=== PATIENT | female | born 1945 ===

== ENCOUNTER 2017-03-16 01:25 | Inpatient (IN) | payer MEDICARE, MEDICAID ==
[~2017-03-16] VITALS: Ht 161.3 cm; Wt 79.5 kg
[2017-03-16] MEDS ORDERED: BUDE10.2 IH (02:26)
[2017-03-16] MEDS ORDERED: ERGO500027 PO (02:26)
[2017-03-16] MEDS ORDERED: BUSP10TA PO (02:26)
[2017-03-16] MEDS ORDERED: TRAZ50TA15 PO (02:26)
[2017-03-16] MEDS ORDERED: MULT1TAB57 PO (02:26)
[2017-03-16] MEDS ORDERED: DULO30CA2 PO (02:26)
[2017-03-16] MEDS ORDERED: TIOT4MIS2 IH (02:26)
[2017-03-16] MEDS ORDERED: ACET500T68 PO ×2 (02:26)
[2017-03-16] MEDS ORDERED: LORA0.5T PO (02:26)
[2017-03-16] MEDS ORDERED: HYDR25TA9 PO (02:26)
[2017-03-16] MEDS ORDERED: MAGN400O7 PO (02:26)
[2017-03-16] MEDS ORDERED: FOLI1TAB16 PO (02:26)
[2017-03-16] MEDS ORDERED: BENZ0.5T PO (02:26)
[2017-03-16] MEDS ORDERED: ONDA4TAB7 PO (02:26)
[2017-03-16] MEDS ORDERED: CYAN10002 IM (02:26)
[2017-03-16] MEDS ORDERED: METHYL SALICYLATE/MENTHOL TOPICAL OINTMENT 29GM TUBE. TP PRN (04:00)
[2017-03-16] MEDS ORDERED: MAG HYDROX/AL HYDROX/SIMETH 30 ML ORAL.SUSP PO PRN (04:00)
[2017-03-16] MEDS ORDERED: MAGNESIUM HYDROXIDE 2,400 MG/30 ML ORAL.SUSP. PO PRN (04:00)
[2017-03-16] MEDS ORDERED: LORazepam 0.5 MG TABLET PO PRN (04:00)
[2017-03-16] MEDS ORDERED: ONDANSETRON ODT 4 MG TAB.RAPDIS PO PRN (04:30)
--- NOTE | 2017-03-16 06:14 | EKG ---
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
[2017-03-16 06:32] VITALS: BP 122/64
[2017-03-16] MEDS: BUDESONIDE 0.5 MG/2 ML NEBU NEB SCH ×2 (08:00→20:05)
[2017-03-16] MEDS: IPRATRPIUM/ALBUTEROL 0.5/2.5MG 3 ML NEBU. NEB SCH ×4 (08:00→20:05)
[2017-03-16 08:02] LABS: BASO % 1 % (0-3); EOS # 0.1 x10^3/uL (0.0-0.7); EOS % 1 % (0-3); HEMATOCRIT 41.6 % (36.0-47.0); HEMOGLOBIN 14.5 g/dL (12.0-15.5); LYMPH # 2.1 x10^3/uL (1.0-4.8); LYMPH % 35 % (24-48); MEAN CORPUSCULAR HEMOGLOBIN 31 pg (25-35); MEAN CORPUSCULAR HGB CONC 35 g/dL (31-37); MEAN CORPUSCULAR VOLUME 88 fL (79-100); MONO # 0.5 x10^3/uL (0.0-1.1); MONO % 8 % (0-9); NEUT # 3.3 x10^3uL (1.8-7.7); NEUT % 55 % (31-73); PLATELET COUNT 155 x10^3/uL (140-400); RED BLOOD COUNT 4.71 x10^6/uL (3.50-5.40); RED CELL DISTRIBUTION WIDTH 14.1 % (11.5-14.5)
[2017-03-16 08:14] LABS: ALBUMIN 3.4 g/dL (3.4-5.0); ALBUMIN/GLOBULIN RATIO 1.1 (1.0-1.7); CREATININE 0.7 mg/dL (0.6-1.0); MAGNESIUM 1.9 mg/dL (1.8-2.4); POTASSIUM 4.1 mmol/L (3.5-5.1); TOTAL BILIRUBIN 0.4 mg/dL (0.2-1.0); TOTAL PROTEIN 6.6 g/dL (6.4-8.2)
[2017-03-16] MEDS ORDERED: DULoxetine HCL 30 MG CAPSULE.DR PO SCH (09:00)
[2017-03-16] MEDS ORDERED: NON FORMULARY ITEM (Budesonide/Formoterol Fumarate (Symbicort 160-4.5 Mcg Inhaler) 2 PUFF) IH SCH (09:00)
[2017-03-16] MEDS ORDERED: NON FORMULARY ITEM (Tiotropium Bromide (Spiriva Respimat) 2.5 MCG) IH SCH (09:00)
[2017-03-16] MEDS: MULTIVITAMIN with MINERAL TABLET. PO SCH (10:16)
[2017-03-16] MEDS: BENZTROPINE MESYLATE 0.5 MG TABLET PO SCH ×2 (10:16→19:58)
[2017-03-16] MEDS: hydroCHLOROthiazide 25 MG TABLET PO SCH (10:16)
[2017-03-16] MEDS: NICOTINE 21MG PATCH. TD SCH (10:16)
[2017-03-16] MEDS: FOLIC ACID 1 MG TABLET PO SCH (10:16)
[2017-03-16] MEDS: busPIRone 10 MG TABLET. PO SCH ×3 (10:16→19:58)
[2017-03-16] MEDS: ACETAMINOPHEN 325 MG TABLET PO PRN (13:12)
[2017-03-16 14:14] LABS: BACTERIA,URINE 0 /HPF (0-FEW); BILIRUBIN,URINE NEG (NEG); CLARITY,URINE CLEAR; COLOR,URINE YELLOW; GLUCOSE,URINE NEG (NEG); NITRITE,URINE NEG (NEG); RBC,URINE 0 /HPF (0-2); UROBILINOGEN,URINE 0.2 mg/dL (0.2 mg/dL); WBC,URINE 0 /HPF (0-4)
[2017-03-16 14:15] LABS: SQUAMOUS EPITHELIAL CELL,UR OCC /LPF
[2017-03-16 14:26] LABS: THYROID STIM HORMONE (TSH) 2.207 uIU/mL (0.358-3.740)
[2017-03-16 16:12] VITALS: BP 167/82
[2017-03-16 16:41] VITALS: BP 154/80
[2017-03-16] MEDS: traZODone 50 MG TABLET. PO SCH (19:58)
[2017-03-16] MEDS: ACETAMINOPHEN 500 MG TABLET PO SCH (19:58)
[2017-03-16] MEDS: QUEtiapine 50 MG TABLET. PO SCH (19:58)
[2017-03-16 20:08] LABS: T3 TOTAL 105 ng/dL (71-180); THYROXINE 5.3 ug/dL (4.5-12.0)
--- NOTE | 2017-03-16 22:07 | PDOC ---
Exam Doug Demential Exam: Doug Note: Please also refer to the separate dictated note~for this date of service dictated separately.~Patient seen individually. Discussed the patient with Nursing staff reviewed the chart.~Reviewed interim history and current functioning. Reviewed vital signs,~Labs/ Radiology~and current medications noted below. Continue current treatment with the changes noted in the dictated addendum note Assessment: Vital Signs: Vital Signs Date Time Temp Pulse Resp B/P (MAP) Pulse Ox O2 Delivery O2 Flow Rate FiO2 03/16/17 20:08 Room Air 03/16/17 20:05 97 03/16/17 16:41 97.9 111 16 154/80 (104) 03/16/17 06:32 96.0 I&O Intake and Output 03/17/17 07:00 Intake Total 1080 ml Balance 1080 ml Intake Oral 1080 ml Labs: Laboratory Tests Test 03/16/17 07:05 03/16/17 13:34 White Blood Count 6.0 x10^3/uL (4.0-11.0) Red Blood Count 4.71 x10^6/uL (3.50-5.40) Hemoglobin 14.5 g/dL (12.0-15.5) Hematocrit 41.6 % (36.0-47.0) Mean Corpuscular Volume 88 fL (79-100) Mean Corpuscular Hemoglobin 31 pg (25-35) Mean Corpuscular Hemoglobin Concent 35 g/dL (31-37) Red Cell Distribution Width 14.1 % (11.5-14.5) Platelet Count 155 x10^3/uL (140-400) Neutrophils (%) (Auto) 55 % (31-73) Lymphocytes (%) (Auto) 35 % (24-48) Monocytes (%) (Auto) 8 % (0-9) Eosinophils (%) (Auto) 1 % (0-3) Basophils (%) (Auto) 1 % (0-3) Neutrophils # (Auto) 3.3 x10^3uL (1.8-7.7) Lymphocytes # (Auto) 2.1 x10^3/uL (1.0-4.8) Monocytes # (Auto) 0.5 x10^3/uL (0.0-1.1) Eosinophils # (Auto) 0.1 x10^3/uL (0.0-0.7) Basophils # (Auto) 0.0 x10^3/uL (0.0-0.2) Sodium Level 133 mmol/L (136-145) L Potassium Level 4.1 mmol/L (3.5-5.1) Chloride Level 98 mmol/L (98-107) Carbon Dioxide Level 30 mmol/L (21-32) Anion Gap 5 (6-14) L Blood Urea Nitrogen 16 mg/dL (7-20) Creatinine 0.7 mg/dL (0.6-1.0) Estimated GFR (Cockcroft-Gault) 83.0 BUN/Creatinine Ratio 23 (6-20) H Glucose Level 101 mg/dL (70-99) H Hemoglobin A1c 5.0 % (4.8-5.6) Calcium Level 9.0 mg/dL (8.5-10.1) Magnesium Level 1.9 mg/dL (1.8-2.4) Iron Level 63 ug/dL (50-170) Total Iron Binding Capacity 356 ug/dL (250-450) Iron Saturation 18 % (15-34) Total Bilirubin 0.4 mg/dL (0.2-1.0) Aspartate Amino Transferase (AST) 16 U/L (15-37) Alanine Aminotransferase (ALT) 23 U/L (14-59) Alkaline Phosphatase 56 U/L (46-116) Total Protein 6.6 g/dL (6.4-8.2) Albumin 3.4 g/dL (3.4-5.0) Albumin/Globulin Ratio 1.1 (1.0-1.7) Triglycerides Level 278 mg/dL (0-150) H Cholesterol Level 206 mg/dL (0-200) H LDL Cholesterol, Calculated 113 mg/dL (0-100) H VLDL Cholesterol, Calculated 55 mg/dL (0-40) H Non-HDL Cholesterol Calculated 168 mg/dL (0-129) H HDL Cholesterol 38 mg/dL (40-60) L Cholesterol/HDL Ratio 5.0 Vitamin B12 Level 657 pg/mL (247-911) 25-Hydroxy Vitamin D Total Pending Thyroid Stimulating Hormone (TSH) 2.207 uIU/mL (0.358-3.740) Thyroxine (T4) 5.3 ug/dL (4.5-12.0) Total Triiodothyronine (TT3) 105 ng/dL (71-180) RPR Titer Additional Testing Pending Urine Collection Type Void Urine Color Yellow Urine Clarity Clear Urine pH 6.0 Urine Specific [place] 1.015 Urine Protein Neg (NEG-TRACE) Urine Glucose (UA) Neg mg/dL (NEG) Urine Ketones (Stick) Neg mg/dL (NEG) Urine Blood Neg (NEG) Urine Nitrite Neg (NEG) Urine Bilirubin Neg (NEG) Urine Urobilinogen Dipstick 0.2 mg/dL (0.2 mg/dL) Urine Leukocyte Esterase Neg (NEG) Urine RBC 0 /HPF (0-2) Urine WBC 0 /HPF (0-4) Urine Squamous Epithelial Cells Occ /LPF Urine Bacteria 0 /HPF (0-FEW) Current Medications: Meds: Current Medications Acetaminophen (Tylenol) 650 mg PRN Q6HRS PRN PO MILD PAIN / TEMP Last administered on 03/16/17 13:12; Start 03/16/17 at 04:00 Multi-Ingredient Ointment (Analgesic [place]) 1 markus PRN QID PRN TP MUSCLE PAIN; Start 03/16/17 at 04:00 Al Hydroxide/Mg Hydroxide (Mylanta Plus Xs) 15 ml PRN AFTMEALHC PRN PO DYSPEPSIA; Start 03/16/17 at 04:00 Magnesium Hydroxide (Milk Of Magnesia) 2,400 mg PRN QHS PRN PO CONSTIPATION; Start 03/16/17 at 04:00 Nicotine (Nicoderm Cq 21mg) 1 patch DAILY TD Last administered on 03/16/17 10: 16; Start 03/16/17 at 09:00 Benztropine Mesylate (Cogentin) 0.5 mg BID PO Last administered on 03/16/17 19 :58; Start 03/16/17 at 09:00 Buspirone HCl (Buspar) 10 mg TID PO Last administered on 03/16/17 19:58; Start 03/16/17 at 09:00 Duloxetine HCl (Cymbalta) 30 mg BID PO Last administered on 03/16/17 10:16; Start 03/16/17 at 09:00; Stop 03/16/17 at 18:42; Status DC Lorazepam (Ativan) 0.5 mg PRN Q6HRS PRN PO ANXIETY / AGITATION; Start 03/16/17 at 04:00 Trazodone HCl (Desyrel) 50 mg QHS PO Last administered on 03/16/17 19:58; Start 03/16/17 at 21:00 Acetaminophen (Tylenol) 1,000 mg QHS PO Last administered on 03/16/17 19:58; Start 03/16/17 at 21:00 Cyanocobalamin (Vitamin B-12) 1,000 mcg QMONTH IM ; Start 04/07/17 at 09:00 Folic Acid (Folic Acid) 1 mg DAILY PO Last administered on 03/16/17 10:16; Start 03/16/17 at 09:00 Hydrochlorothiazide (Hydrodiuril) 25 mg DAILY PO Last administered on 10:16; Start 03/16/17 at 09:00 Non-Formulary Medication 2 puff BID IH ; Start 03/16/17 at 09:00; Status UNV Vitamin D (Vitamin D3) 50,000 unit WEEKLY PO ; Start 03/21/17 at 09:00 Multivitamins/ Calcium (Thera-M Plus) 1 tab DAILY PO Last administered on 10:16; Start 03/16/17 at 09:00 Ondansetron HCl (Zofran Odt) 4 mg PRN Q8HRS PRN PO NAUSEA/VOMITING; Start 03/16 at 04:30 Non-Formulary Medication 2.5 mcg DAILY IH ; Start 03/16/17 at 09:00; Status UNV Albuterol/ Ipratropium (Duoneb) 3 ml RTQID NEB Last administered on 03/16/17 20:05; Start 03/16/17 at 08:00 Budesonide (Pulmicort) 0.5 mg RTBID NEB Last administered on 03/16/17 20:05; Start 03/16/17 at 08:00 Duloxetine HCl (Cymbalta) 60 mg DAILY PO ; Start 03/17/17 at 09:00 Quetiapine Fumarate (SEROquel) 50 mg QHS PO Last administered on 03/16/17 19: 58; Start 03/16/17 at 21:00 Active Scripts Active Reported Cyanocobalamin Injection (Cyanocobalamin (Vitamin B-12)) 1,000 Mcg/1 Ml Vial 1, 000 Mcg IM QMONTH Trazodone Hcl 50 Mg Tablet 50 Mg PO QHS Buspirone Hcl 10 Mg Tablet 10 Mg PO TID Acetaminophen 500 Mg Tablet 1,000 Mg PO QHS Therems-M (Multivits, W-Fe,Other Min) 1 Each Tablet 1 Tab PO BID Symbicort 160-4.5 Mcg Inhaler (Budesonide/Formoterol Fumarate) 10.2 Gm Hfa.aer.ad 2 Puff IH BID Cymbalta (Duloxetine Hcl) 30 Mg Capsule.dr 30 Mg PO BID Benztropine Mesylate 0.5 Mg Tablet 0.5 Mg PO BID Zofran (Ondansetron Hcl) 4 Mg Tablet 4 Mg PO PRN Q8HRS PRN Milk Of Magnesia (Magnesium Hydroxide) 400 Mg/5 Ml Oral.susp 2,400 Mg PO PRN DAILY PRN Lorazepam 0.5 Mg Tablet 0.5 Mg PO PRN Q6HRS PRN Acetaminophen 500 Mg Tablet 1,000 Mg PO PRN Q6HRS PRN Vitamin D2 (Ergocalciferol (Vitamin D2)) 50,000 Unit Capsule 50,000 Unit PO QWE Hydrochlorothiazide Tablet (Hydrochlorothiazide) 25 Mg Tablet 25 Mg PO DAILY Folic Acid 1 Mg Tablet 1 Mg PO DAILY Spiriva Respimat (Tiotropium [place]) 4 Gm Mist.inhal 2.5 Mcg IH DAILY BERNABE DAVID MD Mar 16, 2017 22:07
[2017-03-17] MEDS: IPRATRPIUM/ALBUTEROL 0.5/2.5MG 3 ML NEBU. NEB SCH ×4 (05:13→20:03)
[2017-03-17 06:00] VITALS: BP 136/69
--- NOTE | 2017-03-17 07:31 | CONS ---
DATE OF CONSULTATION: 03/16/2017 REASON FOR CONSULTATION: Medical management. HISTORY OF PRESENT ILLNESS: The patient is a 71-year-old female patient, a resident at Assisted Living facility in [place], [place], who apparently has become increasingly agitated. The half-way records suggest it might have been associated with some nicotine withdrawal. She had confrontation with it senior analyst of the facility that she resides at and reportedly stated that if she had a gun she would use it. She also said that is life is not worth living and that she wishes she would . She does not voice the plan for suicide. She does not have a gun. She denies having access to one. She apparently hates the it senior analyst where she lives. She feels like she gets along well with others that have lived there. She was sent to the [facility] for evaluation at her primary care physician's request and from there, she apparently was found wandering, has been depressed and angry, but not eating or sleeping and from there, she was [facility] psychiatric stabilization. PAST MEDICAL HISTORY: Significant for chronic obstructive pulmonary disease as well as hypertension. PAST PSYCHIATRIC HISTORY: Significant for depression, bipolar disorder, generalized anxiety; however, no history of self injury or suicidal attempt before. PAST SURGICAL HISTORY: Significant for appendectomy, cholecystectomy and hysterectomy. ALLERGIES: She is allergic to CODEINE AND LISINOPRIL. MEDICATIONS: She is currently on acetaminophen 1000 mg every 6 hours, benztropine 0.5 mg twice a day, Symbicort 160/4.5 mcg inhaler 2 puffs twice a day, buspirone 10 mg 3 times a day, cyanocobalamin 1000 mcg/mL intramuscular every month, fluoxetine 30 mg twice a day, vitamin D2 50,000 international units once a week, folic acid 1 mg once a day, hydrochlorothiazide 25 mg once a day, lorazepam 0.5 mg every 6 hours, magnesium hydroxide for milk of magnesia 30 mL p.o. daily p.r.n. for constipation, multivitamin 1 tablet twice a day, ondansetron 4 mg every 8 hours, Spiriva HandiHaler one inhalation once a day and trazodone 50 mg at bedtime. FAMILY HISTORY: Unremarkable. SOCIAL HISTORY: She is a resident at an assisted living facility in [place], [place]. She continues to be a heavy smoker, smokes about a pack a day, history of drug abuse in the past, mostly marijuana. 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 REVIEW OF SYSTEMS: As per history of present illness. PHYSICAL EXAMINATION GENERAL: When I examined her, she was sitting on the edge of the bed comfortably in no apparent respiratory distress, pale, but no jaundice, cyanosis or thyromegaly. No jugular venous distension. No limb edema. VITAL SIGNS: Her heart rate was 71, blood pressure 122/64, temperature was 98.3, respiratory rate 20 and oxygen saturation was 96%. HEAD, EYES, EARS, NOSE AND THROAT: Showed normocephalic, atraumatic. NECK: Supple. HEART: Showed normal first and second heart sounds with no gallop, rub or murmur. CHEST: Clear to auscultation. No wheezes or rhonchi. ABDOMEN: Distended, soft, nontender. NEUROLOGIC: She was awake, alert, responding appropriately. Cranial nerves intact. EXTREMITIES: She moves extremities without difficulty. She ambulates without assistance or assistive devices. LABORATORY DATA: Showed a white cell count of 6000, hemoglobin 14, hematocrit 42, MCV 88 and platelet count of 155,000. Her chemistry showed a serum sodium of 133, potassium 4.1, chloride 98, bicarbonate 30, anion gap of 5, BUN 16, creatinine 0.7, estimated GFR was 83 mL per minute. Her glucose was 101. Calcium was 9. Magnesium 1.9. Total bilirubin, AST, ALT, alkaline phosphatase were normal. Total protein 6.6. Albumin 3.4. IMPRESSION: In summary, this is a 71-year-old female patient, who basically became extremely angry trocars across the dining room, became homicidal and suicidal, stating that she had a gun, I would shoot you then myself to the it senior analyst of the assisted living. She is here for inpatient psychiatric stabilization. Her vital signs are stable. Her lab works are all within acceptable range and her medications are appropriate. So all in all, the patient seems to be medically stable. Some labs are still pending at the time of this dictation including her vitamin D and thyroid function, vitamin B12. I will obviously review all of these pending labs and make any necessary recommendation. Thank you, Dr. Marie for allowing me to participate in the care of this patient. JULIETA HENSLEY MD DR: Nico JOB#: [id number] / [id number]
[2017-03-17] MEDS: DULoxetine HCL 60 MG CAPSULE.DR PO SCH (09:00)
[2017-03-17] MEDS: NICOTINE 21MG PATCH. TD SCH (09:52)
[2017-03-17] MEDS: BENZTROPINE MESYLATE 0.5 MG TABLET PO SCH ×2 (09:53→19:29)
[2017-03-17] MEDS: FOLIC ACID 1 MG TABLET PO SCH (09:53)
[2017-03-17] MEDS: busPIRone 10 MG TABLET. PO SCH ×3 (09:53→19:30)
[2017-03-17] MEDS: MULTIVITAMIN with MINERAL TABLET. PO SCH (09:53)
[2017-03-17] MEDS: hydroCHLOROthiazide 25 MG TABLET PO SCH (09:53)
--- NOTE | 2017-03-17 11:03 | HP ---
ADMIT DATE: 03/16/2017 PSYCHIATRIC ADMISSION HISTORY/EVALUATION This is a late entry date of service 03/16/2017 covers elements not covered in my initial note of 03/16/2017. I had previously discussed the patient with nursing staff on 2 or 3 occasions, reviewed her admission information from [facility] where she presented from the assisted living on account of worsening anger, psychosis, suicidal and homicidal ideation "if I had a gun, I would shoot you then myself." She made the statement to the tractor trailer mechanic of the assisted living. She had been angry during bingo, threw her cards across the dining room and then made the above threats, known redirectable. This is within the context of her bipolar disorder and failure for outpatient psychiatric interventions. CHIEF COMPLAINT: "Yes, I said that." HISTORY OF PRESENT ILLNESS: The patient has a history of worsening symptoms of depression, feeling hopeless, helpless, worthless, angry, irritable. She has had sleep and appetite changes, significant mood swings and a prior diagnosis of possible bipolar disorder though she denies this. She has been sad about the loss of her 1 biological child. Cognitively, she has been reasonably intact other than some short term memory deficits. PAST PSYCHIATRIC HISTORY: Positive for depression, bipolar disorder. MEDICAL HISTORY: COPD, hypertension. The patient referred initially by her primary care physician, Dr. May Lopez. CURRENT PSYCHOTROPICS: Cogentin 0.5 mg b.i.d., Cymbalta 30 mg a day, BuSpar 10 mg 3 times a day, trazodone 50 mg at bedtime, Ativan 0.5 mg q. 6 hours p.r.n. anxiety. DRUG ALLERGIES: LISINOPRIL, CODEINE. CODE STATUS: DNR. DIET: Regular. Takes medications , ambulates independently, UA 03/16/2017 was negative. FAMILY HISTORY: Noncontributory. SOCIAL HISTORY: No alcohol or drug abuse history. No physical, sexual, or elder abuse history. She is not known to be a perpetrator. The patient's only living child is her daughter and the patient had great difficulty in her relationship with the daughter. MENTAL STATUS EXAM: The patient was seen individually evening of 03/16/2017. She is reasonably oriented, became extremely tearful, emotional, labile talking about the loss of her biological child. Speech is coherent. Mood is depressed. She is still angry at the tractor trailer mechanic of the assisted living, but no active suicidal or homicidal ideation. Abstraction fair. Computation impaired. Memory is impaired. Intellect average. Insight somewhat limited, judgment marginal. REVIEW OF SYSTEMS: No CV, , eye, ENT or pulmonary system symptoms on review. IMPRESSION: Major depressive disorder, recurrent with psychotic features; probable bipolar 1 disorder, mixed versus depressed with psychotic features; anxiety disorder, unspecified; impulse control disorder, unspecified, cognitive disorder, unspecified. Rest as above. PLAN: Admit to the geropsychiatry unit at [facility]. I will see the patient daily individually from a psychiatric standpoint. Medical followup with Dr. Guzman/Dr. Reyes. Continue the patient on her current psychotropics, change the Cymbalta 30 mg twice a day to 60 mg a day. Start Seroquel 50 mg at bedtime to help with the mood lability, especially given her history of bipolar disorder and Cymbalta. Continue BuSpar 10 mg 3 times a day, Cogentin 0.5 mg b.i.d. and we will have to discern why she is on the Cogentin. Continue trazodone 50 mg at bedtime, Ativan 0.5 mg q. 6 hours p.r.n. anxiety. The patient will probably need a new placement per social service assessment. BERNABE DAVID MD DR: SHAQUILLE/ros JOB#: [id number] / [id number]
[2017-03-17] MEDS: BUDESONIDE 0.5 MG/2 ML NEBU NEB SCH ×2 (11:18→20:03)
[2017-03-17] MEDS: ACETAMINOPHEN 325 MG TABLET PO PRN (12:51)
[2017-03-17 16:38] VITALS: BP 145/83
[2017-03-17] MEDS: ACETAMINOPHEN 500 MG TABLET PO SCH (19:30)
[2017-03-17] MEDS: QUEtiapine 50 MG TABLET. PO SCH (19:30)
[2017-03-17] MEDS: traZODone 50 MG TABLET. PO SCH (19:30)
--- NOTE | 2017-03-17 22:57 | PDOC ---
Exam Doug Demential Exam: Doug Note: Please also refer to the separate dictated note~for this date of service dictated separately.~Patient seen individually. Discussed the patient with Nursing staff reviewed the chart.~Reviewed interim history and current functioning. Reviewed vital signs,~Labs/ Radiology~and current medications noted below. Continue current treatment with the changes noted in the dictated addendum note Assessment: Vital Signs: Vital Signs Date Time Temp Pulse Resp B/P (MAP) Pulse Ox O2 Delivery O2 Flow Rate FiO2 03/17/17 20:08 Room Air 03/17/17 20:05 94 03/17/17 16:38 98.5 78 19 145/83 (103) 03/16/17 06:32 96.0 I&O Intake and Output 03/18/17 07:00 Intake Total 1200 ml Balance 1200 ml Intake Oral 1200 ml Current Medications: Meds: Current Medications Acetaminophen (Tylenol) 650 mg PRN Q6HRS PRN PO MILD PAIN / TEMP Last administered on 03/17/17 12:51; Start 03/16/17 at 04:00 Multi-Ingredient Ointment (Analgesic [place]) 1 markus PRN QID PRN TP MUSCLE PAIN; Start 03/16/17 at 04:00 Al Hydroxide/Mg Hydroxide (Mylanta Plus Xs) 15 ml PRN AFTMEALHC PRN PO DYSPEPSIA; Start 03/16/17 at 04:00 Magnesium Hydroxide (Milk Of Magnesia) 2,400 mg PRN QHS PRN PO CONSTIPATION; Start 03/16/17 at 04:00 Nicotine (Nicoderm Cq 21mg) 1 patch DAILY TD Last administered on 03/17/17 09: 52; Start 03/16/17 at 09:00 Benztropine Mesylate (Cogentin) 0.5 mg BID PO Last administered on 03/17/17 19 :29; Start 03/16/17 at 09:00 Buspirone HCl (Buspar) 10 mg TID PO Last administered on 03/17/17 19:30; Start 03/16/17 at 09:00 Duloxetine HCl (Cymbalta) 30 mg BID PO Last administered on 03/16/17 10:16; Start 03/16/17 at 09:00; Stop 03/16/17 at 18:42; Status DC Lorazepam (Ativan) 0.5 mg PRN Q6HRS PRN PO ANXIETY / AGITATION; Start 03/16/17 at 04:00 Trazodone HCl (Desyrel) 50 mg QHS PO Last administered on 03/17/17 19:30; Start 03/16/17 at 21:00 Acetaminophen (Tylenol) 1,000 mg QHS PO Last administered on 03/17/17 19:30; Start 03/16/17 at 21:00 Cyanocobalamin (Vitamin B-12) 1,000 mcg QMONTH IM ; Start 04/07/17 at 09:00 Folic Acid (Folic Acid) 1 mg DAILY PO Last administered on 03/17/17 09:53; Start 03/16/17 at 09:00 Hydrochlorothiazide (Hydrodiuril) 25 mg DAILY PO Last administered on 09:53; Start 03/16/17 at 09:00 Non-Formulary Medication 2 puff BID IH ; Start 03/16/17 at 09:00; Status UNV Vitamin D (Vitamin D3) 50,000 unit WEEKLY PO ; Start 03/21/17 at 09:00 Multivitamins/ Calcium (Thera-M Plus) 1 tab DAILY PO Last administered on 09:53; Start 03/16/17 at 09:00 Ondansetron HCl (Zofran Odt) 4 mg PRN Q8HRS PRN PO NAUSEA/VOMITING; Start 03/16 at 04:30 Non-Formulary Medication 2.5 mcg DAILY IH ; Start 03/16/17 at 09:00; Status UNV Albuterol/ Ipratropium (Duoneb) 3 ml RTQID NEB Last administered on 03/17/17 20:03; Start 03/16/17 at 08:00 Budesonide (Pulmicort) 0.5 mg RTBID NEB Last administered on 03/17/17 20:03; Start 03/16/17 at 08:00 Duloxetine HCl (Cymbalta) 60 mg DAILY PO Last administered on 03/17/17 09:00; Start 03/17/17 at 09:00 Quetiapine Fumarate (SEROquel) 50 mg QHS PO Last administered on 03/17/17 19: 30; Start 9/29/17 at 21:00 Active Scripts Active Reported Cyanocobalamin Injection (Cyanocobalamin (Vitamin B-12)) 1,000 Mcg/1 Ml Vial 1, 000 Mcg IM QMONTH Trazodone Hcl 50 Mg Tablet 50 Mg PO QHS Buspirone Hcl 10 Mg Tablet 10 Mg PO TID Acetaminophen 500 Mg Tablet 1,000 Mg PO QHS Therems-M (Multivits,Th W-Fe,Other Min) 1 Each Tablet 1 Tab PO BID Symbicort 160-4.5 Mcg Inhaler (Budesonide/Formoterol Fumarate) 10.2 Gm Hfa.aer.ad 2 Puff IH BID Cymbalta (Duloxetine Hcl) 30 Mg Capsule.dr 30 Mg PO BID Benztropine Mesylate 0.5 Mg Tablet 0.5 Mg PO BID Zofran (Ondansetron Hcl) 4 Mg Tablet 4 Mg PO PRN Q8HRS PRN Milk Of Magnesia (Magnesium Hydroxide) 400 Mg/5 Ml Oral.susp 2,400 Mg PO PRN DAILY PRN Lorazepam 0.5 Mg Tablet 0.5 Mg PO PRN Q6HRS PRN Acetaminophen 500 Mg Tablet 1,000 Mg PO PRN Q6HRS PRN Vitamin D2 (Ergocalciferol (Vitamin D2)) 50,000 Unit Capsule 50,000 Unit PO QWE Hydrochlorothiazide Tablet (Hydrochlorothiazide) 25 Mg Tablet 25 Mg PO DAILY Folic Acid 1 Mg Tablet 1 Mg PO DAILY Spiriva Respimat (Tiotropium [place]) 4 Gm Mist.inhal 2.5 Mcg IH DAILY BERNABE DAVID MD Mar 17, 2017 22:57
[2017-03-18] MEDS: IPRATRPIUM/ALBUTEROL 0.5/2.5MG 3 ML NEBU. NEB SCH ×4 (05:10→20:07)
[2017-03-18 05:56] VITALS: BP 136/96
[2017-03-18] MEDS: FOLIC ACID 1 MG TABLET PO SCH (07:53)
[2017-03-18] MEDS: BENZTROPINE MESYLATE 0.5 MG TABLET PO SCH (07:53)
[2017-03-18] MEDS: busPIRone 10 MG TABLET. PO SCH ×3 (07:53→19:31)
[2017-03-18] MEDS: NICOTINE 21MG PATCH. TD SCH (07:59)
[2017-03-18] MEDS: hydroCHLOROthiazide 25 MG TABLET PO SCH (07:59)
[2017-03-18] MEDS: MULTIVITAMIN with MINERAL TABLET. PO SCH (07:59)
[2017-03-18] MEDS: DULoxetine HCL 60 MG CAPSULE.DR PO SCH (07:59)
[2017-03-18] MEDS: BUDESONIDE 0.5 MG/2 ML NEBU NEB SCH ×2 (11:24→20:07)
[2017-03-18] MEDS: ACETAMINOPHEN 325 MG TABLET PO PRN ×2 (13:41→16:06)
[2017-03-18 16:32] VITALS: BP 181/79
[2017-03-18] MEDS: QUEtiapine 50 MG TABLET. PO SCH (19:31)
[2017-03-18] MEDS: ACETAMINOPHEN 500 MG TABLET PO SCH (19:31)
[2017-03-18] MEDS: traZODone 50 MG TABLET. PO SCH (19:31)
[2017-03-18] MEDS: DIVALPROEX ER 500 MG TAB.ER.24H PO SCH (19:32)
--- NOTE | 2017-03-18 21:05 | PDOC ---
Exam Doug Demential Exam: Doug Note: Please also refer to the separate dictated note~for this date of service dictated separately.~Patient seen individually. Discussed the patient with Nursing staff reviewed the chart.~Reviewed interim history and current functioning. Reviewed vital signs,~Labs/ Radiology~and current medications noted below. Continue current treatment with the changes noted in the dictated addendum note Assessment: Vital Signs: Vital Signs Date Time Temp Pulse Resp B/P (MAP) Pulse Ox O2 Delivery O2 Flow Rate FiO2 03/18/17 20:13 Room Air 03/18/17 20:10 96 03/18/17 16:32 97.6 76 18 181/79 (113) 03/16/17 06:32 96.0 I&O Intake and Output 03/19/17 07:00 Intake Total 1200 ml Balance 1200 ml Intake Oral 1200 ml Current Medications: Meds: Current Medications Acetaminophen (Tylenol) 650 mg PRN Q6HRS PRN PO MILD PAIN / TEMP Last administered on 03/18/17 16:06; Start 03/16/17 at 04:00 Multi-Ingredient Ointment (Analgesic [place]) 1 markus PRN QID PRN TP MUSCLE PAIN; Start 03/16/17 at 04:00 Al Hydroxide/Mg Hydroxide (Mylanta Plus Xs) 15 ml PRN AFTMEALHC PRN PO DYSPEPSIA; Start 03/16/17 at 04:00 Magnesium Hydroxide (Milk Of Magnesia) 2,400 mg PRN QHS PRN PO CONSTIPATION; Start 03/16/17 at 04:00 Nicotine (Nicoderm Cq 21mg) 1 patch DAILY TD Last administered on 03/18/17 07: 59; Start 03/16/17 at 09:00 Benztropine Mesylate (Cogentin) 0.5 mg BID PO Last administered on 03/18/17 07 :53; Start 03/16/17 at 09:00; Stop 03/18/17 at 16:56; Status DC Buspirone HCl (Buspar) 10 mg TID PO Last administered on 03/18/17 19:31; Start 03/16/17 at 09:00 Duloxetine HCl (Cymbalta) 30 mg BID PO Last administered on 03/16/17 10:16; Start 03/16/17 at 09:00; Stop 03/16/17 at 18:42; Status DC Lorazepam (Ativan) 0.5 mg PRN Q6HRS PRN PO ANXIETY / AGITATION; Start 03/16/17 at 04:00 Trazodone HCl (Desyrel) 50 mg QHS PO Last administered on 03/18/17 19:31; Start 03/16/17 at 21:00 Acetaminophen (Tylenol) 1,000 mg QHS PO Last administered on 03/18/17 19:31; Start 03/16/17 at 21:00 Cyanocobalamin (Vitamin B-12) 1,000 mcg QMONTH IM ; Start 04/07/17 at 09:00 Folic Acid (Folic Acid) 1 mg DAILY PO Last administered on 03/18/17 07:53; Start 03/16/17 at 09:00 Hydrochlorothiazide (Hydrodiuril) 25 mg DAILY PO Last administered on 07:59; Start 03/16/17 at 09:00 Non-Formulary Medication 2 puff BID IH ; Start 03/16/17 at 09:00; Status UNV Vitamin D (Vitamin D3) 50,000 unit WEEKLY PO ; Start 03/21/17 at 09:00 Multivitamins/ Calcium (Thera-M Plus) 1 tab DAILY PO Last administered on 07:59; Start 03/16/17 at 09:00 Ondansetron HCl (Zofran Odt) 4 mg PRN Q8HRS PRN PO NAUSEA/VOMITING; Start 03/16 at 04:30 Non-Formulary Medication 2.5 mcg DAILY IH ; Start 03/16/17 at 09:00; Status UNV Albuterol/ Ipratropium (Duoneb) 3 ml RTQID NEB Last administered on 03/18/17 20:07; Start 03/16/17 at 08:00 Budesonide (Pulmicort) 0.5 mg RTBID NEB Last administered on 03/18/17 20:07; Start 03/16/17 at 08:00 Duloxetine HCl (Cymbalta) 60 mg DAILY PO Last administered on 03/18/17 07:59; Start 03/17/17 at 09:00 Quetiapine Fumarate (SEROquel) 50 mg QHS PO Last administered on 03/18/17 19: 31; Start 03/16/17 at 21:00 Benztropine Mesylate (Cogentin) 0.5 mg DAILY PO ; Start 03/19/17 at 09:00; Stop 03/21/17 at 15:00 Divalproex Sodium (Depakote Er) 500 mg QHS PO Last administered on 03/18/17 19 :32; Start 03/18/17 at 21:00 Active Scripts Active Reported Cyanocobalamin Injection (Cyanocobalamin (Vitamin B-12)) 1,000 Mcg/1 Ml Vial 1, 000 Mcg IM QMONTH Trazodone Hcl 50 Mg Tablet 50 Mg PO QHS Buspirone Hcl 10 Mg Tablet 10 Mg PO TID Acetaminophen 500 Mg Tablet 1,000 Mg PO QHS Therems-M (Multivits, W-Fe,Other Min) 1 Each Tablet 1 Tab PO BID Symbicort 160-4.5 Mcg Inhaler (Budesonide/Formoterol Fumarate) 10.2 Gm Hfa.aer.ad 2 Puff IH BID Cymbalta (Duloxetine Hcl) 30 Mg Capsule.dr 30 Mg PO BID Benztropine Mesylate 0.5 Mg Tablet 0.5 Mg PO BID Zofran (Ondansetron Hcl) 4 Mg Tablet 4 Mg PO PRN Q8HRS PRN Milk Of Magnesia (Magnesium Hydroxide) 400 Mg/5 Ml Oral.susp 2,400 Mg PO PRN DAILY PRN Lorazepam 0.5 Mg Tablet 0.5 Mg PO PRN Q6HRS PRN Acetaminophen 500 Mg Tablet 1,000 Mg PO PRN Q6HRS PRN Vitamin D2 (Ergocalciferol (Vitamin D2)) 50,000 Unit Capsule 50,000 Unit PO QWE Hydrochlorothiazide Tablet (Hydrochlorothiazide) 25 Mg Tablet 25 Mg PO DAILY Folic Acid 1 Mg Tablet 1 Mg PO DAILY Spiriva Respimat (Tiotropium [place]) 4 Gm Mist.inhal 2.5 Mcg IH DAILY Diagnosis: Problems: (1) Anxiety disorder (2) Bipolar 1 disorder, manic, moderate (3) Bipolar 1 disorder, mixed, moderate (4) Dementia associated with alcoholism with behavioral disturbance (5) Impulse control disorder (6) Mild cognitive disorder BERNABE DAVID MD Mar 18, 2017 21:05
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
[2017-03-19] MEDS: IPRATRPIUM/ALBUTEROL 0.5/2.5MG 3 ML NEBU. NEB SCH ×4 (05:37→19:41)
[2017-03-19 05:42] VITALS: BP 97/58
[2017-03-19] MEDS: NICOTINE 21MG PATCH. TD SCH (09:21)
[2017-03-19] MEDS: DULoxetine HCL 60 MG CAPSULE.DR PO SCH (09:21)
[2017-03-19] MEDS: FOLIC ACID 1 MG TABLET PO SCH (09:21)
[2017-03-19] MEDS: busPIRone 10 MG TABLET. PO SCH ×3 (09:21→19:55)
[2017-03-19] MEDS: hydroCHLOROthiazide 25 MG TABLET PO SCH (09:21)
[2017-03-19] MEDS: MULTIVITAMIN with MINERAL TABLET. PO SCH (09:21)
[2017-03-19] MEDS: BENZTROPINE MESYLATE 0.5 MG TABLET PO SCH (09:22)
[2017-03-19] MEDS: BUDESONIDE 0.5 MG/2 ML NEBU NEB SCH ×2 (10:23→19:41)
[2017-03-19] MEDS: ACETAMINOPHEN 325 MG TABLET PO PRN ×2 (11:41→18:14)
[2017-03-19 16:45] VITALS: BP 143/77
[2017-03-19] MEDS: ATORVASTATIN CALCIUM 20 MG TABLET PO SCH (19:55)
[2017-03-19] MEDS: ACETAMINOPHEN 500 MG TABLET PO SCH (19:55)
[2017-03-19] MEDS: DIVALPROEX ER 500 MG TAB.ER.24H PO SCH (19:56)
[2017-03-19] MEDS: traZODone 50 MG TABLET. PO SCH (19:56)
[2017-03-19] MEDS: QUEtiapine 50 MG TABLET. PO SCH (19:56)
--- NOTE | 2017-03-19 20:57 | PDOC ---
Exam Doug Demential Exam: Doug Note: Please also refer to the separate dictated note~for this date of service dictated separately.~Patient seen individually. Discussed the patient with Nursing staff reviewed the chart.~Reviewed interim history and current functioning. Reviewed vital signs,~Labs/ Radiology~and current medications noted below. Continue current treatment with the changes noted in the dictated addendum note Assessment: Vital Signs: Vital Signs Date Time Temp Pulse Resp B/P (MAP) Pulse Ox O2 Delivery O2 Flow Rate FiO2 03/19/17 19:41 95 Room Air 03/19/17 16:45 98.2 77 18 143/77 (99) 03/16/17 06:32 96.0 I&O Intake and Output 03/20/17 07:00 Intake Total 1080 ml Balance 1080 ml Intake Oral 1080 ml Current Medications: Meds: Current Medications Acetaminophen (Tylenol) 650 mg PRN Q6HRS PRN PO MILD PAIN / TEMP Last administered on 03/19/17 18:14; Start 03/16/17 at 04:00 Multi-Ingredient Ointment (Analgesic [place]) 1 markus PRN QID PRN TP MUSCLE PAIN; Start 03/16/17 at 04:00 Al Hydroxide/Mg Hydroxide (Mylanta Plus Xs) 15 ml PRN AFTMEALHC PRN PO DYSPEPSIA; Start 03/16/17 at 04:00 Magnesium Hydroxide (Milk Of Magnesia) 2,400 mg PRN QHS PRN PO CONSTIPATION; Start 03/16/17 at 04:00 Nicotine (Nicoderm Cq 21mg) 1 patch DAILY TD Last administered on 03/19/17 09: 21; Start 03/16/17 at 09:00 Benztropine Mesylate (Cogentin) 0.5 mg BID PO Last administered on 03/18/17 07 :53; Start 03/16/17 at 09:00; Stop 03/18/17 at 16:56; Status DC Buspirone HCl (Buspar) 10 mg TID PO Last administered on 03/19/17 19:55; Start 03/16/17 at 09:00 Duloxetine HCl (Cymbalta) 30 mg BID PO Last administered on 03/16/17 10:16; Start 03/16/17 at 09:00; Stop 03/16/17 at 18:42; Status DC Lorazepam (Ativan) 0.5 mg PRN Q6HRS PRN PO ANXIETY / AGITATION; Start 03/16/17 at 04:00 Trazodone HCl (Desyrel) 50 mg QHS PO Last administered on 03/19/17 19:56; Start 03/16/17 at 21:00 Acetaminophen (Tylenol) 1,000 mg QHS PO Last administered on 03/19/17 19:55; Start 03/16/17 at 21:00 Cyanocobalamin (Vitamin B-12) 1,000 mcg QMONTH IM ; Start 04/07/17 at 09:00 Folic Acid (Folic Acid) 1 mg DAILY PO Last administered on 03/19/17 09:21; Start 03/16/17 at 09:00 Hydrochlorothiazide (Hydrodiuril) 25 mg DAILY PO Last administered on 09:21; Start 03/16/17 at 09:00 Non-Formulary Medication 2 puff BID IH ; Start 03/16/17 at 09:00; Status UNV Vitamin D (Vitamin D3) 50,000 unit WEEKLY PO ; Start 03/21/17 at 09:00 Multivitamins/ Calcium (Thera-M Plus) 1 tab DAILY PO Last administered on 09:21; Start 03/16/17 at 09:00 Ondansetron HCl (Zofran Odt) 4 mg PRN Q8HRS PRN PO NAUSEA/VOMITING; Start 03/16 at 04:30 Non-Formulary Medication 2.5 mcg DAILY IH ; Start 03/16/17 at 09:00; Status UNV Albuterol/ Ipratropium (Duoneb) 3 ml RTQID NEB Last administered on 03/19/17 19:41; Start 03/16/17 at 08:00 Budesonide (Pulmicort) 0.5 mg RTBID NEB Last administered on 03/19/17 19:41; Start 03/16/17 at 08:00 Duloxetine HCl (Cymbalta) 60 mg DAILY PO Last administered on 03/19/17 09:21; Start 03/17/17 at 09:00 Quetiapine Fumarate (SEROquel) 50 mg QHS PO Last administered on 03/19/17 19: 56; Start 03/16/17 at 21:00 Benztropine Mesylate (Cogentin) 0.5 mg DAILY PO Last administered on 03/19/17 09:22; Start 03/19/17 at 09:00; Stop 03/21/17 at 15:00 Divalproex Sodium (Depakote Er) 500 mg QHS PO Last administered on 03/19/17 19 :56; Start 03/18/17 at 21:00 Atorvastatin Calcium (Lipitor) 20 mg QHS PO Last administered on 03/19/17 19: 55; Start 03/19/17 at 21:00 Active Scripts Active Reported Cyanocobalamin Injection (Cyanocobalamin (Vitamin B-12)) 1,000 Mcg/1 Ml Vial 1, 000 Mcg IM QMONTH Trazodone Hcl 50 Mg Tablet 50 Mg PO QHS Buspirone Hcl 10 Mg Tablet 10 Mg PO TID Acetaminophen 500 Mg Tablet 1,000 Mg PO QHS Therems-M (Multivits, W-Fe,Other Min) 1 Each Tablet 1 Tab PO BID Symbicort 160-4.5 Mcg Inhaler (Budesonide/Formoterol Fumarate) 10.2 Gm Hfa.aer.ad 2 Puff IH BID Cymbalta (Duloxetine Hcl) 30 Mg Capsule.dr 30 Mg PO BID Benztropine Mesylate 0.5 Mg Tablet 0.5 Mg PO BID Zofran (Ondansetron Hcl) 4 Mg Tablet 4 Mg PO PRN Q8HRS PRN Milk Of Magnesia (Magnesium Hydroxide) 400 Mg/5 Ml Oral.susp 2,400 Mg PO PRN DAILY PRN Lorazepam 0.5 Mg Tablet 0.5 Mg PO PRN Q6HRS PRN Acetaminophen 500 Mg Tablet 1,000 Mg PO PRN Q6HRS PRN Vitamin D2 (Ergocalciferol (Vitamin D2)) 50,000 Unit Capsule 50,000 Unit PO QWE Hydrochlorothiazide Tablet (Hydrochlorothiazide) 25 Mg Tablet 25 Mg PO DAILY Folic Acid 1 Mg Tablet 1 Mg PO DAILY Spiriva Respimat (Tiotropium [place]) 4 Gm Mist.inhal 2.5 Mcg IH DAILY Diagnosis: Problems: (1) Anxiety disorder (2) Impulse control disorder (3) Mild cognitive disorder (4) Bipolar 1 disorder, mixed, moderate (5) Bipolar 1 disorder, manic, moderate (6) Dementia associated with alcoholism with behavioral disturbance BERNABE DAVID MD Mar 19, 2017 20:57
--- NOTE | 2017-03-20 00:47 | PN ---
DATE: 03/18/2017 This late entry 03/18/2017 covers elements not covered in my initial note 03/18/2017, met with the patient in the evening of 03/18/2017. Per nursing report, the patient has been calm, compliant, not aggressive, appears depressed. Once again during the individual visit, I reviewed history at great length, which is quite significant for bipolar disorder. More recently, she has been depressed. She talked about her daughter being murdered in 1992, gets very emotional discussing it. REVIEW OF SYSTEMS: No CV, , pulmonary, eye, ENT system symptoms on review. Reliability fair. MENTAL STATUS EXAM: Oriented to herself and situation. Speech is coherent, abstraction fair, computation impaired, language function intact, attention span short. Mood and affect is depressed. LABORATORY DATA: Reviewed. IMPRESSION: Unchanged from initial note. PLAN: Taper and stop the Cogentin since there is no clear reason for using this at this stage. She has been started on Depakote. Follow labs level. Continue Cymbalta, BuSpar, trazodone, Seroquel, Ativan as p.r.n. Check CBC, CMP, valproic acid level on 03/20/2017. Reviewed drug interactions, risk/benefit ratio favors no further change. BERNABE DAVID MD DR: SHAQUILLE/ros JOB#: [id number] / [id number]
[2017-03-20 05:46] VITALS: BP 113/54
[2017-03-20] MEDS: IPRATRPIUM/ALBUTEROL 0.5/2.5MG 3 ML NEBU. NEB SCH ×4 (05:52→20:46)
[2017-03-20] MEDS: NICOTINE 21MG PATCH. TD SCH (08:40)
[2017-03-20] MEDS: DULoxetine HCL 60 MG CAPSULE.DR PO SCH (08:41)
[2017-03-20] MEDS: BENZTROPINE MESYLATE 0.5 MG TABLET PO SCH (08:41)
[2017-03-20] MEDS: FOLIC ACID 1 MG TABLET PO SCH (08:41)
[2017-03-20] MEDS: hydroCHLOROthiazide 25 MG TABLET PO SCH (08:41)
[2017-03-20] MEDS: MULTIVITAMIN with MINERAL TABLET. PO SCH (08:41)
[2017-03-20] MEDS: busPIRone 10 MG TABLET. PO SCH ×3 (08:41→19:13)
[2017-03-20] MEDS: BUDESONIDE 0.5 MG/2 ML NEBU NEB SCH ×2 (11:15→20:46)
[2017-03-20 15:52] VITALS: BP 136/66
[2017-03-20] MEDS: QUEtiapine 50 MG TABLET. PO SCH (19:13)
[2017-03-20] MEDS: ATORVASTATIN CALCIUM 20 MG TABLET PO SCH (19:13)
[2017-03-20] MEDS: ACETAMINOPHEN 500 MG TABLET PO SCH (19:13)
[2017-03-20] MEDS: traZODone 50 MG TABLET. PO SCH (19:13)
[2017-03-20] MEDS: DIVALPROEX ER 500 MG TAB.ER.24H PO SCH (19:13)
--- NOTE | 2017-03-20 20:43 | PDOC ---
Exam Doug Demential Exam: Doug Note: Please also refer to the separate dictated note~for this date of service dictated separately.~Patient seen individually. Discussed the patient with Nursing staff reviewed the chart.~Reviewed interim history and current functioning. Reviewed vital signs,~Labs/ Radiology~and current medications noted below. Continue current treatment with the changes noted in the dictated addendum note Assessment: Vital Signs: Vital Signs Date Time Temp Pulse Resp B/P (MAP) Pulse Ox O2 Delivery O2 Flow Rate FiO2 03/20/17 15:52 98.9 89 18 136/66 (89) 98 03/20/17 15:50 Room Air 03/16/17 06:32 96.0 I&O Intake and Output 03/21/17 07:00 Intake Total 1280 ml Balance 1280 ml Intake Oral 1280 ml Current Medications: Meds: Current Medications Acetaminophen (Tylenol) 650 mg PRN Q6HRS PRN PO MILD PAIN / TEMP Last administered on 03/19/17 18:14; Start 03/16/17 at 04:00 Multi-Ingredient Ointment (Analgesic [place]) 1 markus PRN QID PRN TP MUSCLE PAIN; Start 03/16/17 at 04:00 Al Hydroxide/Mg Hydroxide (Mylanta Plus Xs) 15 ml PRN AFTMEALHC PRN PO DYSPEPSIA; Start 03/16/17 at 04:00 Magnesium Hydroxide (Milk Of Magnesia) 2,400 mg PRN QHS PRN PO CONSTIPATION; Start 03/16/17 at 04:00 Nicotine (Nicoderm Cq 21mg) 1 patch DAILY TD Last administered on 03/20/17 08: 40; Start 03/16/17 at 09:00 Benztropine Mesylate (Cogentin) 0.5 mg BID PO Last administered on 03/18/17 07 :53; Start 03/16/17 at 09:00; Stop 03/18/17 at 16:56; Status DC Buspirone HCl (Buspar) 10 mg TID PO Last administered on 03/20/17 19:13; Start 03/16/17 at 09:00 Duloxetine HCl (Cymbalta) 30 mg BID PO Last administered on 03/16/17 10:16; Start 03/16/17 at 09:00; Stop 03/16/17 at 18:42; Status DC Lorazepam (Ativan) 0.5 mg PRN Q6HRS PRN PO ANXIETY / AGITATION; Start 03/16/17 at 04:00 Trazodone HCl (Desyrel) 50 mg QHS PO Last administered on 03/20/17 19:13; Start 03/16/17 at 21:00 Acetaminophen (Tylenol) 1,000 mg QHS PO Last administered on 03/20/17 19:13; Start 03/16/17 at 21:00 Cyanocobalamin (Vitamin B-12) 1,000 mcg QMONTH IM ; Start 04/07/17 at 09:00 Folic Acid (Folic Acid) 1 mg DAILY PO Last administered on 03/20/17 08:41; Start 03/16/17 at 09:00 Hydrochlorothiazide (Hydrodiuril) 25 mg DAILY PO Last administered on 08:41; Start 03/16/17 at 09:00 Non-Formulary Medication 2 puff BID IH ; Start 03/16/17 at 09:00; Status UNV Vitamin D (Vitamin D3) 50,000 unit WEEKLY PO ; Start 03/21/17 at 09:00 Multivitamins/ Calcium (Thera-M Plus) 1 tab DAILY PO Last administered on 08:41; Start 03/16/17 at 09:00 Ondansetron HCl (Zofran Odt) 4 mg PRN Q8HRS PRN PO NAUSEA/VOMITING; Start 03/16 at 04:30 Non-Formulary Medication 2.5 mcg DAILY IH ; Start 03/16/17 at 09:00; Status UNV Albuterol/ Ipratropium (Duoneb) 3 ml RTQID NEB Last administered on 03/20/17 15:49; Start 03/16/17 at 08:00 Budesonide (Pulmicort) 0.5 mg RTBID NEB Last administered on 03/20/17 11:15; Start 03/16/17 at 08:00 Duloxetine HCl (Cymbalta) 60 mg DAILY PO Last administered on 03/20/17 08:41; Start 03/17/17 at 09:00 Quetiapine Fumarate (SEROquel) 50 mg QHS PO Last administered on 03/20/17 19: 13; Start 03/16/17 at 21:00 Benztropine Mesylate (Cogentin) 0.5 mg DAILY PO Last administered on 03/20/17 08:41; Start 03/19/17 at 09:00; Stop 03/21/17 at 15:00 Divalproex Sodium (Depakote Er) 500 mg QHS PO Last administered on 03/20/17 19 :13; Start 03/18/17 at 21:00 Atorvastatin Calcium (Lipitor) 20 mg QHS PO Last administered on 03/20/17 19: 13; Start 03/19/17 at 21:00 Active Scripts Active Reported Cyanocobalamin Injection (Cyanocobalamin (Vitamin B-12)) 1,000 Mcg/1 Ml Vial 1, 000 Mcg IM QMONTH Trazodone Hcl 50 Mg Tablet 50 Mg PO QHS Buspirone Hcl 10 Mg Tablet 10 Mg PO TID Acetaminophen 500 Mg Tablet 1,000 Mg PO QHS Therems-M (Multivits, W-Fe,Other Min) 1 Each Tablet 1 Tab PO BID Symbicort 160-4.5 Mcg Inhaler (Budesonide/Formoterol Fumarate) 10.2 Gm Hfa.aer.ad 2 Puff IH BID Cymbalta (Duloxetine Hcl) 30 Mg Capsule.dr 30 Mg PO BID Benztropine Mesylate 0.5 Mg Tablet 0.5 Mg PO BID Zofran (Ondansetron Hcl) 4 Mg Tablet 4 Mg PO PRN Q8HRS PRN Milk Of Magnesia (Magnesium Hydroxide) 400 Mg/5 Ml Oral.susp 2,400 Mg PO PRN DAILY PRN Lorazepam 0.5 Mg Tablet 0.5 Mg PO PRN Q6HRS PRN Acetaminophen 500 Mg Tablet 1,000 Mg PO PRN Q6HRS PRN Vitamin D2 (Ergocalciferol (Vitamin D2)) 50,000 Unit Capsule 50,000 Unit PO QWE Hydrochlorothiazide Tablet (Hydrochlorothiazide) 25 Mg Tablet 25 Mg PO DAILY Folic Acid 1 Mg Tablet 1 Mg PO DAILY Spiriva Respimat (Tiotropium [place]) 4 Gm Mist.inhal 2.5 Mcg IH DAILY Diagnosis: Problems: (1) Anxiety disorder (2) Impulse control disorder (3) Mild cognitive disorder (4) Bipolar 1 disorder, mixed, moderate (5) Bipolar 1 disorder, manic, moderate (6) Dementia associated with alcoholism with behavioral disturbance BERNABE DAVID MD Mar 20, 2017 20:43
[2017-03-20] MEDS: ACETAMINOPHEN 325 MG TABLET PO PRN (21:17)
[2017-03-21] MEDS: IPRATRPIUM/ALBUTEROL 0.5/2.5MG 3 ML NEBU. NEB SCH ×4 (05:29→21:46)
[2017-03-21 06:20] VITALS: BP 125/61
[2017-03-21 08:10] LABS: BASO % 1 % (0-3); EOS # 0.1 x10^3/uL (0.0-0.7); EOS % 2 % (0-3); HEMATOCRIT 40.6 % (36.0-47.0); LYMPH # 1.9 x10^3/uL (1.0-4.8); LYMPH % 46 % (24-48); MEAN CORPUSCULAR HEMOGLOBIN 31 pg (25-35); MEAN CORPUSCULAR HGB CONC 34 g/dL (31-37); MEAN CORPUSCULAR VOLUME 90 fL (79-100); MONO # 0.4 x10^3/uL (0.0-1.1); MONO % 10 % (0-9); NEUT # 1.7 x10^3uL (1.8-7.7); NEUT % 41 % (31-73); PLATELET COUNT 138 x10^3/uL (140-400); RED BLOOD COUNT 4.52 x10^6/uL (3.50-5.40); RED CELL DISTRIBUTION WIDTH 14.2 % (11.5-14.5); WHITE BLOOD COUNT 4.2 x10^3/uL (4.0-11.0)
[2017-03-21] MEDS: DULoxetine HCL 60 MG CAPSULE.DR PO SCH (08:15)
[2017-03-21] MEDS: NICOTINE 21MG PATCH. TD SCH (08:15)
[2017-03-21] MEDS: busPIRone 10 MG TABLET. PO SCH ×3 (08:15→20:31)
[2017-03-21] MEDS: hydroCHLOROthiazide 25 MG TABLET PO SCH (08:16)
[2017-03-21] MEDS: BENZTROPINE MESYLATE 0.5 MG TABLET PO SCH (08:16)
[2017-03-21] MEDS: MULTIVITAMIN with MINERAL TABLET. PO SCH (08:16)
[2017-03-21] MEDS: FOLIC ACID 1 MG TABLET PO SCH (08:16)
[2017-03-21] MEDS: CHOLECALCIFEROL (VITAMIN D3) 50,000 UNIT CAPSULE PO SCH (08:17)
[2017-03-21] MEDS: ACETAMINOPHEN 325 MG TABLET PO PRN (08:42)
[2017-03-21 08:46] LABS: ALBUMIN 3.3 g/dL (3.4-5.0); ALBUMIN/GLOBULIN RATIO 1.1 (1.0-1.7); ALK PHOS 48 U/L (46-116); ALT (SGPT) 19 U/L (14-59); ANION GAP 3 (6-14); AST (SGOT) 13 U/L (15-37); BLOOD UREA NITROGEN 16 mg/dL (7-20); BUN/CREATININE RATIO 20 (6-20); CALCIUM 9.2 mg/dL (8.5-10.1); CARBON DIOXIDE 34 mmol/L (21-32); CHLORIDE 97 mmol/L (98-107); CREATININE 0.8 mg/dL (0.6-1.0); GFR 71.1; GLUCOSE 95 mg/dL (70-99); POTASSIUM 4.1 mmol/L (3.5-5.1); SODIUM 134 mmol/L (136-145); TOTAL BILIRUBIN 0.4 mg/dL (0.2-1.0); TOTAL PROTEIN 6.4 g/dL (6.4-8.2)
[2017-03-21 08:47] LABS: VAL ACID 24 mcg/mL (50-100)
--- NOTE | 2017-03-21 09:27 | PN ---
DATE: 03/19/2017 This late entry 03/19/2017 covers elements not covered in my initial note of 03/19/2017. I met with the patient in the evening of 03/19/2017. Overall, per nursing report, the patient is compliant with her medications. Complains of headaches. Well oriented x 4, otherwise calmer. REVIEW OF SYSTEMS: Complains of headache, which she attributes to her neck and we will have physical therapy staff recommend some exercises to her. No CV, , pulmonary, eye system symptoms on review. MENTAL STATUS EXAM: Reasonably oriented. Speech is coherent, abstraction fair, computation impaired, language function intact, attention span short. Mood and affect still depressed, somewhat anxious, at times labile. Reviewed her past history at length of bipolar disorder. LABORATORY DATA: Reviewed. IMPRESSION: Bipolar 1 disorder mixed with psychotic features versus bipolar 1 disorder, mixed versus depressed. Anxiety disorder, unspecified; impulse control disorder, unspecified. PLAN: Continue current psychotropics mentioned in my initial note. Cogentin is being tapered and stopped. Maintain Cymbalta, BuSpar, trazodone, Ativan, Seroquel, Depakote was initiated as a mood stabilizer. Follow labs level on 03/19/2017 and adjust to reach a therapeutic level. MAN Britni DAVID MD DR: SHAQUILLE/ros JOB#: [id number] / [id number]
[2017-03-21] MEDS: BUDESONIDE 0.5 MG/2 ML NEBU NEB SCH ×2 (09:44→21:46)
[2017-03-21 16:25] VITALS: BP 172/83
[2017-03-21] MEDS: traZODone 50 MG TABLET. PO SCH (20:30)
[2017-03-21] MEDS: QUEtiapine 50 MG TABLET. PO SCH (20:31)
[2017-03-21] MEDS: ATORVASTATIN CALCIUM 20 MG TABLET PO SCH (20:31)
[2017-03-21] MEDS: ACETAMINOPHEN 500 MG TABLET PO SCH (20:31)
[2017-03-21] MEDS: DIVALPROEX ER 250 MG TAB.ER.24H. PO SCH (20:32)
--- NOTE | 2017-03-21 20:53 | PDOC ---
Exam Doug Demential Exam: Doug Note: Please also refer to the separate dictated note~for this date of service dictated separately.~Patient seen individually. Discussed the patient with Nursing staff reviewed the chart.~Reviewed interim history and current functioning. Reviewed vital signs,~Labs/ Radiology~and current medications noted below. Continue current treatment with the changes noted in the dictated addendum note Assessment: Vital Signs: Vital Signs Date Time Temp Pulse Resp B/P (MAP) Pulse Ox O2 Delivery O2 Flow Rate FiO2 03/21/17 16:25 97.3 87 18 172/83 (112) 93 Room Air 03/16/17 06:32 96.0 I&O Intake and Output 03/22/17 07:00 Intake Total 1260 ml Balance 1260 ml Intake Oral 1260 ml Labs: Laboratory Tests Test 03/21/17 07:12 White Blood Count 4.2 x10^3/uL (4.0-11.0) Red Blood Count 4.52 x10^6/uL (3.50-5.40) Hemoglobin 14.0 g/dL (12.0-15.5) Hematocrit 40.6 % (36.0-47.0) Mean Corpuscular Volume 90 fL (79-100) Mean Corpuscular Hemoglobin 31 pg (25-35) Mean Corpuscular Hemoglobin Concent 34 g/dL (31-37) Red Cell Distribution Width 14.2 % (11.5-14.5) Platelet Count 138 x10^3/uL (140-400) L Neutrophils (%) (Auto) 41 % (31-73) Lymphocytes (%) (Auto) 46 % (24-48) Monocytes (%) (Auto) 10 % (0-9) H Eosinophils (%) (Auto) 2 % (0-3) Basophils (%) (Auto) 1 % (0-3) Neutrophils # (Auto) 1.7 x10^3uL (1.8-7.7) L Lymphocytes # (Auto) 1.9 x10^3/uL (1.0-4.8) Monocytes # (Auto) 0.4 x10^3/uL (0.0-1.1) Eosinophils # (Auto) 0.1 x10^3/uL (0.0-0.7) Basophils # (Auto) 0.0 x10^3/uL (0.0-0.2) Sodium Level 134 mmol/L (136-145) L Potassium Level 4.1 mmol/L (3.5-5.1) Chloride Level 97 mmol/L (98-107) L Carbon Dioxide Level 34 mmol/L (21-32) H Anion Gap 3 (6-14) L Blood Urea Nitrogen 16 mg/dL (7-20) Creatinine 0.8 mg/dL (0.6-1.0) Estimated GFR (Cockcroft-Gault) 71.1 BUN/Creatinine Ratio 20 (6-20) Glucose Level 95 mg/dL (70-99) Calcium Level 9.2 mg/dL (8.5-10.1) Total Bilirubin 0.4 mg/dL (0.2-1.0) Aspartate Amino Transferase (AST) 13 U/L (15-37) L Alanine Aminotransferase (ALT) 19 U/L (14-59) Alkaline Phosphatase 48 U/L (46-116) Total Protein 6.4 g/dL (6.4-8.2) Albumin 3.3 g/dL (3.4-5.0) L Albumin/Globulin Ratio 1.1 (1.0-1.7) Valproic Acid Level 24 mcg/mL (50-100) L Valproic Acid Last Dose Date 03/20/2017 Valproic Acid Last Dose Time 2100 Current Medications: Meds: Current Medications Acetaminophen (Tylenol) 650 mg PRN Q6HRS PRN PO MILD PAIN / TEMP Last administered on 03/21/17 08:42; Start 03/16/17 at 04:00 Multi-Ingredient Ointment (Analgesic [place]) 1 markus PRN QID PRN TP MUSCLE PAIN; Start 03/16/17 at 04:00 Al Hydroxide/Mg Hydroxide (Mylanta Plus Xs) 15 ml PRN AFTMEALHC PRN PO DYSPEPSIA; Start 03/16/17 at 04:00 Magnesium Hydroxide (Milk Of Magnesia) 2,400 mg PRN QHS PRN PO CONSTIPATION; Start 03/16/17 at 04:00 Nicotine (Nicoderm Cq 21mg) 1 patch DAILY TD Last administered on 03/21/17 08: 15; Start 03/16/17 at 09:00 Benztropine Mesylate (Cogentin) 0.5 mg BID PO Last administered on 03/18/17 07 :53; Start 03/16/17 at 09:00; Stop 03/18/17 at 16:56; Status DC Buspirone HCl (Buspar) 10 mg TID PO Last administered on 03/21/17 20:31; Start 03/16/17 at 09:00 Duloxetine HCl (Cymbalta) 30 mg BID PO Last administered on 03/16/17 10:16; Start 03/16/17 at 09:00; Stop 03/16/17 at 18:42; Status DC Lorazepam (Ativan) 0.5 mg PRN Q6HRS PRN PO ANXIETY / AGITATION; Start 03/16/17 at 04:00 Trazodone HCl (Desyrel) 50 mg QHS PO Last administered on 03/21/17 20:30; Start 03/16/17 at 21:00 Acetaminophen (Tylenol) 1,000 mg QHS PO Last administered on 03/21/17 20:31; Start 03/16/17 at 21:00 Cyanocobalamin (Vitamin B-12) 1,000 mcg QMONTH IM ; Start 04/07/17 at 09:00 Folic Acid (Folic Acid) 1 mg DAILY PO Last administered on 03/21/17 08:16; Start 03/16/17 at 09:00 Hydrochlorothiazide (Hydrodiuril) 25 mg DAILY PO Last administered on 08:16; Start 03/16/17 at 09:00 Non-Formulary Medication 2 puff BID IH ; Start 03/16/17 at 09:00; Status UNV Vitamin D (Vitamin D3) 50,000 unit WEEKLY PO Last administered on 03/21/17 08: 17; Start 03/21/17 at 09:00 Multivitamins/ Calcium (Thera-M Plus) 1 tab DAILY PO Last administered on 08:16; Start 03/16/17 at 09:00 Ondansetron HCl (Zofran Odt) 4 mg PRN Q8HRS PRN PO NAUSEA/VOMITING; Start 03/16 at 04:30 Non-Formulary Medication 2.5 mcg DAILY IH ; Start 03/16/17 at 09:00; Status UNV Albuterol/ Ipratropium (Duoneb) 3 ml RTQID NEB Last administered on 03/21/17 15:45; Start 03/16/17 at 08:00 Budesonide (Pulmicort) 0.5 mg RTBID NEB Last administered on 03/21/17 09:44; Start 03/16/17 at 08:00 Duloxetine HCl (Cymbalta) 60 mg DAILY PO Last administered on 03/21/17 08:15; Start 03/17/17 at 09:00 Quetiapine Fumarate (SEROquel) 50 mg QHS PO Last administered on 03/21/17 20: 31; Start 03/16/17 at 21:00 Benztropine Mesylate (Cogentin) 0.5 mg DAILY PO Last administered on 03/21/17 08:16; Start 03/19/17 at 09:00; Stop 03/21/17 at 15:00; Status DC Divalproex Sodium (Depakote Er) 500 mg QHS PO Last administered on 03/20/17 19 :13; Start 03/18/17 at 21:00; Stop 03/21/17 at 19:29; Status DC Atorvastatin Calcium (Lipitor) 20 mg QHS PO Last administered on 03/21/17 20: 31; Start 03/19/17 at 21:00 Divalproex Sodium (Depakote Er) 750 mg QHS PO Last administered on 03/21/17 20 :32; Start 03/21/17 at 21:00 Active Scripts Active Reported Cyanocobalamin Injection (Cyanocobalamin (Vitamin B-12)) 1,000 Mcg/1 Ml Vial 1, 000 Mcg IM QMONTH Trazodone Hcl 50 Mg Tablet 50 Mg PO QHS Buspirone Hcl 10 Mg Tablet 10 Mg PO TID Acetaminophen 500 Mg Tablet 1,000 Mg PO QHS Therems-M (Multivits, W-Fe,Other Min) 1 Each Tablet 1 Tab PO BID Symbicort 160-4.5 Mcg Inhaler (Budesonide/Formoterol Fumarate) 10.2 Gm Hfa.aer.ad 2 Puff IH BID Cymbalta (Duloxetine Hcl) 30 Mg Capsule.dr 30 Mg PO BID Benztropine Mesylate 0.5 Mg Tablet 0.5 Mg PO BID Zofran (Ondansetron Hcl) 4 Mg Tablet 4 Mg PO PRN Q8HRS PRN Milk Of Magnesia (Magnesium Hydroxide) 400 Mg/5 Ml Oral.susp 2,400 Mg PO PRN DAILY PRN Lorazepam 0.5 Mg Tablet 0.5 Mg PO PRN Q6HRS PRN Acetaminophen 500 Mg Tablet 1,000 Mg PO PRN Q6HRS PRN Vitamin D2 (Ergocalciferol (Vitamin D2)) 50,000 Unit Capsule 50,000 Unit PO QWE Hydrochlorothiazide Tablet (Hydrochlorothiazide) 25 Mg Tablet 25 Mg PO DAILY Folic Acid 1 Mg Tablet 1 Mg PO DAILY Spiriva Respimat (Tiotropium [place]) 4 Gm Mist.inhal 2.5 Mcg IH DAILY Diagnosis: Problems: (1) Anxiety disorder (2) Impulse control disorder (3) Mild cognitive disorder (4) Bipolar 1 disorder, mixed, moderate (5) Bipolar 1 disorder, manic, moderate (6) Dementia associated with alcoholism with behavioral disturbance BERNABE DAVID MD Mar 21, 2017 20:53
--- NOTE | 2017-03-21 22:30 | PN ---
DATE: 03/20/2017 PSYCHIATRIC PROGRESS NOTE This late entry 03/20/2017 covers elements not covered in my initial note of 03/20/2017. SUBJECTIVE: I met with the patient in the evening of 03/20/2017. The patient has been calm, still depressed, anxious, labile at times, wants to smoke a cigarette, able to be redirected. I met with her individually evening of 03/20/2017. REVIEW OF SYSTEMS: No CV, , pulmonary, eye, ENT system symptoms on review. MENTAL STATUS EXAM: Oriented to herself and situation. Speech is coherent, abstraction fair, computation impaired, language function intact, attention span short. Mood and affect still somewhat depressed, paranoid. LABORATORIES: Reviewed. IMPRESSION: Unchanged from initial note. PLAN: Continue psychotropics mentioned in my initial note. Check CBC, CMP, valproic acid level 03/21/2017, adjust Depakote to reach a therapeutic level. Review drug interactions, risk/benefit ratio favors no further change. MAN Britni DAVID MD DR: SHAQUILLE/ros JOB#: [id number] / [id number]
[2017-03-22] MEDS: IPRATRPIUM/ALBUTEROL 0.5/2.5MG 3 ML NEBU. NEB SCH ×4 (05:31→21:51)
[2017-03-22 06:18] VITALS: BP 136/69
[2017-03-22] MEDS: DULoxetine HCL 60 MG CAPSULE.DR PO SCH (08:22)
[2017-03-22] MEDS: busPIRone 10 MG TABLET. PO SCH ×3 (08:22→20:36)
[2017-03-22] MEDS: hydroCHLOROthiazide 25 MG TABLET PO SCH (08:22)
[2017-03-22] MEDS: MULTIVITAMIN with MINERAL TABLET. PO SCH (08:22)
[2017-03-22] MEDS: FOLIC ACID 1 MG TABLET PO SCH (08:22)
[2017-03-22] MEDS: NICOTINE 21MG PATCH. TD SCH (08:24)
[2017-03-22] MEDS: BUDESONIDE 0.5 MG/2 ML NEBU NEB SCH ×2 (09:19→21:51)
[2017-03-22 16:15] VITALS: BP 174/64
--- NOTE | 2017-03-22 20:33 | PN ---
DATE: 03/22/2017 PSYCHIATRIC PROGRESS NOTE This late entry 03/21/2017, covers elements not covered in my initial note of 03/21/2017. SUBJECTIVE: I met with the patient evening of 03/21/2017. Overall, the patient has done a little bit better, still somewhat anxious, labile at times. 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 REVIEW OF SYSTEMS: Positive for headaches consequent to neck pain and we have asked Physical Therapy staff to give her some exercises to help with this. No CV, , pulmonary, eye system symptoms. MENTAL STATUS EXAM: Oriented, reasonably well. Speech is coherent, abstraction fair, computation impaired, language function intact. Mood and affect still somewhat labile at times. LABORATORY DATA: Reviewed. IMPRESSION: Unchanged from initial note. PLAN: Continue current psychotropics. Valproic acid level is subtherapeutic at 24, increase Depakote ER to 750 mg at bedtime. Check CBC, CMP, valproic acid level in 3 days. Reviewed drug interactions, risk/benefit ratio favors no further change. MAN Britni DAVID MD DR: SHAQUILLE/ros JOB#: [id number] / [id number]
[2017-03-22] MEDS: QUEtiapine 50 MG TABLET. PO SCH (20:36)
[2017-03-22] MEDS: ATORVASTATIN CALCIUM 20 MG TABLET PO SCH (20:36)
[2017-03-22] MEDS: DIVALPROEX ER 250 MG TAB.ER.24H. PO SCH (20:36)
[2017-03-22] MEDS: ACETAMINOPHEN 500 MG TABLET PO SCH (20:36)
[2017-03-22] MEDS: traZODone 50 MG TABLET. PO SCH (20:36)
--- NOTE | 2017-03-22 20:56 | PDOC ---
Exam Doug Demential Exam: Doug Note: Please also refer to the separate dictated note~for this date of service dictated separately.~Patient seen individually. Discussed the patient with Nursing staff reviewed the chart.~Reviewed interim history and current functioning. Reviewed vital signs,~Labs/ Radiology~and current medications noted below. Continue current treatment with the changes noted in the dictated addendum note Assessment: Vital Signs: Vital Signs Date Time Temp Pulse Resp B/P (MAP) Pulse Ox O2 Delivery O2 Flow Rate FiO2 03/22/17 16:15 99.0 88 21 174/64 (100) 90 03/22/17 15:12 Room Air I&O Intake and Output 03/23/17 07:00 Intake Total 1200 ml Balance 1200 ml Intake Oral 1200 ml Current Medications: Meds: Current Medications Acetaminophen (Tylenol) 650 mg PRN Q6HRS PRN PO MILD PAIN / TEMP Last administered on 03/21/17 08:42; Start 03/16/17 at 04:00 Multi-Ingredient Ointment (Analgesic [place]) 1 markus PRN QID PRN TP MUSCLE PAIN; Start 03/16/17 at 04:00 Al Hydroxide/Mg Hydroxide (Mylanta Plus Xs) 15 ml PRN AFTMEALHC PRN PO DYSPEPSIA; Start 03/16/17 at 04:00 Magnesium Hydroxide (Milk Of Magnesia) 2,400 mg PRN QHS PRN PO CONSTIPATION; Start 03/16/17 at 04:00 Nicotine (Nicoderm Cq 21mg) 1 patch DAILY TD Last administered on 03/22/17 08: 24; Start 03/16/17 at 09:00 Benztropine Mesylate (Cogentin) 0.5 mg BID PO Last administered on 03/18/17 07 :53; Start 03/16/17 at 09:00; Stop 03/18/17 at 16:56; Status DC Buspirone HCl (Buspar) 10 mg TID PO Last administered on 03/22/17 20:36; Start 03/16/17 at 09:00 Duloxetine HCl (Cymbalta) 30 mg BID PO Last administered on 03/16/17 10:16; Start 03/16/17 at 09:00; Stop 03/16/17 at 18:42; Status DC Lorazepam (Ativan) 0.5 mg PRN Q6HRS PRN PO ANXIETY / AGITATION Last administered on 03/21/17 23:13; Start 03/16/17 at 04:00 Trazodone HCl (Desyrel) 50 mg QHS PO Last administered on 03/22/17 20:36; Start 03/16/17 at 21:00 Acetaminophen (Tylenol) 1,000 mg QHS PO Last administered on 03/22/17 20:36; Start 03/16/17 at 21:00 Cyanocobalamin (Vitamin B-12) 1,000 mcg QMONTH IM ; Start 04/07/17 at 09:00 Folic Acid (Folic Acid) 1 mg DAILY PO Last administered on 03/22/17 08:22; Start 03/16/17 at 09:00 Hydrochlorothiazide (Hydrodiuril) 25 mg DAILY PO Last administered on 08:22; Start 03/16/17 at 09:00 Non-Formulary Medication 2 puff BID IH ; Start 03/16/17 at 09:00; Status UNV Vitamin D (Vitamin D3) 50,000 unit WEEKLY PO Last administered on 03/21/17 08: 17; Start 03/21/17 at 09:00 Multivitamins/ Calcium (Thera-M Plus) 1 tab DAILY PO Last administered on 08:22; Start 03/16/17 at 09:00 Ondansetron HCl (Zofran Odt) 4 mg PRN Q8HRS PRN PO NAUSEA/VOMITING; Start 03/16 at 04:30 Non-Formulary Medication 2.5 mcg DAILY IH ; Start 03/16/17 at 09:00; Status UNV Albuterol/ Ipratropium (Duoneb) 3 ml RTQID NEB Last administered on 03/22/17 15:12; Start 03/16/17 at 08:00 Budesonide (Pulmicort) 0.5 mg RTBID NEB Last administered on 03/22/17 09:19; Start 03/16/17 at 08:00 Duloxetine HCl (Cymbalta) 60 mg DAILY PO Last administered on 03/22/17 08:22; Start 03/17/17 at 09:00 Quetiapine Fumarate (SEROquel) 50 mg QHS PO Last administered on 03/21/17 20: 31; Start 03/16/17 at 21:00; Stop 03/22/17 at 10:18; Status DC Benztropine Mesylate (Cogentin) 0.5 mg DAILY PO Last administered on 03/21/17 08:16; Start 03/19/17 at 09:00; Stop 03/21/17 at 15:00; Status DC Divalproex Sodium (Depakote Er) 500 mg QHS PO Last administered on 03/20/17 19 :13; Start 03/18/17 at 21:00; Stop 03/21/17 at 19:29; Status DC Atorvastatin Calcium (Lipitor) 20 mg QHS PO Last administered on 03/22/17 20: 36; Start 03/19/17 at 21:00 Divalproex Sodium (Depakote Er) 750 mg QHS PO Last administered on 03/22/17 20 :36; Start 03/21/17 at 21:00 Quetiapine Fumarate (SEROquel) 75 mg QHS PO Last administered on 03/22/17 20: 36; Start 03/22/17 at 21:00 Active Scripts Active Reported Cyanocobalamin Injection (Cyanocobalamin (Vitamin B-12)) 1,000 Mcg/1 Ml Vial 1, 000 Mcg IM QMONTH Trazodone Hcl 50 Mg Tablet 50 Mg PO QHS Buspirone Hcl 10 Mg Tablet 10 Mg PO TID Acetaminophen 500 Mg Tablet 1,000 Mg PO QHS Therems-M (Multivits,Th W-Fe,Other Min) 1 Each Tablet 1 Tab PO BID Symbicort 160-4.5 Mcg Inhaler (Budesonide/Formoterol Fumarate) 10.2 Gm Hfa.aer.ad 2 Puff IH BID Cymbalta (Duloxetine Hcl) 30 Mg Capsule.dr 30 Mg PO BID Benztropine Mesylate 0.5 Mg Tablet 0.5 Mg PO BID Zofran (Ondansetron Hcl) 4 Mg Tablet 4 Mg PO PRN Q8HRS PRN Milk Of Magnesia (Magnesium Hydroxide) 400 Mg/5 Ml Oral.susp 2,400 Mg PO PRN DAILY PRN Lorazepam 0.5 Mg Tablet 0.5 Mg PO PRN Q6HRS PRN Acetaminophen 500 Mg Tablet 1,000 Mg PO PRN Q6HRS PRN Vitamin D2 (Ergocalciferol (Vitamin D2)) 50,000 Unit Capsule 50,000 Unit PO QWE Hydrochlorothiazide Tablet (Hydrochlorothiazide) 25 Mg Tablet 25 Mg PO DAILY Folic Acid 1 Mg Tablet 1 Mg PO DAILY Spiriva Respimat (Tiotropium [place]) 4 Gm Mist.inhal 2.5 Mcg IH DAILY Diagnosis: Problems: (1) Anxiety disorder (2) Impulse control disorder (3) Mild cognitive disorder (4) Bipolar 1 disorder, mixed, moderate (5) Bipolar 1 disorder, manic, moderate (6) Dementia associated with alcoholism with behavioral disturbance BERNABE DAVID MD Mar 22, 2017 20:56
[2017-03-23] MEDS: IPRATRPIUM/ALBUTEROL 0.5/2.5MG 3 ML NEBU. NEB SCH ×4 (05:37→19:45)
[2017-03-23 05:58] VITALS: BP_SYST 117; BP_SYST 127; BP_DIAS 63; BP_DIAS 73
[2017-03-23] MEDS: hydroCHLOROthiazide 25 MG TABLET PO SCH (07:58)
[2017-03-23] MEDS: DULoxetine HCL 60 MG CAPSULE.DR PO SCH (07:58)
[2017-03-23] MEDS: FOLIC ACID 1 MG TABLET PO SCH (07:58)
[2017-03-23] MEDS: MULTIVITAMIN with MINERAL TABLET. PO SCH (07:58)
[2017-03-23] MEDS: NICOTINE 21MG PATCH. TD SCH (07:58)
[2017-03-23] MEDS: busPIRone 10 MG TABLET. PO SCH ×3 (07:58→20:38)
[2017-03-23] MEDS: BUDESONIDE 0.5 MG/2 ML NEBU NEB SCH ×2 (11:41→19:45)
[2017-03-23 15:37] VITALS: BP 137/85
[2017-03-23] MEDS: QUEtiapine 50 MG TABLET. PO SCH (20:37)
[2017-03-23] MEDS: ATORVASTATIN CALCIUM 20 MG TABLET PO SCH (20:38)
[2017-03-23] MEDS: traZODone 50 MG TABLET. PO SCH (20:38)
[2017-03-23] MEDS: DIVALPROEX ER 250 MG TAB.ER.24H. PO SCH (20:38)
[2017-03-23] MEDS: ACETAMINOPHEN 500 MG TABLET PO SCH (20:38)
--- NOTE | 2017-03-23 21:06 | PDOC ---
Exam Doug Demential Exam: Doug Note: Please also refer to the separate dictated note~for this date of service dictated separately.~Patient seen individually. Discussed the patient with Nursing staff reviewed the chart.~Reviewed interim history and current functioning. Reviewed vital signs,~Labs/ Radiology~and current medications noted below. Continue current treatment with the changes noted in the dictated addendum note Assessment: Vital Signs: Vital Signs Date Time Temp Pulse Resp B/P (MAP) Pulse Ox O2 Delivery O2 Flow Rate FiO2 03/23/17 19:48 Room Air 03/23/17 19:45 93 03/23/17 15:37 98.5 79 16 137/85 (102) I&O Intake and Output 03/24/17 07:00 Intake Total 1080 ml Balance 1080 ml Intake Oral 1080 ml # Bowel Movements 1 Current Medications: Meds: Current Medications Acetaminophen (Tylenol) 650 mg PRN Q6HRS PRN PO MILD PAIN / TEMP Last administered on 03/21/17 08:42; Start 03/16/17 at 04:00 Multi-Ingredient Ointment (Analgesic [place]) 1 markus PRN QID PRN TP MUSCLE PAIN; Start 03/16/17 at 04:00 Al Hydroxide/Mg Hydroxide (Mylanta Plus Xs) 15 ml PRN AFTMEALHC PRN PO DYSPEPSIA; Start 03/16/17 at 04:00 Magnesium Hydroxide (Milk Of Magnesia) 2,400 mg PRN QHS PRN PO CONSTIPATION; Start 03/16/17 at 04:00 Nicotine (Nicoderm Cq 21mg) 1 patch DAILY TD Last administered on 03/23/17 07: 58; Start 03/16/17 at 09:00 Benztropine Mesylate (Cogentin) 0.5 mg BID PO Last administered on 03/18/17 07 :53; Start 03/16/17 at 09:00; Stop 03/18/17 at 16:56; Status DC Buspirone HCl (Buspar) 10 mg TID PO Last administered on 03/23/17 20:38; Start 03/16/17 at 09:00 Duloxetine HCl (Cymbalta) 30 mg BID PO Last administered on 03/16/17 10:16; Start 03/16/17 at 09:00; Stop 03/16/17 at 18:42; Status DC Lorazepam (Ativan) 0.5 mg PRN Q6HRS PRN PO ANXIETY / AGITATION Last administered on 03/21/17 23:13; Start 03/16/17 at 04:00 Trazodone HCl (Desyrel) 50 mg QHS PO Last administered on 03/23/17 20:38; Start 03/16/17 at 21:00 Acetaminophen (Tylenol) 1,000 mg QHS PO Last administered on 03/23/17 20:38; Start 03/16/17 at 21:00 Cyanocobalamin (Vitamin B-12) 1,000 mcg QMONTH IM ; Start 04/07/17 at 09:00 Folic Acid (Folic Acid) 1 mg DAILY PO Last administered on 03/23/17 07:58; Start 03/16/17 at 09:00 Hydrochlorothiazide (Hydrodiuril) 25 mg DAILY PO Last administered on 07:58; Start 03/16/17 at 09:00 Non-Formulary Medication 2 puff BID IH ; Start 03/16/17 at 09:00; Status UNV Vitamin D (Vitamin D3) 50,000 unit WEEKLY PO Last administered on 03/21/17 08: 17; Start 03/21/17 at 09:00 Multivitamins/ Calcium (Thera-M Plus) 1 tab DAILY PO Last administered on 07:58; Start 03/16/17 at 09:00 Ondansetron HCl (Zofran Odt) 4 mg PRN Q8HRS PRN PO NAUSEA/VOMITING; Start 03/16 at 04:30 Non-Formulary Medication 2.5 mcg DAILY IH ; Start 03/16/17 at 09:00; Status UNV Albuterol/ Ipratropium (Duoneb) 3 ml RTQID NEB Last administered on 03/23/17 19:45; Start 03/16/17 at 08:00 Budesonide (Pulmicort) 0.5 mg RTBID NEB Last administered on 03/23/17 19:45; Start 03/16/17 at 08:00 Duloxetine HCl (Cymbalta) 60 mg DAILY PO Last administered on 03/23/17 07:58; Start 03/17/17 at 09:00 Quetiapine Fumarate (SEROquel) 50 mg QHS PO Last administered on 03/21/17 20: 31; Start 03/16/17 at 21:00; Stop 03/22/17 at 10:18; Status DC Benztropine Mesylate (Cogentin) 0.5 mg DAILY PO Last administered on 03/21/17 08:16; Start 03/19/17 at 09:00; Stop 03/21/17 at 15:00; Status DC Divalproex Sodium (Depakote Er) 500 mg QHS PO Last administered on 03/20/17 19 :13; Start 03/18/17 at 21:00; Stop 03/21/17 at 19:29; Status DC Atorvastatin Calcium (Lipitor) 20 mg QHS PO Last administered on 03/23/17 20: 38; Start 03/19/17 at 21:00 Divalproex Sodium (Depakote Er) 750 mg QHS PO Last administered on 03/23/17 20 :38; Start 03/21/17 at 21:00 Quetiapine Fumarate (SEROquel) 75 mg QHS PO Last administered on 03/23/17 20: 37; Start 03/22/17 at 21:00 Active Scripts Active Reported Cyanocobalamin Injection (Cyanocobalamin (Vitamin B-12)) 1,000 Mcg/1 Ml Vial 1, 000 Mcg IM QMONTH Trazodone Hcl 50 Mg Tablet 50 Mg PO QHS Buspirone Hcl 10 Mg Tablet 10 Mg PO TID Acetaminophen 500 Mg Tablet 1,000 Mg PO QHS Therems-M (Multivits, W-Fe,Other Min) 1 Each Tablet 1 Tab PO BID Symbicort 160-4.5 Mcg Inhaler (Budesonide/Formoterol Fumarate) 10.2 Gm Hfa.aer.ad 2 Puff IH BID Cymbalta (Duloxetine Hcl) 30 Mg Capsule.dr 30 Mg PO BID Benztropine Mesylate 0.5 Mg Tablet 0.5 Mg PO BID Zofran (Ondansetron Hcl) 4 Mg Tablet 4 Mg PO PRN Q8HRS PRN Milk Of Magnesia (Magnesium Hydroxide) 400 Mg/5 Ml Oral.susp 2,400 Mg PO PRN DAILY PRN Lorazepam 0.5 Mg Tablet 0.5 Mg PO PRN Q6HRS PRN Acetaminophen 500 Mg Tablet 1,000 Mg PO PRN Q6HRS PRN Vitamin D2 (Ergocalciferol (Vitamin D2)) 50,000 Unit Capsule 50,000 Unit PO QWE Hydrochlorothiazide Tablet (Hydrochlorothiazide) 25 Mg Tablet 25 Mg PO DAILY Folic Acid 1 Mg Tablet 1 Mg PO DAILY Spiriva Respimat (Tiotropium [place]) 4 Gm Mist.inhal 2.5 Mcg IH DAILY Diagnosis: Problems: (1) Anxiety disorder (2) Impulse control disorder (3) Mild cognitive disorder (4) Bipolar 1 disorder, mixed, moderate (5) Bipolar 1 disorder, manic, moderate (6) Dementia associated with alcoholism with behavioral disturbance BERNABE DAVID MD Mar 23, 2017 21:06
--- NOTE | 2017-03-23 21:37 | PN ---
DATE: 03/22/2017 This late entry for 03/22/2017 covers elements not covered in my initial note of 03/22/2017. SUBJECTIVE: I met with the patient the evening of 03/22/2017. At treatment team meeting the morning of 03/22/2017, reviewed the patient's history at length and about her threats to Christina, the dentist/owner of the assisted living. The patient still gets agitated at Christina, but denies any intent to hurt her, but she certainly does not want to return back to the assisted living. REVIEW OF SYSTEMS: Positive for some abnormal mouth movements. No CV, , pulmonary, eye, ENT system symptoms on review. MENTAL STATUS EXAM: The patient is reasonably oriented. Speech is coherent, abstraction fair, computation impaired, language function intact, attention span short. Mood and affect appears more stable. LABORATORY DATA: Reviewed. IMPRESSION: Unchanged from initial note. PLAN: Increase Seroquel to 75 mg p.o. at bedtime from current dosage 50 mg at bedtime. Cogentin is being tapered to be discontinued. Maintain Cymbalta, BuSpar, trazodone, Ativan p.r.n., Depakote 750 mg at bedtime with repeat labs level on 03/25/2017. Make further adjustments as clinically indicated. Reviewed drug interactions. Risk/benefit ratio favors no further change at this time. MAN Britni DAVID MD DR: SHAQUILLE/ros JOB#: [id number] / [id number]
[2017-03-24] MEDS: IPRATRPIUM/ALBUTEROL 0.5/2.5MG 3 ML NEBU. NEB SCH ×4 (05:50→20:18)
[2017-03-24 06:02] VITALS: BP 154/80
[2017-03-24] MEDS: NICOTINE 21MG PATCH. TD SCH (07:51)
[2017-03-24] MEDS: busPIRone 10 MG TABLET. PO SCH ×3 (07:51→20:00)
[2017-03-24] MEDS: hydroCHLOROthiazide 25 MG TABLET PO SCH (07:52)
[2017-03-24] MEDS: FOLIC ACID 1 MG TABLET PO SCH (07:52)
[2017-03-24] MEDS: DULoxetine HCL 60 MG CAPSULE.DR PO SCH (07:52)
[2017-03-24] MEDS: MULTIVITAMIN with MINERAL TABLET. PO SCH (07:52)
[2017-03-24] MEDS: BUDESONIDE 0.5 MG/2 ML NEBU NEB SCH ×2 (08:00→20:18)
--- NOTE | 2017-03-24 12:17 | PN ---
DATE: 03/23/2017 This late entry 03/23/2017 covers elements not covered in my initial note of 03/23/2017. I met with the patient evening of 03/23/2017. Overall, the patient has been doing reasonably well. The patient is somewhat withdrawn, but interactive, has a dry sense of humor as I met with her. Valproic acid level is to be checked on the with CBC and CMP. REVIEW OF SYSTEMS: Has some abnormal mouth movements, possibly due to dentures, questionably due to early tardive dyskinesia. No CV, , pulmonary, eye, ENT system symptoms on review. MENTAL STATUS EXAM: She is reasonably oriented. Speech is coherent, abstraction fair, computation impaired, language function intact, attention span short. Mood and affect intermittently withdrawn. LABORATORY DATA: Reviewed. IMPRESSION: Unchanged from initial note. PLAN: Continue current psychotropics, reviewed drug contraction, check labs level on the Depakote 03/25, adjust further as clinically indicated. BERNABE DAVID MD DR: SHAQUILLE/ros JOB#: [id number] / [id number]
[2017-03-24 16:08] VITALS: BP 141/81
[2017-03-24] MEDS: DIVALPROEX ER 250 MG TAB.ER.24H. PO SCH (19:59)
[2017-03-24] MEDS: QUEtiapine 50 MG TABLET. PO SCH (19:59)
[2017-03-24] MEDS: ATORVASTATIN CALCIUM 20 MG TABLET PO SCH (20:00)
[2017-03-24] MEDS: ACETAMINOPHEN 500 MG TABLET PO SCH (20:00)
[2017-03-24] MEDS: traZODone 50 MG TABLET. PO SCH (20:00)
--- NOTE | 2017-03-24 22:52 | PDOC ---
Exam Doug Demential Exam: Doug Note: Please also refer to the separate dictated note~for this date of service dictated separately.~Patient seen individually. Discussed the patient with Nursing staff reviewed the chart.~Reviewed interim history and current functioning. Reviewed vital signs,~Labs/ Radiology~and current medications noted below. Continue current treatment with the changes noted in the dictated addendum note Assessment: Vital Signs: Vital Signs Date Time Temp Pulse Resp B/P (MAP) Pulse Ox O2 Delivery O2 Flow Rate FiO2 03/24/17 20:25 Room Air 03/24/17 20:20 95 03/24/17 16:08 97.8 80 16 141/81 (101) I&O Intake and Output 03/25/17 07:00 Intake Total 1560 ml Balance 1560 ml Intake Oral 1560 ml Current Medications: Meds: Current Medications Acetaminophen (Tylenol) 650 mg PRN Q6HRS PRN PO MILD PAIN / TEMP Last administered on 03/21/17 08:42; Start 03/16/17 at 04:00 Multi-Ingredient Ointment (Analgesic [place]) 1 markus PRN QID PRN TP MUSCLE PAIN; Start 03/16/17 at 04:00 Al Hydroxide/Mg Hydroxide (Mylanta Plus Xs) 15 ml PRN AFTMEALHC PRN PO DYSPEPSIA; Start 03/16/17 at 04:00 Magnesium Hydroxide (Milk Of Magnesia) 2,400 mg PRN QHS PRN PO CONSTIPATION; Start 03/16/17 at 04:00 Nicotine (Nicoderm Cq 21mg) 1 patch DAILY TD Last administered on 03/24/17 07: 51; Start 03/16/17 at 09:00 Benztropine Mesylate (Cogentin) 0.5 mg BID PO Last administered on 03/18/17 07 :53; Start 03/16/17 at 09:00; Stop 03/18/17 at 16:56; Status DC Buspirone HCl (Buspar) 10 mg TID PO Last administered on 03/24/17 20:00; Start 03/16/17 at 09:00 Duloxetine HCl (Cymbalta) 30 mg BID PO Last administered on 03/16/17 10:16; Start 03/16/17 at 09:00; Stop 03/16/17 at 18:42; Status DC Lorazepam (Ativan) 0.5 mg PRN Q6HRS PRN PO ANXIETY / AGITATION Last administered on 03/21/17 23:13; Start 03/16/17 at 04:00 Trazodone HCl (Desyrel) 50 mg QHS PO Last administered on 03/24/17 20:00; Start 03/16/17 at 21:00 Acetaminophen (Tylenol) 1,000 mg QHS PO Last administered on 03/24/17 20:00; Start 03/16/17 at 21:00 Cyanocobalamin (Vitamin B-12) 1,000 mcg QMONTH IM ; Start 04/07/17 at 09:00 Folic Acid (Folic Acid) 1 mg DAILY PO Last administered on 03/24/17 07:52; Start 03/16/17 at 09:00 Hydrochlorothiazide (Hydrodiuril) 25 mg DAILY PO Last administered on 07:52; Start 03/16/17 at 09:00 Non-Formulary Medication 2 puff BID IH ; Start 03/16/17 at 09:00; Status UNV Vitamin D (Vitamin D3) 50,000 unit WEEKLY PO Last administered on 03/21/17 08: 17; Start 03/21/17 at 09:00 Multivitamins/ Calcium (Thera-M Plus) 1 tab DAILY PO Last administered on 07:52; Start 03/16/17 at 09:00 Ondansetron HCl (Zofran Odt) 4 mg PRN Q8HRS PRN PO NAUSEA/VOMITING; Start 03/16 at 04:30 Non-Formulary Medication 2.5 mcg DAILY IH ; Start 03/16/17 at 09:00; Status UNV Albuterol/ Ipratropium (Duoneb) 3 ml RTQID NEB Last administered on 03/24/17 20:18; Start 03/16/17 at 08:00 Budesonide (Pulmicort) 0.5 mg RTBID NEB Last administered on 03/24/17 20:18; Start 03/16/17 at 08:00 Duloxetine HCl (Cymbalta) 60 mg DAILY PO Last administered on 03/24/17 07:52; Start 03/17/17 at 09:00 Quetiapine Fumarate (SEROquel) 50 mg QHS PO Last administered on 03/21/17 20: 31; Start 03/16/17 at 21:00; Stop 03/22/17 at 10:18; Status DC Benztropine Mesylate (Cogentin) 0.5 mg DAILY PO Last administered on 03/21/17 08:16; Start 03/19/17 at 09:00; Stop 03/21/17 at 15:00; Status DC Divalproex Sodium (Depakote Er) 500 mg QHS PO Last administered on 03/20/17 19 :13; Start 03/18/17 at 21:00; Stop 03/21/17 at 19:29; Status DC Atorvastatin Calcium (Lipitor) 20 mg QHS PO Last administered on 03/24/17 20: 00; Start 03/19/17 at 21:00 Divalproex Sodium (Depakote Er) 750 mg QHS PO Last administered on 03/24/17 19 :59; Start 03/21/17 at 21:00 Quetiapine Fumarate (SEROquel) 75 mg QHS PO Last administered on 03/24/17 19: 59; Start 03/22/17 at 21:00 Active Scripts Active Reported Cyanocobalamin Injection (Cyanocobalamin (Vitamin B-12)) 1,000 Mcg/1 Ml Vial 1, 000 Mcg IM QMONTH Trazodone Hcl 50 Mg Tablet 50 Mg PO QHS Buspirone Hcl 10 Mg Tablet 10 Mg PO TID Acetaminophen 500 Mg Tablet 1,000 Mg PO QHS Therems-M (, W-Fe,Other Min) 1 Each Tablet 1 Tab PO BID Symbicort 160-4.5 Mcg Inhaler (Budesonide/Formoterol Fumarate) 10.2 Gm Hfa.aer.ad 2 Puff IH BID Cymbalta (Duloxetine Hcl) 30 Mg Capsule.dr 30 Mg PO BID Benztropine Mesylate 0.5 Mg Tablet 0.5 Mg PO BID Zofran (Ondansetron Hcl) 4 Mg Tablet 4 Mg PO PRN Q8HRS PRN Milk Of Magnesia (Magnesium Hydroxide) 400 Mg/5 Ml Oral.susp 2,400 Mg PO PRN DAILY PRN Lorazepam 0.5 Mg Tablet 0.5 Mg PO PRN Q6HRS PRN Acetaminophen 500 Mg Tablet 1,000 Mg PO PRN Q6HRS PRN Vitamin D2 (Ergocalciferol (Vitamin D2)) 50,000 Unit Capsule 50,000 Unit PO QWE Hydrochlorothiazide Tablet (Hydrochlorothiazide) 25 Mg Tablet 25 Mg PO DAILY Folic Acid 1 Mg Tablet 1 Mg PO DAILY Spiriva Respimat (Tiotropium [place]) 4 Gm Mist.inhal 2.5 Mcg IH DAILY Diagnosis: Problems: (1) Anxiety disorder (2) Impulse control disorder (3) Mild cognitive disorder (4) Bipolar 1 disorder, mixed, moderate (5) Bipolar 1 disorder, manic, moderate (6) Dementia associated with alcoholism with behavioral disturbance BERNABE DAVID MD Mar 24, 2017 22:52
[2017-03-25 05:47] VITALS: BP 108/65
[2017-03-25] MEDS: IPRATRPIUM/ALBUTEROL 0.5/2.5MG 3 ML NEBU. NEB SCH ×4 (05:50→20:27)
[2017-03-25] MEDS: FOLIC ACID 1 MG TABLET PO SCH (07:32)
[2017-03-25] MEDS: MULTIVITAMIN with MINERAL TABLET. PO SCH (07:32)
[2017-03-25] MEDS: busPIRone 10 MG TABLET. PO SCH ×3 (07:32→19:45)
[2017-03-25] MEDS: hydroCHLOROthiazide 25 MG TABLET PO SCH (07:32)
[2017-03-25] MEDS: DULoxetine HCL 60 MG CAPSULE.DR PO SCH (07:32)
[2017-03-25] MEDS: NICOTINE 21MG PATCH. TD SCH (07:32)
[2017-03-25] MEDS: BUDESONIDE 0.5 MG/2 ML NEBU NEB SCH ×2 (08:00→20:27)
[2017-03-25 08:17] LABS: BASO % 1 % (0-3); EOS # 0.1 x10^3/uL (0.0-0.7); EOS % 2 % (0-3); HEMATOCRIT 41.1 % (36.0-47.0); LYMPH # 1.7 x10^3/uL (1.0-4.8); LYMPH % 43 % (24-48); MEAN CORPUSCULAR HEMOGLOBIN 31 pg (25-35); MEAN CORPUSCULAR HGB CONC 34 g/dL (31-37); MEAN CORPUSCULAR VOLUME 90 fL (79-100); MONO # 0.3 x10^3/uL (0.0-1.1); MONO % 8 % (0-9); NEUT # 1.9 x10^3uL (1.8-7.7); NEUT % 46 % (31-73); PLATELET COUNT 127 x10^3/uL (140-400); RED BLOOD COUNT 4.58 x10^6/uL (3.50-5.40); RED CELL DISTRIBUTION WIDTH 14.2 % (11.5-14.5)
[2017-03-25 08:27] LABS: ALBUMIN 3.1 g/dL (3.4-5.0); ALBUMIN/GLOBULIN RATIO 0.9 (1.0-1.7); ALK PHOS 51 U/L (46-116); ALT (SGPT) 19 U/L (14-59); ANION GAP 7 (6-14); AST (SGOT) 13 U/L (15-37); BLOOD UREA NITROGEN 16 mg/dL (7-20); BUN/CREATININE RATIO 20 (6-20); CALCIUM 8.7 mg/dL (8.5-10.1); CARBON DIOXIDE 31 mmol/L (21-32); CHLORIDE 95 mmol/L (98-107); CREATININE 0.8 mg/dL (0.6-1.0); GFR 71.1; GLUCOSE 94 mg/dL (70-99); SODIUM 133 mmol/L (136-145); TOTAL BILIRUBIN 0.4 mg/dL (0.2-1.0); TOTAL PROTEIN 6.4 g/dL (6.4-8.2)
[2017-03-25 08:31] LABS: VAL ACID 69 mcg/mL (50-100)
--- NOTE | 2017-03-25 09:57 | PN ---
DATE: 03/24/2017 This late entry 03/24/2017 covers the elements not covered in my initial note of 03/24/2017. I met with the patient in the evening of 03/24/2017. Overall per nursing report, the patient has been calm, compliant, still very angry with Christina, script coordinator of the assisted living. The patient believes she is the cause of all her problems and she is the reason her cat has gone. Process this with her. No active suicidal or homicidal ideation. REVIEW OF SYSTEMS: No CV, , pulmonary, eye, ENT system symptoms on review. MENTAL STATUS EXAM: Reasonably oriented. Speech is coherent, abstraction fair, computation impaired, language function intact. Mood and affect still somewhat withdrawn and depressed. LABORATORY DATA: Reviewed. IMPRESSION: Unchanged from initial note. PLAN: Continue current psychotropics. Reviewed drug contractions. Risk/benefit ratio favors no further change. Check labs level on the Depakote morning of 03/25/2017, adjust to reach a therapeutic level. BERNABE DAVID MD DR: SHAQUILLE/ros JOB#: [id number] / [id number]
[2017-03-25 15:45] VITALS: BP 123/81
[2017-03-25] MEDS: traZODone 50 MG TABLET. PO SCH (19:45)
[2017-03-25] MEDS: ATORVASTATIN CALCIUM 20 MG TABLET PO SCH (19:45)
[2017-03-25] MEDS: QUEtiapine 50 MG TABLET. PO SCH (19:45)
[2017-03-25] MEDS: DIVALPROEX ER 250 MG TAB.ER.24H. PO SCH (19:45)
[2017-03-25] MEDS: ACETAMINOPHEN 500 MG TABLET PO SCH (19:45)
--- NOTE | 2017-03-25 20:31 | PDOC ---
Exam Doug Demential Exam: Doug Note: Please also refer to the separate dictated note~for this date of service dictated separately.~Patient seen individually. Discussed the patient with Nursing staff reviewed the chart.~Reviewed interim history and current functioning. Reviewed vital signs,~Labs/ Radiology~and current medications noted below. Continue current treatment with the changes noted in the dictated addendum note Assessment: Vital Signs: Vital Signs Date Time Temp Pulse Resp B/P (MAP) Pulse Ox O2 Delivery O2 Flow Rate FiO2 03/25/17 16:02 97 Room Air 03/25/17 15:45 98.7 76 18 123/81 (95) I&O Intake and Output 03/26/17 07:00 Intake Total 1080 ml Balance 1080 ml Intake Oral 1080 ml # Bowel Movements 1 Labs: Laboratory Tests Test 03/25/17 07:55 White Blood Count 4.0 x10^3/uL (4.0-11.0) Red Blood Count 4.58 x10^6/uL (3.50-5.40) Hemoglobin 14.0 g/dL (12.0-15.5) Hematocrit 41.1 % (36.0-47.0) Mean Corpuscular Volume 90 fL (79-100) Mean Corpuscular Hemoglobin 31 pg (25-35) Mean Corpuscular Hemoglobin Concent 34 g/dL (31-37) Red Cell Distribution Width 14.2 % (11.5-14.5) Platelet Count 127 x10^3/uL (140-400) L Neutrophils (%) (Auto) 46 % (31-73) Lymphocytes (%) (Auto) 43 % (24-48) Monocytes (%) (Auto) 8 % (0-9) Eosinophils (%) (Auto) 2 % (0-3) Basophils (%) (Auto) 1 % (0-3) Neutrophils # (Auto) 1.9 x10^3uL (1.8-7.7) Lymphocytes # (Auto) 1.7 x10^3/uL (1.0-4.8) Monocytes # (Auto) 0.3 x10^3/uL (0.0-1.1) Eosinophils # (Auto) 0.1 x10^3/uL (0.0-0.7) Basophils # (Auto) 0.0 x10^3/uL (0.0-0.2) Sodium Level 133 mmol/L (136-145) L Potassium Level 4.0 mmol/L (3.5-5.1) Chloride Level 95 mmol/L (98-107) L Carbon Dioxide Level 31 mmol/L (21-32) Anion Gap 7 (6-14) Blood Urea Nitrogen 16 mg/dL (7-20) Creatinine 0.8 mg/dL (0.6-1.0) Estimated GFR (Cockcroft-Gault) 71.1 BUN/Creatinine Ratio 20 (6-20) Glucose Level 94 mg/dL (70-99) Calcium Level 8.7 mg/dL (8.5-10.1) Total Bilirubin 0.4 mg/dL (0.2-1.0) Aspartate Amino Transferase (AST) 13 U/L (15-37) L Alanine Aminotransferase (ALT) 19 U/L (14-59) Alkaline Phosphatase 51 U/L (46-116) Total Protein 6.4 g/dL (6.4-8.2) Albumin 3.1 g/dL (3.4-5.0) L Albumin/Globulin Ratio 0.9 (1.0-1.7) L Valproic Acid Level 69 mcg/mL (50-100) Valproic Acid Last Dose Date 03/24/2017 Valproic Acid Last Dose Time 2100 Current Medications: Meds: Current Medications Acetaminophen (Tylenol) 650 mg PRN Q6HRS PRN PO MILD PAIN / TEMP Last administered on 03/21/17 08:42; Start 03/16/17 at 04:00 Multi-Ingredient Ointment (Analgesic [place]) 1 markus PRN QID PRN TP MUSCLE PAIN; Start 03/16/17 at 04:00 Al Hydroxide/Mg Hydroxide (Mylanta Plus Xs) 15 ml PRN AFTMEALHC PRN PO DYSPEPSIA; Start 03/16/17 at 04:00 Magnesium Hydroxide (Milk Of Magnesia) 2,400 mg PRN QHS PRN PO CONSTIPATION; Start 03/16/17 at 04:00 Nicotine (Nicoderm Cq 21mg) 1 patch DAILY TD Last administered on 03/25/17 07: 32; Start 03/16/17 at 09:00 Benztropine Mesylate (Cogentin) 0.5 mg BID PO Last administered on 03/18/17 07 :53; Start 03/16/17 at 09:00; Stop 03/18/17 at 16:56; Status DC Buspirone HCl (Buspar) 10 mg TID PO Last administered on 03/25/17 19:45; Start 03/16/17 at 09:00 Duloxetine HCl (Cymbalta) 30 mg BID PO Last administered on 03/16/17 10:16; Start 03/16/17 at 09:00; Stop 03/16/17 at 18:42; Status DC Lorazepam (Ativan) 0.5 mg PRN Q6HRS PRN PO ANXIETY / AGITATION Last administered on 03/21/17 23:13; Start 03/16/17 at 04:00 Trazodone HCl (Desyrel) 50 mg QHS PO Last administered on 03/25/17 19:45; Start 03/16/17 at 21:00 Acetaminophen (Tylenol) 1,000 mg QHS PO Last administered on 03/25/17 19:45; Start 03/16/17 at 21:00 Cyanocobalamin (Vitamin B-12) 1,000 mcg QMONTH IM ; Start 04/07/17 at 09:00 Folic Acid (Folic Acid) 1 mg DAILY PO Last administered on 03/25/17 07:32; Start 03/16/17 at 09:00 Hydrochlorothiazide (Hydrodiuril) 25 mg DAILY PO Last administered on 07:32; Start 03/16/17 at 09:00 Non-Formulary Medication 2 puff BID IH ; Start 03/16/17 at 09:00; Status UNV Vitamin D (Vitamin D3) 50,000 unit WEEKLY PO Last administered on 03/21/17 08: 17; Start 03/21/17 at 09:00 Multivitamins/ Calcium (Thera-M Plus) 1 tab DAILY PO Last administered on 07:32; Start 03/16/17 at 09:00 Ondansetron HCl (Zofran Odt) 4 mg PRN Q8HRS PRN PO NAUSEA/VOMITING; Start 03/16 at 04:30 Non-Formulary Medication 2.5 mcg DAILY IH ; Start 03/16/17 at 09:00; Status UNV Albuterol/ Ipratropium (Duoneb) 3 ml RTQID NEB Last administered on 03/25/17 20:27; Start 03/16/17 at 08:00 Budesonide (Pulmicort) 0.5 mg RTBID NEB Last administered on 03/25/17 20:27; Start 03/16/17 at 08:00 Duloxetine HCl (Cymbalta) 60 mg DAILY PO Last administered on 03/25/17 07:32; Start 03/17/17 at 09:00 Quetiapine Fumarate (SEROquel) 50 mg QHS PO Last administered on 03/21/17 20: 31; Start 03/16/17 at 21:00; Stop 03/22/17 at 10:18; Status DC Benztropine Mesylate (Cogentin) 0.5 mg DAILY PO Last administered on 03/21/17 08:16; Start 03/19/17 at 09:00; Stop 03/21/17 at 15:00; Status DC Divalproex Sodium (Depakote Er) 500 mg QHS PO Last administered on 03/20/17 19 :13; Start 03/18/17 at 21:00; Stop 03/21/17 at 19:29; Status DC Atorvastatin Calcium (Lipitor) 20 mg QHS PO Last administered on 03/25/17 19: 45; Start 03/19/17 at 21:00 Divalproex Sodium (Depakote Er) 750 mg QHS PO Last administered on 03/25/17 19 :45; Start 03/21/17 at 21:00 Quetiapine Fumarate (SEROquel) 75 mg QHS PO Last administered on 03/25/17 19: 45; Start 03/22/17 at 21:00 Active Scripts Active Reported Cyanocobalamin Injection (Cyanocobalamin (Vitamin B-12)) 1,000 Mcg/1 Ml Vial 1, 000 Mcg IM QMONTH Trazodone Hcl 50 Mg Tablet 50 Mg PO QHS Buspirone Hcl 10 Mg Tablet 10 Mg PO TID Acetaminophen 500 Mg Tablet 1,000 Mg PO QHS Therems-M (Multivits,Th W-Fe,Other Min) 1 Each Tablet 1 Tab PO BID Symbicort 160-4.5 Mcg Inhaler (Budesonide/Formoterol Fumarate) 10.2 Gm Hfa.aer.ad 2 Puff IH BID Cymbalta (Duloxetine Hcl) 30 Mg Capsule.dr 30 Mg PO BID Benztropine Mesylate 0.5 Mg Tablet 0.5 Mg PO BID Zofran (Ondansetron Hcl) 4 Mg Tablet 4 Mg PO PRN Q8HRS PRN Milk Of Magnesia (Magnesium Hydroxide) 400 Mg/5 Ml Oral.susp 2,400 Mg PO PRN DAILY PRN Lorazepam 0.5 Mg Tablet 0.5 Mg PO PRN Q6HRS PRN Acetaminophen 500 Mg Tablet 1,000 Mg PO PRN Q6HRS PRN Vitamin D2 (Ergocalciferol (Vitamin D2)) 50,000 Unit Capsule 50,000 Unit PO QWE Hydrochlorothiazide Tablet (Hydrochlorothiazide) 25 Mg Tablet 25 Mg PO DAILY Folic Acid 1 Mg Tablet 1 Mg PO DAILY Spiriva Respimat (Tiotropium [place]) 4 Gm Mist.inhal 2.5 Mcg IH DAILY Diagnosis: Problems: (1) Anxiety disorder (2) Impulse control disorder (3) Mild cognitive disorder (4) Bipolar 1 disorder, mixed, moderate (5) Bipolar 1 disorder, manic, moderate (6) Dementia associated with alcoholism with behavioral disturbance BERNABE DAVID MD Mar 25, 2017 20:31
[2017-03-26] MEDS: IPRATRPIUM/ALBUTEROL 0.5/2.5MG 3 ML NEBU. NEB SCH ×4 (05:32→19:46)
[2017-03-26 06:18] VITALS: BP 120/69
[2017-03-26] MEDS: hydroCHLOROthiazide 25 MG TABLET PO SCH (09:17)
[2017-03-26] MEDS: MULTIVITAMIN with MINERAL TABLET. PO SCH (09:17)
[2017-03-26] MEDS: busPIRone 10 MG TABLET. PO SCH ×3 (09:17→19:46)
[2017-03-26] MEDS: FOLIC ACID 1 MG TABLET PO SCH (09:17)
[2017-03-26] MEDS: NICOTINE 21MG PATCH. TD SCH (09:17)
[2017-03-26] MEDS: DULoxetine HCL 60 MG CAPSULE.DR PO SCH (09:17)
[2017-03-26] MEDS: BUDESONIDE 0.5 MG/2 ML NEBU NEB SCH ×2 (10:59→19:46)
--- NOTE | 2017-03-26 11:43 | PN ---
DATE: 03/25/2017 PSYCHIATRIC PROGRESS NOTE This late entry 03/25/2017 covers elements, not covered in my initial note of 03/25/2017. SUBJECTIVE: I met with the patient evening of 03/25/2017. Overall, the patient has been more cooperative on the unit, calmer. She is not voiced any homicidal ideation. REVIEW OF SYSTEMS: No CV, , pulmonary, eye system symptoms on review. MENTAL STATUS EXAM: Reasonably oriented. Speech is coherent, abstraction fair, computation impaired, language function intact. Mood and affect is improved. LABORATORY DATA: Reviewed. IMPRESSION: Unchanged from initial note. Valproic acid level is 69, therapeutic. Continue current psychotropics. Reviewed drug contractions. Risk/benefit ratio favors no further change. MAN Britni DAVID MD DR: SHAQUILLE/ros JOB#: [id number] / [id number]
[2017-03-26 16:03] VITALS: BP 129/80
[2017-03-26] MEDS: DIVALPROEX ER 250 MG TAB.ER.24H. PO SCH (19:45)
[2017-03-26] MEDS: QUEtiapine 50 MG TABLET. PO SCH (19:45)
[2017-03-26] MEDS: ACETAMINOPHEN 500 MG TABLET PO SCH (19:45)
[2017-03-26] MEDS: traZODone 50 MG TABLET. PO SCH (19:45)
[2017-03-26] MEDS: ATORVASTATIN CALCIUM 20 MG TABLET PO SCH (19:46)
--- NOTE | 2017-03-26 20:21 | PDOC ---
Exam Doug Demential Exam: Doug Note: Please also refer to the separate dictated note~for this date of service dictated separately.~Patient seen individually. Discussed the patient with Nursing staff reviewed the chart.~Reviewed interim history and current functioning. Reviewed vital signs,~Labs/ Radiology~and current medications noted below. Continue current treatment with the changes noted in the dictated addendum note Assessment: Vital Signs: Vital Signs Date Time Temp Pulse Resp B/P (MAP) Pulse Ox O2 Delivery O2 Flow Rate FiO2 03/26/17 19:47 94 Room Air 03/26/17 16:03 97.8 86 18 129/80 (96) I&O Intake and Output 03/27/17 07:00 Intake Total 1220 ml Balance 1220 ml Intake Oral 1220 ml Current Medications: Meds: Current Medications Acetaminophen (Tylenol) 650 mg PRN Q6HRS PRN PO MILD PAIN / TEMP Last administered on 03/21/17 08:42; Start 03/16/17 at 04:00 Multi-Ingredient Ointment (Analgesic [place]) 1 markus PRN QID PRN TP MUSCLE PAIN; Start 03/16/17 at 04:00 Al Hydroxide/Mg Hydroxide (Mylanta Plus Xs) 15 ml PRN AFTMEALHC PRN PO DYSPEPSIA; Start 03/16/17 at 04:00 Magnesium Hydroxide (Milk Of Magnesia) 2,400 mg PRN QHS PRN PO CONSTIPATION; Start 03/16/17 at 04:00 Nicotine (Nicoderm Cq 21mg) 1 patch DAILY TD Last administered on 03/26/17 09: 17; Start 03/16/17 at 09:00 Benztropine Mesylate (Cogentin) 0.5 mg BID PO Last administered on 03/18/17 07 :53; Start 03/16/17 at 09:00; Stop 03/18/17 at 16:56; Status DC Buspirone HCl (Buspar) 10 mg TID PO Last administered on 03/26/17 19:46; Start 03/16/17 at 09:00 Duloxetine HCl (Cymbalta) 30 mg BID PO Last administered on 03/16/17 10:16; Start 03/16/17 at 09:00; Stop 03/16/17 at 18:42; Status DC Lorazepam (Ativan) 0.5 mg PRN Q6HRS PRN PO ANXIETY / AGITATION Last administered on 03/21/17 23:13; Start 03/16/17 at 04:00 Trazodone HCl (Desyrel) 50 mg QHS PO Last administered on 03/26/17 19:45; Start 03/16/17 at 21:00 Acetaminophen (Tylenol) 1,000 mg QHS PO Last administered on 03/26/17 19:45; Start 03/16/17 at 21:00 Cyanocobalamin (Vitamin B-12) 1,000 mcg QMONTH IM ; Start 04/07/17 at 09:00 Folic Acid (Folic Acid) 1 mg DAILY PO Last administered on 03/26/17 09:17; Start 03/16/17 at 09:00 Hydrochlorothiazide (Hydrodiuril) 25 mg DAILY PO Last administered on 09:17; Start 03/16/17 at 09:00 Non-Formulary Medication 2 puff BID IH ; Start 03/16/17 at 09:00; Status UNV Vitamin D (Vitamin D3) 50,000 unit WEEKLY PO Last administered on 03/21/17 08: 17; Start 03/21/17 at 09:00 Multivitamins/ Calcium (Thera-M Plus) 1 tab DAILY PO Last administered on 09:17; Start 03/16/17 at 09:00 Ondansetron HCl (Zofran Odt) 4 mg PRN Q8HRS PRN PO NAUSEA/VOMITING; Start 03/16 at 04:30 Non-Formulary Medication 2.5 mcg DAILY IH ; Start 03/16/17 at 09:00; Status UNV Albuterol/ Ipratropium (Duoneb) 3 ml RTQID NEB Last administered on 03/26/17 19:46; Start 03/16/17 at 08:00 Budesonide (Pulmicort) 0.5 mg RTBID NEB Last administered on 03/26/17 19:46; Start 03/16/17 at 08:00 Duloxetine HCl (Cymbalta) 60 mg DAILY PO Last administered on 03/26/17 09:17; Start 03/17/17 at 09:00 Quetiapine Fumarate (SEROquel) 50 mg QHS PO Last administered on 03/21/17 20: 31; Start 03/16/17 at 21:00; Stop 03/22/17 at 10:18; Status DC Benztropine Mesylate (Cogentin) 0.5 mg DAILY PO Last administered on 03/21/17 08:16; Start 03/19/17 at 09:00; Stop 03/21/17 at 15:00; Status DC Divalproex Sodium (Depakote Er) 500 mg QHS PO Last administered on 03/20/17 19 :13; Start 03/18/17 at 21:00; Stop 03/21/17 at 19:29; Status DC Atorvastatin Calcium (Lipitor) 20 mg QHS PO Last administered on 03/26/17 19: 46; Start 03/19/17 at 21:00 Divalproex Sodium (Depakote Er) 750 mg QHS PO Last administered on 03/26/17 19 :45; Start 03/21/17 at 21:00 Quetiapine Fumarate (SEROquel) 75 mg QHS PO Last administered on 03/26/17 19: 45; Start 03/22/17 at 21:00 Active Scripts Active Reported Cyanocobalamin Injection (Cyanocobalamin (Vitamin B-12)) 1,000 Mcg/1 Ml Vial 1, 000 Mcg IM QMONTH Trazodone Hcl 50 Mg Tablet 50 Mg PO QHS Buspirone Hcl 10 Mg Tablet 10 Mg PO TID Acetaminophen 500 Mg Tablet 1,000 Mg PO QHS Therems-M (Multivits, W-Fe,Other Min) 1 Each Tablet 1 Tab PO BID Symbicort 160-4.5 Mcg Inhaler (Budesonide/Formoterol Fumarate) 10.2 Gm Hfa.aer.ad 2 Puff IH BID Cymbalta (Duloxetine Hcl) 30 Mg Capsule.dr 30 Mg PO BID Benztropine Mesylate 0.5 Mg Tablet 0.5 Mg PO BID Zofran (Ondansetron Hcl) 4 Mg Tablet 4 Mg PO PRN Q8HRS PRN Milk Of Magnesia (Magnesium Hydroxide) 400 Mg/5 Ml Oral.susp 2,400 Mg PO PRN DAILY PRN Lorazepam 0.5 Mg Tablet 0.5 Mg PO PRN Q6HRS PRN Acetaminophen 500 Mg Tablet 1,000 Mg PO PRN Q6HRS PRN Vitamin D2 (Ergocalciferol (Vitamin D2)) 50,000 Unit Capsule 50,000 Unit PO QWE Hydrochlorothiazide Tablet (Hydrochlorothiazide) 25 Mg Tablet 25 Mg PO DAILY Folic Acid 1 Mg Tablet 1 Mg PO DAILY Spiriva Respimat (Tiotropium [place]) 4 Gm Mist.inhal 2.5 Mcg IH DAILY Diagnosis: Problems: (1) Anxiety disorder (2) Impulse control disorder (3) Mild cognitive disorder (4) Bipolar 1 disorder, mixed, moderate (5) Bipolar 1 disorder, manic, moderate (6) Dementia associated with alcoholism with behavioral disturbance BERNABE DAVID MD Mar 26, 2017 20:21
[2017-03-27] MEDS: IPRATRPIUM/ALBUTEROL 0.5/2.5MG 3 ML NEBU. NEB SCH ×4 (06:21→21:13)
[2017-03-27 07:08] VITALS: BP 107/56
[2017-03-27] MEDS: FOLIC ACID 1 MG TABLET PO SCH (08:44)
[2017-03-27] MEDS: hydroCHLOROthiazide 25 MG TABLET PO SCH (08:44)
[2017-03-27] MEDS: busPIRone 10 MG TABLET. PO SCH ×3 (08:44→19:57)
[2017-03-27] MEDS: MULTIVITAMIN with MINERAL TABLET. PO SCH (08:44)
[2017-03-27] MEDS: NICOTINE 21MG PATCH. TD SCH (08:44)
[2017-03-27] MEDS: DULoxetine HCL 60 MG CAPSULE.DR PO SCH (08:44)
[2017-03-27] MEDS: BUDESONIDE 0.5 MG/2 ML NEBU NEB SCH ×2 (08:54→21:13)
[2017-03-27 15:52] VITALS: BP 142/84
[2017-03-27] MEDS: ATORVASTATIN CALCIUM 20 MG TABLET PO SCH (19:57)
[2017-03-27] MEDS: QUEtiapine 50 MG TABLET. PO SCH (19:58)
[2017-03-27] MEDS: traZODone 50 MG TABLET. PO SCH (19:59)
[2017-03-27] MEDS: ACETAMINOPHEN 500 MG TABLET PO SCH (19:59)
[2017-03-27] MEDS: DIVALPROEX ER 250 MG TAB.ER.24H. PO SCH (19:59)
--- NOTE | 2017-03-27 20:40 | PDOC ---
Exam Doug Demential Exam: Doug Note: Please also refer to the separate dictated note~for this date of service dictated separately.~Patient seen individually. Discussed the patient with Nursing staff reviewed the chart.~Reviewed interim history and current functioning. Reviewed vital signs,~Labs/ Radiology~and current medications noted below. Continue current treatment with the changes noted in the dictated addendum note Assessment: Vital Signs: Vital Signs Date Time Temp Pulse Resp B/P (MAP) Pulse Ox O2 Delivery O2 Flow Rate FiO2 03/27/17 15:52 97.8 82 18 142/84 (103) 94 03/27/17 13:20 Room Air I&O Intake and Output 03/28/17 07:00 Intake Total 1400 ml Balance 1400 ml Intake Oral 1400 ml # Bowel Movements 1 Current Medications: Meds: Current Medications Acetaminophen (Tylenol) 650 mg PRN Q6HRS PRN PO MILD PAIN / TEMP Last administered on 03/21/17 08:42; Start 03/16/17 at 04:00 Multi-Ingredient Ointment (Analgesic [place]) 1 markus PRN QID PRN TP MUSCLE PAIN; Start 03/16/17 at 04:00 Al Hydroxide/Mg Hydroxide (Mylanta Plus Xs) 15 ml PRN AFTMEALHC PRN PO DYSPEPSIA; Start 03/16/17 at 04:00 Magnesium Hydroxide (Milk Of Magnesia) 2,400 mg PRN QHS PRN PO CONSTIPATION; Start 03/16/17 at 04:00 Nicotine (Nicoderm Cq 21mg) 1 patch DAILY TD Last administered on 03/27/17 08 :44; Start 03/16/17 at 09:00 Benztropine Mesylate (Cogentin) 0.5 mg BID PO Last administered on 03/18/17 07 :53; Start 03/16/17 at 09:00; Stop 03/18/17 at 16:56; Status DC Buspirone HCl (Buspar) 10 mg TID PO Last administered on 03/27/17 19:57; Start 03/16/17 at 09:00 Duloxetine HCl (Cymbalta) 30 mg BID PO Last administered on 03/16/17 10:16; Start 03/16/17 at 09:00; Stop 03/16/17 at 18:42; Status DC Lorazepam (Ativan) 0.5 mg PRN Q6HRS PRN PO ANXIETY / AGITATION Last administered on 03/21/17 23:13; Start 03/16/17 at 04:00 Trazodone HCl (Desyrel) 50 mg QHS PO Last administered on 03/27/17 19:59; Start 03/16/17 at 21:00 Acetaminophen (Tylenol) 1,000 mg QHS PO Last administered on 03/27/17 19:59; Start 03/16/17 at 21:00 Cyanocobalamin (Vitamin B-12) 1,000 mcg QMONTH IM ; Start 04/07/17 at 09:00 Folic Acid (Folic Acid) 1 mg DAILY PO Last administered on 03/27/17 08:44; Start 03/16/17 at 09:00 Hydrochlorothiazide (Hydrodiuril) 25 mg DAILY PO Last administered on 08:44; Start 03/16/17 at 09:00 Non-Formulary Medication 2 puff BID IH ; Start 03/16/17 at 09:00; Status UNV Vitamin D (Vitamin D3) 50,000 unit WEEKLY PO Last administered on 03/21/17 08: 17; Start 03/21/17 at 09:00 Multivitamins/ Calcium (Thera-M Plus) 1 tab DAILY PO Last administered on 03/27 08:44; Start 03/16/17 at 09:00 Ondansetron HCl (Zofran Odt) 4 mg PRN Q8HRS PRN PO NAUSEA/VOMITING; Start 03/16 at 04:30 Non-Formulary Medication 2.5 mcg DAILY IH ; Start 03/16/17 at 09:00; Status UNV Albuterol/ Ipratropium (Duoneb) 3 ml RTQID NEB Last administered on 03/27/17 13:16; Start 03/16/17 at 08:00 Budesonide (Pulmicort) 0.5 mg RTBID NEB Last administered on 03/27/17 08:54; Start 03/16/17 at 08:00 Duloxetine HCl (Cymbalta) 60 mg DAILY PO Last administered on 03/27/17 08:44 ; Start 03/17/17 at 09:00 Quetiapine Fumarate (SEROquel) 50 mg QHS PO Last administered on 03/21/17 20: 31; Start 03/16/17 at 21:00; Stop 03/22/17 at 10:18; Status DC Benztropine Mesylate (Cogentin) 0.5 mg DAILY PO Last administered on 03/21/17 08:16; Start 03/19/17 at 09:00; Stop 03/21/17 at 15:00; Status DC Divalproex Sodium (Depakote Er) 500 mg QHS PO Last administered on 03/20/17 19 :13; Start 03/18/17 at 21:00; Stop 03/21/17 at 19:29; Status DC Atorvastatin Calcium (Lipitor) 20 mg QHS PO Last administered on 03/27/17 19: 57; Start 03/19/17 at 21:00 Divalproex Sodium (Depakote Er) 750 mg QHS PO Last administered on 03/27/17 19:59; Start 03/21/17 at 21:00 Quetiapine Fumarate (SEROquel) 75 mg QHS PO Last administered on 03/27/17 19: 58; Start 03/22/17 at 21:00 Active Scripts Active Reported Cyanocobalamin Injection (Cyanocobalamin (Vitamin B-12)) 1,000 Mcg/1 Ml Vial 1, 000 Mcg IM QMONTH Trazodone Hcl 50 Mg Tablet 50 Mg PO QHS Buspirone Hcl 10 Mg Tablet 10 Mg PO TID Acetaminophen 500 Mg Tablet 1,000 Mg PO QHS Therems-M (Multivits, W-Fe,Other Min) 1 Each Tablet 1 Tab PO BID Symbicort 160-4.5 Mcg Inhaler (Budesonide/Formoterol Fumarate) 10.2 Gm Hfa.aer.ad 2 Puff IH BID Cymbalta (Duloxetine Hcl) 30 Mg Capsule.dr 30 Mg PO BID Benztropine Mesylate 0.5 Mg Tablet 0.5 Mg PO BID Zofran (Ondansetron Hcl) 4 Mg Tablet 4 Mg PO PRN Q8HRS PRN Milk Of Magnesia (Magnesium Hydroxide) 400 Mg/5 Ml Oral.susp 2,400 Mg PO PRN DAILY PRN Lorazepam 0.5 Mg Tablet 0.5 Mg PO PRN Q6HRS PRN Acetaminophen 500 Mg Tablet 1,000 Mg PO PRN Q6HRS PRN Vitamin D2 (Ergocalciferol (Vitamin D2)) 50,000 Unit Capsule 50,000 Unit PO QWE Hydrochlorothiazide Tablet (Hydrochlorothiazide) 25 Mg Tablet 25 Mg PO DAILY Folic Acid 1 Mg Tablet 1 Mg PO DAILY Spiriva Respimat (Tiotropium [place]) 4 Gm Mist.inhal 2.5 Mcg IH DAILY Diagnosis: Problems: (1) Anxiety disorder (2) Impulse control disorder (3) Mild cognitive disorder (4) Bipolar 1 disorder, mixed, moderate (5) Bipolar 1 disorder, manic, moderate (6) Dementia associated with alcoholism with behavioral disturbance BERNABE DAVID MD Mar 27, 2017 20:40
--- NOTE | 2017-03-28 01:04 | PN ---
DATE: 03/26/2017 This late entry for 03/26/2017 covers elements not covered in my initial note of 03/26/2017. SUBJECTIVE: I met with the patient afternoon of 03/26/2017. Overall, per nursing report, she has been calm, compliant. She denies active suicidal or homicidal ideation. Still angry at the previous panel coverer of the assisted living where she was residing, but no specific homicidal threats as I questioned her. REVIEW OF SYSTEMS: Mouth movements are evident. No CV, , Pulmonary, eye, ENT system symptoms on review. MENTAL STATUS EXAMINATION: Reasonably oriented. Speech coherent, abstraction fair, computation impaired, language function intact, attention span short, mood and affect withdrawn. LABORATORY DATA: Reviewed. IMPRESSION: Unchanged from initial note. PLAN: Continue current psychotropics. Reviewed drug interactions, risk/benefit ratio favors no further change for now. Valproic acid level is 69. Cogentin has been stopped, Cymbalta 60 mg a day, Depakote 750 at bedtime, Trazodone 50 at bedtime, Seroquel 75 mg at bedtime, may need to increase the latter depending on her progress. MAN Britni DAVID MD DR: SHAQUILLE/ros JOB#: [id number] / [id number]
[2017-03-28] MEDS: IPRATRPIUM/ALBUTEROL 0.5/2.5MG 3 ML NEBU. NEB SCH ×5 (04:59→20:46)
[2017-03-28 05:54] VITALS: BP 117/71
[2017-03-28] MEDS: hydroCHLOROthiazide 25 MG TABLET PO SCH (08:25)
[2017-03-28] MEDS: busPIRone 10 MG TABLET. PO SCH ×3 (08:25→20:13)
[2017-03-28] MEDS: DULoxetine HCL 60 MG CAPSULE.DR PO SCH (08:25)
[2017-03-28] MEDS: MULTIVITAMIN with MINERAL TABLET. PO SCH (08:25)
[2017-03-28] MEDS: FOLIC ACID 1 MG TABLET PO SCH (08:25)
[2017-03-28] MEDS: NICOTINE 21MG PATCH. TD SCH (08:26)
[2017-03-28] MEDS: CHOLECALCIFEROL (VITAMIN D3) 50,000 UNIT CAPSULE PO SCH (08:28)
[2017-03-28] MEDS: BUDESONIDE 0.5 MG/2 ML NEBU NEB SCH ×3 (10:18→20:46)
[2017-03-28 16:29] VITALS: BP 146/75
[2017-03-28] MEDS: ATORVASTATIN CALCIUM 20 MG TABLET PO SCH (20:12)
[2017-03-28] MEDS: ACETAMINOPHEN 500 MG TABLET PO SCH (20:12)
[2017-03-28] MEDS: DIVALPROEX ER 250 MG TAB.ER.24H. PO SCH (20:13)
[2017-03-28] MEDS: QUEtiapine 50 MG TABLET. PO SCH (20:13)
[2017-03-28] MEDS: traZODone 50 MG TABLET. PO SCH (20:13)
--- NOTE | 2017-03-28 20:22 | PDOC ---
Exam Doug Demential Exam: Dogu Note: Please also refer to the separate dictated note~for this date of service dictated separately.~Patient seen individually. Discussed the patient with Nursing staff reviewed the chart.~Reviewed interim history and current functioning. Reviewed vital signs,~Labs/ Radiology~and current medications noted below. Continue current treatment with the changes noted in the dictated addendum note Assessment: Vital Signs: Vital Signs Date Time Temp Pulse Resp B/P (MAP) Pulse Ox O2 Delivery O2 Flow Rate FiO2 03/28/17 16:29 99.0 81 18 146/75 (98) 95 03/28/17 15:18 Room Air I&O Intake and Output 03/29/17 07:00 Intake Total 1200 ml Balance 1200 ml Intake Oral 1200 ml Current Medications: Meds: Current Medications Acetaminophen (Tylenol) 650 mg PRN Q6HRS PRN PO MILD PAIN / TEMP Last administered on 03/21/17 08:42; Start 03/16/17 at 04:00 Multi-Ingredient Ointment (Analgesic [place]) 1 markus PRN QID PRN TP MUSCLE PAIN; Start 03/16/17 at 04:00 Al Hydroxide/Mg Hydroxide (Mylanta Plus Xs) 15 ml PRN AFTMEALHC PRN PO DYSPEPSIA; Start 03/16/17 at 04:00 Magnesium Hydroxide (Milk Of Magnesia) 2,400 mg PRN QHS PRN PO CONSTIPATION; Start 03/16/17 at 04:00 Nicotine (Nicoderm Cq 21mg) 1 patch DAILY TD Last administered on 03/28/17 08 :26; Start 03/16/17 at 09:00 Benztropine Mesylate (Cogentin) 0.5 mg BID PO Last administered on 03/18/17 07 :53; Start 03/16/17 at 09:00; Stop 03/18/17 at 16:56; Status DC Buspirone HCl (Buspar) 10 mg TID PO Last administered on 03/28/17 20:13; Start 03/16/17 at 09:00 Duloxetine HCl (Cymbalta) 30 mg BID PO Last administered on 03/16/17 10:16; Start 03/16/17 at 09:00; Stop 03/16/17 at 18:42; Status DC Lorazepam (Ativan) 0.5 mg PRN Q6HRS PRN PO ANXIETY / AGITATION Last administered on 03/21/17 23:13; Start 03/16/17 at 04:00 Trazodone HCl (Desyrel) 50 mg QHS PO Last administered on 03/28/17 20:13; Start 03/16/17 at 21:00 Acetaminophen (Tylenol) 1,000 mg QHS PO Last administered on 03/28/17 20:12; Start 03/16/17 at 21:00 Cyanocobalamin (Vitamin B-12) 1,000 mcg QMONTH IM ; Start 04/07/17 at 09:00 Folic Acid (Folic Acid) 1 mg DAILY PO Last administered on 03/28/17 08:25; Start 03/16/17 at 09:00 Hydrochlorothiazide (Hydrodiuril) 25 mg DAILY PO Last administered on 08:25; Start 03/16/17 at 09:00 Non-Formulary Medication 2 puff BID IH ; Start 03/16/17 at 09:00; Status UNV Vitamin D (Vitamin D3) 50,000 unit WEEKLY PO Last administered on 03/28/17 08 :28; Start 03/21/17 at 09:00 Multivitamins/ Calcium (Thera-M Plus) 1 tab DAILY PO Last administered on 03/28 08:25; Start 03/16/17 at 09:00 Ondansetron HCl (Zofran Odt) 4 mg PRN Q8HRS PRN PO NAUSEA/VOMITING; Start 03/16 at 04:30 Non-Formulary Medication 2.5 mcg DAILY IH ; Start 03/16/17 at 09:00; Status UNV Albuterol/ Ipratropium (Duoneb) 3 ml RTQID NEB Last administered on 03/28/17 10:18; Start 03/16/17 at 08:00 Budesonide (Pulmicort) 0.5 mg RTBID NEB Last administered on 03/28/17 10:18; Start 03/16/17 at 08:00 Duloxetine HCl (Cymbalta) 60 mg DAILY PO Last administered on 03/28/17 08:25 ; Start 03/17/17 at 09:00 Quetiapine Fumarate (SEROquel) 50 mg QHS PO Last administered on 03/21/17 20: 31; Start 03/16/17 at 21:00; Stop 03/22/17 at 10:18; Status DC Benztropine Mesylate (Cogentin) 0.5 mg DAILY PO Last administered on 03/21/17 08:16; Start 03/19/17 at 09:00; Stop 03/21/17 at 15:00; Status DC Divalproex Sodium (Depakote Er) 500 mg QHS PO Last administered on 03/20/17 19 :13; Start 03/18/17 at 21:00; Stop 03/21/17 at 19:29; Status DC Atorvastatin Calcium (Lipitor) 20 mg QHS PO Last administered on 03/28/17 20: 12; Start 03/19/17 at 21:00 Divalproex Sodium (Depakote Er) 750 mg QHS PO Last administered on 03/28/17 20:13; Start 03/21/17 at 21:00 Quetiapine Fumarate (SEROquel) 75 mg QHS PO Last administered on 03/28/17 20: 13; Start 03/22/17 at 21:00 Active Scripts Active Reported Cyanocobalamin Injection (Cyanocobalamin (Vitamin B-12)) 1,000 Mcg/1 Ml Vial 1, 000 Mcg IM QMONTH Trazodone Hcl 50 Mg Tablet 50 Mg PO QHS Buspirone Hcl 10 Mg Tablet 10 Mg PO TID Acetaminophen 500 Mg Tablet 1,000 Mg PO QHS Therems-M (Multivits,Th W-Fe,Other Min) 1 Each Tablet 1 Tab PO BID Symbicort 160-4.5 Mcg Inhaler (Budesonide/Formoterol Fumarate) 10.2 Gm Hfa.aer.ad 2 Puff IH BID Cymbalta (Duloxetine Hcl) 30 Mg Capsule.dr 30 Mg PO BID Benztropine Mesylate 0.5 Mg Tablet 0.5 Mg PO BID Zofran (Ondansetron Hcl) 4 Mg Tablet 4 Mg PO PRN Q8HRS PRN Milk Of Magnesia (Magnesium Hydroxide) 400 Mg/5 Ml Oral.susp 2,400 Mg PO PRN DAILY PRN Lorazepam 0.5 Mg Tablet 0.5 Mg PO PRN Q6HRS PRN Acetaminophen 500 Mg Tablet 1,000 Mg PO PRN Q6HRS PRN Vitamin D2 (Ergocalciferol (Vitamin D2)) 50,000 Unit Capsule 50,000 Unit PO QWE Hydrochlorothiazide Tablet (Hydrochlorothiazide) 25 Mg Tablet 25 Mg PO DAILY Folic Acid 1 Mg Tablet 1 Mg PO DAILY Spiriva Respimat (Tiotropium [place]) 4 Gm Mist.inhal 2.5 Mcg IH DAILY Diagnosis: Problems: (1) Anxiety disorder (2) Impulse control disorder (3) Mild cognitive disorder (4) Bipolar 1 disorder, mixed, moderate (5) Bipolar 1 disorder, manic, moderate (6) Dementia associated with alcoholism with behavioral disturbance BERNABE DAVID MD Mar 28, 2017 20:22
--- NOTE | 2017-03-29 02:02 | PN ---
DATE: 03/27/2017 PSYCHIATRIC PROGRESS NOTE This is a late entry for 03/27/2017, covers the elements not covered in my initial note of 03/27/2017. I met with the patient in the evening of 03/27/2017. Overall, the patient is doing better per nursing report, less anxious, less paranoid, mouth movements are better as well with improved anxiety. REVIEW OF SYSTEMS: No CV, , pulmonary, eye, ENT system symptoms on review. MENTAL STATUS EXAM: Oriented reasonably. Speech is coherent. She is pleasant, smiling. Abstraction fair, computation impaired, language function intact, attention span short. Mood and affect appears more stable. LABORATORY DATA: Reviewed. IMPRESSION: Unchanged from initial note. PLAN: Continue psychotropics mentioned in my initial note. Valproic acid level therapeutic at 69. Cogentin has been stopped. Continue Cymbalta 60 mg a day, BuSpar 10 t.i.d., trazodone 50 mg at bedtime, Seroquel 75 mg at bedtime, Depakote 750 mg at bedtime, Ativan p.r.n. Review drug contractions, risk/benefit ratio favors no further change. MAN Britni DAVID MD DR: SHAQUILLE/ros JOB#: [id number] / [id number]
[2017-03-29 06:00] VITALS: BP 118/67
[2017-03-29] MEDS: hydroCHLOROthiazide 25 MG TABLET PO SCH (08:41)
[2017-03-29] MEDS: busPIRone 10 MG TABLET. PO SCH ×3 (08:41→20:27)
[2017-03-29] MEDS: MULTIVITAMIN with MINERAL TABLET. PO SCH (08:41)
[2017-03-29] MEDS: NICOTINE 21MG PATCH. TD SCH (08:41)
[2017-03-29] MEDS: DULoxetine HCL 60 MG CAPSULE.DR PO SCH (08:41)
[2017-03-29] MEDS: FOLIC ACID 1 MG TABLET PO SCH (08:41)
[2017-03-29] MEDS: IPRATRPIUM/ALBUTEROL 0.5/2.5MG 3 ML NEBU. NEB SCH (12:06)
[2017-03-29] MEDS: BUDESONIDE 0.5 MG/2 ML NEBU NEB SCH ×2 (12:08→21:32)
[2017-03-29 16:24] VITALS: BP 141/83
[2017-03-29] MEDS: ATORVASTATIN CALCIUM 20 MG TABLET PO SCH (20:25)
[2017-03-29] MEDS: ACETAMINOPHEN 500 MG TABLET PO SCH (20:25)
[2017-03-29] MEDS: DIVALPROEX ER 250 MG TAB.ER.24H. PO SCH (20:26)
[2017-03-29] MEDS: QUEtiapine 50 MG TABLET. PO SCH (20:26)
[2017-03-29] MEDS: traZODone 50 MG TABLET. PO SCH (20:27)
--- NOTE | 2017-03-29 20:29 | PDOC ---
Exam Doug Demential Exam: Doug Note: Please also refer to the separate dictated note~for this date of service dictated separately.~Patient seen individually. Discussed the patient with Nursing staff reviewed the chart.~Reviewed interim history and current functioning. Reviewed vital signs,~Labs/ Radiology~and current medications noted below. Continue current treatment with the changes noted in the dictated addendum note Assessment: Vital Signs: Vital Signs Date Time Temp Pulse Resp B/P (MAP) Pulse Ox O2 Delivery O2 Flow Rate FiO2 03/29/17 16:24 98.0 75 20 141/83 (102) 97 03/28/17 20:51 Room Air I&O Intake and Output 03/30/17 07:00 Intake Total 1080 ml Balance 1080 ml Intake Oral 1080 ml Current Medications: Meds: Current Medications Acetaminophen (Tylenol) 650 mg PRN Q6HRS PRN PO MILD PAIN / TEMP Last administered on 03/21/17 08:42; Start 03/16/17 at 04:00 Multi-Ingredient Ointment (Analgesic [place]) 1 markus PRN QID PRN TP MUSCLE PAIN; Start 03/16/17 at 04:00 Al Hydroxide/Mg Hydroxide (Mylanta Plus Xs) 15 ml PRN AFTMEALHC PRN PO DYSPEPSIA; Start 03/16/17 at 04:00 Magnesium Hydroxide (Milk Of Magnesia) 2,400 mg PRN QHS PRN PO CONSTIPATION; Start 03/16/17 at 04:00 Nicotine (Nicoderm Cq 21mg) 1 patch DAILY TD Last administered on 03/29/17 08 :41; Start 03/16/17 at 09:00 Benztropine Mesylate (Cogentin) 0.5 mg BID PO Last administered on 03/18/17 07 :53; Start 03/16/17 at 09:00; Stop 03/18/17 at 16:56; Status DC Buspirone HCl (Buspar) 10 mg TID PO Last administered on 03/29/17 20:27; Start 03/16/17 at 09:00 Duloxetine HCl (Cymbalta) 30 mg BID PO Last administered on 03/16/17 10:16; Start 03/16/17 at 09:00; Stop 03/16/17 at 18:42; Status DC Lorazepam (Ativan) 0.5 mg PRN Q6HRS PRN PO ANXIETY / AGITATION Last administered on 03/21/17 23:13; Start 03/16/17 at 04:00 Trazodone HCl (Desyrel) 50 mg QHS PO Last administered on 03/29/17 20:27; Start 03/16/17 at 21:00 Acetaminophen (Tylenol) 1,000 mg QHS PO Last administered on 03/29/17 20:25; Start 03/16/17 at 21:00 Cyanocobalamin (Vitamin B-12) 1,000 mcg QMONTH IM ; Start 04/07/17 at 09:00 Folic Acid (Folic Acid) 1 mg DAILY PO Last administered on 03/29/17 08:41; Start 03/16/17 at 09:00 Hydrochlorothiazide (Hydrodiuril) 25 mg DAILY PO Last administered on 08:41; Start 03/16/17 at 09:00 Non-Formulary Medication 2 puff BID IH ; Start 03/16/17 at 09:00; Status UNV Vitamin D (Vitamin D3) 50,000 unit WEEKLY PO Last administered on 03/28/17 08 :28; Start 03/21/17 at 09:00 Multivitamins/ Calcium (Thera-M Plus) 1 tab DAILY PO Last administered on 03/29 08:41; Start 03/16/17 at 09:00 Ondansetron HCl (Zofran Odt) 4 mg PRN Q8HRS PRN PO NAUSEA/VOMITING; Start 03/16 at 04:30 Non-Formulary Medication 2.5 mcg DAILY IH ; Start 03/16/17 at 09:00; Status UNV Albuterol/ Ipratropium (Duoneb) 3 ml RTQID NEB Last administered on 03/28/17 20:46; Start 03/16/17 at 08:00 Budesonide (Pulmicort) 0.5 mg RTBID NEB Last administered on 03/28/17 20:46; Start 03/16/17 at 08:00 Duloxetine HCl (Cymbalta) 60 mg DAILY PO Last administered on 03/29/17 08:41 ; Start 03/17/17 at 09:00 Quetiapine Fumarate (SEROquel) 50 mg QHS PO Last administered on 03/21/17 20: 31; Start 03/16/17 at 21:00; Stop 03/22/17 at 10:18; Status DC Benztropine Mesylate (Cogentin) 0.5 mg DAILY PO Last administered on 03/21/17 08:16; Start 03/19/17 at 09:00; Stop 03/21/17 at 15:00; Status DC Divalproex Sodium (Depakote Er) 500 mg QHS PO Last administered on 03/20/17 19 :13; Start 03/18/17 at 21:00; Stop 03/21/17 at 19:29; Status DC Atorvastatin Calcium (Lipitor) 20 mg QHS PO Last administered on 03/29/17 20: 25; Start 03/19/17 at 21:00 Divalproex Sodium (Depakote Er) 750 mg QHS PO Last administered on 03/29/17 20:26; Start 03/21/17 at 21:00 Quetiapine Fumarate (SEROquel) 75 mg QHS PO Last administered on 03/29/17 20: 26; Start 03/22/17 at 21:00 Active Scripts Active Reported Cyanocobalamin Injection (Cyanocobalamin (Vitamin B-12)) 1,000 Mcg/1 Ml Vial 1, 000 Mcg IM QMONTH Trazodone Hcl 50 Mg Tablet 50 Mg PO QHS Buspirone Hcl 10 Mg Tablet 10 Mg PO TID Acetaminophen 500 Mg Tablet 1,000 Mg PO QHS Therems-M (Multivits,Th W-Fe,Other Min) 1 Each Tablet 1 Tab PO BID Symbicort 160-4.5 Mcg Inhaler (Budesonide/Formoterol Fumarate) 10.2 Gm Hfa.aer.ad 2 Puff IH BID Cymbalta (Duloxetine Hcl) 30 Mg Capsule.dr 30 Mg PO BID Benztropine Mesylate 0.5 Mg Tablet 0.5 Mg PO BID Zofran (Ondansetron Hcl) 4 Mg Tablet 4 Mg PO PRN Q8HRS PRN Milk Of Magnesia (Magnesium Hydroxide) 400 Mg/5 Ml Oral.susp 2,400 Mg PO PRN DAILY PRN Lorazepam 0.5 Mg Tablet 0.5 Mg PO PRN Q6HRS PRN Acetaminophen 500 Mg Tablet 1,000 Mg PO PRN Q6HRS PRN Vitamin D2 (Ergocalciferol (Vitamin D2)) 50,000 Unit Capsule 50,000 Unit PO QWE Hydrochlorothiazide Tablet (Hydrochlorothiazide) 25 Mg Tablet 25 Mg PO DAILY Folic Acid 1 Mg Tablet 1 Mg PO DAILY Spiriva Respimat (Tiotropium [place]) 4 Gm Mist.inhal 2.5 Mcg IH DAILY Diagnosis: Problems: (1) Anxiety disorder (2) Impulse control disorder (3) Mild cognitive disorder (4) Bipolar 1 disorder, mixed, moderate (5) Bipolar 1 disorder, manic, moderate (6) Dementia associated with alcoholism with behavioral disturbance BERNABE DAVID MD Mar 29, 2017 20:29
--- NOTE | 2017-03-30 03:31 | PN ---
DATE: 03/28/2017 This late entry of 03/28 covers elements not covered in my initial note of 03/28. SUBJECTIVE: I met with the patient on the evening of 03/28. Overall, the patient is reasonably oriented, calm and compliant. No suicidal or homicidal ideation and little more interactive. No CV, , pulmonary, eye and ENT system symptoms on review. She talked at length individually about $2500 worth of brand new furniture she had in her rental apartment prior to her recent placement. I am not sure about the veracity of this claim. MENTAL STATUS EXAM: Oriented reasonably. Speech coherent, less mouth movements and less tremulousness of her lips. Abstraction fair, computation impaired, language function intact, attention span short, mood and affect is improved. LABORATORY DATA: Reviewed. IMPRESSION: Unchanged from initial note. PLAN: Continue current psychotropics, reviewed drug interactions, risk/benefit ratio favors no further change. BERNABE DAVID MD DR: SHAQUILLE/ros JOB#: [id number] / [id number]
[2017-03-30] MEDS: IPRATRPIUM/ALBUTEROL 0.5/2.5MG 3 ML NEBU. NEB SCH ×3 (05:24→16:36)
[2017-03-30 06:13] VITALS: BP 118/69
[2017-03-30] MEDS: busPIRone 10 MG TABLET. PO SCH ×3 (07:55→19:38)
[2017-03-30] MEDS: hydroCHLOROthiazide 25 MG TABLET PO SCH (07:55)
[2017-03-30] MEDS: MULTIVITAMIN with MINERAL TABLET. PO SCH (07:55)
[2017-03-30] MEDS: DULoxetine HCL 60 MG CAPSULE.DR PO SCH (07:55)
[2017-03-30] MEDS: FOLIC ACID 1 MG TABLET PO SCH (07:55)
[2017-03-30] MEDS: NICOTINE 21MG PATCH. TD SCH (07:56)
[2017-03-30 16:30] VITALS: BP 162/84
[2017-03-30] MEDS ORDERED: IPRATRPIUM/ALBUTEROL 0.5/2.5MG 3 ML NEBU. NEB PRN (16:45)
[2017-03-30] MEDS ORDERED: BUDESONIDE 0.5 MG/2 ML NEBU NEB PRN (16:45)
[2017-03-30] MEDS: DIVALPROEX ER 250 MG TAB.ER.24H. PO SCH (19:34)
[2017-03-30] MEDS: traZODone 50 MG TABLET. PO SCH (19:37)
[2017-03-30] MEDS: QUEtiapine 50 MG TABLET. PO SCH (19:37)
[2017-03-30] MEDS: ATORVASTATIN CALCIUM 20 MG TABLET PO SCH (19:38)
[2017-03-30] MEDS: ACETAMINOPHEN 500 MG TABLET PO SCH (19:38)
--- NOTE | 2017-03-30 20:37 | PDOC ---
Exam Doug Demential Exam: Doug Note: Please also refer to the separate dictated note~for this date of service dictated separately.~Patient seen individually. Discussed the patient with Nursing staff reviewed the chart.~Reviewed interim history and current functioning. Reviewed vital signs,~Labs/ Radiology~and current medications noted below. Continue current treatment with the changes noted in the dictated addendum note Assessment: Vital Signs: Vital Signs Date Time Temp Pulse Resp B/P (MAP) Pulse Ox O2 Delivery O2 Flow Rate FiO2 03/30/17 16:30 98.9 82 16 162/84 (110) 94 03/30/17 11:40 Room Air I&O Intake and Output 03/31/17 07:00 Intake Total 960 ml Balance 960 ml Intake Oral 960 ml Current Medications: Meds: Current Medications Acetaminophen (Tylenol) 650 mg PRN Q6HRS PRN PO MILD PAIN / TEMP Last administered on 03/21/17 08:42; Start 03/16/17 at 04:00 Multi-Ingredient Ointment (Analgesic [place]) 1 markus PRN QID PRN TP MUSCLE PAIN; Start 03/16/17 at 04:00 Al Hydroxide/Mg Hydroxide (Mylanta Plus Xs) 15 ml PRN AFTMEALHC PRN PO DYSPEPSIA; Start 03/16/17 at 04:00 Magnesium Hydroxide (Milk Of Magnesia) 2,400 mg PRN QHS PRN PO CONSTIPATION; Start 03/16/17 at 04:00 Nicotine (Nicoderm Cq 21mg) 1 patch DAILY TD Last administered on 03/30/17 07 :56; Start 03/16/17 at 09:00 Benztropine Mesylate (Cogentin) 0.5 mg BID PO Last administered on 03/18/17 07 :53; Start 03/16/17 at 09:00; Stop 03/18/17 at 16:56; Status DC Buspirone HCl (Buspar) 10 mg TID PO Last administered on 03/30/17 19:38; Start 03/16/17 at 09:00 Duloxetine HCl (Cymbalta) 30 mg BID PO Last administered on 03/16/17 10:16; Start 03/16/17 at 09:00; Stop 03/16/17 at 18:42; Status DC Lorazepam (Ativan) 0.5 mg PRN Q6HRS PRN PO ANXIETY / AGITATION Last administered on 03/21/17 23:13; Start 03/16/17 at 04:00 Trazodone HCl (Desyrel) 50 mg QHS PO Last administered on 03/30/17 19:37; Start 03/16/17 at 21:00 Acetaminophen (Tylenol) 1,000 mg QHS PO Last administered on 03/30/17 19:38; Start 03/16/17 at 21:00 Cyanocobalamin (Vitamin B-12) 1,000 mcg QMONTH IM ; Start 04/07/17 at 09:00 Folic Acid (Folic Acid) 1 mg DAILY PO Last administered on 03/30/17 07:55; Start 03/16/17 at 09:00 Hydrochlorothiazide (Hydrodiuril) 25 mg DAILY PO Last administered on 07:55; Start 03/16/17 at 09:00 Non-Formulary Medication 2 puff BID IH ; Start 03/16/17 at 09:00; Status UNV Vitamin D (Vitamin D3) 50,000 unit WEEKLY PO Last administered on 03/28/17 08 :28; Start 03/21/17 at 09:00 Multivitamins/ Calcium (Thera-M Plus) 1 tab DAILY PO Last administered on 03/30 07:55; Start 03/16/17 at 09:00 Ondansetron HCl (Zofran Odt) 4 mg PRN Q8HRS PRN PO NAUSEA/VOMITING; Start 03/16 at 04:30 Non-Formulary Medication 2.5 mcg DAILY IH ; Start 03/16/17 at 09:00; Status UNV Albuterol/ Ipratropium (Duoneb) 3 ml RTQID NEB Last administered on 03/30/17 11:39; Start 03/16/17 at 08:00; Stop 03/30/17 at 16:38; Status DC Budesonide (Pulmicort) 0.5 mg RTBID NEB Last administered on 03/29/17 21:32; Start 03/16/17 at 08:00; Stop 03/30/17 at 16:38; Status DC Duloxetine HCl (Cymbalta) 60 mg DAILY PO Last administered on 03/30/17 07:55 ; Start 03/17/17 at 09:00 Quetiapine Fumarate (SEROquel) 50 mg QHS PO Last administered on 03/21/17 20: 31; Start 03/16/17 at 21:00; Stop 03/22/17 at 10:18; Status DC Benztropine Mesylate (Cogentin) 0.5 mg DAILY PO Last administered on 03/21/17 08:16; Start 03/19/17 at 09:00; Stop 03/21/17 at 15:00; Status DC Divalproex Sodium (Depakote Er) 500 mg QHS PO Last administered on 03/20/17 19 :13; Start 03/18/17 at 21:00; Stop 03/21/17 at 19:29; Status DC Atorvastatin Calcium (Lipitor) 20 mg QHS PO Last administered on 03/30/17 19: 38; Start 03/19/17 at 21:00 Divalproex Sodium (Depakote Er) 750 mg QHS PO Last administered on 03/30/17 19:34; Start 03/21/17 at 21:00 Quetiapine Fumarate (SEROquel) 75 mg QHS PO Last administered on 03/30/17 19: 37; Start 03/22/17 at 21:00 Budesonide (Pulmicort) 0.5 mg PRN BID PRN NEB sob; Start 03/30/17 at 16:45 Albuterol/ Ipratropium (Duoneb) 3 ml PRN QID PRN NEB sob; Start 03/30/17 at 16 :45 Active Scripts Active Reported Cyanocobalamin Injection (Cyanocobalamin (Vitamin B-12)) 1,000 Mcg/1 Ml Vial 1, 000 Mcg IM QMONTH Trazodone Hcl 50 Mg Tablet 50 Mg PO QHS Buspirone Hcl 10 Mg Tablet 10 Mg PO TID Acetaminophen 500 Mg Tablet 1,000 Mg PO QHS Therems-M (Multivits, W-Fe,Other Min) 1 Each Tablet 1 Tab PO BID Symbicort 160-4.5 Mcg Inhaler (Budesonide/Formoterol Fumarate) 10.2 Gm Hfa.aer.ad 2 Puff IH BID Cymbalta (Duloxetine Hcl) 30 Mg Capsule.dr 30 Mg PO BID Benztropine Mesylate 0.5 Mg Tablet 0.5 Mg PO BID Zofran (Ondansetron Hcl) 4 Mg Tablet 4 Mg PO PRN Q8HRS PRN Milk Of Magnesia (Magnesium Hydroxide) 400 Mg/5 Ml Oral.susp 2,400 Mg PO PRN DAILY PRN Lorazepam 0.5 Mg Tablet 0.5 Mg PO PRN Q6HRS PRN Acetaminophen 500 Mg Tablet 1,000 Mg PO PRN Q6HRS PRN Vitamin D2 (Ergocalciferol (Vitamin D2)) 50,000 Unit Capsule 50,000 Unit PO QWE Hydrochlorothiazide Tablet (Hydrochlorothiazide) 25 Mg Tablet 25 Mg PO DAILY Folic Acid 1 Mg Tablet 1 Mg PO DAILY Spiriva Respimat (Tiotropium [place]) 4 Gm Mist.inhal 2.5 Mcg IH DAILY Diagnosis: Problems: (1) Anxiety disorder (2) Impulse control disorder (3) Mild cognitive disorder (4) Bipolar 1 disorder, mixed, moderate (5) Bipolar 1 disorder, manic, moderate (

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
[2017-03-31 06:18] VITALS: BP 111/60
[2017-03-31 08:17] LABS: BASO % 0 % (0-3); EOS # 0.1 x10^3/uL (0.0-0.7); EOS % 2 % (0-3); HEMATOCRIT 41.3 % (36.0-47.0); HEMOGLOBIN 14.1 g/dL (12.0-15.5); LYMPH # 1.5 x10^3/uL (1.0-4.8); LYMPH % 40 % (24-48); MEAN CORPUSCULAR HEMOGLOBIN 31 pg (25-35); MEAN CORPUSCULAR HGB CONC 34 g/dL (31-37); MEAN CORPUSCULAR VOLUME 91 fL (79-100); MONO # 0.3 x10^3/uL (0.0-1.1); MONO % 9 % (0-9); NEUT # 1.8 x10^3uL (1.8-7.7); NEUT % 48 % (31-73); PLATELET COUNT 118 x10^3/uL (140-400); RED BLOOD COUNT 4.56 x10^6/uL (3.50-5.40); RED CELL DISTRIBUTION WIDTH 14.4 % (11.5-14.5); WHITE BLOOD COUNT 3.7 x10^3/uL (4.0-11.0)
[2017-03-31 08:35] LABS: ALBUMIN 3.1 g/dL (3.4-5.0); CALCIUM 8.6 mg/dL (8.5-10.1); CREATININE 0.8 mg/dL (0.6-1.0); GFR 71.1; POTASSIUM 3.9 mmol/L (3.5-5.1); TOTAL BILIRUBIN 0.3 mg/dL (0.2-1.0); TOTAL PROTEIN 6.3 g/dL (6.4-8.2)
[2017-03-31] MEDS: busPIRone 10 MG TABLET. PO SCH ×3 (08:48→20:38)
[2017-03-31] MEDS: hydroCHLOROthiazide 25 MG TABLET PO SCH (08:49)
[2017-03-31] MEDS: MULTIVITAMIN with MINERAL TABLET. PO SCH (08:49)
[2017-03-31] MEDS: FOLIC ACID 1 MG TABLET PO SCH (08:49)
[2017-03-31] MEDS: DULoxetine HCL 60 MG CAPSULE.DR PO SCH (08:49)
[2017-03-31] MEDS: NICOTINE 21MG PATCH. TD SCH (08:49)
[2017-03-31 16:06] VITALS: BP 170/83
[2017-03-31] MEDS: ACETAMINOPHEN 500 MG TABLET PO SCH (20:38)
[2017-03-31] MEDS: ATORVASTATIN CALCIUM 20 MG TABLET PO SCH (20:38)
[2017-03-31] MEDS: traZODone 50 MG TABLET. PO SCH (20:38)
[2017-03-31] MEDS: DIVALPROEX ER 250 MG TAB.ER.24H. PO SCH (20:38)
[2017-03-31] MEDS: QUEtiapine 50 MG TABLET. PO SCH (20:40)
--- NOTE | 2017-03-31 21:37 | PDOC ---
Exam Doug Demential Exam: Doug Note: Please also refer to the separate dictated note~for this date of service dictated separately.~Patient seen individually. Discussed the patient with Nursing staff reviewed the chart.~Reviewed interim history and current functioning. Reviewed vital signs,~Labs/ Radiology~and current medications noted below. Continue current treatment with the changes noted in the dictated addendum note Assessment: Vital Signs: Vital Signs Date Time Temp Pulse Resp B/P (MAP) Pulse Ox O2 Delivery O2 Flow Rate FiO2 03/31/17 16:06 98.6 84 20 170/83 (112) 93 Room Air I&O Intake and Output 04/01/17 07:00 Intake Total 1680 ml Balance 1680 ml Intake Oral 1680 ml Labs: Laboratory Tests Test 03/31/17 08:04 White Blood Count 3.7 x10^3/uL (4.0-11.0) L Red Blood Count 4.56 x10^6/uL (3.50-5.40) Hemoglobin 14.1 g/dL (12.0-15.5) Hematocrit 41.3 % (36.0-47.0) Mean Corpuscular Volume 91 fL (79-100) Mean Corpuscular Hemoglobin 31 pg (25-35) Mean Corpuscular Hemoglobin Concent 34 g/dL (31-37) Red Cell Distribution Width 14.4 % (11.5-14.5) Platelet Count 118 x10^3/uL (140-400) L Neutrophils (%) (Auto) 48 % (31-73) Lymphocytes (%) (Auto) 40 % (24-48) Monocytes (%) (Auto) 9 % (0-9) Eosinophils (%) (Auto) 2 % (0-3) Basophils (%) (Auto) 0 % (0-3) Neutrophils # (Auto) 1.8 x10^3uL (1.8-7.7) Lymphocytes # (Auto) 1.5 x10^3/uL (1.0-4.8) Monocytes # (Auto) 0.3 x10^3/uL (0.0-1.1) Eosinophils # (Auto) 0.1 x10^3/uL (0.0-0.7) Basophils # (Auto) 0.0 x10^3/uL (0.0-0.2) Sodium Level 131 mmol/L (136-145) L Potassium Level 3.9 mmol/L (3.5-5.1) Chloride Level 94 mmol/L (98-107) L Carbon Dioxide Level 32 mmol/L (21-32) Anion Gap 5 (6-14) L Blood Urea Nitrogen 15 mg/dL (7-20) Creatinine 0.8 mg/dL (0.6-1.0) Estimated GFR (Cockcroft-Gault) 71.1 BUN/Creatinine Ratio 19 (6-20) Glucose Level 96 mg/dL (70-99) Calcium Level 8.6 mg/dL (8.5-10.1) Total Bilirubin 0.3 mg/dL (0.2-1.0) Aspartate Amino Transferase (AST) 19 U/L (15-37) Alanine Aminotransferase (ALT) 20 U/L (14-59) Alkaline Phosphatase 49 U/L (46-116) Total Protein 6.3 g/dL (6.4-8.2) L Albumin 3.1 g/dL (3.4-5.0) L Albumin/Globulin Ratio 1.0 (1.0-1.7) Current Medications: Meds: Current Medications Acetaminophen (Tylenol) 650 mg PRN Q6HRS PRN PO MILD PAIN / TEMP Last administered on 03/21/17 08:42; Start 03/16/17 at 04:00 Multi-Ingredient Ointment (Analgesic [place]) 1 markus PRN QID PRN TP MUSCLE PAIN; Start 03/16/17 at 04:00 Al Hydroxide/Mg Hydroxide (Mylanta Plus Xs) 15 ml PRN AFTMEALHC PRN PO DYSPEPSIA; Start 03/16/17 at 04:00 Magnesium Hydroxide (Milk Of Magnesia) 2,400 mg PRN QHS PRN PO CONSTIPATION Last administered on 03/31/17 20:50; Start 03/16/17 at 04:00 Nicotine (Nicoderm Cq 21mg) 1 patch DAILY TD Last administered on 03/31/17 08 :49; Start 03/16/17 at 09:00 Benztropine Mesylate (Cogentin) 0.5 mg BID PO Last administered on 03/18/17 07 :53; Start 03/16/17 at 09:00; Stop 03/18/17 at 16:56; Status DC Buspirone HCl (Buspar) 10 mg TID PO Last administered on 03/31/17 20:38; Start 03/16/17 at 09:00 Duloxetine HCl (Cymbalta) 30 mg BID PO Last administered on 03/16/17 10:16; Start 03/16/17 at 09:00; Stop 03/16/17 at 18:42; Status DC Lorazepam (Ativan) 0.5 mg PRN Q6HRS PRN PO ANXIETY / AGITATION Last administered on 03/21/17 23:13; Start 03/16/17 at 04:00 Trazodone HCl (Desyrel) 50 mg QHS PO Last administered on 03/31/17 20:38; Start 03/16/17 at 21:00 Acetaminophen (Tylenol) 1,000 mg QHS PO Last administered on 03/31/17 20:38; Start 03/16/17 at 21:00 Cyanocobalamin (Vitamin B-12) 1,000 mcg QMONTH IM ; Start 04/07/17 at 09:00 Folic Acid (Folic Acid) 1 mg DAILY PO Last administered on 03/31/17 08:49; Start 03/16/17 at 09:00 Hydrochlorothiazide (Hydrodiuril) 25 mg DAILY PO Last administered on 08:49; Start 03/16/17 at 09:00; Stop 03/31/17 at 13:26; Status DC Non-Formulary Medication 2 puff BID IH ; Start 03/16/17 at 09:00; Status UNV Vitamin D (Vitamin D3) 50,000 unit WEEKLY PO Last administered on 03/28/17 08 :28; Start 03/21/17 at 09:00 Multivitamins/ Calcium (Thera-M Plus) 1 tab DAILY PO Last administered on 03/31 08:49; Start 03/16/17 at 09:00 Ondansetron HCl (Zofran Odt) 4 mg PRN Q8HRS PRN PO NAUSEA/VOMITING; Start 03/16 at 04:30 Non-Formulary Medication 2.5 mcg DAILY IH ; Start 03/16/17 at 09:00; Status UNV Albuterol/ Ipratropium (Duoneb) 3 ml RTQID NEB Last administered on 03/30/17 11:39; Start 03/16/17 at 08:00; Stop 03/30/17 at 16:38; Status DC Budesonide (Pulmicort) 0.5 mg RTBID NEB Last administered on 03/29/17 21:32; Start 03/16/17 at 08:00; Stop 03/30/17 at 16:38; Status DC Duloxetine HCl (Cymbalta) 60 mg DAILY PO Last administered on 03/31/17 08:49 ; Start 03/17/17 at 09:00 Quetiapine Fumarate (SEROquel) 50 mg QHS PO Last administered on 03/21/17 20: 31; Start 03/16/17 at 21:00; Stop 03/22/17 at 10:18; Status DC Benztropine Mesylate (Cogentin) 0.5 mg DAILY PO Last administered on 03/21/17 08:16; Start 03/19/17 at 09:00; Stop 03/21/17 at 15:00; Status DC Divalproex Sodium (Depakote Er) 500 mg QHS PO Last administered on 03/20/17 19 :13; Start 03/18/17 at 21:00; Stop 03/21/17 at 19:29; Status DC Atorvastatin Calcium (Lipitor) 20 mg QHS PO Last administered on 03/31/17 20: 38; Start 03/19/17 at 21:00 Divalproex Sodium (Depakote Er) 750 mg QHS PO Last administered on 03/31/17 20:38; Start 03/21/17 at 21:00 Quetiapine Fumarate (SEROquel) 75 mg QHS PO Last administered on 03/31/17 20: 40; Start 03/22/17 at 21:00 Budesonide (Pulmicort) 0.5 mg PRN BID PRN NEB sob; Start 03/30/17 at 16:45 Albuterol/ Ipratropium (Duoneb) 3 ml PRN QID PRN NEB sob; Start 03/30/17 at 16 :45 Active Scripts Active Reported Cyanocobalamin Injection (Cyanocobalamin (Vitamin B-12)) 1,000 Mcg/1 Ml Vial 1, 000 Mcg IM QMONTH Trazodone Hcl 50 Mg Tablet 50 Mg PO QHS Buspirone Hcl 10 Mg Tablet 10 Mg PO TID Acetaminophen 500 Mg Tablet 1,000 Mg PO QHS Therems-M (Multivits,Th W-Fe,Other Min) 1 Each Tablet 1 Tab PO BID Symbicort 160-4.5 Mcg Inhaler (Budesonide/Formoterol Fumarate) 10.2 Gm Hfa.aer.ad 2 Puff IH BID Cymbalta (Duloxetine Hcl) 30 Mg Capsule.dr 30 Mg PO BID Benztropine Mesylate 0.5 Mg Tablet 0.5 Mg PO BID Zofran (Ondansetron Hcl) 4 Mg Tablet 4 Mg PO PRN Q8HRS PRN Milk Of Magnesia (Magnesium Hydroxide) 400 Mg/5 Ml Oral.susp 2,400 Mg PO PRN DAILY PRN Lorazepam 0.5 Mg Tablet 0.5 Mg PO PRN Q6HRS PRN Acetaminophen 500 Mg Tablet 1,000 Mg PO PRN Q6HRS PRN Vitamin D2 (Ergocalciferol (Vitamin D2)) 50,000 Unit Capsule 50,000 Unit PO QWE Hydrochlorothiazide Tablet (Hydrochlorothiazide) 25 Mg Tablet 25 Mg PO DAILY Folic Acid 1 Mg Tablet 1 Mg PO DAILY Spiriva Respimat (Tiotropium [place]) 4 Gm Mist.inhal 2.5 Mcg IH DAILY Diagnosis: Problems: (1) Anxiety disorder (2) Impulse control disorder (3) Mild cognitive disorder (4) Bipolar 1 disorder, mixed, moderate (5) Bipolar 1 disorder, manic, moderate (6) Dementia associated with alcoholism with behavioral disturbance BERNABE DAVID MD Mar 31, 2017 21:37
--- NOTE | 2017-03-31 23:25 | PN ---
DATE: 03/30/2017 PSYCHIATRIC PROGRESS NOTE This late entry for 03/30/2017 covers elements not covered in my initial note of 03/30/2017. SUBJECTIVE: I met with the patient evening of 03/30/2017. The patient has been fairly cooperative on the unit, refused breathing treatment, but not inappropriate. She is still somewhat anxious, labile at times, but much improved. REVIEW OF SYSTEMS: She does complain of some shortness of breath. No CV, , GI, eye, ENT system symptoms on review. MENTAL STATUS EXAM: Reasonably oriented. Speech is coherent, abstraction fair, computation impaired, language function intact. Mood and affect showing improvement, less delusional. LABORATORY DATA: Valproic acid level is 69, therapeutic. IMPRESSION: Unchanged from initial note. PLAN: Continue current psychotropics. Reviewed drug interactions. Risk/benefit ratio favors no further change. MAN Britni DAVID MD DR: SHAQUILLE/ros JOB#: [id number] / [id number]
--- NOTE | 2017-04-01 01:48 | PN ---
DATE: 03/31/2017 PSYCHIATRIC PROGRESS NOTE This late entry of 03/31/2017 covers elements not covered in my initial of 03/31/2017. I met with the patient evening of 03/31/2017. Overall, the patient is doing much better, still depressed, withdrawn, but more animated, less anxious, wanting a new roommate because her roommate is quite disruptive, nursing staff assessing this. REVIEW OF SYSTEMS: No CV, , pulmonary, eye, ENT system symptoms on review. MENTAL STATUS EXAM: Reasonably oriented. Speech is coherent, abstraction fair, computation impaired, language function intact. Mood and affect showing improvement. We discussed discharge plans, transition plans at some length. LABORATORY DATA: Reviewed. IMPRESSION: Unchanged from initial note. PLAN: Continue current psychotropics. Reviewed drug interactions. Risk/benefit ratio favors no further change. MAN Britni DAVID MD DR: SHAQUILLE/ros JOB#: [id number] / [id number]
[2017-04-01 06:15] VITALS: BP 128/76
[2017-04-01] MEDS: busPIRone 10 MG TABLET. PO SCH ×3 (08:43→19:20)
[2017-04-01] MEDS: DULoxetine HCL 60 MG CAPSULE.DR PO SCH (08:43)
[2017-04-01] MEDS: NICOTINE 21MG PATCH. TD SCH (08:44)
[2017-04-01] MEDS: FOLIC ACID 1 MG TABLET PO SCH (08:44)
[2017-04-01] MEDS: MULTIVITAMIN with MINERAL TABLET. PO SCH (08:44)
[2017-04-01 16:08] VITALS: BP 132/78
[2017-04-01] MEDS: ATORVASTATIN CALCIUM 20 MG TABLET PO SCH (19:20)
[2017-04-01] MEDS: traZODone 50 MG TABLET. PO SCH (19:20)
[2017-04-01] MEDS: DIVALPROEX ER 250 MG TAB.ER.24H. PO SCH (19:20)
[2017-04-01] MEDS: QUEtiapine 50 MG TABLET. PO SCH (19:20)
[2017-04-01] MEDS: ACETAMINOPHEN 500 MG TABLET PO SCH (19:21)
--- NOTE | 2017-04-01 20:44 | PDOC ---
Exam Doug Demential Exam: Doug Note: Please also refer to the separate dictated note~for this date of service dictated separately.~Patient seen individually. Discussed the patient with Nursing staff reviewed the chart.~Reviewed interim history and current functioning. Reviewed vital signs,~Labs/ Radiology~and current medications noted below. Continue current treatment with the changes noted in the dictated addendum note Assessment: Vital Signs: Vital Signs Date Time Temp Pulse Resp B/P (MAP) Pulse Ox O2 Delivery O2 Flow Rate FiO2 04/01/17 16:08 98.7 81 16 132/78 (96) 94 Room Air I&O Intake and Output 04/02/17 07:00 Intake Total 720 ml Balance 720 ml Intake Oral 720 ml Current Medications: Meds: Current Medications Acetaminophen (Tylenol) 650 mg PRN Q6HRS PRN PO MILD PAIN / TEMP Last administered on 03/21/17 08:42; Start 03/16/17 at 04:00 Multi-Ingredient Ointment (Analgesic [place]) 1 markus PRN QID PRN TP MUSCLE PAIN; Start 03/16/17 at 04:00 Al Hydroxide/Mg Hydroxide (Mylanta Plus Xs) 15 ml PRN AFTMEALHC PRN PO DYSPEPSIA; Start 03/16/17 at 04:00 Magnesium Hydroxide (Milk Of Magnesia) 2,400 mg PRN QHS PRN PO CONSTIPATION Last administered on 03/31/17 20:50; Start 03/16/17 at 04:00 Nicotine (Nicoderm Cq 21mg) 1 patch DAILY TD Last administered on 04/01/17 08 :44; Start 03/16/17 at 09:00 Benztropine Mesylate (Cogentin) 0.5 mg BID PO Last administered on 03/18/17 07 :53; Start 03/16/17 at 09:00; Stop 03/18/17 at 16:56; Status DC Buspirone HCl (Buspar) 10 mg TID PO Last administered on 04/01/17 19:20; Start 03/16/17 at 09:00 Duloxetine HCl (Cymbalta) 30 mg BID PO Last administered on 03/16/17 10:16; Start 03/16/17 at 09:00; Stop 03/16/17 at 18:42; Status DC Lorazepam (Ativan) 0.5 mg PRN Q6HRS PRN PO ANXIETY / AGITATION Last administered on 03/21/17 23:13; Start 03/16/17 at 04:00 Trazodone HCl (Desyrel) 50 mg QHS PO Last administered on 04/01/17 19:20; Start 03/16/17 at 21:00 Acetaminophen (Tylenol) 1,000 mg QHS PO Last administered on 04/01/17 19:21; Start 03/16/17 at 21:00 Cyanocobalamin (Vitamin B-12) 1,000 mcg QMONTH IM ; Start 04/07/17 at 09:00 Folic Acid (Folic Acid) 1 mg DAILY PO Last administered on 04/01/17 08:44; Start 03/16/17 at 09:00 Hydrochlorothiazide (Hydrodiuril) 25 mg DAILY PO Last administered on 08:49; Start 03/16/17 at 09:00; Stop 03/31/17 at 13:26; Status DC Non-Formulary Medication 2 puff BID IH ; Start 03/16/17 at 09:00; Status UNV Vitamin D (Vitamin D3) 50,000 unit WEEKLY PO Last administered on 03/28/17 08 :28; Start 03/21/17 at 09:00 Multivitamins/ Calcium (Thera-M Plus) 1 tab DAILY PO Last administered on 04/01 08:44; Start 03/16/17 at 09:00 Ondansetron HCl (Zofran Odt) 4 mg PRN Q8HRS PRN PO NAUSEA/VOMITING; Start 03/16 at 04:30 Non-Formulary Medication 2.5 mcg DAILY IH ; Start 03/16/17 at 09:00; Status UNV Albuterol/ Ipratropium (Duoneb) 3 ml RTQID NEB Last administered on 03/30/17 11:39; Start 03/16/17 at 08:00; Stop 03/30/17 at 16:38; Status DC Budesonide (Pulmicort) 0.5 mg RTBID NEB Last administered on 03/29/17 21:32; Start 03/16/17 at 08:00; Stop 03/30/17 at 16:38; Status DC Duloxetine HCl (Cymbalta) 60 mg DAILY PO Last administered on 04/01/17 08:43 ; Start 03/17/17 at 09:00 Quetiapine Fumarate (SEROquel) 50 mg QHS PO Last administered on 03/21/17 20: 31; Start 03/16/17 at 21:00; Stop 03/22/17 at 10:18; Status DC Benztropine Mesylate (Cogentin) 0.5 mg DAILY PO Last administered on 03/21/17 08:16; Start 03/19/17 at 09:00; Stop 03/21/17 at 15:00; Status DC Divalproex Sodium (Depakote Er) 500 mg QHS PO Last administered on 03/20/17 19 :13; Start 03/18/17 at 21:00; Stop 03/21/17 at 19:29; Status DC Atorvastatin Calcium (Lipitor) 20 mg QHS PO Last administered on 04/01/17 19: 20; Start 03/19/17 at 21:00 Divalproex Sodium (Depakote Er) 750 mg QHS PO Last administered on 04/01/17 19:20; Start 03/21/17 at 21:00 Quetiapine Fumarate (SEROquel) 75 mg QHS PO Last administered on 04/01/17 19: 20; Start 03/22/17 at 21:00 Budesonide (Pulmicort) 0.5 mg PRN BID PRN NEB sob; Start 03/30/17 at 16:45 Albuterol/ Ipratropium (Duoneb) 3 ml PRN QID PRN NEB sob; Start 03/30/17 at 16 :45 Active Scripts Active Reported Cyanocobalamin Injection (Cyanocobalamin (Vitamin B-12)) 1,000 Mcg/1 Ml Vial 1, 000 Mcg IM QMONTH Trazodone Hcl 50 Mg Tablet 50 Mg PO QHS Buspirone Hcl 10 Mg Tablet 10 Mg PO TID Acetaminophen 500 Mg Tablet 1,000 Mg PO QHS There-M (Multivits, W-Fe,Other Min) 1 Each Tablet 1 Tab PO BID Symbicort 160-4.5 Mcg Inhaler (Budesonide/Formoterol Fumarate) 10.2 Gm Hfa.aer.ad 2 Puff IH BID Cymbalta (Duloxetine Hcl) 30 Mg Capsule.dr 30 Mg PO BID Benztropine Mesylate 0.5 Mg Tablet 0.5 Mg PO BID Zofran (Ondansetron Hcl) 4 Mg Tablet 4 Mg PO PRN Q8HRS PRN Milk Of Magnesia (Magnesium Hydroxide) 400 Mg/5 Ml Oral.susp 2,400 Mg PO PRN DAILY PRN Lorazepam 0.5 Mg Tablet 0.5 Mg PO PRN Q6HRS PRN Acetaminophen 500 Mg Tablet 1,000 Mg PO PRN Q6HRS PRN Vitamin D2 (Ergocalciferol (Vitamin D2)) 50,000 Unit Capsule 50,000 Unit PO QWE Hydrochlorothiazide Tablet (Hydrochlorothiazide) 25 Mg Tablet 25 Mg PO DAILY Folic Acid 1 Mg Tablet 1 Mg PO DAILY Spiriva Respimat (Tiotropium [place]) 4 Gm Mist.inhal 2.5 Mcg IH DAILY Diagnosis: Problems: (1) Anxiety disorder (2) Impulse control disorder (3) Mild cognitive disorder (4) Bipolar 1 disorder, mixed, moderate (5) Bipolar 1 disorder, manic, moderate (6) Dementia associated with alcoholism with behavioral disturbance BERNABE DAVID MD Apr 01, 2017 20:43
[2017-04-02 07:16] VITALS: BP 93/61
[2017-04-02] MEDS: MULTIVITAMIN with MINERAL TABLET. PO SCH (09:02)
[2017-04-02] MEDS: FOLIC ACID 1 MG TABLET PO SCH (09:02)
[2017-04-02] MEDS: NICOTINE 21MG PATCH. TD SCH (09:02)
[2017-04-02] MEDS: busPIRone 10 MG TABLET. PO SCH ×3 (09:02→19:21)
[2017-04-02] MEDS: DULoxetine HCL 60 MG CAPSULE.DR PO SCH (09:02)
[2017-04-02 16:06] VITALS: BP 141/88
[2017-04-02] MEDS: ATORVASTATIN CALCIUM 20 MG TABLET PO SCH (19:21)
[2017-04-02] MEDS: QUEtiapine 50 MG TABLET. PO SCH (19:21)
[2017-04-02] MEDS: traZODone 50 MG TABLET. PO SCH (19:21)
[2017-04-02] MEDS: DIVALPROEX ER 250 MG TAB.ER.24H. PO SCH (19:21)
[2017-04-02] MEDS: ACETAMINOPHEN 500 MG TABLET PO SCH (19:21)
--- NOTE | 2017-04-02 21:21 | PDOC ---
Exam Doug Demential Exam: Doug Note: Please also refer to the separate dictated note~for this date of service dictated separately.~Patient seen individually. Discussed the patient with Nursing staff reviewed the chart.~Reviewed interim history and current functioning. Reviewed vital signs,~Labs/ Radiology~and current medications noted below. Continue current treatment with the changes noted in the dictated addendum note Assessment: Vital Signs: Vital Signs Date Time Temp Pulse Resp B/P (MAP) Pulse Ox O2 Delivery O2 Flow Rate FiO2 04/02/17 16:06 98.5 77 20 141/88 (105) 96 Room Air I&O Intake and Output 04/03/17 07:00 Intake Total 1320 ml Balance 1320 ml Intake Oral 1320 ml Current Medications: Meds: Current Medications Acetaminophen (Tylenol) 650 mg PRN Q6HRS PRN PO MILD PAIN / TEMP Last administered on 03/21/17 08:42; Start 03/16/17 at 04:00 Multi-Ingredient Ointment (Analgesic [place]) 1 markus PRN QID PRN TP MUSCLE PAIN; Start 03/16/17 at 04:00 Al Hydroxide/Mg Hydroxide (Mylanta Plus Xs) 15 ml PRN AFTMEALHC PRN PO DYSPEPSIA; Start 03/16/17 at 04:00 Magnesium Hydroxide (Milk Of Magnesia) 2,400 mg PRN QHS PRN PO CONSTIPATION Last administered on 03/31/17 20:50; Start 03/16/17 at 04:00 Nicotine (Nicoderm Cq 21mg) 1 patch DAILY TD Last administered on 04/02/17 09 :02; Start 03/16/17 at 09:00 Benztropine Mesylate (Cogentin) 0.5 mg BID PO Last administered on 03/18/17 07 :53; Start 03/16/17 at 09:00; Stop 03/18/17 at 16:56; Status DC Buspirone HCl (Buspar) 10 mg TID PO Last administered on 04/02/17 19:21; Start 03/16/17 at 09:00 Duloxetine HCl (Cymbalta) 30 mg BID PO Last administered on 03/16/17 10:16; Start 03/16/17 at 09:00; Stop 03/16/17 at 18:42; Status DC Lorazepam (Ativan) 0.5 mg PRN Q6HRS PRN PO ANXIETY / AGITATION Last administered on 03/21/17 23:13; Start 03/16/17 at 04:00 Trazodone HCl (Desyrel) 50 mg QHS PO Last administered on 04/02/17 19:21; Start 03/16/17 at 21:00 Acetaminophen (Tylenol) 1,000 mg QHS PO Last administered on 04/02/17 19:21; Start 03/16/17 at 21:00 Cyanocobalamin (Vitamin B-12) 1,000 mcg QMONTH IM ; Start 04/07/17 at 09:00 Folic Acid (Folic Acid) 1 mg DAILY PO Last administered on 04/02/17 09:02; Start 03/16/17 at 09:00 Hydrochlorothiazide (Hydrodiuril) 25 mg DAILY PO Last administered on 08:49; Start 03/16/17 at 09:00; Stop 03/31/17 at 13:26; Status DC Non-Formulary Medication 2 puff BID IH ; Start 03/16/17 at 09:00; Status UNV Vitamin D (Vitamin D3) 50,000 unit WEEKLY PO Last administered on 03/28/17 08 :28; Start 03/21/17 at 09:00 Multivitamins/ Calcium (Thera-M Plus) 1 tab DAILY PO Last administered on 04/02 09:02; Start 03/16/17 at 09:00 Ondansetron HCl (Zofran Odt) 4 mg PRN Q8HRS PRN PO NAUSEA/VOMITING; Start 03/16 at 04:30 Non-Formulary Medication 2.5 mcg DAILY IH ; Start 03/16/17 at 09:00; Status UNV Albuterol/ Ipratropium (Duoneb) 3 ml RTQID NEB Last administered on 03/30/17 11:39; Start 03/16/17 at 08:00; Stop 03/30/17 at 16:38; Status DC Budesonide (Pulmicort) 0.5 mg RTBID NEB Last administered on 03/29/17 21:32; Start 03/16/17 at 08:00; Stop 03/30/17 at 16:38; Status DC Duloxetine HCl (Cymbalta) 60 mg DAILY PO Last administered on 04/02/17 09:02 ; Start 03/17/17 at 09:00 Quetiapine Fumarate (SEROquel) 50 mg QHS PO Last administered on 03/21/17 20: 31; Start 03/16/17 at 21:00; Stop 03/22/17 at 10:18; Status DC Benztropine Mesylate (Cogentin) 0.5 mg DAILY PO Last administered on 03/21/17 08:16; Start 03/19/17 at 09:00; Stop 03/21/17 at 15:00; Status DC Divalproex Sodium (Depakote Er) 500 mg QHS PO Last administered on 03/20/17 19 :13; Start 03/18/17 at 21:00; Stop 03/21/17 at 19:29; Status DC Atorvastatin Calcium (Lipitor) 20 mg QHS PO Last administered on 04/02/17 19: 21; Start 03/19/17 at 21:00 Divalproex Sodium (Depakote Er) 750 mg QHS PO Last administered on 04/02/17 19:21; Start 03/21/17 at 21:00 Quetiapine Fumarate (SEROquel) 75 mg QHS PO Last administered on 04/02/17 19: 21; Start 03/22/17 at 21:00 Budesonide (Pulmicort) 0.5 mg PRN BID PRN NEB sob; Start 03/30/17 at 16:45 Albuterol/ Ipratropium (Duoneb) 3 ml PRN QID PRN NEB sob; Start 03/30/17 at 16 :45 Active Scripts Active Reported Cyanocobalamin Injection (Cyanocobalamin (Vitamin B-12)) 1,000 Mcg/1 Ml Vial 1, 000 Mcg IM QMONTH Trazodone Hcl 50 Mg Tablet 50 Mg PO QHS Buspirone Hcl 10 Mg Tablet 10 Mg PO TID Acetaminophen 500 Mg Tablet 1,000 Mg PO QHS Therems-M (Multivits, W-Fe,Other Min) 1 Each Tablet 1 Tab PO BID Symbicort 160-4.5 Mcg Inhaler (Budesonide/Formoterol Fumarate) 10.2 Gm Hfa.aer.ad 2 Puff IH BID Cymbalta (Duloxetine Hcl) 30 Mg Capsule.dr 30 Mg PO BID Benztropine Mesylate 0.5 Mg Tablet 0.5 Mg PO BID Zofran (Ondansetron Hcl) 4 Mg Tablet 4 Mg PO PRN Q8HRS PRN Milk Of Magnesia (Magnesium Hydroxide) 400 Mg/5 Ml Oral.susp 2,400 Mg PO PRN DAILY PRN Lorazepam 0.5 Mg Tablet 0.5 Mg PO PRN Q6HRS PRN Acetaminophen 500 Mg Tablet 1,000 Mg PO PRN Q6HRS PRN Vitamin D2 (Ergocalciferol (Vitamin D2)) 50,000 Unit Capsule 50,000 Unit PO QWE Hydrochlorothiazide Tablet (Hydrochlorothiazide) 25 Mg Tablet 25 Mg PO DAILY Folic Acid 1 Mg Tablet 1 Mg PO DAILY Spiriva Respimat (Tiotropium [place]) 4 Gm Mist.inhal 2.5 Mcg IH DAILY Diagnosis: Problems: (1) Anxiety disorder (2) Impulse control disorder (3) Mild cognitive disorder (4) Bipolar 1 disorder, mixed, moderate (5) Bipolar 1 disorder, manic, moderate (6) Dementia associated with alcoholism with behavioral disturbance BERNABE DAVID MD Apr 02, 2017 21:21
--- NOTE | 2017-04-02 22:23 | PN ---
DATE: 04/01/2017 PSYCHIATRIC PROGRESS NOTE This late entry 04/01/2017 covers elements, not covered in my initial note of 04/01/2017. SUBJECTIVE: I met with the patient evening of 04/01/2017. Overall, the patient has been fairly uncooperative, still gets anxious, upset at the noise on the unit with a lot of demented patients yelling, disruptive. Some of this is understandable. REVIEW OF SYSTEMS: No CV, , pulmonary, eye, ENT system symptoms on review. Reliability fair. MENTAL STATUS EXAM: Reasonably oriented. Speech is coherent, abstraction fair, computation impaired, language function intact. Mood and affect is improved. We discussed discharge plans, aftercare plans at some length. IMPRESSION: Unchanged from initial note. PLAN: Continue current psychotropics mentioned in my initial note. Valproic acid level is 69, therapeutic. Reviewed drug interactions. Risk/benefit ratio favors no further change. BERNABE DAVID MD DR: SHAQUILLE/ros JOB#: [id number] / [id number]
[2017-04-03 06:11] VITALS: BP 117/71
[2017-04-03] MEDS: DULoxetine HCL 60 MG CAPSULE.DR PO SCH (08:39)
[2017-04-03] MEDS: FOLIC ACID 1 MG TABLET PO SCH (08:39)
[2017-04-03] MEDS: MULTIVITAMIN with MINERAL TABLET. PO SCH (08:39)
[2017-04-03] MEDS: NICOTINE 21MG PATCH. TD SCH (08:39)
[2017-04-03] MEDS: busPIRone 10 MG TABLET. PO SCH ×3 (08:39→20:33)
[2017-04-03 15:57] VITALS: BP 153/80
--- NOTE | 2017-04-03 20:16 | PDOC ---
Exam Doug Demential Exam: Doug Note: Please also refer to the separate dictated note~for this date of service dictated separately.~Patient seen individually. Discussed the patient with Nursing staff reviewed the chart.~Reviewed interim history and current functioning. Reviewed vital signs,~Labs/ Radiology~and current medications noted below. Continue current treatment with the changes noted in the dictated addendum note Assessment: Vital Signs: Vital Signs Date Time Temp Pulse Resp B/P (MAP) Pulse Ox O2 Delivery O2 Flow Rate FiO2 04/03/17 15:57 98.5 78 16 153/80 (104) 96 04/02/17 16:06 Room Air I&O Intake and Output 04/04/17 07:00 Intake Total 1560 ml Balance 1560 ml Intake Oral 1560 ml Current Medications: Meds: Current Medications Acetaminophen (Tylenol) 650 mg PRN Q6HRS PRN PO MILD PAIN / TEMP Last administered on 03/21/17 08:42; Start 03/16/17 at 04:00 Multi-Ingredient Ointment (Analgesic [place]) 1 markus PRN QID PRN TP MUSCLE PAIN; Start 03/16/17 at 04:00 Al Hydroxide/Mg Hydroxide (Mylanta Plus Xs) 15 ml PRN AFTMEALHC PRN PO DYSPEPSIA; Start 03/16/17 at 04:00 Magnesium Hydroxide (Milk Of Magnesia) 2,400 mg PRN QHS PRN PO CONSTIPATION Last administered on 03/31/17 20:50; Start 03/16/17 at 04:00 Nicotine (Nicoderm Cq 21mg) 1 patch DAILY TD Last administered on 04/03/17 08 :39; Start 03/16/17 at 09:00 Benztropine Mesylate (Cogentin) 0.5 mg BID PO Last administered on 03/18/17 07 :53; Start 03/16/17 at 09:00; Stop 03/18/17 at 16:56; Status DC Buspirone HCl (Buspar) 10 mg TID PO Last administered on 04/03/17 13:50; Start 03/16/17 at 09:00 Duloxetine HCl (Cymbalta) 30 mg BID PO Last administered on 03/16/17 10:16; Start 03/16/17 at 09:00; Stop 03/16/17 at 18:42; Status DC Lorazepam (Ativan) 0.5 mg PRN Q6HRS PRN PO ANXIETY / AGITATION Last administered on 03/21/17 23:13; Start 03/16/17 at 04:00 Trazodone HCl (Desyrel) 50 mg QHS PO Last administered on 04/02/17 19:21; Start 03/16/17 at 21:00 Acetaminophen (Tylenol) 1,000 mg QHS PO Last administered on 04/02/17 19:21; Start 03/16/17 at 21:00 Cyanocobalamin (Vitamin B-12) 1,000 mcg QMONTH IM ; Start 04/07/17 at 09:00 Folic Acid (Folic Acid) 1 mg DAILY PO Last administered on 04/03/17 08:39; Start 03/16/17 at 09:00 Hydrochlorothiazide (Hydrodiuril) 25 mg DAILY PO Last administered on 08:49; Start 03/16/17 at 09:00; Stop 03/31/17 at 13:26; Status DC Non-Formulary Medication 2 puff BID IH ; Start 03/16/17 at 09:00; Status UNV Vitamin D (Vitamin D3) 50,000 unit WEEKLY PO Last administered on 03/28/17 08 :28; Start 03/21/17 at 09:00 Multivitamins/ Calcium (Thera-M Plus) 1 tab DAILY PO Last administered on 04/03 08:39; Start 03/16/17 at 09:00 Ondansetron HCl (Zofran Odt) 4 mg PRN Q8HRS PRN PO NAUSEA/VOMITING; Start 03/16 at 04:30 Non-Formulary Medication 2.5 mcg DAILY IH ; Start 03/16/17 at 09:00; Status UNV Albuterol/ Ipratropium (Duoneb) 3 ml RTQID NEB Last administered on 03/30/17 11:39; Start 03/16/17 at 08:00; Stop 03/30/17 at 16:38; Status DC Budesonide (Pulmicort) 0.5 mg RTBID NEB Last administered on 03/29/17 21:32; Start 03/16/17 at 08:00; Stop 03/30/17 at 16:38; Status DC Duloxetine HCl (Cymbalta) 60 mg DAILY PO Last administered on 04/03/17 08:39 ; Start 03/17/17 at 09:00 Quetiapine Fumarate (SEROquel) 50 mg QHS PO Last administered on 03/21/17 20: 31; Start 03/16/17 at 21:00; Stop 03/22/17 at 10:18; Status DC Benztropine Mesylate (Cogentin) 0.5 mg DAILY PO Last administered on 03/21/17 08:16; Start 03/19/17 at 09:00; Stop 03/21/17 at 15:00; Status DC Divalproex Sodium (Depakote Er) 500 mg QHS PO Last administered on 03/20/17 19 :13; Start 03/18/17 at 21:00; Stop 03/21/17 at 19:29; Status DC Atorvastatin Calcium (Lipitor) 20 mg QHS PO Last administered on 04/02/17 19: 21; Start 03/19/17 at 21:00 Divalproex Sodium (Depakote Er) 750 mg QHS PO Last administered on 04/02/17 19:21; Start 03/21/17 at 21:00 Quetiapine Fumarate (SEROquel) 75 mg QHS PO Last administered on 04/02/17 19: 21; Start 03/22/17 at 21:00 Budesonide (Pulmicort) 0.5 mg PRN BID PRN NEB sob; Start 03/30/17 at 16:45 Albuterol/ Ipratropium (Duoneb) 3 ml PRN QID PRN NEB sob; Start 03/30/17 at 16 :45 Active Scripts Active Reported Cyanocobalamin Injection (Cyanocobalamin (Vitamin B-12)) 1,000 Mcg/1 Ml Vial 1, 000 Mcg IM QMONTH Trazodone Hcl 50 Mg Tablet 50 Mg PO QHS Buspirone Hcl 10 Mg Tablet 10 Mg PO TID Acetaminophen 500 Mg Tablet 1,000 Mg PO QHS Therems-M (Multivits,Th W-Fe,Other Min) 1 Each Tablet 1 Tab PO BID Symbicort 160-4.5 Mcg Inhaler (Budesonide/Formoterol Fumarate) 10.2 Gm Hfa.aer.ad 2 Puff IH BID Cymbalta (Duloxetine Hcl) 30 Mg Capsule.dr 30 Mg PO BID Benztropine Mesylate 0.5 Mg Tablet 0.5 Mg PO BID Zofran (Ondansetron Hcl) 4 Mg Tablet 4 Mg PO PRN Q8HRS PRN Milk Of Magnesia (Magnesium Hydroxide) 400 Mg/5 Ml Oral.susp 2,400 Mg PO PRN DAILY PRN Lorazepam 0.5 Mg Tablet 0.5 Mg PO PRN Q6HRS PRN Acetaminophen 500 Mg Tablet 1,000 Mg PO PRN Q6HRS PRN Vitamin D2 (Ergocalciferol (Vitamin D2)) 50,000 Unit Capsule 50,000 Unit PO QWE Hydrochlorothiazide Tablet (Hydrochlorothiazide) 25 Mg Tablet 25 Mg PO DAILY Folic Acid 1 Mg Tablet 1 Mg PO DAILY Spiriva Respimat (Tiotropium [place]) 4 Gm Mist.inhal 2.5 Mcg IH DAILY Diagnosis: Problems: (1) Anxiety disorder (2) Impulse control disorder (3) Mild cognitive disorder (4) Bipolar 1 disorder, mixed, moderate (5) Bipolar 1 disorder, manic, moderate (6) Dementia associated with alcoholism with behavioral disturbance BERNABE DAVID MD Apr 03, 2017 20:16
[2017-04-03] MEDS: DIVALPROEX ER 250 MG TAB.ER.24H. PO SCH (20:32)
[2017-04-03] MEDS: ATORVASTATIN CALCIUM 20 MG TABLET PO SCH (20:32)
[2017-04-03] MEDS: traZODone 50 MG TABLET. PO SCH (20:32)
[2017-04-03] MEDS: QUEtiapine 50 MG TABLET. PO SCH (20:32)
[2017-04-03] MEDS: ACETAMINOPHEN 500 MG TABLET PO SCH (20:33)
--- NOTE | 2017-04-04 03:35 | PN ---
DATE: 04/02/2017 This late entry for 04/02/2017 covers elements not covered in my initial note of 04/02/2017. SUBJECTIVE: I met with the patient the evening of 04/02/2017. The patient slept 6-1/2 hours previous night, slept through breakfast. She denies suicidal ideation or homicidal ideation. She remains a little anxious, but gets along better with her roommate, which is supportive for her. REVIEW OF SYSTEMS: No CV, , pulmonary, eye, ENT system symptoms on review. MENTAL STATUS EXAMINATION: Oriented, reasonably well. Speech is coherent. Mouth movements better. Abstraction fair, computation somewhat impaired, language function intact, attention span short. Mood and affect appears improved. No suicidal or homicidal ideation. LABORATORY DATA: Reviewed. IMPRESSION: Unchanged from initial note. PLAN: Continue current psychotropics mentioned in my initial note. Valproic acid level therapeutic at 69. Reviewed drug interactions and risk/benefit ratio, favors no further change. BERNABE DAVID MD DR: SHAQUILLE/ros JOB#: [id number] / [id number]
[2017-04-04 05:54] VITALS: BP 123/83
[2017-04-04] MEDS: MULTIVITAMIN with MINERAL TABLET. PO SCH (08:15)
[2017-04-04] MEDS: busPIRone 10 MG TABLET. PO SCH ×3 (08:16→19:51)
[2017-04-04] MEDS: NICOTINE 21MG PATCH. TD SCH (08:16)
[2017-04-04] MEDS: FOLIC ACID 1 MG TABLET PO SCH (08:16)
[2017-04-04] MEDS: DULoxetine HCL 60 MG CAPSULE.DR PO SCH (08:16)
[2017-04-04] MEDS: CHOLECALCIFEROL (VITAMIN D3) 50,000 UNIT CAPSULE PO SCH (08:17)
[2017-04-04 16:14] VITALS: BP 169/82
[2017-04-04] MEDS: traZODone 50 MG TABLET. PO SCH (19:50)
[2017-04-04] MEDS: QUEtiapine 50 MG TABLET. PO SCH (19:50)
[2017-04-04] MEDS: ATORVASTATIN CALCIUM 20 MG TABLET PO SCH (19:51)
[2017-04-04] MEDS: DIVALPROEX ER 250 MG TAB.ER.24H. PO SCH (19:51)
[2017-04-04] MEDS: ACETAMINOPHEN 500 MG TABLET PO SCH (19:51)
--- NOTE | 2017-04-04 20:44 | PDOC ---
Exam Doug Demential Exam: Doug Note: Please also refer to the separate dictated note~for this date of service dictated separately.~Patient seen individually. Discussed the patient with Nursing staff reviewed the chart.~Reviewed interim history and current functioning. Reviewed vital signs,~Labs/ Radiology~and current medications noted below. Continue current treatment with the changes noted in the dictated addendum note Assessment: Vital Signs: Vital Signs Date Time Temp Pulse Resp B/P (MAP) Pulse Ox O2 Delivery O2 Flow Rate FiO2 04/04/17 16:14 98.5 86 18 169/82 (111) 93 04/02/17 16:06 Room Air I&O Intake and Output 04/05/17 06:59 Intake Total 1080 ml Balance 1080 ml Intake Oral 1080 ml Current Medications: Meds: Current Medications Acetaminophen (Tylenol) 650 mg PRN Q6HRS PRN PO MILD PAIN / TEMP Last administered on 03/21/17 08:42; Start 03/16/17 at 04:00 Multi-Ingredient Ointment (Analgesic [place]) 1 markus PRN QID PRN TP MUSCLE PAIN; Start 03/16/17 at 04:00 Al Hydroxide/Mg Hydroxide (Mylanta Plus Xs) 15 ml PRN AFTMEALHC PRN PO DYSPEPSIA; Start 03/16/17 at 04:00 Magnesium Hydroxide (Milk Of Magnesia) 2,400 mg PRN QHS PRN PO CONSTIPATION Last administered on 03/31/17 20:50; Start 03/16/17 at 04:00 Nicotine (Nicoderm Cq 21mg) 1 patch DAILY TD Last administered on 04/04/17 08 :16; Start 03/16/17 at 09:00 Benztropine Mesylate (Cogentin) 0.5 mg BID PO Last administered on 03/18/17 07 :53; Start 03/16/17 at 09:00; Stop 03/18/17 at 16:56; Status DC Buspirone HCl (Buspar) 10 mg TID PO Last administered on 04/04/17 19:51; Start 03/16/17 at 09:00 Duloxetine HCl (Cymbalta) 30 mg BID PO Last administered on 03/16/17 10:16; Start 03/16/17 at 09:00; Stop 03/16/17 at 18:42; Status DC Lorazepam (Ativan) 0.5 mg PRN Q6HRS PRN PO ANXIETY / AGITATION Last administered on 03/21/17 23:13; Start 03/16/17 at 04:00 Trazodone HCl (Desyrel) 50 mg QHS PO Last administered on 04/04/17 19:50; Start 03/16/17 at 21:00 Acetaminophen (Tylenol) 1,000 mg QHS PO Last administered on 04/04/17 19:51; Start 03/16/17 at 21:00 Cyanocobalamin (Vitamin B-12) 1,000 mcg QMONTH IM ; Start 04/07/17 at 09:00 Folic Acid (Folic Acid) 1 mg DAILY PO Last administered on 04/04/17 08:16; Start 03/16/17 at 09:00 Hydrochlorothiazide (Hydrodiuril) 25 mg DAILY PO Last administered on 08:49; Start 03/16/17 at 09:00; Stop 03/31/17 at 13:26; Status DC Non-Formulary Medication 2 puff BID IH ; Start 03/16/17 at 09:00; Status UNV Vitamin D (Vitamin D3) 50,000 unit WEEKLY PO Last administered on 04/04/17 08 :17; Start 03/21/17 at 09:00 Multivitamins/ Calcium (Thera-M Plus) 1 tab DAILY PO Last administered on 04/04 08:15; Start 03/16/17 at 09:00 Ondansetron HCl (Zofran Odt) 4 mg PRN Q8HRS PRN PO NAUSEA/VOMITING; Start 03/16 at 04:30 Non-Formulary Medication 2.5 mcg DAILY IH ; Start 03/16/17 at 09:00; Status UNV Albuterol/ Ipratropium (Duoneb) 3 ml RTQID NEB Last administered on 03/30/17 11:39; Start 03/16/17 at 08:00; Stop 03/30/17 at 16:38; Status DC Budesonide (Pulmicort) 0.5 mg RTBID NEB Last administered on 03/29/17 21:32; Start 03/16/17 at 08:00; Stop 03/30/17 at 16:38; Status DC Duloxetine HCl (Cymbalta) 60 mg DAILY PO Last administered on 04/04/17 08:16 ; Start 03/17/17 at 09:00 Quetiapine Fumarate (SEROquel) 50 mg QHS PO Last administered on 03/21/17 20: 31; Start 03/16/17 at 21:00; Stop 03/22/17 at 10:18; Status DC Benztropine Mesylate (Cogentin) 0.5 mg DAILY PO Last administered on 03/21/17 08:16; Start 03/19/17 at 09:00; Stop 03/21/17 at 15:00; Status DC Divalproex Sodium (Depakote Er) 500 mg QHS PO Last administered on 03/20/17 19 :13; Start 03/18/17 at 21:00; Stop 03/21/17 at 19:29; Status DC Atorvastatin Calcium (Lipitor) 20 mg QHS PO Last administered on 04/04/17 19: 51; Start 03/19/17 at 21:00 Divalproex Sodium (Depakote Er) 750 mg QHS PO Last administered on 04/04/17 19:51; Start 03/21/17 at 21:00 Quetiapine Fumarate (SEROquel) 75 mg QHS PO Last administered on 04/04/17 19: 50; Start 03/22/17 at 21:00 Budesonide (Pulmicort) 0.5 mg PRN BID PRN NEB sob; Start 03/30/17 at 16:45 Albuterol/ Ipratropium (Duoneb) 3 ml PRN QID PRN NEB sob; Start 03/30/17 at 16 :45 Active Scripts Active Reported Cyanocobalamin Injection (Cyanocobalamin (Vitamin B-12)) 1,000 Mcg/1 Ml Vial 1, 000 Mcg IM QMONTH Trazodone Hcl 50 Mg Tablet 50 Mg PO QHS Buspirone Hcl 10 Mg Tablet 10 Mg PO TID Acetaminophen 500 Mg Tablet 1,000 Mg PO QHS Therems-M (Multivits,Th W-Fe,Other Min) 1 Each Tablet 1 Tab PO BID Symbicort 160-4.5 Mcg Inhaler (Budesonide/Formoterol Fumarate) 10.2 Gm Hfa.aer.ad 2 Puff IH BID Cymbalta (Duloxetine Hcl) 30 Mg Capsule.dr 30 Mg PO BID Benztropine Mesylate 0.5 Mg Tablet 0.5 Mg PO BID Zofran (Ondansetron Hcl) 4 Mg Tablet 4 Mg PO PRN Q8HRS PRN Milk Of Magnesia (Magnesium Hydroxide) 400 Mg/5 Ml Oral.susp 2,400 Mg PO PRN DAILY PRN Lorazepam 0.5 Mg Tablet 0.5 Mg PO PRN Q6HRS PRN Acetaminophen 500 Mg Tablet 1,000 Mg PO PRN Q6HRS PRN Vitamin D2 (Ergocalciferol (Vitamin D2)) 50,000 Unit Capsule 50,000 Unit PO QWE Hydrochlorothiazide Tablet (Hydrochlorothiazide) 25 Mg Tablet 25 Mg PO DAILY Folic Acid 1 Mg Tablet 1 Mg PO DAILY Spiriva Respimat (Tiotropium [place]) 4 Gm Mist.inhal 2.5 Mcg IH DAILY Diagnosis: Problems: (1) Anxiety disorder (2) Impulse control disorder (3) Mild cognitive disorder (4) Bipolar 1 disorder, mixed, moderate (5) Bipolar 1 disorder, manic, moderate (6) Dementia associated with alcoholism with behavioral disturbance BERNABE DAVID MD Apr 04, 2017 20:44
--- NOTE | 2017-04-04 23:52 | PN ---
DATE: 04/03/2017 PSYCHIATRIC PROGRESS NOTE This is a late entry for 04/03/2017, covers elements not covered in my initial note of 04/03/2017. SUBJECTIVE: I met with the patient the evening of 04/03/2017. The patient is compliant with her medications, still withdrawn, somewhat depressed, but better than before. No suicidal or homicidal ideation. REVIEW OF SYSTEMS: No CV, , pulmonary, eye, ENT system symptoms on review. She has some mouth movements, but even these are better. MENTAL STATUS EXAM: Reasonably oriented. Speech is coherent, abstraction fair, computation impaired, language function intact, attention span short. Mood and affect still somewhat dysphoric, but showing improvement. No suicidal or homicidal ideation. LABORATORY DATA: Reviewed. IMPRESSION: Unchanged from initial note. PLAN: Continue current psychotropics. Reviewed drug interactions. Risk/benefit ratio favors no further change. MAN Britni DAVID MD DR: SHAQUILLE/ros JOB#: [id number] / [id number]
[2017-04-05 06:20] VITALS: BP 108/57
[2017-04-05] MEDS: MULTIVITAMIN with MINERAL TABLET. PO SCH (08:25)
[2017-04-05] MEDS: busPIRone 10 MG TABLET. PO SCH ×3 (08:25→19:27)
[2017-04-05] MEDS: NICOTINE 21MG PATCH. TD SCH (08:26)
[2017-04-05] MEDS: DULoxetine HCL 60 MG CAPSULE.DR PO SCH (08:26)
[2017-04-05] MEDS: FOLIC ACID 1 MG TABLET PO SCH (08:26)
[2017-04-05 16:16] VITALS: BP 164/81
[2017-04-05] MEDS: QUEtiapine 50 MG TABLET. PO SCH (19:26)
[2017-04-05] MEDS: DIVALPROEX ER 250 MG TAB.ER.24H. PO SCH (19:27)
[2017-04-05] MEDS: ACETAMINOPHEN 500 MG TABLET PO SCH (19:27)
[2017-04-05] MEDS: ATORVASTATIN CALCIUM 20 MG TABLET PO SCH (19:27)
[2017-04-05] MEDS: traZODone 50 MG TABLET. PO SCH (19:28)
--- NOTE | 2017-04-05 20:48 | PDOC ---
Exam Doug Demential Exam: Doug Note: Please also refer to the separate dictated note~for this date of service dictated separately.~Patient seen individually. Discussed the patient with Nursing staff reviewed the chart.~Reviewed interim history and current functioning. Reviewed vital signs,~Labs/ Radiology~and current medications noted below. Continue current treatment with the changes noted in the dictated addendum note Assessment: Vital Signs: Vital Signs Date Time Temp Pulse Resp B/P (MAP) Pulse Ox O2 Delivery O2 Flow Rate FiO2 04/05/17 16:16 99.3 83 20 164/81 (108) 94 04/02/17 16:06 Room Air I&O Intake and Output 04/06/17 07:00 Intake Total 1400 ml Balance 1400 ml Intake Oral 1400 ml Current Medications: Meds: Current Medications Acetaminophen (Tylenol) 650 mg PRN Q6HRS PRN PO MILD PAIN / TEMP Last administered on 03/21/17 08:42; Start 03/16/17 at 04:00 Multi-Ingredient Ointment (Analgesic [place]) 1 markus PRN QID PRN TP MUSCLE PAIN; Start 03/16/17 at 04:00 Al Hydroxide/Mg Hydroxide (Mylanta Plus Xs) 15 ml PRN AFTMEALHC PRN PO DYSPEPSIA; Start 03/16/17 at 04:00 Magnesium Hydroxide (Milk Of Magnesia) 2,400 mg PRN QHS PRN PO CONSTIPATION Last administered on 03/31/17 20:50; Start 03/16/17 at 04:00 Nicotine (Nicoderm Cq 21mg) 1 patch DAILY TD Last administered on 04/05/17 08 :26; Start 03/16/17 at 09:00 Benztropine Mesylate (Cogentin) 0.5 mg BID PO Last administered on 03/18/17 07 :53; Start 03/16/17 at 09:00; Stop 03/18/17 at 16:56; Status DC Buspirone HCl (Buspar) 10 mg TID PO Last administered on 04/05/17 19:27; Start 03/16/17 at 09:00 Duloxetine HCl (Cymbalta) 30 mg BID PO Last administered on 03/16/17 10:16; Start 03/16/17 at 09:00; Stop 03/16/17 at 18:42; Status DC Lorazepam (Ativan) 0.5 mg PRN Q6HRS PRN PO ANXIETY / AGITATION Last administered on 03/21/17 23:13; Start 03/16/17 at 04:00 Trazodone HCl (Desyrel) 50 mg QHS PO Last administered on 04/05/17 19:28; Start 03/16/17 at 21:00 Acetaminophen (Tylenol) 1,000 mg QHS PO Last administered on 04/05/17 19:27; Start 03/16/17 at 21:00 Cyanocobalamin (Vitamin B-12) 1,000 mcg QMONTH IM ; Start 04/07/17 at 09:00 Folic Acid (Folic Acid) 1 mg DAILY PO Last administered on 04/05/17 08:26; Start 03/16/17 at 09:00 Hydrochlorothiazide (Hydrodiuril) 25 mg DAILY PO Last administered on 08:49; Start 03/16/17 at 09:00; Stop 03/31/17 at 13:26; Status DC Non-Formulary Medication 2 puff BID IH ; Start 03/16/17 at 09:00; Status UNV Vitamin D (Vitamin D3) 50,000 unit WEEKLY PO Last administered on 04/04/17 08 :17; Start 03/21/17 at 09:00 Multivitamins/ Calcium (Thera-M Plus) 1 tab DAILY PO Last administered on 04/05 08:25; Start 03/16/17 at 09:00 Ondansetron HCl (Zofran Odt) 4 mg PRN Q8HRS PRN PO NAUSEA/VOMITING; Start 03/16 at 04:30 Non-Formulary Medication 2.5 mcg DAILY IH ; Start 03/16/17 at 09:00; Status UNV Albuterol/ Ipratropium (Duoneb) 3 ml RTQID NEB Last administered on 03/30/17 11:39; Start 03/16/17 at 08:00; Stop 03/30/17 at 16:38; Status DC Budesonide (Pulmicort) 0.5 mg RTBID NEB Last administered on 03/29/17 21:32; Start 03/16/17 at 08:00; Stop 03/30/17 at 16:38; Status DC Duloxetine HCl (Cymbalta) 60 mg DAILY PO Last administered on 04/05/17 08:26 ; Start 03/17/17 at 09:00 Quetiapine Fumarate (SEROquel) 50 mg QHS PO Last administered on 03/21/17 20: 31; Start 03/16/17 at 21:00; Stop 03/22/17 at 10:18; Status DC Benztropine Mesylate (Cogentin) 0.5 mg DAILY PO Last administered on 03/21/17 08:16; Start 03/19/17 at 09:00; Stop 03/21/17 at 15:00; Status DC Divalproex Sodium (Depakote Er) 500 mg QHS PO Last administered on 03/20/17 19 :13; Start 03/18/17 at 21:00; Stop 03/21/17 at 19:29; Status DC Atorvastatin Calcium (Lipitor) 20 mg QHS PO Last administered on 04/05/17 19: 27; Start 03/19/17 at 21:00 Divalproex Sodium (Depakote Er) 750 mg QHS PO Last administered on 04/05/17 19:27; Start 03/21/17 at 21:00 Quetiapine Fumarate (SEROquel) 75 mg QHS PO Last administered on 04/05/17 19: 26; Start 03/22/17 at 21:00 Budesonide (Pulmicort) 0.5 mg PRN BID PRN NEB sob; Start 03/30/17 at 16:45 Albuterol/ Ipratropium (Duoneb) 3 ml PRN QID PRN NEB sob; Start 03/30/17 at 16 :45 Active Scripts Active Reported Cyanocobalamin Injection (Cyanocobalamin (Vitamin B-12)) 1,000 Mcg/1 Ml Vial 1, 000 Mcg IM QMONTH Trazodone Hcl 50 Mg Tablet 50 Mg PO QHS Buspirone Hcl 10 Mg Tablet 10 Mg PO TID Acetaminophen 500 Mg Tablet 1,000 Mg PO QHS Therems-M (Multivits,Th W-Fe,Other Min) 1 Each Tablet 1 Tab PO BID Symbicort 160-4.5 Mcg Inhaler (Budesonide/Formoterol Fumarate) 10.2 Gm Hfa.aer.ad 2 Puff IH BID Cymbalta (Duloxetine Hcl) 30 Mg Capsule.dr 30 Mg PO BID Benztropine Mesylate 0.5 Mg Tablet 0.5 Mg PO BID Zofran (Ondansetron Hcl) 4 Mg Tablet 4 Mg PO PRN Q8HRS PRN Milk Of Magnesia (Magnesium Hydroxide) 400 Mg/5 Ml Oral.susp 2,400 Mg PO PRN DAILY PRN Lorazepam 0.5 Mg Tablet 0.5 Mg PO PRN Q6HRS PRN Acetaminophen 500 Mg Tablet 1,000 Mg PO PRN Q6HRS PRN Vitamin D2 (Ergocalciferol (Vitamin D2)) 50,000 Unit Capsule 50,000 Unit PO QWE Hydrochlorothiazide Tablet (Hydrochlorothiazide) 25 Mg Tablet 25 Mg PO DAILY Folic Acid 1 Mg Tablet 1 Mg PO DAILY Spiriva Respimat (Tiotropium [place]) 4 Gm Mist.inhal 2.5 Mcg IH DAILY Diagnosis: Problems: (1) Anxiety disorder (2) Impulse control disorder (3) Mild cognitive disorder (4) Bipolar 1 disorder, mixed, moderate (5) Bipolar 1 disorder, manic, moderate (6) Dementia associated with alcoholism with behavioral disturbance BRENABE DAVID MD Apr 05, 2017 20:48
--- NOTE | 2017-04-06 03:43 | PN ---
DATE: 04/04/2017 PSYCHIATRIC PROGRESS NOTE This is a late entry for 04/04/2017, covers the elements not covered in my initial note of 04/04/2017. SUBJECTIVE: I met with the patient the evening of 04/04/2017. The patient has been fairly oriented, somewhat more interactive, spends much time with her roommate. No CV, , pulmonary, eye, ENT system symptoms on review. Mouth movements are better. MENTAL STATUS EXAM: Reasonably oriented. Speech is coherent, abstraction fair, computation impaired, language function intact. Mood and affect is improved. IMPRESSION: Unchanged from initial note. PLAN: Continue current psychotropics mentioned in my initial. Reviewed drug interactions, risk/benefit ratio favors no further change. MAN Britni DAVID MD DR: SHAQUILLE/ros JOB#: [id number] / [id number]
[2017-04-06 05:43] VITALS: BP 130/76
[2017-04-06 07:38] LABS: BASO % 1 % (0-3); EOS # 0.1 x10^3/uL (0.0-0.7); EOS % 2 % (0-3); HEMATOCRIT 41.6 % (36.0-47.0); LYMPH # 1.8 x10^3/uL (1.0-4.8); LYMPH % 49 % (24-48); MEAN CORPUSCULAR HEMOGLOBIN 31 pg (25-35); MEAN CORPUSCULAR HGB CONC 34 g/dL (31-37); MEAN CORPUSCULAR VOLUME 91 fL (79-100); MONO # 0.5 x10^3/uL (0.0-1.1); MONO % 12 % (0-9); NEUT # 1.3 x10^3uL (1.8-7.7); NEUT % 36 % (31-73); PLATELET COUNT 118 x10^3/uL (140-400); RED BLOOD COUNT 4.56 x10^6/uL (3.50-5.40); RED CELL DISTRIBUTION WIDTH 14.3 % (11.5-14.5); WHITE BLOOD COUNT 3.7 x10^3/uL (4.0-11.0)
[2017-04-06 07:54] LABS: ALBUMIN/GLOBULIN RATIO 0.9 (1.0-1.7); CALCIUM 8.8 mg/dL (8.5-10.1); CREATININE 0.8 mg/dL (0.6-1.0); GFR 71.1; POTASSIUM 4.5 mmol/L (3.5-5.1); TOTAL BILIRUBIN 0.4 mg/dL (0.2-1.0); TOTAL PROTEIN 6.2 g/dL (6.4-8.2)
[2017-04-06] MEDS: MULTIVITAMIN with MINERAL TABLET. PO SCH (08:05)
[2017-04-06] MEDS: DULoxetine HCL 60 MG CAPSULE.DR PO SCH (08:05)
[2017-04-06] MEDS: FOLIC ACID 1 MG TABLET PO SCH (08:05)
[2017-04-06] MEDS: NICOTINE 21MG PATCH. TD SCH (08:05)
[2017-04-06] MEDS: busPIRone 10 MG TABLET. PO SCH ×3 (08:05→19:28)
[2017-04-06] MEDS: FUROSEMIDE 20 MG TABLET PO SCH (13:40)
[2017-04-06 16:27] VITALS: BP 166/89
[2017-04-06] MEDS: traZODone 50 MG TABLET. PO SCH (19:28)
[2017-04-06] MEDS: ATORVASTATIN CALCIUM 20 MG TABLET PO SCH (19:28)
[2017-04-06] MEDS: QUEtiapine 50 MG TABLET. PO SCH (19:28)
[2017-04-06] MEDS: ACETAMINOPHEN 500 MG TABLET PO SCH (19:28)
[2017-04-06] MEDS: DIVALPROEX ER 250 MG TAB.ER.24H. PO SCH (19:28)
--- NOTE | 2017-04-06 20:48 | PDOC ---
Exam Doug Demential Exam: Doug Note: Please also refer to the separate dictated note~for this date of service dictated separately.~Patient seen individually. Discussed the patient with Nursing staff reviewed the chart.~Reviewed interim history and current functioning. Reviewed vital signs,~Labs/ Radiology~and current medications noted below. Continue current treatment with the changes noted in the dictated addendum note Assessment: Vital Signs: Vital Signs Date Time Temp Pulse Resp B/P (MAP) Pulse Ox O2 Delivery O2 Flow Rate FiO2 04/06/17 16:27 98.5 75 16 166/89 (114) 94 04/02/17 16:06 Room Air I&O Intake and Output 04/07/17 07:00 Intake Total 1080 ml Balance 1080 ml Intake Oral 1080 ml Labs: Laboratory Tests Test 04/06/17 07:21 White Blood Count 3.7 x10^3/uL (4.0-11.0) L Red Blood Count 4.56 x10^6/uL (3.50-5.40) Hemoglobin 14.0 g/dL (12.0-15.5) Hematocrit 41.6 % (36.0-47.0) Mean Corpuscular Volume 91 fL (79-100) Mean Corpuscular Hemoglobin 31 pg (25-35) Mean Corpuscular Hemoglobin Concent 34 g/dL (31-37) Red Cell Distribution Width 14.3 % (11.5-14.5) Platelet Count 118 x10^3/uL (140-400) L Neutrophils (%) (Auto) 36 % (31-73) Lymphocytes (%) (Auto) 49 % (24-48) H Monocytes (%) (Auto) 12 % (0-9) H Eosinophils (%) (Auto) 2 % (0-3) Basophils (%) (Auto) 1 % (0-3) Neutrophils # (Auto) 1.3 x10^3uL (1.8-7.7) L Lymphocytes # (Auto) 1.8 x10^3/uL (1.0-4.8) Monocytes # (Auto) 0.5 x10^3/uL (0.0-1.1) Eosinophils # (Auto) 0.1 x10^3/uL (0.0-0.7) Basophils # (Auto) 0.0 x10^3/uL (0.0-0.2) Sodium Level 138 mmol/L (136-145) Potassium Level 4.5 mmol/L (3.5-5.1) Chloride Level 101 mmol/L (98-107) Carbon Dioxide Level 32 mmol/L (21-32) Anion Gap 5 (6-14) L Blood Urea Nitrogen 18 mg/dL (7-20) Creatinine 0.8 mg/dL (0.6-1.0) Estimated GFR (Cockcroft-Gault) 71.1 BUN/Creatinine Ratio 23 (6-20) H Glucose Level 92 mg/dL (70-99) Calcium Level 8.8 mg/dL (8.5-10.1) Total Bilirubin 0.4 mg/dL (0.2-1.0) Aspartate Amino Transferase (AST) 13 U/L (15-37) L Alanine Aminotransferase (ALT) 17 U/L (14-59) Alkaline Phosphatase 43 U/L (46-116) L Total Protein 6.2 g/dL (6.4-8.2) L Albumin 3.0 g/dL (3.4-5.0) L Albumin/Globulin Ratio 0.9 (1.0-1.7) L Current Medications: Meds: Current Medications Acetaminophen (Tylenol) 650 mg PRN Q6HRS PRN PO MILD PAIN / TEMP Last administered on 03/21/17 08:42; Start 03/16/17 at 04:00 Multi-Ingredient Ointment (Analgesic [place]) 1 markus PRN QID PRN TP MUSCLE PAIN; Start 03/16/17 at 04:00 Al Hydroxide/Mg Hydroxide (Mylanta Plus Xs) 15 ml PRN AFTMEALHC PRN PO DYSPEPSIA; Start 03/16/17 at 04:00 Magnesium Hydroxide (Milk Of Magnesia) 2,400 mg PRN QHS PRN PO CONSTIPATION Last administered on 03/31/17 20:50; Start 03/16/17 at 04:00 Nicotine (Nicoderm Cq 21mg) 1 patch DAILY TD Last administered on 04/06/17 08 :05; Start 03/16/17 at 09:00 Benztropine Mesylate (Cogentin) 0.5 mg BID PO Last administered on 03/18/17 07 :53; Start 03/16/17 at 09:00; Stop 03/18/17 at 16:56; Status DC Buspirone HCl (Buspar) 10 mg TID PO Last administered on 04/06/17 19:28; Start 03/16/17 at 09:00 Duloxetine HCl (Cymbalta) 30 mg BID PO Last administered on 03/16/17 10:16; Start 03/16/17 at 09:00; Stop 03/16/17 at 18:42; Status DC Lorazepam (Ativan) 0.5 mg PRN Q6HRS PRN PO ANXIETY / AGITATION Last administered on 03/21/17 23:13; Start 03/16/17 at 04:00 Trazodone HCl (Desyrel) 50 mg QHS PO Last administered on 04/06/17 19:28; Start 03/16/17 at 21:00 Acetaminophen (Tylenol) 1,000 mg QHS PO Last administered on 04/06/17 19:28; Start 03/16/17 at 21:00 Cyanocobalamin (Vitamin B-12) 1,000 mcg QMONTH IM ; Start 04/07/17 at 09:00 Folic Acid (Folic Acid) 1 mg DAILY PO Last administered on 04/06/17 08:05; Start 03/16/17 at 09:00 Hydrochlorothiazide (Hydrodiuril) 25 mg DAILY PO Last administered on 08:49; Start 03/16/17 at 09:00; Stop 03/31/17 at 13:26; Status DC Non-Formulary Medication 2 puff BID IH ; Start 03/16/17 at 09:00; Status UNV Vitamin D (Vitamin D3) 50,000 unit WEEKLY PO Last administered on 04/04/17 08 :17; Start 03/21/17 at 09:00 Multivitamins/ Calcium (Thera-M Plus) 1 tab DAILY PO Last administered on 04/06 08:05; Start 03/16/17 at 09:00 Ondansetron HCl (Zofran Odt) 4 mg PRN Q8HRS PRN PO NAUSEA/VOMITING; Start 03/16 at 04:30 Non-Formulary Medication 2.5 mcg DAILY IH ; Start 03/16/17 at 09:00; Status UNV Albuterol/ Ipratropium (Duoneb) 3 ml RTQID NEB Last administered on 03/30/17 11:39; Start 03/16/17 at 08:00; Stop 03/30/17 at 16:38; Status DC Budesonide (Pulmicort) 0.5 mg RTBID NEB Last administered on 03/29/17 21:32; Start 03/16/17 at 08:00; Stop 03/30/17 at 16:38; Status DC Duloxetine HCl (Cymbalta) 60 mg DAILY PO Last administered on 04/06/17 08:05 ; Start 03/17/17 at 09:00 Quetiapine Fumarate (SEROquel) 50 mg QHS PO Last administered on 03/21/17 20: 31; Start 03/16/17 at 21:00; Stop 03/22/17 at 10:18; Status DC Benztropine Mesylate (Cogentin) 0.5 mg DAILY PO Last administered on 03/21/17 08:16; Start 03/19/17 at 09:00; Stop 03/21/17 at 15:00; Status DC Divalproex Sodium (Depakote Er) 500 mg QHS PO Last administered on 03/20/17 19 :13; Start 03/18/17 at 21:00; Stop 03/21/17 at 19:29; Status DC Atorvastatin Calcium (Lipitor) 20 mg QHS PO Last administered on 04/06/17 19: 28; Start 03/19/17 at 21:00 Divalproex Sodium (Depakote Er) 750 mg QHS PO Last administered on 04/06/17 19:28; Start 03/21/17 at 21:00 Quetiapine Fumarate (SEROquel) 75 mg QHS PO Last administered on 04/06/17 19: 28; Start 03/22/17 at 21:00 Budesonide (Pulmicort) 0.5 mg PRN BID PRN NEB sob; Start 03/30/17 at 16:45 Albuterol/ Ipratropium (Duoneb) 3 ml PRN QID PRN NEB sob; Start 03/30/17 at 16 :45 Furosemide (Lasix) 20 mg NOON PO ; Start 04/07/17 at 12:00; Stop 10/21/17 at 12:00; Status DC Furosemide (Lasix) 20 mg NOON PO Last administered on 04/06/17t 13:40; Start 04/06/17 at 13:45 Active Scripts Active Reported Cyanocobalamin Injection (Cyanocobalamin (Vitamin B-12)) 1,000 Mcg/1 Ml Vial 1, 000 Mcg IM QMONTH Trazodone Hcl 50 Mg Tablet 50 Mg PO QHS Buspirone Hcl 10 Mg Tablet 10 Mg PO TID Acetaminophen 500 Mg Tablet 1,000 Mg PO QHS Therems-M (Multivits,Th W-Fe,Other Min) 1 Each Tablet 1 Tab PO BID Symbicort 160-4.5 Mcg Inhaler (Budesonide/Formoterol Fumarate) 10.2 Gm Hfa.aer.ad 2 Puff IH BID Cymbalta (Duloxetine Hcl) 30 Mg Capsule.dr 30 Mg PO BID Benztropine Mesylate 0.5 Mg Tablet 0.5 Mg PO BID Zofran (Ondansetron Hcl) 4 Mg Tablet 4 Mg PO PRN Q8HRS PRN Milk Of Magnesia (Magnesium Hydroxide) 400 Mg/5 Ml Oral.susp 2,400 Mg PO PRN DAILY PRN Lorazepam 0.5 Mg Tablet 0.5 Mg PO PRN Q6HRS PRN Acetaminophen 500 Mg Tablet 1,000 Mg PO PRN Q6HRS PRN Vitamin D2 (Ergocalciferol (Vitamin D2)) 50,000 Unit Capsule 50,000 Unit PO QWE Hydrochlorothiazide Tablet (Hydrochlorothiazide) 25 Mg Tablet 25 Mg PO DAILY Folic Acid 1 Mg Tablet 1 Mg PO DAILY Spiriva Respimat (Tiotropium [place]) 4 Gm Mist.inhal 2.5 Mcg IH DAILY Diagnosis: Problems: (1) Anxiety disorder (2) Impulse control disorder (3) Mild cognitive disorder (4) Bipolar 1 disorder, mixed, moderate (5) Bipolar 1 disorder, manic, moderate (6) Dementia associated with alcoholism with behavioral disturbance BERNABE DAVID MD Apr 06, 2017 20:48
--- NOTE | 2017-04-07 01:54 | PN ---
DATE: 04/05/2017 This late entry 04/05/2017 covers elements not covered in my initial note of 04/05/2017. SUBJECTIVE: I met with the patient in the evening of 04/05/2017. The patient was staffed at treatment team meeting morning of 04/05/2017. Overall, the patient's mood appears better, still gets a little anxious at times. No CV, , pulmonary, eye, ENT system symptoms on review. MENTAL STATUS EXAM: Reasonably oriented. Speech coherent, pleasant, verbal, a little anxious at times. No active suicidal ideation, intellect average. Insight good. Judgment intact to standard questioning. LABORATORY DATA: Reviewed. IMPRESSION: Unchanged from initial note. PLAN: Continue psychotropics mentioned in my initial note, social service staff discussed placement options. They are attempting to secure for the patient and we addressed this at the treatment team meeting. Continue current psychotropics. Adjust further as clinically indicated. BERNABE DAVID MD DR: SHAQUILLE/ros JOB#: [id number] / [id number]
[2017-04-07 05:52] VITALS: BP 123/71
[2017-04-07] MEDS: NICOTINE 21MG PATCH. TD SCH (07:49)
[2017-04-07] MEDS: busPIRone 10 MG TABLET. PO SCH ×3 (07:50→19:19)
[2017-04-07] MEDS: DULoxetine HCL 60 MG CAPSULE.DR PO SCH (07:50)
[2017-04-07] MEDS: FOLIC ACID 1 MG TABLET PO SCH (07:50)
[2017-04-07] MEDS: MULTIVITAMIN with MINERAL TABLET. PO SCH (07:50)
[2017-04-07] MEDS ORDERED: CYANOCOBALAMIN (VITAMIN B-12) 1,000 MCG/ML VIAL IM SCH (09:00)
[2017-04-07] MEDS: FUROSEMIDE 20 MG TABLET PO SCH (11:32)
[2017-04-07] MEDS ORDERED: FUROSEMIDE 20 MG TABLET PO SCH (12:00)
--- NOTE | 2017-04-07 14:19 | PN ---
DATE: 04/06/2017 PSYCHIATRIC PROGRESS NOTE This note covers elements not covered in my initial note of 04/06/2017. SUBJECTIVE: Per nursing report, the patient has been somewhat withdrawn at times. She does have pedal edema, received Lasix. Sodium, chloride are improved. Albumin and protein are low. We will defer to Dr. Guzman. REVIEW OF SYSTEMS: No CV, , pulmonary, eye, ENT system symptoms on review. MENTAL STATUS EXAM: Reasonably oriented. Speech is coherent, has some latency. Abstraction fair, computation impaired, language function intact, attention span fair. Mood and affect shows improvement. LABORATORY DATA: Reviewed. IMPRESSION: Unchanged from initial note. PLAN: Continue current psychotropics. Review drug interactions. Risk/benefit ratio favors no further change. MAN Britni DAVID MD DR: SHAQUILLE/ros JOB#: [id number] / [id number]
[2017-04-07 16:09] VITALS: BP 144/70
[2017-04-07] MEDS: ACETAMINOPHEN 500 MG TABLET PO SCH (19:19)
[2017-04-07] MEDS: ATORVASTATIN CALCIUM 20 MG TABLET PO SCH (19:19)
[2017-04-07] MEDS: DIVALPROEX ER 250 MG TAB.ER.24H. PO SCH (19:19)
[2017-04-07] MEDS: QUEtiapine 50 MG TABLET. PO SCH (19:19)
[2017-04-07] MEDS: traZODone 50 MG TABLET. PO SCH (19:19)
--- NOTE | 2017-04-07 21:50 | PDOC ---
Exam Doug Demential Exam: Doug Note: Please also refer to the separate dictated note~for this date of service dictated separately.~Patient seen individually. Discussed the patient with Nursing staff reviewed the chart.~Reviewed interim history and current functioning. Reviewed vital signs,~Labs/ Radiology~and current medications noted below. Continue current treatment with the changes noted in the dictated addendum note Assessment: Vital Signs: Vital Signs Date Time Temp Pulse Resp B/P (MAP) Pulse Ox O2 Delivery O2 Flow Rate FiO2 04/07/17 16:09 97.2 74 16 144/70 (94) 94 04/07/17 05:52 Room Air I&O Intake and Output 04/08/17 07:00 Intake Total 600 ml Balance 600 ml Intake Oral 600 ml Current Medications: Meds: Current Medications Acetaminophen (Tylenol) 650 mg PRN Q6HRS PRN PO MILD PAIN / TEMP Last administered on 03/21/17 08:42; Start 03/16/17 at 04:00 Multi-Ingredient Ointment (Analgesic [place]) 1 markus PRN QID PRN TP MUSCLE PAIN; Start 03/16/17 at 04:00 Al Hydroxide/Mg Hydroxide (Mylanta Plus Xs) 15 ml PRN AFTMEALHC PRN PO DYSPEPSIA; Start 03/16/17 at 04:00 Magnesium Hydroxide (Milk Of Magnesia) 2,400 mg PRN QHS PRN PO CONSTIPATION Last administered on 03/31/17 20:50; Start 03/16/17 at 04:00 Nicotine (Nicoderm Cq 21mg) 1 patch DAILY TD Last administered on 04/07/17 07 :49; Start 03/16/17 at 09:00 Benztropine Mesylate (Cogentin) 0.5 mg BID PO Last administered on 03/18/17 07 :53; Start 03/16/17 at 09:00; Stop 03/18/17 at 16:56; Status DC Buspirone HCl (Buspar) 10 mg TID PO Last administered on 04/07/17 19:19; Start 03/16/17 at 09:00 Duloxetine HCl (Cymbalta) 30 mg BID PO Last administered on 03/16/17 10:16; Start 03/16/17 at 09:00; Stop 03/16/17 at 18:42; Status DC Lorazepam (Ativan) 0.5 mg PRN Q6HRS PRN PO ANXIETY / AGITATION Last administered on 03/21/17 23:13; Start 03/16/17 at 04:00 Trazodone HCl (Desyrel) 50 mg QHS PO Last administered on 04/07/17 19:19; Start 03/16/17 at 21:00 Acetaminophen (Tylenol) 1,000 mg QHS PO Last administered on 04/07/17 19:19; Start 03/16/17 at 21:00 Cyanocobalamin (Vitamin B-12) 1,000 mcg QMONTH IM Last administered on 11:33; Start 04/07/17 at 09:00 Folic Acid (Folic Acid) 1 mg DAILY PO Last administered on 04/07/17 07:50; Start 03/16/17 at 09:00 Hydrochlorothiazide (Hydrodiuril) 25 mg DAILY PO Last administered on 08:49; Start 03/16/17 at 09:00; Stop 03/31/17 at 13:26; Status DC Non-Formulary Medication 2 puff BID IH ; Start 03/16/17 at 09:00; Status UNV Vitamin D (Vitamin D3) 50,000 unit WEEKLY PO Last administered on 04/04/17 08 :17; Start 03/21/17 at 09:00 Multivitamins/ Calcium (Thera-M Plus) 1 tab DAILY PO Last administered on 04/07 07:50; Start 03/16/17 at 09:00 Ondansetron HCl (Zofran Odt) 4 mg PRN Q8HRS PRN PO NAUSEA/VOMITING; Start 03/16 at 04:30 Non-Formulary Medication 2.5 mcg DAILY IH ; Start 03/16/17 at 09:00; Status UNV Albuterol/ Ipratropium (Duoneb) 3 ml RTQID NEB Last administered on 03/30/17 11:39; Start 03/16/17 at 08:00; Stop 03/30/17 at 16:38; Status DC Budesonide (Pulmicort) 0.5 mg RTBID NEB Last administered on 03/29/17 21:32; Start 03/16/17 at 08:00; Stop 03/30/17 at 16:38; Status DC Duloxetine HCl (Cymbalta) 60 mg DAILY PO Last administered on 04/07/17 07:50 ; Start 03/17/17 at 09:00 Quetiapine Fumarate (SEROquel) 50 mg QHS PO Last administered on 03/21/17 20: 31; Start 03/16/17 at 21:00; Stop 03/22/17 at 10:18; Status DC Benztropine Mesylate (Cogentin) 0.5 mg DAILY PO Last administered on 03/21/17 08:16; Start 03/19/17 at 09:00; Stop 03/21/17 at 15:00; Status DC Divalproex Sodium (Depakote Er) 500 mg QHS PO Last administered on 03/20/17 19 :13; Start 03/18/17 at 21:00; Stop 03/21/17 at 19:29; Status DC Atorvastatin Calcium (Lipitor) 20 mg QHS PO Last administered on 04/07/17 19: 19; Start 03/19/17 at 21:00 Divalproex Sodium (Depakote Er) 750 mg QHS PO Last administered on 04/07/17 19:19; Start 03/21/17 at 21:00 Quetiapine Fumarate (SEROquel) 75 mg QHS PO Last administered on 04/07/17 19: 19; Start 03/22/17 at 21:00 Budesonide (Pulmicort) 0.5 mg PRN BID PRN NEB sob; Start 03/30/17 at 16:45 Albuterol/ Ipratropium (Duoneb) 3 ml PRN QID PRN NEB sob; Start 03/30/17 at 16 :45 Furosemide (Lasix) 20 mg NOON PO ; Start 04/07/17 at 12:00; Stop 04/07/17 at 12:00; Status DC Furosemide (Lasix) 20 mg NOON PO Last administered on 04/07/17 11:32; Start 04/06/17 at 13:45 Active Scripts Active Reported Cyanocobalamin Injection (Cyanocobalamin (Vitamin B-12)) 1,000 Mcg/1 Ml Vial 1, 000 Mcg IM QMONTH Trazodone Hcl 50 Mg Tablet 50 Mg PO QHS Buspirone Hcl 10 Mg Tablet 10 Mg PO TID Acetaminophen 500 Mg Tablet 1,000 Mg PO QHS Therems-M (Multivits,Th W-Fe,Other Min) 1 Each Tablet 1 Tab PO BID Symbicort 160-4.5 Mcg Inhaler (Budesonide/Formoterol Fumarate) 10.2 Gm Hfa.aer.ad 2 Puff IH BID Cymbalta (Duloxetine Hcl) 30 Mg Capsule.dr 30 Mg PO BID Benztropine Mesylate 0.5 Mg Tablet 0.5 Mg PO BID Zofran (Ondansetron Hcl) 4 Mg Tablet 4 Mg PO PRN Q8HRS PRN Milk Of Magnesia (Magnesium Hydroxide) 400 Mg/5 Ml Oral.susp 2,400 Mg PO PRN DAILY PRN Lorazepam 0.5 Mg Tablet 0.5 Mg PO PRN Q6HRS PRN Acetaminophen 500 Mg Tablet 1,000 Mg PO PRN Q6HRS PRN Vitamin D2 (Ergocalciferol (Vitamin D2)) 50,000 Unit Capsule 50,000 Unit PO QWE Hydrochlorothiazide Tablet (Hydrochlorothiazide) 25 Mg Tablet 25 Mg PO DAILY Folic Acid 1 Mg Tablet 1 Mg PO DAILY Spiriva Respimat (Tiotropium [place]) 4 Gm Mist.inhal 2.5 Mcg IH DAILY Diagnosis: Problems: (1) Anxiety disorder (2) Impulse control disorder (3) Mild cognitive disorder (4) Bipolar 1 disorder, mixed, moderate (5) Bipolar 1 disorder, manic, moderate (6) Dementia associated with alcoholism with behavioral disturbance BERNABE DAVID MD Apr 07, 2017 21:50
--- NOTE | 2017-04-08 01:10 | PN ---
DATE: 04/07/2017 PSYCHIATRIC PROGRESS NOTE This note covers elements not covered in my initial note of 04/07/2017. I met with the patient on the morning of 04/07/2017. SUBJECTIVE: Per nursing report, the patient has been fairly appropriate in the unit. At times, she is somewhat isolated. No CV, , pulmonary, eye, ENT system symptoms on review. I met with her in her room. MENTAL STATUS EXAM: Reasonably oriented. Speech is coherent, abstraction fair, computation reasonable, language function intact. Mood and affect are improved. No suicidal or homicidal ideation. LABORATORY DATA: Reviewed. IMPRESSION: Unchanged from initial note. PLAN: Continue current psychotropics mentioned in my initial note. Reviewed drug interactions. Risks/benefit ratio favors no further change. MAN Britni DAVID MD DR: SHAQUILLE/ros JOB#: [id number] / [id number]
[2017-04-08 05:58] VITALS: BP 126/85
[2017-04-08] MEDS: MULTIVITAMIN with MINERAL TABLET. PO SCH (07:51)
[2017-04-08] MEDS: NICOTINE 21MG PATCH. TD SCH (07:51)
[2017-04-08] MEDS: busPIRone 10 MG TABLET. PO SCH ×3 (07:51→19:26)
[2017-04-08] MEDS: FOLIC ACID 1 MG TABLET PO SCH (07:51)
[2017-04-08] MEDS: DULoxetine HCL 60 MG CAPSULE.DR PO SCH (07:51)
[2017-04-08] MEDS: FUROSEMIDE 20 MG TABLET PO SCH (12:03)
[2017-04-08 16:05] VITALS: BP 160/80
[2017-04-08] MEDS: traZODone 50 MG TABLET. PO SCH (19:26)
[2017-04-08] MEDS: ATORVASTATIN CALCIUM 20 MG TABLET PO SCH (19:26)
[2017-04-08] MEDS: DIVALPROEX ER 250 MG TAB.ER.24H. PO SCH (19:26)
[2017-04-08] MEDS: QUEtiapine 50 MG TABLET. PO SCH (19:27)
[2017-04-08] MEDS: ACETAMINOPHEN 500 MG TABLET PO SCH (19:27)
[2017-04-09 06:04] VITALS: BP 126/75
[2017-04-09] MEDS: DULoxetine HCL 60 MG CAPSULE.DR PO SCH (09:50)
[2017-04-09] MEDS: busPIRone 10 MG TABLET. PO SCH ×3 (09:50→19:28)
[2017-04-09] MEDS: NICOTINE 21MG PATCH. TD SCH (09:50)
[2017-04-09] MEDS: MULTIVITAMIN with MINERAL TABLET. PO SCH (09:50)
[2017-04-09] MEDS: FOLIC ACID 1 MG TABLET PO SCH (09:50)
--- NOTE | 2017-04-09 11:45 | PN ---
DATE: 04/08/2017 REFERRING PHYSICIAN: Dr. Marie SUBJECTIVE: The patient denies any new medical or neurological complaints. She is cooperative and appropriate. She eats and drinks well. She interacts with other people appropriately. OBJECTIVE: GENERAL: Well-developed, well-nourished white female, not in acute distress. VITAL SIGNS: Blood pressure 126/58, respiratory rate 20, pulse is 71 regular, temperature is 97, and oxygen saturation 91% on room air. HEENT: Normocephalic, atraumatic, otherwise unremarkable. NECK: Supple. Negative for carotid bruit, lymphadenopathy or thyromegaly. LUNGS: Clear to A and P. CARDIOVASCULAR: Regular rate and rhythm, normal S1, S2. ABDOMEN: Soft. Bowel sounds positive. EXTREMITIES: Negative for cyanosis, clubbing, or pitting edema. NEUROLOGICAL EXAM: Mental Status: The patient is alert and oriented x 3. Speech is fluent. There is no language dysfunction. Judgment and abstraction thinkings are normal. The patient denies hallucination or delusion. Memory: The patient recalls 2/3 immediately and 1/3 after 1 and 3 minutes. . Cranial nerves are intact. Motor Examination: No focal muscle bulk was seen. The strength was 4/5 throughout. Sensory examination revealed normal pinprick, light touch, vibratory, and position senses. Deep tendon reflexes are symmetric and hypoactive without pathologic responses. Gait and coordination were normal. IMPRESSION: 1. Major depressions-improved. 2. Anxiety. 3. Bipolar disorder. 4. Multiple medical problems include hypertension and chronic obstructive pulmonary disease. RECOMMENDATIONS: Would continue with current medical and psychiatric care. M Funmilayo RECINOS MD DR: NELLY/ros JOB#: [id number] / [id number]
[2017-04-09] MEDS: FUROSEMIDE 20 MG TABLET PO SCH (11:51)
[2017-04-09 16:09] VITALS: BP 152/88
[2017-04-09] MEDS: DIVALPROEX ER 250 MG TAB.ER.24H. PO SCH (19:26)
[2017-04-09] MEDS: ACETAMINOPHEN 500 MG TABLET PO SCH (19:27)
[2017-04-09] MEDS: ATORVASTATIN CALCIUM 20 MG TABLET PO SCH (19:27)
[2017-04-09] MEDS: traZODone 50 MG TABLET. PO SCH (19:27)
[2017-04-09] MEDS: QUEtiapine 100 MG TABLET. PO SCH (19:30)
--- NOTE | 2017-04-10 01:39 | PN ---
DATE: 04/09/2017 SUBJECTIVE: The patient was seen today, met with the staff, chart reviewed, and covering for Dr. Marie. The patient continues to have angry outbursts, being loud, at times demanding. The patient currently denies of any suicidal thoughts or plans. The patient has threatened suicide in the past including using a gun if she had one. The patient is exhibiting poor impulse control and low frustration tolerance. OBSERVATION: VITAL SIGNS: Temperature 97.8, blood pressure 126/75, pulse 67, respirations 14, O2 sat 92 and slept about 7 hours last night. Appetite fair. The patient apparently had problems getting along with roommate where she was staying. The patient also is somewhat argumentative, demanding, gets angry easily. MEDICATIONS: The patient's current medications currently on Seroquel 75 mg at night, Depakote 750 mg at night, Cymbalta 60 mg daily, trazodone 50 mg at night, BuSpar 10 mg t.i.d., lorazepam 0.5 mg p.r.n. The patient's lab reviewed. No significant change from the time of admission. ASSESSMENT: 1. Bipolar disorder, mixed, moderate to severe. 2. Impulse control disorder, unspecified. PLAN: To continue with the treatment and adjust the medications accordingly. The patient's last Depakote level was 69. Continue with the treatment. COURTNEY STEINBERG MD DR: STEPHANIE/ros JOB#: [id number] / [id number]
[2017-04-10 06:31] VITALS: BP 117/66
[2017-04-10] MEDS: FOLIC ACID 1 MG TABLET PO SCH (08:13)
[2017-04-10] MEDS: busPIRone 10 MG TABLET. PO SCH ×3 (08:13→19:53)
[2017-04-10] MEDS: DULoxetine HCL 60 MG CAPSULE.DR PO SCH (08:13)
[2017-04-10] MEDS: NICOTINE 21MG PATCH. TD SCH (08:14)
[2017-04-10] MEDS: MULTIVITAMIN with MINERAL TABLET. PO SCH (08:14)
[2017-04-10] MEDS: FUROSEMIDE 20 MG TABLET PO SCH (11:53)
[2017-04-10 15:27] VITALS: BP 153/77
[2017-04-10] MEDS: DIVALPROEX ER 250 MG TAB.ER.24H. PO SCH (19:53)
[2017-04-10] MEDS: QUEtiapine 100 MG TABLET. PO SCH (19:53)
[2017-04-10] MEDS: traZODone 50 MG TABLET. PO SCH (19:54)
[2017-04-10] MEDS: ACETAMINOPHEN 500 MG TABLET PO SCH (19:54)
[2017-04-10] MEDS: ATORVASTATIN CALCIUM 20 MG TABLET PO SCH (19:54)
[2017-04-11 05:55] VITALS: BP 157/74
[2017-04-11] MEDS: MULTIVITAMIN with MINERAL TABLET. PO SCH (09:14)
[2017-04-11] MEDS: FOLIC ACID 1 MG TABLET PO SCH (09:15)
[2017-04-11] MEDS: NICOTINE 21MG PATCH. TD SCH (09:15)
[2017-04-11] MEDS: busPIRone 10 MG TABLET. PO SCH ×3 (09:15→20:05)
[2017-04-11] MEDS: DULoxetine HCL 60 MG CAPSULE.DR PO SCH (09:15)
[2017-04-11] MEDS: CHOLECALCIFEROL (VITAMIN D3) 50,000 UNIT CAPSULE PO SCH (09:16)
--- NOTE | 2017-04-11 10:02 | PN ---
DATE: 04/10/2017 SUBJECTIVE: The patient was seen today, met with the staff, chart reviewed. The patient's behavior has improved. The patient has had episodes of angry outbursts, sometimes tends to be loud. The patient denied of any suicidal thoughts or plans at this time. OBSERVATION: VITAL SIGNS: Temperature 97.5, blood pressure 117/66, pulse 71, respirations 16, and O2 sat 93%. Slept about 8 hours last night. MEDICATIONS: The patient's current medications include Seroquel 75 mg at night, but was increased to 100 mg at night, Depakote 750 mg at night, Cymbalta 60 mg daily, Trazodone 50 mg at night, BuSpar 10 mg t.i.d. p.o. PLAN: continue with the treatment. The patient is awaiting for placement. COURTNEY STEINBERG MD DR: STEPHANIE/ros JOB#: [id number] / [id number]
[2017-04-11] MEDS: FUROSEMIDE 20 MG TABLET PO SCH (11:26)
[2017-04-11 16:08] VITALS: BP 156/91
[2017-04-11] MEDS: ATORVASTATIN CALCIUM 20 MG TABLET PO SCH (20:04)
[2017-04-11] MEDS: DIVALPROEX ER 250 MG TAB.ER.24H. PO SCH (20:04)
[2017-04-11] MEDS: QUEtiapine 100 MG TABLET. PO SCH (20:05)
[2017-04-11] MEDS: ACETAMINOPHEN 500 MG TABLET PO SCH (20:05)
[2017-04-11] MEDS: traZODone 50 MG TABLET. PO SCH (20:05)
--- NOTE | 2017-04-12 02:32 | PN ---
DATE: 04/11/2017 SUBJECTIVE: The patient was seen today, met with the staff, chart reviewed. The patient continues to show improvement. Occasional outbursts of anger. The patient denied of any negative thoughts. OBSERVATION: VITAL SIGNS: Temperature 97.5. Blood pressure 157/74, pulse 63, respirations 16, O2 sat 94%. Slept about 5 hours last night. The patient's appetite is fair. MEDICATIONS: The patient's current medications include Seroquel 100 mg at night, Depakote 750 mg at night and Cymbalta 60 mg daily, trazodone 50 mg at night, BuSpar 10 mg t.i.d. The patient is not having any physical complaints. No falls. ASSESSMENT: 1. Bipolar disorder, mixed, [id number]. 2. Impulse control disorder. PLAN: To continue with the treatment. COURTNEY STEINBERG MD DR: STEPHANIE/ros JOB#: [id number] / [id number]
[2017-04-12 05:51] VITALS: BP 129/87
[2017-04-12 10:03] LABS: VAL ACID 77 mcg/mL (50-100)
[2017-04-12] MEDS: NICOTINE 21MG PATCH. TD SCH (11:19)
[2017-04-12] MEDS: FUROSEMIDE 20 MG TABLET PO SCH (11:20)
[2017-04-12] MEDS: DULoxetine HCL 60 MG CAPSULE.DR PO SCH (11:20)
[2017-04-12] MEDS: busPIRone 10 MG TABLET. PO SCH ×3 (11:20→19:55)
[2017-04-12] MEDS: MULTIVITAMIN with MINERAL TABLET. PO SCH (11:20)
[2017-04-12] MEDS: FOLIC ACID 1 MG TABLET PO SCH (11:20)
[2017-04-12 15:27] VITALS: BP 163/81
[2017-04-12] MEDS: QUEtiapine 100 MG TABLET. PO SCH (19:55)
[2017-04-12] MEDS: ACETAMINOPHEN 500 MG TABLET PO SCH (19:55)
[2017-04-12] MEDS: traZODone 50 MG TABLET. PO SCH (19:55)
[2017-04-12] MEDS: ATORVASTATIN CALCIUM 20 MG TABLET PO SCH (19:55)
[2017-04-12] MEDS: DIVALPROEX ER 250 MG TAB.ER.24H. PO SCH (19:55)
[2017-04-13 05:34] VITALS: BP 136/66
--- NOTE | 2017-04-13 06:58 | PN ---
DATE: 04/12/2017 SUBJECTIVE: Discussed the treatment review today with regard to the patient's progress. Apparently, no change in her behavior. The patient continues to be demanding at times and also manipulating the staff. The patient also showing increased psychomotor activity at times and occasional angry outbursts. OBSERVATION: VITAL SIGNS: Temperature 97.4, blood pressure 129/87, pulse 69, respirations 18, O2 sat 90%. Slept about 7 hours last night. The patient's appetite improved. MEDICATIONS: The patient's current medications include Seroquel 100 mg at night, Depakote 750 mg at night, Cymbalta 60 mg daily and trazodone 50 mg at night. The patient is also on BuSpar 10 mg t.i.d. The patient denies of any falls, no other physical complaints. ASSESSMENT: 1. Bipolar disorder, mixed, [id number]. 2. Impulse control disorder, unspecified. PLAN: To continue with the treatment. COURTNEY STEINBERG MD DR: STEPHANIE/ros JOB#: [id number] / [id number]
[2017-04-13 08:01] LABS: ALBUMIN 3.4 g/dL (3.4-5.0); CALCIUM 8.9 mg/dL (8.5-10.1); POTASSIUM 3.9 mmol/L (3.5-5.1); TOTAL BILIRUBIN 0.4 mg/dL (0.2-1.0); TOTAL PROTEIN 6.7 g/dL (6.4-8.2)
[2017-04-13] MEDS: busPIRone 10 MG TABLET. PO SCH ×3 (08:04→19:30)
[2017-04-13] MEDS: MULTIVITAMIN with MINERAL TABLET. PO SCH (08:04)
[2017-04-13] MEDS: DULoxetine HCL 60 MG CAPSULE.DR PO SCH (08:04)
[2017-04-13] MEDS: FOLIC ACID 1 MG TABLET PO SCH (08:04)
[2017-04-13] MEDS: NICOTINE 21MG PATCH. TD SCH (08:04)
[2017-04-13 08:15] LABS: BASO % 1 % (0-3); EOS # 0.1 x10^3/uL (0.0-0.7); EOS % 2 % (0-3); HEMATOCRIT 44.6 % (36.0-47.0); HEMOGLOBIN 15.1 g/dL (12.0-15.5); LYMPH % 46 % (24-48); MEAN CORPUSCULAR HEMOGLOBIN 31 pg (25-35); MEAN CORPUSCULAR HGB CONC 34 g/dL (31-37); MEAN CORPUSCULAR VOLUME 91 fL (79-100); MONO # 0.5 x10^3/uL (0.0-1.1); MONO % 12 % (0-9); NEUT # 1.7 x10^3uL (1.8-7.7); NEUT % 39 % (31-73); PLATELET COUNT 118 x10^3/uL (140-400); RED BLOOD COUNT 4.89 x10^6/uL (3.50-5.40); WHITE BLOOD COUNT 4.3 x10^3/uL (4.0-11.0)
[2017-04-13] MEDS: FUROSEMIDE 20 MG TABLET PO SCH (12:04)
[2017-04-13 16:26] VITALS: BP 155/87
[2017-04-13] MEDS: ACETAMINOPHEN 500 MG TABLET PO SCH (19:29)
[2017-04-13] MEDS: QUEtiapine 100 MG TABLET. PO SCH (19:30)
[2017-04-13] MEDS: ATORVASTATIN CALCIUM 20 MG TABLET PO SCH (19:30)
[2017-04-13] MEDS: DIVALPROEX ER 250 MG TAB.ER.24H. PO SCH (19:30)
[2017-04-13] MEDS: traZODone 50 MG TABLET. PO SCH (19:30)
[2017-04-14 05:54] VITALS: BP 109/72
[2017-04-14] MEDS: NICOTINE 21MG PATCH. TD SCH (08:37)
[2017-04-14] MEDS: FOLIC ACID 1 MG TABLET PO SCH (08:37)
[2017-04-14] MEDS: DULoxetine HCL 60 MG CAPSULE.DR PO SCH (08:37)
[2017-04-14] MEDS: MULTIVITAMIN with MINERAL TABLET. PO SCH (08:37)
[2017-04-14] MEDS: busPIRone 10 MG TABLET. PO SCH ×3 (08:37→19:42)
[2017-04-14] MEDS: FUROSEMIDE 20 MG TABLET PO SCH (12:37)
[2017-04-14 15:45] VITALS: BP 148/86
[2017-04-14] MEDS: ATORVASTATIN CALCIUM 20 MG TABLET PO SCH (19:42)
[2017-04-14] MEDS: DIVALPROEX ER 250 MG TAB.ER.24H. PO SCH (19:42)
[2017-04-14] MEDS: ACETAMINOPHEN 500 MG TABLET PO SCH (19:42)
[2017-04-14] MEDS: QUEtiapine 100 MG TABLET. PO SCH (19:42)
--- NOTE | 2017-04-15 02:07 | PN ---
DATE: 04/14/2017 SUBJECTIVE: The patient was seen today, met with the staff, chart reviewed. The patient continues to be depressed and grieving over her cat that she had for 17 years. The patient still has periods of agitation. The patient likes to be left alone. The patient has not made any threats towards anyone. OBSERVATION: VITAL SIGNS: Temperature 97.5, blood pressure 109/72, pulse 65, respirations 14, O2 sat 92%. Slept about 6 hours last night. Her appetite decreased. MEDICATIONS: The patient's current medications include Cymbalta 60 mg daily, Seroquel 100 mg at night, Depakote 750 mg at night, trazodone 50 mg at night, BuSpar 10 mg t.i.d., lorazepam 0.5 mg q.6 hours p.r.n. The patient is not having any side effects. The patient did not have any falls. ASSESSMENT: 1. Bipolar disorder, mixed, moderate to severe. 2. Impulse control disorder, unspecified. PLAN: Continue with all the medications and then increase Cymbalta to 90 mg from 60 mg. The patient will continue with the treatment. She was advised to discuss her feelings. Staff on a one-to-one basis when she gets really depressed and angry. COURTNEY STEINBERG MD DR: STEPHANIE/ros JOB#: [id number] / [id number]
[2017-04-15 05:56] VITALS: BP 118/75
[2017-04-15] MEDS: NICOTINE 21MG PATCH. TD SCH (08:11)
[2017-04-15] MEDS: busPIRone 10 MG TABLET. PO SCH ×3 (08:11→19:54)
[2017-04-15] MEDS: MULTIVITAMIN with MINERAL TABLET. PO SCH (08:11)
[2017-04-15] MEDS: FOLIC ACID 1 MG TABLET PO SCH (08:11)
[2017-04-15] MEDS: DULoxetine HCL 30 MG CAPSULE.DR PO SCH (08:20)
[2017-04-15] MEDS: FUROSEMIDE 20 MG TABLET PO SCH (13:10)
[2017-04-15 16:39] VITALS: BP 144/84
[2017-04-15] MEDS: ATORVASTATIN CALCIUM 20 MG TABLET PO SCH (19:54)
[2017-04-15] MEDS: ACETAMINOPHEN 500 MG TABLET PO SCH (19:54)
[2017-04-15] MEDS: DIVALPROEX ER 250 MG TAB.ER.24H. PO SCH (19:54)
[2017-04-15] MEDS: QUEtiapine 100 MG TABLET. PO SCH (19:54)
[2017-04-16] MEDS ORDERED: ACET325T9 PO (00:13)
[2017-04-16] MEDS ORDERED: ATOR20TA PO (00:14)
[2017-04-16] MEDS ORDERED: CHOL500050 PO (00:15)
[2017-04-16] MEDS ORDERED: DIVA250T PO (00:16)
[2017-04-16] MEDS ORDERED: FURO-69 PO (00:18)
[2017-04-16] MEDS ORDERED: MAG30ORA2 PO (00:19)
[2017-04-16] MEDS ORDERED: METH29OI TP (00:20)
[2017-04-16] MEDS ORDERED: NICO1PAT21 TD (00:21)
[2017-04-16] MEDS ORDERED: QUET100T4 PO (00:22)
--- NOTE | 2017-04-16 03:07 | PN ---
DATE: 04/15/2017 SUBJECTIVE: The patient was seen today, met with the staff, chart reviewed. The patient's behavior improved. She is not making any threats towards anyone, not expressing any suicidal thoughts or plans, still has periods of agitation. OBSERVATION: VITAL SIGNS: Temperature 97.6, blood pressure 118/75, pulse 68, respirations 20, and O2 sat 95%. Slept about 6 hours last night. CURRENT MEDICATIONS: The patient's current medications include Seroquel 100 mg at night, Depakote 750 mg at night, Cymbalta 90 mg daily, trazodone 50 mg at night. She is also on BuSpar 10 mg t.i.d. The patient denies of any falls. ASSESSMENT: 1. Bipolar disorder, mixed, moderate to severe. 2. Impulse control disorder, unspecified. PLAN: To continue with the treatment. COURTNEY STEINBERG MD DR: STEPHANIE/ros JOB#: [id number] / [id number]
[2017-04-16 06:15] VITALS: BP 120/70
[2017-04-16 08:32] LABS: ALBUMIN 3.1 g/dL (3.4-5.0); CALCIUM 8.8 mg/dL (8.5-10.1); CREATININE 0.9 mg/dL (0.6-1.0); GFR 62.1; POTASSIUM 4.4 mmol/L (3.5-5.1); TOTAL BILIRUBIN 0.3 mg/dL (0.2-1.0); TOTAL PROTEIN 6.2 g/dL (6.4-8.2)
[2017-04-16 08:35] LABS: BASO % 1 % (0-3); EOS # 0.1 x10^3/uL (0.0-0.7); EOS % 3 % (0-3); HEMATOCRIT 43.5 % (36.0-47.0); HEMOGLOBIN 14.4 g/dL (12.0-15.5); LYMPH # 2.2 x10^3/uL (1.0-4.8); LYMPH % 50 % (24-48); MEAN CORPUSCULAR HEMOGLOBIN 30 pg (25-35); MEAN CORPUSCULAR HGB CONC 33 g/dL (31-37); MEAN CORPUSCULAR VOLUME 92 fL (79-100); MONO # 0.5 x10^3/uL (0.0-1.1); MONO % 12 % (0-9); NEUT # 1.5 x10^3uL (1.8-7.7); NEUT % 35 % (31-73); PLATELET COUNT 111 x10^3/uL (140-400); RED BLOOD COUNT 4.74 x10^6/uL (3.50-5.40); RED CELL DISTRIBUTION WIDTH 14.2 % (11.5-14.5); WHITE BLOOD COUNT 4.3 x10^3/uL (4.0-11.0)
[2017-04-16] MEDS: FOLIC ACID 1 MG TABLET PO SCH (08:53)
[2017-04-16] MEDS: busPIRone 10 MG TABLET. PO SCH ×2 (08:53→14:19)
[2017-04-16] MEDS: MULTIVITAMIN with MINERAL TABLET. PO SCH (08:53)
[2017-04-16] MEDS: DULoxetine HCL 30 MG CAPSULE.DR PO SCH (08:53)
[2017-04-16] MEDS: NICOTINE 21MG PATCH. TD SCH (08:54)
--- NOTE | 2017-04-16 11:57 | PN ---
DATE: 04/13/2017 SUBJECTIVE: The patient was seen today, met with the staff, chart reviewed. The patient continues to exhibit behavior problems, demanding, increased agitation, and difficulty to read or write and also angry outbursts. The patient continues to worry about her cat and start crying. The patient still has episodic confusion and cognitive deficits. OBSERVATION: VITAL SIGNS: Stable. GENERAL: The patient's sleep and appetite have improved. MEDICATIONS: The patient's current medications include Depakote 750 mg at night, Cymbalta 60 mg daily, trazodone 50 mg at night. The patient is also on BuSpar 10 mg t.i.d., also on Seroquel 100 mg at night. The patient is not having any side effects to the medications. ASSESSMENT: 1. Bipolar disorder, mixed, moderate to severe. 2. Impulse control disorder, unspecified. PLAN: To continue with the treatment. COURTNEY STEINBERG MD DR: STEPHANIE/ros JOB#: [id number] / [id number]
[2017-04-16] MEDS: FUROSEMIDE 20 MG TABLET PO SCH ×2 (12:00→12:37)
[2017-04-16 16:00] VITALS: BP 176/85
[2017-04-16] MEDS: ACETAMINOPHEN 500 MG TABLET PO SCH (17:48)
[2017-04-16] MEDS: DIVALPROEX ER 250 MG TAB.ER.24H. PO SCH (17:48)
[2017-04-16] MEDS: ATORVASTATIN CALCIUM 20 MG TABLET PO SCH (17:48)
[2017-04-16] MEDS: QUEtiapine 100 MG TABLET. PO SCH (17:48)
--- NOTE | 2017-04-16 20:55 | PDOC ---
Exam Doug Demential Exam: Doug Note: Please also refer to the separate dictated note~for this date of service dictated separately.~Patient seen individually. Discussed the patient with Nursing staff reviewed the chart.~Reviewed interim history and current functioning. Reviewed vital signs,~Labs/ Radiology~and current medications noted below. Continue current treatment with the changes noted in the dictated addendum note Assessment: Vital Signs: Vital Signs Date Time Temp Pulse Resp B/P (MAP) Pulse Ox O2 Delivery O2 Flow Rate FiO2 04/16/17 16:00 97.8 75 16 176/85 (115) 95 04/16/17 06:15 Room Air I&O Intake and Output 04/17/17 07:00 Intake Total 600 ml Balance 600 ml Intake Oral 600 ml Labs: Laboratory Tests Test 04/16/17 07:34 White Blood Count 4.3 x10^3/uL (4.0-11.0) Red Blood Count 4.74 x10^6/uL (3.50-5.40) Hemoglobin 14.4 g/dL (12.0-15.5) Hematocrit 43.5 % (36.0-47.0) Mean Corpuscular Volume 92 fL (79-100) Mean Corpuscular Hemoglobin 30 pg (25-35) Mean Corpuscular Hemoglobin Concent 33 g/dL (31-37) Red Cell Distribution Width 14.2 % (11.5-14.5) Platelet Count 111 x10^3/uL (140-400) L Neutrophils (%) (Auto) 35 % (31-73) Lymphocytes (%) (Auto) 50 % (24-48) H Monocytes (%) (Auto) 12 % (0-9) H Eosinophils (%) (Auto) 3 % (0-3) Basophils (%) (Auto) 1 % (0-3) Neutrophils # (Auto) 1.5 x10^3uL (1.8-7.7) L Lymphocytes # (Auto) 2.2 x10^3/uL (1.0-4.8) Monocytes # (Auto) 0.5 x10^3/uL (0.0-1.1) Eosinophils # (Auto) 0.1 x10^3/uL (0.0-0.7) Basophils # (Auto) 0.0 x10^3/uL (0.0-0.2) Sodium Level 142 mmol/L (136-145) Potassium Level 4.4 mmol/L (3.5-5.1) Chloride Level 105 mmol/L (98-107) Carbon Dioxide Level 34 mmol/L (21-32) H Anion Gap 3 (6-14) L Blood Urea Nitrogen 23 mg/dL (7-20) H Creatinine 0.9 mg/dL (0.6-1.0) Estimated GFR (Cockcroft-Gault) 62.1 BUN/Creatinine Ratio 26 (6-20) H Glucose Level 91 mg/dL (70-99) Calcium Level 8.8 mg/dL (8.5-10.1) Total Bilirubin 0.3 mg/dL (0.2-1.0) Aspartate Amino Transferase (AST) 11 U/L (15-37) L Alanine Aminotransferase (ALT) 16 U/L (14-59) Alkaline Phosphatase 42 U/L (46-116) L Total Protein 6.2 g/dL (6.4-8.2) L Albumin 3.1 g/dL (3.4-5.0) L Albumin/Globulin Ratio 1.0 (1.0-1.7) Current Medications: Meds: Current Medications Acetaminophen (Tylenol) 650 mg PRN Q6HRS PRN PO MILD PAIN / TEMP Last administered on 03/21/17 08:42; Start 03/16/17 at 04:00; Stop 04/16/17 at 18: 37; Status DC Multi-Ingredient Ointment (Analgesic Garland) 1 ana PRN QID PRN TP MUSCLE PAIN; Start 03/16/17 at 04:00; Stop 04/16/17 at 18:37; Status DC Al Hydroxide/Mg Hydroxide (Mylanta Plus Xs) 15 ml PRN AFTMEALHC PRN PO DYSPEPSIA; Start 03/16/17 at 04:00; Stop 04/16/17 at 18:37; Status DC Magnesium Hydroxide (Milk Of Magnesia) 2,400 mg PRN QHS PRN PO CONSTIPATION Last administered on 03/31/17 20:50; Start 03/16/17 at 04:00; Stop 04/16/17 at 18:37; Status DC Nicotine (Nicoderm Cq 21mg) 1 patch DAILY TD Last administered on 04/16/17 08 :54; Start 03/16/17 at 09:00; Stop 04/16/17 at 18:37; Status DC Benztropine Mesylate (Cogentin) 0.5 mg BID PO Last administered on 03/18/17 07 :53; Start 03/16/17 at 09:00; Stop 03/18/17 at 16:56; Status DC Buspirone HCl (Buspar) 10 mg TID PO Last administered on 04/16/17 14:19; Start 03/16/17 at 09:00; Stop 04/16/17 at 18:37; Status DC Duloxetine HCl (Cymbalta) 30 mg BID PO Last administered on 03/16/17 10:16; Start 03/16/17 at 09:00; Stop 03/16/17 at 18:42; Status DC Lorazepam (Ativan) 0.5 mg PRN Q6HRS PRN PO ANXIETY / AGITATION Last administered on 03/21/17 23:13; Start 03/16/17 at 04:00; Stop 04/16/17 at 18: 37; Status DC Trazodone HCl (Desyrel) 50 mg QHS PO Last administered on 04/13/17 19:30; Start 03/16/17 at 21:00; Stop 04/14/17 at 19:06; Status DC Acetaminophen (Tylenol) 1,000 mg QHS PO Last administered on 04/16/17 17:48; Start 03/16/17 at 21:00; Stop 04/16/17 at 18:37; Status DC Cyanocobalamin (Vitamin B-12) 1,000 mcg QMONTH IM Last administered on 11:33; Start 04/07/17 at 09:00; Stop 04/16/17 at 18:37; Status DC Folic Acid (Folic Acid) 1 mg DAILY PO Last administered on 04/16/17 08:53; Start 03/16/17 at 09:00; Stop 04/16/17 at 18:37; Status DC Hydrochlorothiazide (Hydrodiuril) 25 mg DAILY PO Last administered on 08:49; Start 03/16/17 at 09:00; Stop 03/31/17 at 13:26; Status DC Non-Formulary Medication 2 puff BID IH ; Start 03/16/17 at 09:00; Status UNV Vitamin D (Vitamin D3) 50,000 unit WEEKLY PO Last administered on 04/11/17 09 :16; Start 03/21/17 at 09:00; Stop 04/16/17 at 18:37; Status DC Multivitamins/ Calcium (Thera-M Plus) 1 tab DAILY PO Last administered on 04/16 08:53; Start 03/16/17 at 09:00; Stop 04/16/17 at 18:37; Status DC Ondansetron HCl (Zofran Odt) 4 mg PRN Q8HRS PRN PO NAUSEA/VOMITING; Start 03/16 at 04:30; Stop 04/16/17 at 18:37; Status DC Non-Formulary Medication 2.5 mcg DAILY IH ; Start 03/16/17 at 09:00; Status UNV Albuterol/ Ipratropium (Duoneb) 3 ml RTQID NEB Last administered on 03/30/17 11:39; Start 03/16/17 at 08:00; Stop 03/30/17 at 16:38; Status DC Budesonide (Pulmicort) 0.5 mg RTBID NEB Last administered on 03/29/17 21:32; Start 03/16/17 at 08:00; Stop 03/30/17 at 16:38; Status DC Duloxetine HCl (Cymbalta) 60 mg DAILY PO Last administered on 04/14/17 08:37 ; Start 03/17/17 at 09:00; Stop 04/14/17 at 13:55; Status DC Quetiapine Fumarate (SEROquel) 50 mg QHS PO Last administered on 03/21/17 20: 31; Start 03/16/17 at 21:00; Stop 03/22/17 at 10:18; Status DC Benztropine Mesylate (Cogentin) 0.5 mg DAILY PO Last administered on 03/21/17 08:16; Start 03/19/17 at 09:00; Stop 03/21/17 at 15:00; Status DC Divalproex Sodium (Depakote Er) 500 mg QHS PO Last administered on 03/20/17 19 :13; Start 03/18/17 at 21:00; Stop 03/21/17 at 19:29; Status DC Atorvastatin Calcium (Lipitor) 20 mg QHS PO Last administered on 04/16/17 17: 48; Start 03/19/17 at 21:00; Stop 04/16/17 at 18:37; Status DC Divalproex Sodium (Depakote Er) 750 mg QHS PO Last administered on 04/16/17 17:48; Start 03/21/17 at 21:00; Stop 04/16/17 at 18:37; Status DC Quetiapine Fumarate (SEROquel) 75 mg QHS PO Last administered on 04/08/17 19: 27; Start 03/22/17 at 21:00; Stop 04/09/17 at 17:42; Status DC Budesonide (Pulmicort) 0.5 mg PRN BID PRN NEB sob; Start 03/30/17 at 16:45; Stop 04/16/17 at 18:37; Status DC Albuterol/ Ipratropium (Duoneb) 3 ml PRN QID PRN NEB sob; Start 03/30/17 at 16 :45; Stop 04/16/17 at 18:37; Status DC Furosemide (Lasix) 20 mg NOON PO ; Start 04/07/17 at 12:00; Stop 04/07/17 at 12:00; Status DC Furosemide (Lasix) 20 mg NOON PO Last administered on 04/15/17 13:10; Start 04/06/17 at 13:45; Stop 04/16/17 at 18:37; Status DC Quetiapine Fumarate (SEROquel) 100 mg QHS PO Last administered on 04/16/17 17 :48; Start 04/09/17 at 21:00; Stop 04/16/17 at 18:37; Status DC Duloxetine HCl (Cymbalta) 90 mg DAILY PO Last administered on 04/16/17 08:53 ; Start 04/15/17 at 09:00; Stop 04/16/17 at 18:37; Status DC Active Scripts Active Reported Seroquel (Quetiapine Fumarate) 100 Mg Tablet 100 Mg PO QHS NICODERM CQ 21mg (Nicotine) 1 Each Patch.td24 1 Patch TD DAILY Analgesic Garland (Methyl Salicylate/Menthol) 28 Gm Oint...g. 1 Ana TP PRN QID PRN Mag-Al Plus Xs Suspension (Mag Hydrox/Al Hydrox/Simeth) 30 Ml Oral.susp 15 Ml PO PRN AFTMEALHC PRN Lasix (Furosemide) 20 Mg Tablet 20 Mg PO NOON Depakote Er (Divalproex Sodium) 250 Mg Tab.er.24h 750 Mg PO QHS Vitamin D3 (Cholecalciferol (Vitamin D3)) 50,000 Unit Capsule 50,000 Unit PO WEEKLY Lipitor (Atorvastatin Calcium) 20 Mg Tablet 20 Mg PO QHS Tylenol (Acetaminophen) 325 Mg Tablet 650 Mg PO PRN Q6HRS PRN Cyanocobalamin Injection (Cyanocobalamin (Vitamin B-12)) 1,000 Mcg/1 Ml Vial 1, 000 Mcg IM QMONTH Buspirone Hcl 10 Mg Tablet 10 Mg PO TID Acetaminophen 500 Mg Tablet 1,000 Mg PO QHS Therems-M (Multivits,Th W-Fe,Other Min) 1 Each Tablet 1 Tab PO DAILY Symbicort 160-4.5 Mcg Inhaler (Budesonide/Formoterol Fumarate) 10.2 Gm Hfa.aer.ad 2 Puff IH BID Cymbalta (Duloxetine Hcl) 30 Mg Capsule.dr 90 Mg PO DAILY Zofran (Ondansetron Hcl) 4 Mg Tablet 4 Mg PO PRN Q8HRS PRN Milk Of Magnesia (Magnesium Hydroxide) 400 Mg/5 Ml Oral.susp 2,400 Mg PO PRN DAILY PRN Lorazepam 0.5 Mg Tablet 0.5 Mg PO PRN Q6HRS PRN Folic Acid 1 Mg Tablet 1 Mg PO DAILY Spiriva Respimat (Tiotropium [place]) 4 Gm Mist.inhal 2.5 Mcg IH DAILY Diagnosis: Problems: (1) Anxiety disorder (2) Impulse control disorder (3) Mild cognitive disorder (4) Bipolar 1 disorder, mixed, moderate (5) Bipolar 1 disorder, manic, moderate (6) Dementia associated with alcoholism with behavioral disturbance BERNABE DAVID MD Apr 16, 2017 20:54
--- NOTE | 2017-04-17 19:54 | DS ---
DATE OF DISCHARGE: 04/16/2017 This late entry, date of service 04/16/2017, covers elements not covered in my initial note for 04/16/2017. REASON FOR ADMISSION: Please refer to the admission history for details. Briefly, the patient is a 71-year-old female referred to us from the Emergency Room at [facility] where she presented from her assisted living on account of worsening symptoms of depression, anger, unmanageable dangerous behaviors at the assisted living. She became angry during bingo, threw her cards across the dining room, became homicidal and suicidal with attempts to redirect stating "if I had a gun, I would shoot you then myself" to the veneer joiner of the assisted living. Behaviors were deemed unmanageable, erratic within the context of her diagnosis of bipolar disorder, and she was hospitalized for inpatient psychiatric stabilization. SIGNIFICANT FINDINGS AND CLINICAL COURSE: Following admission, the patient was seen daily individually by myself, followed medically per Dr. Guzman/Dr. Reyes. Initially, the patient was quite irritable, labile, readily admitted to the threat she had made at the veneer joiner who was well aware because that is what prompted the referral to the Emergency Room. Her psychotropics were adjusted gradually and she seemed to respond to a combination of Depakote ER 750 mg p.o. at bedtime with valproic acid level of 77, therapeutic, Cymbalta 90 mg a day, BuSpar 10 mg 3 times a day, Seroquel 100 mg at bedtime, Ativan p.r.n. Gradually mood appeared to stabilize: Psychotic symptoms appear to resolve and she denied any suicidal or homicidal ideation. REVIEW OF SYSTEMS: Prior to discharge on 04/16/2017, no CV, , pulmonary, eye, ENT system symptoms on review. MENTAL STATUS EXAM: The patient is reasonably oriented. Speech coherent, abstraction fair, computation impaired, language function intact, attention span fair. Mood and affect was improved. No suicidal or homicidal ideation. CONDITION AT DISCHARGE: Improved. FINAL DIAGNOSES: Bipolar 1 disorder, mixed with psychotic features, in partial remission; anxiety disorder, unspecified; impulse control disorder, unspecified; history of major depressive disorder, recurrent, in partial remission. Rest of the diagnoses unchanged from admission. DISCHARGE MEDICATIONS: Please refer to the MRAD. Outpatient psychiatric and medical followup at the facility. She was transferred to discharge. Time for discharge day management greater than 30 minutes. MAN Britni DAVID MD DR: Flores JOB#: [id number] / [id number]
== END 2017-04-16 18:15 | DRG 885 ==
LOC: GEROPSY 03:37
PROVIDERS: ADMIT Psychiatry & Neurology Psychiatry; ATTEND Psychiatry & Neurology Psychiatry
DX: F31.64 Bipolar disorder, current episode mixed, severe, with psychotic features (principal); F10.27 Alcohol dependence with alcohol-induced persisting dementia; J44.9 Chronic obstructive pulmonary disease, unspecified; F63.9 Impulse disorder, unspecified; I10 Essential (primary) hypertension; Z66 Do not resuscitate; F41.1 Generalized anxiety disorder; F09 Unspecified mental disorder due to known physiological condition; F12.10 Cannabis abuse, uncomplicated; Z88.8 Allergy status to other drugs, medicaments and biological substances; Z88.5 Allergy status to narcotic agent; Z90.49 Acquired absence of other specified parts of digestive tract; Z90.710 Acquired absence of both cervix and uterus; Z91.83 Wandering in diseases classified elsewhere; Z87.891 Personal history of nicotine dependence; Z79.899 Other long term (current) drug therapy
CPT/HCPCS: 36415; 80053; 80061; 80164; 81001; 82306; 82607; 83036; 83540; 83550; 83735; 84436; 84443; 84480; 85025; 86592; 86593; 93005; 94640; 99407; J3420; J7620; J7626

== ENCOUNTER 2017-04-18 18:26 | Inpatient (IN) | payer MEDICARE, MEDICAID ==
[~2017-04-18] VITALS: Ht 170.2 cm; Wt 81.3 kg
[~2017-04-18 18:26] MED LIST: ACET325T9 PO; ACET500T68 PO; ATOR20TA PO; BENZ0.5T PO; BUDE10.2 IH; BUSP10TA PO; CHOL500050 PO; CYAN10002 IM; DIVA250T PO; DULO30CA2 PO; ERGO500027 PO; FOLI1TAB16 PO; FURO-69 PO; HYDR25TA9 PO; LORA0.5T PO; MAG30ORA2 PO; MAGN400O7 PO; METH29OI TP; MULT1TAB57 PO; NICO1PAT21 TD; ONDA4TAB7 PO; QUET100T4 PO; TIOT4MIS2 IH; TRAZ50TA15 PO
[2017-04-18 19:30] LABS: BASO % 1 % (0-3); EOS % 1 % (0-3); HEMATOCRIT 48.8 % (36.0-47.0); HEMOGLOBIN 16.4 g/dL (12.0-15.5); LYMPH # 2.2 x10^3/uL (1.0-4.8); LYMPH % 28 % (24-48); MEAN CORPUSCULAR HEMOGLOBIN 31 pg (25-35); MEAN CORPUSCULAR HGB CONC 34 g/dL (31-37); MEAN CORPUSCULAR VOLUME 91 fL (79-100); MONO # 0.8 x10^3/uL (0.0-1.1); MONO % 10 % (0-9); NEUT # 4.8 x10^3uL (1.8-7.7); NEUT % 61 % (31-73); PLATELET COUNT 143 x10^3/uL (140-400); RED BLOOD COUNT 5.36 x10^6/uL (3.50-5.40); RED CELL DISTRIBUTION WIDTH 14.4 % (11.5-14.5); WHITE BLOOD COUNT 7.8 x10^3/uL (4.0-11.0)
[2017-04-18 19:39] LABS: ALBUMIN 4.1 g/dL (3.4-5.0); ALBUMIN/GLOBULIN RATIO 1.1 (1.0-1.7); CALCIUM 9.4 mg/dL (8.5-10.1); MAGNESIUM 2.1 mg/dL (1.8-2.4); POTASSIUM 3.5 mmol/L (3.5-5.1); TOTAL BILIRUBIN 0.4 mg/dL (0.2-1.0); TOTAL PROTEIN 7.9 g/dL (6.4-8.2)
[2017-04-18 20:11] LABS: BACTERIA,URINE FEW /HPF (0-FEW); BILIRUBIN,URINE NEG (NEG); CLARITY,URINE HAZY; COLOR,URINE AMBER; GLUCOSE,URINE NEG (NEG); NITRITE,URINE NEG (NEG); SQUAMOUS EPITHELIAL CELL,UR MOD /LPF; UROBILINOGEN,URINE 0.2 mg/dL (0.2 mg/dL)
[2017-04-18 20:13] LABS: HYALINE CASTS, URINE MOD /HPF
[2017-04-18 20:26] LABS: % LYMPHS 31 % (24-48); % MONOS 12 % (0-10); % SEGS 55 % (35-66)
[2017-04-18 20:34] LABS: PLT ESTIMATE ADEQUATE (ADEQUATE)
[2017-04-18 20:39] LABS: STOMATOCYTES PRESENT
[2017-04-18 20:42] LABS: % ATYL 2 % (0-0)
--- NOTE | 2017-04-18 21:55 | EKG ---
[address] [address] Test Date: 2017-04-18 Test Time: 18:39:38 Pat Name: CHARLES GROVER Department: Room: Gender: F [employer]: : 1945 Requested By: PATRICIO ALEJANDRA Order Number: [id number] Reading MD: Lukas Kelley MD Measurements Intervals [place] Rate: 78 P: 60 ID: [id number] QRS: -26 QRSD: 82 T: 35 QT: 344 QTc: 395 Interpretive Statements SINUS RHYTHM POSSIBLE PRIOR SEPTAL INFARCT Electronically Signed On 04-21-2017 13:37:07 CDT by Lukas Kelley MD
[2017-04-18 22:30] VITALS: BP 151/98
[2017-04-18] MEDS ORDERED: METHYL SALICYLATE/MENTHOL TOPICAL OINTMENT 29GM TUBE. TP PRN (23:00)
[2017-04-18] MEDS ORDERED: MAGNESIUM HYDROXIDE 2,400 MG/30 ML ORAL.SUSP. PO PRN (23:00)
[2017-04-18] MEDS ORDERED: MAG HYDROX/AL HYDROX/SIMETH 30 ML ORAL.SUSP PO PRN (23:00)
[2017-04-18] MEDS ORDERED: ACETAMINOPHEN 325 MG TABLET PO PRN (23:00)
[2017-04-19] MEDS: LORazepam 0.5 MG TABLET PO PRN (00:17)
--- NOTE | 2017-04-19 04:04 | ED.ADGEN ---
Past History Past Medical History: Depression Past Surgical History: No Surgical History Alcohol Use: None Drug Use: None Adult General Chief Complaint Chief Complaint EnCounter for medical screening exam for psychiatric admission HPI HPI Patient is a 71-year-old female presents with medical counter for psychiatric admission. Patient denies any medical complaints at this time.[] Review of Systems Review of Systems Review symptoms as per history of present illness. All other review symptoms are negative Current Medications Current Medications Current Medications Medications (Trade) Dose Ordered Sig/Vinnie Start Time Stop Time Status Last Admin Dose Admin Acetaminophen (Tylenol) 650 mg PRN Q6HRS PRN 04/18/17 23:00 Al Hydroxide/Mg Hydroxide (Mylanta Plus Xs) 15 ml PRN AFTMEALHC PRN 04/18/17 23:00 Buspirone HCl (Buspar) 10 mg TID 04/19/17 09:00 Divalproex Sodium (Depakote Er) 750 mg QHS 04/19/17 21:00 Duloxetine HCl (Cymbalta) 90 mg DAILY 04/19/17 09:00 Lorazepam (Ativan) 0.5 mg PRN Q6HRS PRN 04/18/17 23:45 04/19/17 00:17 0.5 MG Magnesium Hydroxide (Milk Of Magnesia) 2,400 mg PRN QHS PRN 04/18/17 23:00 Multi-Ingredient Ointment (Analgesic [place]) 1 markus PRN QID PRN 04/18/17 23:00 Quetiapine Fumarate (SEROquel) 100 mg QHS 04/19/17 21:00 Allergies Allergies Allergies Coded Allergies Type Severity Reaction Last Updated Verified codeine Allergy Intermediate 03/16/17 Yes lisinopril Allergy Intermediate 03/16/17 Yes Physical Exam Physical Exam Constitutional: Well developed, well nourished, no acute distress, non-toxic appearance. [] HENT: Normocephalic, atraumatic, bilateral external ears normal, oropharynx moist, no oral exudates, nose normal. [] Eyes: PERRLA, EOMI, conjunctiva normal, no discharge. [] Neck: Normal range of motion, no tenderness, supple, no stridor. [] Cardiovascular:Heart rate regular rhythm, no murmur [] Lungs & Thorax: Bilateral breath sounds clear to auscultation [] Abdomen: Bowel sounds normal, soft, no tenderness, no masses, no pulsatile masses. [] Skin: Warm, dry, no erythema, no rash. [] Back: No tenderness, no CVA tenderness. [] Extremities: No tenderness, no cyanosis, no clubbing, ROM intact, no edema. [] Neurologic: Alert and oriented, normal motor function, normal sensory function, no focal deficits noted. [] Psychologic: Affect tearful, flat affect[] Current Patient Data Vital Signs Vital Signs Date Time Temp Pulse Resp B/P (MAP) Pulse Ox O2 Delivery O2 Flow Rate FiO2 04/18/17 21:53 97.6 68 18 158/90 (112) 95 Room Air Lab Results Laboratory Tests Test 04/18/17 19:05 04/18/17 19:40 White Blood Count 7.8 x10^3/uL (4.0-11.0) # Red Blood Count 5.36 x10^6/uL (3.50-5.40) Hemoglobin 16.4 g/dL (12.0-15.5) H Hematocrit 48.8 % (36.0-47.0) H Mean Corpuscular Volume 91 fL (79-100) Mean Corpuscular Hemoglobin 31 pg (25-35) Mean Corpuscular Hemoglobin Concent 34 g/dL (31-37) Red Cell Distribution Width 14.4 % (11.5-14.5) Platelet Count 143 x10^3/uL (140-400) Neutrophils (%) (Auto) 61 % (31-73) Lymphocytes (%) (Auto) 28 % (24-48) Monocytes (%) (Auto) 10 % (0-9) H Eosinophils (%) (Auto) 1 % (0-3) Basophils (%) (Auto) 1 % (0-3) Neutrophils # (Auto) 4.8 x10^3uL (1.8-7.7) Lymphocytes # (Auto) 2.2 x10^3/uL (1.0-4.8) Monocytes # (Auto) 0.8 x10^3/uL (0.0-1.1) Eosinophils # (Auto) 0.0 x10^3/uL (0.0-0.7) Basophils # (Auto) 0.0 x10^3/uL (0.0-0.2) Segmented Neutrophils % 55 % (35-66) Lymphocytes % 31 % (24-48) Atypical Lymphocytes % (Manual) 2 % (0-0) H Monocytes % 12 % (0-10) H Platelet Estimate Adequate (ADEQUATE) Stomatocytes Present Sodium Level 141 mmol/L (136-145) Potassium Level 3.5 mmol/L (3.5-5.1) Chloride Level 101 mmol/L (98-107) Carbon Dioxide Level 28 mmol/L (21-32) Anion Gap 12 (6-14) Blood Urea Nitrogen 22 mg/dL (7-20) H Creatinine 1.0 mg/dL (0.6-1.0) Estimated GFR (Cockcroft-Gault) 55.0 BUN/Creatinine Ratio 22 (6-20) H Glucose Level 103 mg/dL (70-99) H Calcium Level 9.4 mg/dL (8.5-10.1) Magnesium Level 2.1 mg/dL (1.8-2.4) Total Bilirubin 0.4 mg/dL (0.2-1.0) Aspartate Amino Transferase (AST) 21 U/L (15-37) Alanine Aminotransferase (ALT) 21 U/L (14-59) Alkaline Phosphatase 57 U/L (46-116) Total Protein 7.9 g/dL (6.4-8.2) Albumin 4.1 g/dL (3.4-5.0) Albumin/Globulin Ratio 1.1 (1.0-1.7) Urine Collection Type Unknown Urine Color Radhika Urine Clarity Hazy Urine pH 5.5 Urine Specific [place] >=1.030 Urine Protein 100 mg/dl (NEG-TRACE) Urine Glucose (UA) Neg mg/dL (NEG) Urine Ketones (Stick) 15 mg/dL (NEG) Urine Blood Small (NEG) Urine Nitrite Neg (NEG) Urine Bilirubin Neg (NEG) Urine Urobilinogen Dipstick 0.2 mg/dL (0.2 mg/dL) Urine Leukocyte Esterase Neg (NEG) Urine RBC 3-5 /HPF (0-2) Urine WBC 5-10 /HPF (0-4) Urine Squamous Epithelial Cells Mod /LPF Urine Bacteria Few /HPF (0-FEW) Urine Hyaline Casts Mod /HPF Urine Mucus Marked /LPF EKG EKG [EKG: Normal sinus rhythm, no acute findings] Radiology/Procedures Radiology/Procedures [] Course & Med Decision Making Course & Med Decision Making Pertinent Labs and Imaging studies reviewed. (See chart for details) [Patient is medically cleared for psychiatric admission] Final Impression Final Impression [#1 encounter for medical screening 87 for psychiatric admission] Problems: Dragon Disclaimer Dragon Disclaimer This electronic medical record was generated, in whole or in part, using a voice recognition dictation system. PATRICIO ALEJANDRA DO Apr 19, 2017 04:04
[2017-04-19 06:15] VITALS: BP 154/80
--- NOTE | 2017-04-19 08:12 | RAD ---
Portable chest, 04/18/2017: History: Senior behavioral health evaluation No previous chest radiographs are available at this time for comparison purposes. The heart size and pulmonary vascularity are normal. There is calcific plaquing of the aorta. No pulmonary infiltrates are seen. There is no evidence of pleural fluid. A surgical plate and screws is evident in the lower cervical spine. IMPRESSION: 1. Aortic atherosclerosis. 2. No acute cardiopulmonary abnormality is detected.
[2017-04-19] MEDS ORDERED: METHYL SALICYLATE/MENTHOL TOPICAL OINTMENT 29GM TUBE. TP PRN (08:30)
[2017-04-19] MEDS ORDERED: ACETAMINOPHEN 325 MG TABLET PO PRN (08:30)
[2017-04-19] MEDS ORDERED: MAGNESIUM HYDROXIDE 2,400 MG/30 ML ORAL.SUSP. PO PRN (08:30)
[2017-04-19] MEDS ORDERED: ONDANSETRON ODT 4 MG TAB.RAPDIS PO PRN (08:45)
[2017-04-19] MEDS ORDERED: NON FORMULARY ITEM (Budesonide/Formoterol Fumarate (Symbicort 160-4.5 Mcg Inhaler) 2 PUFF) IH SCH (09:00)
[2017-04-19] MEDS ORDERED: CYANOCOBALAMIN (VITAMIN B-12) 1,000 MCG/ML VIAL IM SCH (09:00)
[2017-04-19] MEDS: NICOTINE 21MG PATCH. TD SCH (09:10)
[2017-04-19] MEDS: DULoxetine HCL 30 MG CAPSULE.DR PO SCH (09:13)
[2017-04-19] MEDS: busPIRone 10 MG TABLET. PO SCH ×3 (09:13→19:52)
[2017-04-19] MEDS: MULTIVITAMIN with MINERAL TABLET. PO SCH (09:13)
[2017-04-19] MEDS: FOLIC ACID 1 MG TABLET PO SCH (09:14)
[2017-04-19] MEDS: CHOLECALCIFEROL (VITAMIN D3) 50,000 UNIT CAPSULE PO SCH (09:14)
[2017-04-19] MEDS ORDERED: BUDESONIDE 0.5 MG/2 ML NEBU NEB SCH (12:00)
[2017-04-19] MEDS ORDERED: IPRATRPIUM/ALBUTEROL 0.5/2.5MG 3 ML NEBU. NEB PRN (12:00)
[2017-04-19] MEDS ORDERED: BUDESONIDE 0.5 MG/2 ML NEBU NEB PRN (12:00)
[2017-04-19] MEDS ORDERED: IPRATRPIUM/ALBUTEROL 0.5/2.5MG 3 ML NEBU. NEB SCH (12:00)
[2017-04-19] MEDS: FUROSEMIDE 20 MG TABLET PO SCH (12:10)
[2017-04-19 14:11] LABS: THYROID STIM HORMONE (TSH) 4.803 uIU/mL (0.358-3.740)
[2017-04-19 16:21] VITALS: BP 169/93
--- NOTE | 2017-04-19 18:47 | HP ---
ADMIT DATE: 04/18/2017 REASON FOR ADMISSION TO SENIOR BEHAVIORAL UNIT: This is a 71-year-old female who is just discharged from the [facility] a couple of days when she was admitted on 03/14/2017, where she was having suicidal as well as homicidal thoughts. This was at a assisted living facility where she lives near [place], [place]. She was sent to a fpc in [place], [place] where she has only been for 3 days. She is crying and stating that she does not like it there and she does not want to live there. She was exhibiting suicidal ideation, verbally aggressive, delusional, noncompliant with meds, not eating. The patient called a cab and came will away from [place] to the Emergency Room at [facility] to be admitted. PAST MEDICAL HISTORY: COPD, hypertension, anxiety, insomnia, depression, bipolar disorder. ALLERGIES: CODEINE, LISINOPRIL. MEDICATIONS: Reviewed and are available on the MAR. PAST SURGICAL HISTORY: Appendectomy, cholecystectomy, hysterectomy. HABITS: She smokes 1 pack per day whenever she can. No alcohol. She used to smoke marijuana in the past. 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 REVIEW OF SYSTEMS: Positive for depression and anxiety. Otherwise, negative. OBJECTIVE: VITAL SIGNS: Blood pressure 154/80, pulse 71, respirations 18, pulse ox 95% on room air, temperature 98.3, height 67 inches, weight 177.44 pounds. GENERAL: Tearful, 71-year-old, in no acute distress. HEENT: The patient has a large pupils round, react to light. Extraocular muscles are intact. Nose is patent. Throat clear. NECK: Supple. LUNGS: Clear to auscultation. CARDIOVASCULAR: Regular rhythm and rate without murmur. ABDOMEN: Soft, nontender. EXTREMITIES: Without edema. NEUROLOGIC: She has a slight tremor. EXTREMITIES: She has actually swollen left foot. There is a bunion on the left foot. Cranial nerves were intact. She was able to follow directions. ASSESSMENT: Anxiety, depression, transition problem, chronic obstructive pulmonary disease, hypertension, bipolar disorder. PLAN: Follow up with Dr. Marie to treat her medical conditions also tobacco use disorder. MELISSA KENNY DO DR: MIRI/ros JOB#: [id number] / [id number]
[2017-04-19 19:08] LABS: T3 TOTAL 113 ng/dL (71-180); THYROXINE 5.7 ug/dL (4.5-12.0)
[2017-04-19] MEDS: ACETAMINOPHEN 500 MG TABLET PO SCH (19:52)
[2017-04-19] MEDS: ATORVASTATIN CALCIUM 20 MG TABLET PO SCH (19:52)
[2017-04-19] MEDS: QUEtiapine 25 MG TABLET. PO SCH (19:53)
[2017-04-19] MEDS: QUEtiapine 100 MG TABLET. PO SCH (19:53)
--- NOTE | 2017-04-19 20:45 | PDOC ---
Exam Doug Demential Exam: Doug Note: Please also refer to the separate dictated note~for this date of service dictated separately.~Patient seen individually. Discussed the patient with Nursing staff reviewed the chart.~Reviewed interim history and current functioning. Reviewed vital signs,~Labs/ Radiology~and current medications noted below. Continue current treatment with the changes noted in the dictated addendum note Assessment: Vital Signs: Vital Signs Date Time Temp Pulse Resp B/P (MAP) Pulse Ox O2 Delivery O2 Flow Rate FiO2 04/19/17 16:21 97.7 84 16 169/93 (118) 93 Room Air I&O Intake and Output 04/20/17 07:00 Intake Total 720 ml Balance 720 ml Intake Oral 720 ml Current Medications: Meds: Current Medications Acetaminophen (Tylenol) 650 mg PRN Q6HRS PRN PO PAIN / TEMP; Start 04/18/17 at 23:00; Stop 04/19/17 at 11:24; Status DC Multi-Ingredient Ointment (Analgesic [place]) 1 ana PRN QID PRN TP MUSCLE PAIN; Start 04/18/17 at 23:00; Stop 04/19/17 at 15:57; Status DC Al Hydroxide/Mg Hydroxide (Mylanta Plus Xs) 15 ml PRN AFTMEALHC PRN PO DYSPEPSIA; Start 04/18/17 at 23:00 Magnesium Hydroxide (Milk Of Magnesia) 2,400 mg PRN QHS PRN PO CONSTIPATION; Start 04/18/17 at 23:00; Stop 04/19/17 at 15:57; Status DC Buspirone HCl (Buspar) 10 mg TID PO Last administered on 04/19/17 19:52; Start 04/19/17 at 09:00 Divalproex Sodium (Depakote Er) 750 mg QHS PO Last administered on 04/19/17 19 :52; Start 04/19/17 at 21:00 Duloxetine HCl (Cymbalta) 90 mg DAILY PO Last administered on 04/19/17 09:13; Start 04/19/17 at 09:00 Lorazepam (Ativan) 0.5 mg PRN Q6HRS PRN PO ANXIETY / AGITATION Last administered on 04/19/17 00:17; Start 04/18/17 at 23:45 Quetiapine Fumarate (SEROquel) 100 mg QHS PO ; Start 04/19/17 at 21:00; Stop at 21:00; Status DC Acetaminophen (Tylenol) 1,000 mg QHS PO Last administered on 04/19/17 19:52; Start 04/19/17 at 21:00 Acetaminophen (Tylenol) 650 mg PRN Q6HRS PRN PO PAIN / TEMP; Start 04/19/17 at 08:30 Atorvastatin Calcium (Lipitor) 20 mg QHS PO Last administered on 04/19/17 19: 52; Start 04/19/17 at 21:00 Vitamin D (Vitamin D3) 50,000 unit WEEKLY PO Last administered on 04/19/17 09: 14; Start 04/19/17 at 09:00 Cyanocobalamin (Vitamin B-12) 1,000 mcg QMONTH IM ; Start 04/19/17 at 09:00 Folic Acid (Folic Acid) 1 mg DAILY PO Last administered on 04/19/17 09:14; Start 04/19/17 at 09:00 Furosemide (Lasix) 20 mg NOON PO Last administered on 04/19/17 12:10; Start 04/19/17 at 12:00 Magnesium Hydroxide (Milk Of Magnesia) 2,400 mg PRN DAILY PRN PO CONSTIPATION; Start 04/19/17 at 08:30 Multi-Ingredient Ointment (Analgesic [place]) 1 ana PRN QID PRN TP MUSCLE PAIN; Start 04/19/17 at 08:30 Nicotine (Nicoderm Cq 21mg) 1 patch DAILY TD Last administered on 04/19/17 09: 10; Start 04/19/17 at 09:00 Non-Formulary Medication 2 puff BID IH ; Start 04/19/17 at 09:00; Stop 04/19/17 at 09:00; Status DC Multivitamins/ Calcium (Thera-M Plus) 1 tab DAILY PO Last administered on 09:13; Start 04/19/17 at 09:00 Ondansetron HCl (Zofran Odt) 4 mg PRN Q8HRS PRN PO NAUSEA/VOMITING; Start 04/19 at 08:45 Budesonide (Pulmicort) 0.5 mg RTBID NEB ; Start 04/19/17 at 12:00; Stop at 12:00; Status DC Albuterol/ Ipratropium (Duoneb) 3 ml Q6HRS NEB ; Start 04/19/17 at 12:00; Stop 04/19/17 at 12:00; Status DC Albuterol/ Ipratropium (Duoneb) 3 ml PRN Q6HRS PRN NEB SHORTNESS OF BREATH; Start 04/19/17 at 12:00 Budesonide (Pulmicort) 0.5 mg PRN BID PRN NEB SHORTNESS OF BREATH; Start at 12:00 Quetiapine Fumarate (SEROquel) 100 mg QHS PO Last administered on 04/19/17 19: 53; Start 04/19/17 at 21:00 Quetiapine Fumarate (SEROquel) 25 mg QHS PO Last administered on 04/19/17 19: 53; Start 04/19/17 at 21:00 Active Scripts Active Reported Seroquel (Quetiapine Fumarate) 100 Mg Tablet 100 Mg PO QHS NICODERM CQ 21mg (Nicotine) 1 Each Patch.td24 1 Patch TD DAILY Analgesic [place] (Methyl Salicylate/Menthol) 28 Gm Oint...g. 1 Ana TP PRN QID PRN Mag-Al Plus Xs Suspension (Mag Hydrox/Al Hydrox/Simeth) 30 Ml Oral.susp 15 Ml PO PRN AFTMEALHC PRN Lasix (Furosemide) 20 Mg Tablet 20 Mg PO NOON Depakote Er (Divalproex Sodium) 250 Mg Tab.er.24h 750 Mg PO QHS Vitamin D3 (Cholecalciferol (Vitamin D3)) 50,000 Unit Capsule 50,000 Unit PO WEEKLY Lipitor (Atorvastatin Calcium) 20 Mg Tablet 20 Mg PO QHS Tylenol (Acetaminophen) 325 Mg Tablet 650 Mg PO PRN Q6HRS PRN Cyanocobalamin Injection (Cyanocobalamin (Vitamin B-12)) 1,000 Mcg/1 Ml Vial 1, 000 Mcg IM QMONTH Buspirone Hcl 10 Mg Tablet 10 Mg PO TID Acetaminophen 500 Mg Tablet 1,000 Mg PO QHS Therems-M (Multivits,Th W-Fe,Other Min) 1 Each Tablet 1 Tab PO DAILY Symbicort 160-4.5 Mcg Inhaler (Budesonide/Formoterol Fumarate) 10.2 Gm Hfa.aer.ad 2 Puff IH BID Cymbalta (Duloxetine Hcl) 30 Mg Capsule.dr 90 Mg PO DAILY Zofran (Ondansetron Hcl) 4 Mg Tablet 4 Mg PO PRN Q8HRS PRN Milk Of Magnesia (Magnesium Hydroxide) 400 Mg/5 Ml Oral.susp 2,400 Mg PO PRN DAILY PRN Lorazepam 0.5 Mg Tablet 0.5 Mg PO PRN Q6HRS PRN Folic Acid 1 Mg Tablet 1 Mg PO DAILY Spiriva Respimat (Tiotropium [place]) 4 Gm Mist.inhal 2.5 Mcg IH DAILY Diagnosis: Problems: (1) Anxiety disorder (2) Mild cognitive disorder (3) Bipolar 1 disorder, mixed, moderate (4) Bipolar 1 disorder, manic, moderate (5) Dementia associated with alcoholism with behavioral disturbance (6) Impulse control disorder BERNABE DAVID MD Apr 19, 2017 20:45
[2017-04-19] MEDS ORDERED: DIVALPROEX ER 250 MG TAB.ER.24H. PO SCH (21:00)
[2017-04-19] MEDS ORDERED: QUEtiapine 100 MG TABLET. PO SCH (21:00)
[2017-04-20 05:09] LABS: HEMOGLOBIN A1C 5.1 % (4.8-5.6)
[2017-04-20 06:10] VITALS: BP 115/74
[2017-04-20 08:00] LABS: VAL ACID 37 mcg/mL (50-100)
[2017-04-20] MEDS: FOLIC ACID 1 MG TABLET PO SCH (08:21)
[2017-04-20] MEDS: busPIRone 10 MG TABLET. PO SCH ×3 (08:21→19:54)
[2017-04-20] MEDS: MULTIVITAMIN with MINERAL TABLET. PO SCH (08:21)
[2017-04-20] MEDS: NICOTINE 21MG PATCH. TD SCH (08:21)
[2017-04-20] MEDS: DULoxetine HCL 30 MG CAPSULE.DR PO SCH (08:21)
[2017-04-20] MEDS: FUROSEMIDE 20 MG TABLET PO SCH (12:02)
--- NOTE | 2017-04-20 14:52 | HP ---
ADMIT DATE: 04/18/2017 This is a late entry, date of service 04/19/2017, covers elements not covered in my initial note of 04/19/2017. IDENTIFYING DATA: I met with the patient the evening of 04/19/2017 for this evaluation. Previously discussed with nursing staff after the patient presented to the ER the previous evening on 04/18/2017. After she took a taxi ride, paid $200 pace, moving out of the assisted living she was placed at following her last hospitalization. CHIEF COMPLAINT: "Yes, I have thought of ending my life. If I had a way to do it, I would do it." Nevertheless prior to my visit with her 04/19/2017, she told, Carrie, the social service staff, that she had made the suicidal statements to get out of the assisted living but did not plan to hurt herself. The discrepancy between the two statements, we will continue to reassess this. HISTORY OF PRESENT ILLNESS: The patient has a history of major depressive disorder. She was discharged from her care inpatient a few days back, placed in a facility. She states the facility is too big that she believes they are not administrating her medication. She has been getting more depressed with sleep and appetite changes, and then opted to take the taxi back to our Emergency Room paying $200 pace. She admits to suicidal ideation, no active intent or attempt. No clear symptoms of bipolar disorder. In addition to the mood symptoms, she had some personality symptoms rather abrasive, questionable borderline. The patient has a history of mood swings with some periods of elation, racing thoughts alternating with depression with worsening depressive symptoms recently. PAST MENTAL HEALTH HISTORY: As above. ALLERGIES: CODEINE, LISINOPRIL. PAST MEDICAL HISTORY: COPD, hypertension. DIET: Regular. MEDICATION: ____. Ambulates ad jb. UA is negative. CURRENT PSYCHOTROPICS: BuSpar 10 mg 3 times a day, Depakote ER 750 mg p.o. at bedtime, Cymbalta 90 mg a day, Ativan 0.5 mg q. 6 hours p.r.n., Seroquel 100 mg p.o. at bedtime. FAMILY HISTORY: Noncontributory. SOCIAL HISTORY: No alcohol, drug abuse, physical, sexual or elder abuse. She is not known to be a perpetrator. REACTION TO HOSPITALIZATION: The patient is accepting of this asset. The patient is reasonably cognitively intact. MENTAL STATUS EXAM: The patient was seen individually evening of 04/19/2017. I have discussed previously with nursing staff on several occasions and reviewed ER information. She is lying in bed, somewhat withdrawn, sad, depressed, admits to feeling hopeless, helpless, worthless. Affect, his mood congruent. No active suicidal or homicidal ideation. Speech is coherent. Thought processes goal directed. Intellect average. Insight vary. Judgment marginal. LABORATORY DATA: Reviewed. IMPRESSION: Bipolar 1 disorder, mixed versus depressed; anxiety disorder, unspecified; impulse control disorder, unspecified. Rest diagnoses as noted above. PLAN: Admit to the geropsychiatry unit at [facility]. I will see the patient daily individually from a psychiatric standpoint. Medical followup per Dr. Guzman/Dr. Reyes. Continue current psychotropics, increase Seroquel from 100 mg at bedtime to 125 mg at bedtime. Check a valproic acid level. Review drug interactions. Risk/benefit ratio favors no further change at this time. MAN Britni DAVID MD DR: SHAQUILLE/ros JOB#: [id number] / [id number]
[2017-04-20 16:12] VITALS: BP 166/70
[2017-04-20] MEDS: ATORVASTATIN CALCIUM 20 MG TABLET PO SCH (19:54)
[2017-04-20] MEDS: QUEtiapine 25 MG TABLET. PO SCH (19:54)
[2017-04-20] MEDS: QUEtiapine 100 MG TABLET. PO SCH (19:54)
[2017-04-20] MEDS: ACETAMINOPHEN 500 MG TABLET PO SCH (19:54)
[2017-04-20] MEDS: DIVALPROEX ER 500 MG TAB.ER.24H PO SCH (20:04)
[2017-04-20] MEDS: LORazepam 0.5 MG TABLET PO PRN (20:13)
--- NOTE | 2017-04-20 20:54 | PDOC ---
Exam Doug Demential Exam: Doug Note: Please also refer to the separate dictated note~for this date of service dictated separately.~Patient seen individually. Discussed the patient with Nursing staff reviewed the chart.~Reviewed interim history and current functioning. Reviewed vital signs,~Labs/ Radiology~and current medications noted below. Continue current treatment with the changes noted in the dictated addendum note Assessment: Vital Signs: Vital Signs Date Time Temp Pulse Resp B/P (MAP) Pulse Ox O2 Delivery O2 Flow Rate FiO2 04/20/17 16:12 99.2 81 16 166/70 (102) 97 04/19/17 16:21 Room Air I&O Intake and Output 04/21/17 07:00 Intake Total 1560 ml Balance 1560 ml Intake Oral 1560 ml Labs: Laboratory Tests Test 04/20/17 07:29 Valproic Acid Level 37 mcg/mL (50-100) L Valproic Acid Last Dose Date 04/19/2017 Valproic Acid Last Dose Time 2100 Current Medications: Meds: Current Medications Acetaminophen (Tylenol) 650 mg PRN Q6HRS PRN PO PAIN / TEMP; Start 04/18/17 at 23:00; Stop 04/19/17 at 11:24; Status DC Multi-Ingredient Ointment (Analgesic [place]) 1 ana PRN QID PRN TP MUSCLE PAIN; Start 04/18/17 at 23:00; Stop 04/19/17 at 15:57; Status DC Al Hydroxide/Mg Hydroxide (Mylanta Plus Xs) 15 ml PRN AFTMEALHC PRN PO DYSPEPSIA Last administered on 04/20/17 20:07; Start 04/18/17 at 23:00 Magnesium Hydroxide (Milk Of Magnesia) 2,400 mg PRN QHS PRN PO CONSTIPATION; Start 04/18/17 at 23:00; Stop 04/19/17 at 15:57; Status DC Buspirone HCl (Buspar) 10 mg TID PO Last administered on 04/20/17 19:54; Start 04/19/17 at 09:00 Divalproex Sodium (Depakote Er) 750 mg QHS PO Last administered on 04/19/17 19 :52; Start 04/19/17 at 21:00; Stop 04/20/17 at 18:35; Status DC Duloxetine HCl (Cymbalta) 90 mg DAILY PO Last administered on 04/20/17 08:21; Start 04/19/17 at 09:00 Lorazepam (Ativan) 0.5 mg PRN Q6HRS PRN PO ANXIETY / AGITATION Last administered on 04/20/17 20:13; Start 04/18/17 at 23:45 Quetiapine Fumarate (SEROquel) 100 mg QHS PO ; Start 04/19/17 at 21:00; Stop at 21:00; Status DC Acetaminophen (Tylenol) 1,000 mg QHS PO Last administered on 04/20/17 19:54; Start 04/19/17 at 21:00 Acetaminophen (Tylenol) 650 mg PRN Q6HRS PRN PO PAIN / TEMP; Start 04/19/17 at 08:30 Atorvastatin Calcium (Lipitor) 20 mg QHS PO Last administered on 04/20/17 19: 54; Start 04/19/17 at 21:00 Vitamin D (Vitamin D3) 50,000 unit WEEKLY PO Last administered on 04/19/17 09: 14; Start 04/19/17 at 09:00 Cyanocobalamin (Vitamin B-12) 1,000 mcg QMONTH IM ; Start 04/19/17 at 09:00 Folic Acid (Folic Acid) 1 mg DAILY PO Last administered on 04/20/17 08:21; Start 04/19/17 at 09:00 Furosemide (Lasix) 20 mg NOON PO Last administered on 04/20/17 12:02; Start 04/19/17 at 12:00 Magnesium Hydroxide (Milk Of Magnesia) 2,400 mg PRN DAILY PRN PO CONSTIPATION; Start 04/19/17 at 08:30 Multi-Ingredient Ointment (Analgesic [place]) 1 ana PRN QID PRN TP MUSCLE PAIN; Start 04/19/17 at 08:30 Nicotine (Nicoderm Cq 21mg) 1 patch DAILY TD Last administered on 04/20/17 08: 21; Start 04/19/17 at 09:00 Non-Formulary Medication 2 puff BID IH ; Start 04/19/17 at 09:00; Stop 04/19/17 at 09:00; Status DC Multivitamins/ Calcium (Thera-M Plus) 1 tab DAILY PO Last administered on 08:21; Start 04/19/17 at 09:00 Ondansetron HCl (Zofran Odt) 4 mg PRN Q8HRS PRN PO NAUSEA/VOMITING; Start 04/19 at 08:45 Budesonide (Pulmicort) 0.5 mg RTBID NEB ; Start 04/19/17 at 12:00; Stop at 12:00; Status DC Albuterol/ Ipratropium (Duoneb) 3 ml Q6HRS NEB ; Start 04/19/17 at 12:00; Stop 04/19/17 at 12:00; Status DC Albuterol/ Ipratropium (Duoneb) 3 ml PRN Q6HRS PRN NEB SHORTNESS OF BREATH; Start 04/19/17 at 12:00 Budesonide (Pulmicort) 0.5 mg PRN BID PRN NEB SHORTNESS OF BREATH; Start at 12:00 Quetiapine Fumarate (SEROquel) 100 mg QHS PO Last administered on 04/20/17 19: 54; Start 04/19/17 at 21:00 Quetiapine Fumarate (SEROquel) 25 mg QHS PO Last administered on 04/20/17 19: 54; Start 04/19/17 at 21:00 Divalproex Sodium (Depakote Er) 1,000 mg QHS PO Last administered on 04/20/17 20:04; Start 04/20/17 at 21:00 Active Scripts Active Reported Seroquel (Quetiapine Fumarate) 100 Mg Tablet 100 Mg PO QHS NICODERM CQ 21mg (Nicotine) 1 Each Patch.td24 1 Patch TD DAILY Analgesic [place] (Methyl Salicylate/Menthol) 28 Gm Oint...g. 1 Naa TP PRN QID PRN Mag-Al Plus Xs Suspension (Mag Hydrox/Al Hydrox/Simeth) 30 Ml Oral.susp 15 Ml PO PRN AFTMEALHC PRN Lasix (Furosemide) 20 Mg Tablet 20 Mg PO NOON Depakote Er (Divalproex Sodium) 250 Mg Tab.er.24h 750 Mg PO QHS Vitamin D3 (Cholecalciferol (Vitamin D3)) 50,000 Unit Capsule 50,000 Unit PO WEEKLY Lipitor (Atorvastatin Calcium) 20 Mg Tablet 20 Mg PO QHS Tylenol (Acetaminophen) 325 Mg Tablet 650 Mg PO PRN Q6HRS PRN Cyanocobalamin Injection (Cyanocobalamin (Vitamin B-12)) 1,000 Mcg/1 Ml Vial 1, 000 Mcg IM QMONTH Buspirone Hcl 10 Mg Tablet 10 Mg PO TID Acetaminophen 500 Mg Tablet 1,000 Mg PO QHS Therems-M (Multivits,Th W-Fe,Other Min) 1 Each Tablet 1 Tab PO DAILY Symbicort 160-4.5 Mcg Inhaler (Budesonide/Formoterol Fumarate) 10.2 Gm Hfa.aer.ad 2 Puff IH BID Cymbalta (Duloxetine Hcl) 30 Mg Capsule.dr 90 Mg PO DAILY Zofran (Ondansetron Hcl) 4 Mg Tablet 4 Mg PO PRN Q8HRS PRN Milk Of Magnesia (Magnesium Hydroxide) 400 Mg/5 Ml Oral.susp 2,400 Mg PO PRN DAILY PRN Lorazepam 0.5 Mg Tablet 0.5 Mg PO PRN Q6HRS PRN Folic Acid 1 Mg Tablet 1 Mg PO DAILY Spiriva Respimat (Tiotropium [place]) 4 Gm Mist.inhal 2.5 Mcg IH DAILY Diagnosis: Problems: (1) Impulse control disorder (2) Anxiety disorder (3) Mild cognitive disorder (4) Bipolar 1 disorder, mixed, moderate (5) Bipolar 1 disorder, manic, moderate (6) Dementia associated with alcoholism with behavioral disturbance BERNABE DAVID MD Apr 20, 2017 20:54
[2017-04-21 06:01] VITALS: BP 106/70
[2017-04-21] MEDS: FOLIC ACID 1 MG TABLET PO SCH (06:52)
[2017-04-21] MEDS: NICOTINE 21MG PATCH. TD SCH (06:53)
[2017-04-21] MEDS: DULoxetine HCL 30 MG CAPSULE.DR PO SCH (06:53)
[2017-04-21] MEDS: MULTIVITAMIN with MINERAL TABLET. PO SCH (06:53)
[2017-04-21] MEDS: busPIRone 10 MG TABLET. PO SCH ×3 (06:53→19:07)
[2017-04-21] MEDS: FUROSEMIDE 20 MG TABLET PO SCH (12:00)
[2017-04-21] MEDS ORDERED: LOPERAMIDE 2 MG CAPSULE PO ONE (15:30)
[2017-04-21 16:12] VITALS: BP 156/89
[2017-04-21] MEDS: ACETAMINOPHEN 500 MG TABLET PO SCH (19:07)
[2017-04-21] MEDS: QUEtiapine 100 MG TABLET. PO SCH (19:07)
[2017-04-21] MEDS: ATORVASTATIN CALCIUM 20 MG TABLET PO SCH (19:07)
[2017-04-21] MEDS: QUEtiapine 25 MG TABLET. PO SCH (19:07)
[2017-04-21] MEDS: DIVALPROEX ER 500 MG TAB.ER.24H PO SCH (19:08)
--- NOTE | 2017-04-21 23:46 | PDOC ---
Exam Doug Demential Exam: Doug Note: Please also refer to the separate dictated note~for this date of service dictated separately.~Patient seen individually. Discussed the patient with Nursing staff reviewed the chart.~Reviewed interim history and current functioning. Reviewed vital signs,~Labs/ Radiology~and current medications noted below. Continue current treatment with the changes noted in the dictated addendum note Assessment: Vital Signs: Vital Signs Date Time Temp Pulse Resp B/P (MAP) Pulse Ox O2 Delivery O2 Flow Rate FiO2 04/21/17 16:12 97.8 73 20 156/89 (111) 93 04/19/17 16:21 Room Air I&O Intake and Output 04/22/17 07:00 Intake Total 840 ml Balance 840 ml Intake Oral 840 ml Current Medications: Meds: Current Medications Acetaminophen (Tylenol) 650 mg PRN Q6HRS PRN PO PAIN / TEMP; Start 04/18/17 at 23:00; Stop 04/19/17 at 11:24; Status DC Multi-Ingredient Ointment (Analgesic [place]) 1 ana PRN QID PRN TP MUSCLE PAIN; Start 04/18/17 at 23:00; Stop 04/19/17 at 15:57; Status DC Al Hydroxide/Mg Hydroxide (Mylanta Plus Xs) 15 ml PRN AFTMEALHC PRN PO DYSPEPSIA Last administered on 04/20/17 20:07; Start 04/18/17 at 23:00 Magnesium Hydroxide (Milk Of Magnesia) 2,400 mg PRN QHS PRN PO CONSTIPATION; Start 04/18/17 at 23:00; Stop 04/19/17 at 15:57; Status DC Buspirone HCl (Buspar) 10 mg TID PO Last administered on 04/21/17 19:07; Start 04/19/17 at 09:00 Divalproex Sodium (Depakote Er) 750 mg QHS PO Last administered on 04/19/17 19 :52; Start 04/19/17 at 21:00; Stop 04/20/17 at 18:35; Status DC Duloxetine HCl (Cymbalta) 90 mg DAILY PO Last administered on 04/21/17 06:53; Start 04/19/17 at 09:00 Lorazepam (Ativan) 0.5 mg PRN Q6HRS PRN PO ANXIETY / AGITATION Last administered on 04/20/17 20:13; Start 04/18/17 at 23:45 Quetiapine Fumarate (SEROquel) 100 mg QHS PO ; Start 04/19/17 at 21:00; Stop at 21:00; Status DC Acetaminophen (Tylenol) 1,000 mg QHS PO Last administered on 04/21/17 19:07; Start 04/19/17 at 21:00 Acetaminophen (Tylenol) 650 mg PRN Q6HRS PRN PO PAIN / TEMP; Start 04/19/17 at 08:30 Atorvastatin Calcium (Lipitor) 20 mg QHS PO Last administered on 04/21/17 19: 07; Start 04/19/17 at 21:00 Vitamin D (Vitamin D3) 50,000 unit WEEKLY PO Last administered on 04/19/17 09: 14; Start 04/19/17 at 09:00 Cyanocobalamin (Vitamin B-12) 1,000 mcg QMONTH IM ; Start 04/19/17 at 09:00 Folic Acid (Folic Acid) 1 mg DAILY PO Last administered on 04/21/17 06:52; Start 04/19/17 at 09:00 Furosemide (Lasix) 20 mg NOON PO Last administered on 04/21/17 12:00; Start 04/19/17 at 12:00 Magnesium Hydroxide (Milk Of Magnesia) 2,400 mg PRN DAILY PRN PO CONSTIPATION; Start 04/19/17 at 08:30 Multi-Ingredient Ointment (Analgesic [place]) 1 ana PRN QID PRN TP MUSCLE PAIN; Start 04/19/17 at 08:30 Nicotine (Nicoderm Cq 21mg) 1 patch DAILY TD Last administered on 04/21/17 06: 53; Start 04/19/17 at 09:00 Non-Formulary Medication 2 puff BID IH ; Start 04/19/17 at 09:00; Stop 04/19/17 at 09:00; Status DC Multivitamins/ Calcium (Thera-M Plus) 1 tab DAILY PO Last administered on 06:53; Start 04/19/17 at 09:00 Ondansetron HCl (Zofran Odt) 4 mg PRN Q8HRS PRN PO NAUSEA/VOMITING; Start 04/19 at 08:45 Budesonide (Pulmicort) 0.5 mg RTBID NEB ; Start 04/19/17 at 12:00; Stop at 12:00; Status DC Albuterol/ Ipratropium (Duoneb) 3 ml Q6HRS NEB ; Start 04/19/17 at 12:00; Stop 04/19/17 at 12:00; Status DC Albuterol/ Ipratropium (Duoneb) 3 ml PRN Q6HRS PRN NEB SHORTNESS OF BREATH; Start 04/19/17 at 12:00 Budesonide (Pulmicort) 0.5 mg PRN BID PRN NEB SHORTNESS OF BREATH; Start at 12:00 Quetiapine Fumarate (SEROquel) 100 mg QHS PO Last administered on 04/21/17 19: 07; Start 04/19/17 at 21:00 Quetiapine Fumarate (SEROquel) 25 mg QHS PO Last administered on 04/21/17 19: 07; Start 04/19/17 at 21:00 Divalproex Sodium (Depakote Er) 1,000 mg QHS PO Last administered on 04/21/17 19:08; Start 04/20/17 at 21:00 Loperamide HCl (Imodium) 4 mg 1X ONCE PO Last administered on 04/21/17 15:26 ; Start 04/21/17 at 15:30; Stop 04/21/17 at 15:31; Status DC Active Scripts Active Reported Seroquel (Quetiapine Fumarate) 100 Mg Tablet 100 Mg PO QHS NICODERM CQ 21mg (Nicotine) 1 Each Patch.td24 1 Patch TD DAILY Analgesic [place] (Methyl Salicylate/Menthol) 28 Gm Oint...g. 1 Ana TP PRN QID PRN Mag-Al Plus Xs Suspension (Mag Hydrox/Al Hydrox/Simeth) 30 Ml Oral.susp 15 Ml PO PRN AFTMEALHC PRN Lasix (Furosemide) 20 Mg Tablet 20 Mg PO NOON Depakote Er (Divalproex Sodium) 250 Mg Tab.er.24h 750 Mg PO QHS Vitamin D3 (Cholecalciferol (Vitamin D3)) 50,000 Unit Capsule 50,000 Unit PO WEEKLY Lipitor (Atorvastatin Calcium) 20 Mg Tablet 20 Mg PO QHS Tylenol (Acetaminophen) 325 Mg Tablet 650 Mg PO PRN Q6HRS PRN Cyanocobalamin Injection (Cyanocobalamin (Vitamin B-12)) 1,000 Mcg/1 Ml Vial 1, 000 Mcg IM QMONTH Buspirone Hcl 10 Mg Tablet 10 Mg PO TID Acetaminophen 500 Mg Tablet 1,000 Mg PO QHS Therems-M (Multivits,Th W-Fe,Other Min) 1 Each Tablet 1 Tab PO DAILY Symbicort 160-4.5 Mcg Inhaler (Budesonide/Formoterol Fumarate) 10.2 Gm Hfa.aer.ad 2 Puff IH BID Cymbalta (Duloxetine Hcl) 30 Mg Capsule.dr 90 Mg PO DAILY Zofran (Ondansetron Hcl) 4 Mg Tablet 4 Mg PO PRN Q8HRS PRN Milk Of Magnesia (Magnesium Hydroxide) 400 Mg/5 Ml Oral.susp 2,400 Mg PO PRN DAILY PRN Lorazepam 0.5 Mg Tablet 0.5 Mg PO PRN Q6HRS PRN Folic Acid 1 Mg Tablet 1 Mg PO DAILY Spiriva Respimat (Tiotropium [place]) 4 Gm Mist.inhal 2.5 Mcg IH DAILY Diagnosis: Problems: (1) Impulse control disorder (2) Anxiety disorder (3) Mild cognitive disorder (4) Bipolar 1 disorder, mixed, moderate (5) Bipolar 1 disorder, manic, moderate (6) Dementia associated with alcoholism with behavioral disturbance BERNABE DAVID MD Apr 21, 2017 23:46
[2017-04-22 06:14] VITALS: BP 113/68
[2017-04-22] MEDS: DULoxetine HCL 30 MG CAPSULE.DR PO SCH (06:33)
[2017-04-22] MEDS: FOLIC ACID 1 MG TABLET PO SCH (06:33)
[2017-04-22] MEDS: NICOTINE 21MG PATCH. TD SCH (06:33)
[2017-04-22] MEDS: MULTIVITAMIN with MINERAL TABLET. PO SCH (06:33)
[2017-04-22] MEDS: busPIRone 10 MG TABLET. PO SCH ×3 (06:33→19:51)
[2017-04-22] MEDS: FUROSEMIDE 20 MG TABLET PO SCH (12:44)
[2017-04-22 16:34] VITALS: BP 137/74
--- NOTE | 2017-04-22 18:02 | PDOC ---
Exam Doug Demential Exam: Doug Note: Please also refer to the separate dictated note~for this date of service dictated separately.~Patient seen individually. Discussed the patient with Nursing staff reviewed the chart.~Reviewed interim history and current functioning. Reviewed vital signs,~Labs/ Radiology~and current medications noted below. Continue current treatment with the changes noted in the dictated addendum note Assessment: Vital Signs: Vital Signs Date Time Temp Pulse Resp B/P (MAP) Pulse Ox O2 Delivery O2 Flow Rate FiO2 04/22/17 16:34 98.2 75 22 137/74 (95) 92 04/19/17 16:21 Room Air I&O Intake and Output 04/23/17 07:00 Intake Total 960 ml Balance 960 ml Intake Oral 960 ml Current Medications: Meds: Current Medications Acetaminophen (Tylenol) 650 mg PRN Q6HRS PRN PO PAIN / TEMP; Start 04/18/17 at 23:00; Stop 04/19/17 at 11:24; Status DC Multi-Ingredient Ointment (Analgesic [place]) 1 ana PRN QID PRN TP MUSCLE PAIN; Start 04/18/17 at 23:00; Stop 04/19/17 at 15:57; Status DC Al Hydroxide/Mg Hydroxide (Mylanta Plus Xs) 15 ml PRN AFTMEALHC PRN PO DYSPEPSIA Last administered on 04/20/17 20:07; Start 04/18/17 at 23:00 Magnesium Hydroxide (Milk Of Magnesia) 2,400 mg PRN QHS PRN PO CONSTIPATION; Start 04/18/17 at 23:00; Stop 04/19/17 at 15:57; Status DC Buspirone HCl (Buspar) 10 mg TID PO Last administered on 04/22/17 15:00; Start 04/19/17 at 09:00 Divalproex Sodium (Depakote Er) 750 mg QHS PO Last administered on 04/19/17 19 :52; Start 04/19/17 at 21:00; Stop 04/20/17 at 18:35; Status DC Duloxetine HCl (Cymbalta) 90 mg DAILY PO Last administered on 04/22/17 06:33; Start 04/19/17 at 09:00 Lorazepam (Ativan) 0.5 mg PRN Q6HRS PRN PO ANXIETY / AGITATION Last administered on 04/20/17 20:13; Start 04/18/17 at 23:45 Quetiapine Fumarate (SEROquel) 100 mg QHS PO ; Start 04/19/17 at 21:00; Stop at 21:00; Status DC Acetaminophen (Tylenol) 1,000 mg QHS PO Last administered on 04/21/17 19:07; Start 04/19/17 at 21:00 Acetaminophen (Tylenol) 650 mg PRN Q6HRS PRN PO PAIN / TEMP; Start 04/19/17 at 08:30 Atorvastatin Calcium (Lipitor) 20 mg QHS PO Last administered on 04/21/17 19: 07; Start 04/19/17 at 21:00 Vitamin D (Vitamin D3) 50,000 unit WEEKLY PO Last administered on 04/19/17 09: 14; Start 04/19/17 at 09:00 Cyanocobalamin (Vitamin B-12) 1,000 mcg QMONTH IM ; Start 04/19/17 at 09:00 Folic Acid (Folic Acid) 1 mg DAILY PO Last administered on 04/22/17 06:33; Start 04/19/17 at 09:00 Furosemide (Lasix) 20 mg NOON PO Last administered on 04/22/17 12:44; Start 04/19/17 at 12:00 Magnesium Hydroxide (Milk Of Magnesia) 2,400 mg PRN DAILY PRN PO CONSTIPATION; Start 04/19/17 at 08:30 Multi-Ingredient Ointment (Analgesic [place]) 1 ana PRN QID PRN TP MUSCLE PAIN; Start 04/19/17 at 08:30 Nicotine (Nicoderm Cq 21mg) 1 patch DAILY TD Last administered on 04/22/17 06: 33; Start 04/19/17 at 09:00 Non-Formulary Medication 2 puff BID IH ; Start 04/19/17 at 09:00; Stop 04/19/17 at 09:00; Status DC Multivitamins/ Calcium (Thera-M Plus) 1 tab DAILY PO Last administered on 06:33; Start 04/19/17 at 09:00 Ondansetron HCl (Zofran Odt) 4 mg PRN Q8HRS PRN PO NAUSEA/VOMITING; Start 04/19 at 08:45 Budesonide (Pulmicort) 0.5 mg RTBID NEB ; Start 04/19/17 at 12:00; Stop at 12:00; Status DC Albuterol/ Ipratropium (Duoneb) 3 ml Q6HRS NEB ; Start 04/19/17 at 12:00; Stop 04/19/17 at 12:00; Status DC Albuterol/ Ipratropium (Duoneb) 3 ml PRN Q6HRS PRN NEB SHORTNESS OF BREATH; Start 04/19/17 at 12:00 Budesonide (Pulmicort) 0.5 mg PRN BID PRN NEB SHORTNESS OF BREATH; Start at 12:00 Quetiapine Fumarate (SEROquel) 100 mg QHS PO Last administered on 04/21/17 19: 07; Start 04/19/17 at 21:00 Quetiapine Fumarate (SEROquel) 25 mg QHS PO Last administered on 04/21/17 19: 07; Start 04/19/17 at 21:00 Divalproex Sodium (Depakote Er) 1,000 mg QHS PO Last administered on 04/21/17 19:08; Start 04/20/17 at 21:00 Loperamide HCl (Imodium) 4 mg 1X ONCE PO Last administered on 04/21/17 15:26 ; Start 04/21/17 at 15:30; Stop 04/21/17 at 15:31; Status DC Active Scripts Active Reported Seroquel (Quetiapine Fumarate) 100 Mg Tablet 100 Mg PO QHS NICODERM CQ 21mg (Nicotine) 1 Each Patch.td24 1 Patch TD DAILY Analgesic [place] (Methyl Salicylate/Menthol) 28 Gm Oint...g. 1 Ana TP PRN QID PRN Mag-Al Plus Xs Suspension (Mag Hydrox/Al Hydrox/Simeth) 30 Ml Oral.susp 15 Ml PO PRN AFTMEALHC PRN Lasix (Furosemide) 20 Mg Tablet 20 Mg PO NOON Depakote Er (Divalproex Sodium) 250 Mg Tab.er.24h 750 Mg PO QHS Vitamin D3 (Cholecalciferol (Vitamin D3)) 50,000 Unit Capsule 50,000 Unit PO WEEKLY Lipitor (Atorvastatin Calcium) 20 Mg Tablet 20 Mg PO QHS Tylenol (Acetaminophen) 325 Mg Tablet 650 Mg PO PRN Q6HRS PRN Cyanocobalamin Injection (Cyanocobalamin (Vitamin B-12)) 1,000 Mcg/1 Ml Vial 1, 000 Mcg IM QMONTH Buspirone Hcl 10 Mg Tablet 10 Mg PO TID Acetaminophen 500 Mg Tablet 1,000 Mg PO QHS Therems-M (Multivits,Th W-Fe,Other Min) 1 Each Tablet 1 Tab PO DAILY Symbicort 160-4.5 Mcg Inhaler (Budesonide/Formoterol Fumarate) 10.2 Gm Hfa.aer.ad 2 Puff IH BID Cymbalta (Duloxetine Hcl) 30 Mg Capsule.dr 90 Mg PO DAILY Zofran (Ondansetron Hcl) 4 Mg Tablet 4 Mg PO PRN Q8HRS PRN Milk Of Magnesia (Magnesium Hydroxide) 400 Mg/5 Ml Oral.susp 2,400 Mg PO PRN DAILY PRN Lorazepam 0.5 Mg Tablet 0.5 Mg PO PRN Q6HRS PRN Folic Acid 1 Mg Tablet 1 Mg PO DAILY Spiriva Respimat (Tiotropium [place]) 4 Gm Mist.inhal 2.5 Mcg IH DAILY Diagnosis: Problems: (1) Dementia associated with alcoholism with behavioral disturbance (2) Bipolar 1 disorder, manic, moderate (3) Bipolar 1 disorder, mixed, moderate (4) Mild cognitive disorder (5) Anxiety disorder (6) Impulse control disorder BERNABE DAVID MD Apr 22, 2017 18:02
[2017-04-22] MEDS: ACETAMINOPHEN 500 MG TABLET PO SCH (19:51)
[2017-04-22] MEDS: QUEtiapine 25 MG TABLET. PO SCH (19:51)
[2017-04-22] MEDS: DIVALPROEX ER 500 MG TAB.ER.24H PO SCH (19:51)
[2017-04-22] MEDS: QUEtiapine 100 MG TABLET. PO SCH (19:52)
[2017-04-22] MEDS: ATORVASTATIN CALCIUM 20 MG TABLET PO SCH (19:52)
--- NOTE | 2017-04-22 20:03 | PDOC ---
Exam Doug Demential Exam: Doug Note: Please also refer to the separate dictated note~for this date of service dictated separately.~Patient seen individually. Discussed the patient with Nursing staff reviewed the chart.~Reviewed interim history and current functioning. Reviewed vital signs,~Labs/ Radiology~and current medications noted below. Continue current treatment with the changes noted in the dictated addendum note Assessment: Vital Signs: Vital Signs Date Time Temp Pulse Resp B/P (MAP) Pulse Ox O2 Delivery O2 Flow Rate FiO2 04/22/17 16:34 98.2 75 22 137/74 (95) 92 04/19/17 16:21 Room Air I&O Intake and Output 04/23/17 07:00 Intake Total 1440 ml Balance 1440 ml Intake Oral 1440 ml Current Medications: Meds: Current Medications Acetaminophen (Tylenol) 650 mg PRN Q6HRS PRN PO PAIN / TEMP; Start 04/18/17 at 23:00; Stop 04/19/17 at 11:24; Status DC Multi-Ingredient Ointment (Analgesic [place]) 1 ana PRN QID PRN TP MUSCLE PAIN; Start 04/18/17 at 23:00; Stop 04/19/17 at 15:57; Status DC Al Hydroxide/Mg Hydroxide (Mylanta Plus Xs) 15 ml PRN AFTMEALHC PRN PO DYSPEPSIA Last administered on 04/20/17 20:07; Start 04/18/17 at 23:00 Magnesium Hydroxide (Milk Of Magnesia) 2,400 mg PRN QHS PRN PO CONSTIPATION; Start 04/18/17 at 23:00; Stop 04/19/17 at 15:57; Status DC Buspirone HCl (Buspar) 10 mg TID PO Last administered on 04/22/17 19:51; Start 04/19/17 at 09:00 Divalproex Sodium (Depakote Er) 750 mg QHS PO Last administered on 04/19/17 19 :52; Start 04/19/17 at 21:00; Stop 04/20/17 at 18:35; Status DC Duloxetine HCl (Cymbalta) 90 mg DAILY PO Last administered on 04/22/17 06:33; Start 04/19/17 at 09:00 Lorazepam (Ativan) 0.5 mg PRN Q6HRS PRN PO ANXIETY / AGITATION Last administered on 04/20/17 20:13; Start 04/18/17 at 23:45 Quetiapine Fumarate (SEROquel) 100 mg QHS PO ; Start 04/19/17 at 21:00; Stop at 21:00; Status DC Acetaminophen (Tylenol) 1,000 mg QHS PO Last administered on 04/22/17 19:51; Start 04/19/17 at 21:00 Acetaminophen (Tylenol) 650 mg PRN Q6HRS PRN PO PAIN / TEMP; Start 04/19/17 at 08:30 Atorvastatin Calcium (Lipitor) 20 mg QHS PO Last administered on 04/22/17 19: 52; Start 04/19/17 at 21:00 Vitamin D (Vitamin D3) 50,000 unit WEEKLY PO Last administered on 04/19/17 09: 14; Start 04/19/17 at 09:00 Cyanocobalamin (Vitamin B-12) 1,000 mcg QMONTH IM ; Start 04/19/17 at 09:00 Folic Acid (Folic Acid) 1 mg DAILY PO Last administered on 04/22/17 06:33; Start 04/19/17 at 09:00 Furosemide (Lasix) 20 mg NOON PO Last administered on 04/22/17 12:44; Start 04/19/17 at 12:00 Magnesium Hydroxide (Milk Of Magnesia) 2,400 mg PRN DAILY PRN PO CONSTIPATION; Start 04/19/17 at 08:30 Multi-Ingredient Ointment (Analgesic [place]) 1 ana PRN QID PRN TP MUSCLE PAIN; Start 04/19/17 at 08:30 Nicotine (Nicoderm Cq 21mg) 1 patch DAILY TD Last administered on 04/22/17 06: 33; Start 04/19/17 at 09:00 Non-Formulary Medication 2 puff BID IH ; Start 04/19/17 at 09:00; Stop 04/19/17 at 09:00; Status DC Multivitamins/ Calcium (Thera-M Plus) 1 tab DAILY PO Last administered on 06:33; Start 04/19/17 at 09:00 Ondansetron HCl (Zofran Odt) 4 mg PRN Q8HRS PRN PO NAUSEA/VOMITING; Start 04/19 at 08:45 Budesonide (Pulmicort) 0.5 mg RTBID NEB ; Start 04/19/17 at 12:00; Stop at 12:00; Status DC Albuterol/ Ipratropium (Duoneb) 3 ml Q6HRS NEB ; Start 04/19/17 at 12:00; Stop 04/19/17 at 12:00; Status DC Albuterol/ Ipratropium (Duoneb) 3 ml PRN Q6HRS PRN NEB SHORTNESS OF BREATH; Start 04/19/17 at 12:00 Budesonide (Pulmicort) 0.5 mg PRN BID PRN NEB SHORTNESS OF BREATH; Start at 12:00 Quetiapine Fumarate (SEROquel) 100 mg QHS PO Last administered on 04/22/17 19: 52; Start 04/19/17 at 21:00 Quetiapine Fumarate (SEROquel) 25 mg QHS PO Last administered on 04/22/17 19: 51; Start 04/19/17 at 21:00 Divalproex Sodium (Depakote Er) 1,000 mg QHS PO Last administered on 04/22/17 19:51; Start 04/20/17 at 21:00 Loperamide HCl (Imodium) 4 mg 1X ONCE PO Last administered on 04/21/17 15:26 ; Start 04/21/17 at 15:30; Stop 04/21/17 at 15:31; Status DC Active Scripts Active Reported Seroquel (Quetiapine Fumarate) 100 Mg Tablet 100 Mg PO QHS NICODERM CQ 21mg (Nicotine) 1 Each Patch.td24 1 Patch TD DAILY Analgesic [place] (Methyl Salicylate/Menthol) 28 Gm Oint...g. 1 Ana TP PRN QID PRN Mag-Al Plus Xs Suspension (Mag Hydrox/Al Hydrox/Simeth) 30 Ml Oral.susp 15 Ml PO PRN AFTMEALHC PRN Lasix (Furosemide) 20 Mg Tablet 20 Mg PO NOON Depakote Er (Divalproex Sodium) 250 Mg Tab.er.24h 750 Mg PO QHS Vitamin D3 (Cholecalciferol (Vitamin D3)) 50,000 Unit Capsule 50,000 Unit PO WEEKLY Lipitor (Atorvastatin Calcium) 20 Mg Tablet 20 Mg PO QHS Tylenol (Acetaminophen) 325 Mg Tablet 650 Mg PO PRN Q6HRS PRN Cyanocobalamin Injection (Cyanocobalamin (Vitamin B-12)) 1,000 Mcg/1 Ml Vial 1, 000 Mcg IM QMONTH Buspirone Hcl 10 Mg Tablet 10 Mg PO TID Acetaminophen 500 Mg Tablet 1,000 Mg PO QHS Therems-M (Multivits,Th W-Fe,Other Min) 1 Each Tablet 1 Tab PO DAILY Symbicort 160-4.5 Mcg Inhaler (Budesonide/Formoterol Fumarate) 10.2 Gm Hfa.aer.ad 2 Puff IH BID Cymbalta (Duloxetine Hcl) 30 Mg Capsule.dr 90 Mg PO DAILY Zofran (Ondansetron Hcl) 4 Mg Tablet 4 Mg PO PRN Q8HRS PRN Milk Of Magnesia (Magnesium Hydroxide) 400 Mg/5 Ml Oral.susp 2,400 Mg PO PRN DAILY PRN Lorazepam 0.5 Mg Tablet 0.5 Mg PO PRN Q6HRS PRN Folic Acid 1 Mg Tablet 1 Mg PO DAILY Spiriva Respimat (Tiotropium [place]) 4 Gm Mist.inhal 2.5 Mcg IH DAILY Diagnosis: Problems: (1) Impulse control disorder (2) Anxiety disorder (3) Mild cognitive disorder (4) Bipolar 1 disorder, mixed, moderate (5) Bipolar 1 disorder, manic, moderate (6) Dementia associated with alcoholism with behavioral disturbance BERNABE DAVID MD Apr 22, 2017 20:03
[2017-04-23 06:23] VITALS: BP 132/92
[2017-04-23 07:57] LABS: BASO % 1 % (0-3); EOS # 0.1 x10^3/uL (0.0-0.7); EOS % 3 % (0-3); HEMATOCRIT 43.5 % (36.0-47.0); HEMOGLOBIN 14.4 g/dL (12.0-15.5); LYMPH # 2.2 x10^3/uL (1.0-4.8); LYMPH % 48 % (24-48); MEAN CORPUSCULAR HEMOGLOBIN 31 pg (25-35); MEAN CORPUSCULAR HGB CONC 33 g/dL (31-37); MEAN CORPUSCULAR VOLUME 92 fL (79-100); MONO # 0.5 x10^3/uL (0.0-1.1); MONO % 11 % (0-9); NEUT # 1.7 x10^3uL (1.8-7.7); NEUT % 37 % (31-73); PLATELET COUNT 123 x10^3/uL (140-400); RED BLOOD COUNT 4.72 x10^6/uL (3.50-5.40); RED CELL DISTRIBUTION WIDTH 14.5 % (11.5-14.5); WHITE BLOOD COUNT 4.6 x10^3/uL (4.0-11.0)
[2017-04-23 08:12] LABS: ALBUMIN 3.1 g/dL (3.4-5.0); ALBUMIN/GLOBULIN RATIO 0.9 (1.0-1.7); ALK PHOS 40 U/L (46-116); ALT (SGPT) 19 U/L (14-59); ANION GAP 7 (6-14); AST (SGOT) 12 U/L (15-37); BLOOD UREA NITROGEN 31 mg/dL (7-20); BUN/CREATININE RATIO 34 (6-20); CALCIUM 8.5 mg/dL (8.5-10.1); CARBON DIOXIDE 31 mmol/L (21-32); CHLORIDE 106 mmol/L (98-107); CREATININE 0.9 mg/dL (0.6-1.0); GFR 62.1; GLUCOSE 89 mg/dL (70-99); SODIUM 144 mmol/L (136-145); TOTAL BILIRUBIN 0.4 mg/dL (0.2-1.0); TOTAL PROTEIN 6.4 g/dL (6.4-8.2)
[2017-04-23 08:13] LABS: VAL ACID 64 mcg/mL (50-100)
--- NOTE | 2017-04-23 11:10 | PN ---
DATE: 04/20/2017 PSYCHIATRIC PROGRESS NOTE This is a late entry for 04/20/2017, covers elements not covered in my initial note of 04/20/2017. SUBJECTIVE: I met with the patient evening of 04/20/2017. Per nursing report, the patient has denied suicidal ideation, but when I questioned her, she became tearful, stated she feels suicidal and if she had a mean she would hurt herself. There is a discrepancy in how she presents to the nursing staff and myself and we addressed this. REVIEW OF SYSTEMS: No CV, , pulmonary, eye, ENT system symptoms on review. MENTAL STATUS EXAM: Oriented reasonably. Speech is coherent, tearful at times individually, abstraction fair, computation impaired, language function intact. Mood and affect dysphoric. LABORATORY DATA: Reviewed. IMPRESSION: Unchanged from initial note. PLAN: Valproic acid level subtherapeutic at 37, increase Depakote ER to 100 mg at bedtime. Check CBC, CMP, valproic acid level in 3 days. Maintain BuSpar 10 mg t.i.d., Cymbalta 90 mg a day, Ativan p.r.n., Seroquel 125 mg at bedtime. Reviewed drug interactions. Risk/benefit ratio favors no further change. BERNABE DAVID MD DR: [email or web address]/ros JOB#: [id number] / [id number]
--- NOTE | 2017-04-23 11:14 | PN ---
DATE: 04/21/2017 PSYCHIATRIC PROGRESS NOTE This late entry 04/21/2017 covers elements not covered in my initial note of 04/21/2017. I met with the patient evening of 04/21/2017. The patient remains somewhat withdrawn, becomes tearful as I questioned her about discharge plans. No placement has been found so far, and homeless custodial is being considered. She stated if she had a way she would end her life because she feels hopeless with her own circumstances. REVIEW OF SYSTEMS: No CV, , pulmonary, eye, ENT system symptoms on review. Reliability poor. MENTAL STATUS EXAM: Oriented reasonably. Speech is coherent, abstraction fair, computation impaired, language function intact, attention span short. Mood and affect somewhat withdrawn. LABORATORY DATA: Reviewed. IMPRESSION: Unchanged from initial note. PLAN: Continue current psychotropics, reviewed drug interactions, risk/benefit ratio favors no further change. MAN Britni DAVID MD DR: SHAQUILLE/ros JOB#: [id number] / [id number]
[2017-04-23] MEDS: busPIRone 10 MG TABLET. PO SCH ×3 (11:19→20:14)
[2017-04-23] MEDS: MULTIVITAMIN with MINERAL TABLET. PO SCH (11:19)
[2017-04-23] MEDS: DULoxetine HCL 30 MG CAPSULE.DR PO SCH (11:19)
[2017-04-23] MEDS: FOLIC ACID 1 MG TABLET PO SCH (11:19)
[2017-04-23] MEDS: NICOTINE 21MG PATCH. TD SCH (11:20)
[2017-04-23] MEDS: LORazepam 0.5 MG TABLET PO PRN (11:40)
[2017-04-23] MEDS: FUROSEMIDE 20 MG TABLET PO SCH (14:46)
[2017-04-23 16:02] VITALS: BP 139/58
--- NOTE | 2017-04-23 19:53 | PDOC ---
Exam Doug Demential Exam: Doug Note: Please also refer to the separate dictated note~for this date of service dictated separately.~Patient seen individually. Discussed the patient with Nursing staff reviewed the chart.~Reviewed interim history and current functioning. Reviewed vital signs,~Labs/ Radiology~and current medications noted below. Continue current treatment with the changes noted in the dictated addendum note Assessment: Vital Signs: Vital Signs Date Time Temp Pulse Resp B/P (MAP) Pulse Ox O2 Delivery O2 Flow Rate FiO2 04/23/17 16:02 98.0 67 20 139/58 (85) 93 04/19/17 16:21 Room Air I&O Intake and Output 04/24/17 07:00 Intake Total 480 ml Balance 480 ml Intake Oral 480 ml Labs: Laboratory Tests Test 04/23/17 07:43 White Blood Count 4.6 x10^3/uL (4.0-11.0) Red Blood Count 4.72 x10^6/uL (3.50-5.40) Hemoglobin 14.4 g/dL (12.0-15.5) Hematocrit 43.5 % (36.0-47.0) Mean Corpuscular Volume 92 fL (79-100) Mean Corpuscular Hemoglobin 31 pg (25-35) Mean Corpuscular Hemoglobin Concent 33 g/dL (31-37) Red Cell Distribution Width 14.5 % (11.5-14.5) Platelet Count 123 x10^3/uL (140-400) L Neutrophils (%) (Auto) 37 % (31-73) Lymphocytes (%) (Auto) 48 % (24-48) Monocytes (%) (Auto) 11 % (0-9) H Eosinophils (%) (Auto) 3 % (0-3) Basophils (%) (Auto) 1 % (0-3) Neutrophils # (Auto) 1.7 x10^3uL (1.8-7.7) L Lymphocytes # (Auto) 2.2 x10^3/uL (1.0-4.8) Monocytes # (Auto) 0.5 x10^3/uL (0.0-1.1) Eosinophils # (Auto) 0.1 x10^3/uL (0.0-0.7) Basophils # (Auto) 0.0 x10^3/uL (0.0-0.2) Sodium Level 144 mmol/L (136-145) Potassium Level 4.0 mmol/L (3.5-5.1) Chloride Level 106 mmol/L (98-107) Carbon Dioxide Level 31 mmol/L (21-32) Anion Gap 7 (6-14) Blood Urea Nitrogen 31 mg/dL (7-20) H Creatinine 0.9 mg/dL (0.6-1.0) Estimated GFR (Cockcroft-Gault) 62.1 BUN/Creatinine Ratio 34 (6-20) H Glucose Level 89 mg/dL (70-99) Calcium Level 8.5 mg/dL (8.5-10.1) Total Bilirubin 0.4 mg/dL (0.2-1.0) Aspartate Amino Transferase (AST) 12 U/L (15-37) L Alanine Aminotransferase (ALT) 19 U/L (14-59) Alkaline Phosphatase 40 U/L (46-116) L Total Protein 6.4 g/dL (6.4-8.2) Albumin 3.1 g/dL (3.4-5.0) L Albumin/Globulin Ratio 0.9 (1.0-1.7) L Valproic Acid Level 64 mcg/mL (50-100) Valproic Acid Last Dose Date 04/22/17 Valproic Acid Last Dose Time 2100 Current Medications: Meds: Current Medications Acetaminophen (Tylenol) 650 mg PRN Q6HRS PRN PO PAIN / TEMP; Start 04/18/17 at 23:00; Stop 04/19/17 at 11:24; Status DC Multi-Ingredient Ointment (Analgesic [place]) 1 ana PRN QID PRN TP MUSCLE PAIN; Start 04/18/17 at 23:00; Stop 04/19/17 at 15:57; Status DC Al Hydroxide/Mg Hydroxide (Mylanta Plus Xs) 15 ml PRN AFTMEALHC PRN PO DYSPEPSIA Last administered on 04/20/17 20:07; Start 04/18/17 at 23:00 Magnesium Hydroxide (Milk Of Magnesia) 2,400 mg PRN QHS PRN PO CONSTIPATION; Start 04/18/17 at 23:00; Stop 04/19/17 at 15:57; Status DC Buspirone HCl (Buspar) 10 mg TID PO Last administered on 04/23/17 14:46; Start 04/19/17 at 09:00 Divalproex Sodium (Depakote Er) 750 mg QHS PO Last administered on 04/19/17 19 :52; Start 04/19/17 at 21:00; Stop 04/20/17 at 18:35; Status DC Duloxetine HCl (Cymbalta) 90 mg DAILY PO Last administered on 04/23/17 11:19; Start 04/19/17 at 09:00 Lorazepam (Ativan) 0.5 mg PRN Q6HRS PRN PO ANXIETY / AGITATION Last administered on 04/23/17 11:40; Start 04/18/17 at 23:45 Quetiapine Fumarate (SEROquel) 100 mg QHS PO ; Start 04/19/17 at 21:00; Stop at 21:00; Status DC Acetaminophen (Tylenol) 1,000 mg QHS PO Last administered on 04/22/17 19:51; Start 04/19/17 at 21:00 Acetaminophen (Tylenol) 650 mg PRN Q6HRS PRN PO PAIN / TEMP; Start 04/19/17 at 08:30 Atorvastatin Calcium (Lipitor) 20 mg QHS PO Last administered on 04/22/17 19: 52; Start 04/19/17 at 21:00 Vitamin D (Vitamin D3) 50,000 unit WEEKLY PO Last administered on 04/19/17 09: 14; Start 04/19/17 at 09:00 Cyanocobalamin (Vitamin B-12) 1,000 mcg QMONTH IM ; Start 04/19/17 at 09:00 Folic Acid (Folic Acid) 1 mg DAILY PO Last administered on 04/23/17 11:19; Start 04/19/17 at 09:00 Furosemide (Lasix) 20 mg NOON PO Last administered on 04/23/17 14:46; Start 04/19/17 at 12:00 Magnesium Hydroxide (Milk Of Magnesia) 2,400 mg PRN DAILY PRN PO CONSTIPATION; Start 04/19/17 at 08:30 Multi-Ingredient Ointment (Analgesic [place]) 1 ana PRN QID PRN TP MUSCLE PAIN; Start 04/19/17 at 08:30 Nicotine (Nicoderm Cq 21mg) 1 patch DAILY TD Last administered on 04/23/17 11: 20; Start 04/19/17 at 09:00 Non-Formulary Medication 2 puff BID IH ; Start 04/19/17 at 09:00; Stop 04/19/17 at 09:00; Status DC Multivitamins/ Calcium (Thera-M Plus) 1 tab DAILY PO Last administered on 11:19; Start 04/19/17 at 09:00 Ondansetron HCl (Zofran Odt) 4 mg PRN Q8HRS PRN PO NAUSEA/VOMITING; Start 04/19 at 08:45 Budesonide (Pulmicort) 0.5 mg RTBID NEB ; Start 04/19/17 at 12:00; Stop at 12:00; Status DC Albuterol/ Ipratropium (Duoneb) 3 ml Q6HRS NEB ; Start 04/19/17 at 12:00; Stop 04/19/17 at 12:00; Status DC Albuterol/ Ipratropium (Duoneb) 3 ml PRN Q6HRS PRN NEB SHORTNESS OF BREATH; Start 04/19/17 at 12:00 Budesonide (Pulmicort) 0.5 mg PRN BID PRN NEB SHORTNESS OF BREATH; Start at 12:00 Quetiapine Fumarate (SEROquel) 100 mg QHS PO Last administered on 04/22/17 19: 52; Start 04/19/17 at 21:00 Quetiapine Fumarate (SEROquel) 25 mg QHS PO Last administered on 04/22/17 19: 51; Start 04/19/17 at 21:00; Stop 04/23/17 at 18:24; Status DC Divalproex Sodium (Depakote Er) 1,000 mg QHS PO Last administered on 04/22/17 19:51; Start 04/20/17 at 21:00 Loperamide HCl (Imodium) 4 mg 1X ONCE PO Last administered on 04/21/17 15:26 ; Start 04/21/17 at 15:30; Stop 04/21/17 at 15:31; Status DC Quetiapine Fumarate (SEROquel) 50 mg QHS PO ; Start 04/23/17 at 21:00 Active Scripts Active Reported Seroquel (Quetiapine Fumarate) 100 Mg Tablet 100 Mg PO QHS NICODERM CQ 21mg (Nicotine) 1 Each Patch.td24 1 Patch TD DAILY Analgesic Wells (Methyl Salicylate/Menthol) 28 Gm Oint...g. 1 Ana TP PRN QID PRN Mag-Al Plus Xs Suspension (Mag Hydrox/Al Hydrox/Simeth) 30 Ml Oral.susp 15 Ml PO PRN AFTMEALHC PRN Lasix (Furosemide) 20 Mg Tablet 20 Mg PO NOON Depakote Er (Divalproex Sodium) 250 Mg Tab.er.24h 750 Mg PO QHS Vitamin D3 (Cholecalciferol (Vitamin D3)) 50,000 Unit Capsule 50,000 Unit PO WEEKLY Lipitor (Atorvastatin Calcium) 20 Mg Tablet 20 Mg PO QHS Tylenol (Acetaminophen) 325 Mg Tablet 650 Mg PO PRN Q6HRS PRN Cyanocobalamin Injection (Cyanocobalamin (Vitamin B-12)) 1,000 Mcg/1 Ml Vial 1, 000 Mcg IM QMONTH Buspirone Hcl 10 Mg Tablet 10 Mg PO TID Acetaminophen 500 Mg Tablet 1,000 Mg PO QHS Therems-M (Multivits,Th W-Fe,Other Min) 1 Each Tablet 1 Tab PO DAILY Symbicort 160-4.5 Mcg Inhaler (Budesonide/Formoterol Fumarate) 10.2 Gm Hfa.aer.ad 2 Puff IH BID Cymbalta (Duloxetine Hcl) 30 Mg Capsule.dr 90 Mg PO DAILY Zofran (Ondansetron Hcl) 4 Mg Tablet 4 Mg PO PRN Q8HRS PRN Milk Of Magnesia (Magnesium Hydroxide) 400 Mg/5 Ml Oral.susp 2,400 Mg PO PRN DAILY PRN Lorazepam 0.5 Mg Tablet 0.5 Mg PO PRN Q6HRS PRN Folic Acid 1 Mg Tablet 1 Mg PO DAILY Spiriva Respimat (Tiotropium [place]) 4 Gm Mist.inhal 2.5 Mcg IH DAILY Diagnosis: Problems: (1) Impulse control disorder (2) Anxiety disorder (3) Mild cognitive disorder (4) Bipolar 1 disorder, mixed, moderate (5) Bipolar 1 disorder, manic, moderate (6) Dementia associated with alcoholism with behavioral disturbance BERNABE DAVID MD Apr 23, 2017 19:53
[2017-04-23] MEDS: DIVALPROEX ER 500 MG TAB.ER.24H PO SCH (20:14)
[2017-04-23] MEDS: ACETAMINOPHEN 500 MG TABLET PO SCH (20:15)
[2017-04-23] MEDS: QUEtiapine 100 MG TABLET. PO SCH (20:15)
[2017-04-23] MEDS: ATORVASTATIN CALCIUM 20 MG TABLET PO SCH (20:15)
[2017-04-23] MEDS: QUEtiapine 50 MG TABLET. PO SCH (20:16)
--- NOTE | 2017-04-24 04:54 | PN ---
DATE: 04/22/2017 This late entry for 04/22/2017 covers elements not covered in my initial note of 04/22/2017. I met with the patient in the evening of 04/22/2017. SUBJECTIVE: The patient does remain somewhat withdrawn, isolative, still has vague suicidal ideation, stating if she had a mean she would end her life because she has nothing to look forward to. Some of this probably is reflective of her personality and her psychosocial situation since she has no living arrangements. In the last placement, social service staff arranged for her after much hard work on their part was a failure for the patient that she left there impulsively. REVIEW OF SYSTEMS: No CV, , pulmonary, eye system symptoms on review. MENTAL STATUS EXAM: Reasonably oriented. Speech coherent, somewhat tearful as I met with her with quivering of her lips as she talked about feeling depressed. No active suicidal or homicidal ideation. Abstraction fair, computation somewhat impaired. Language function intact. LABORATORY DATA: Unchanged from initial note. PLAN: After I had evaluated the patient in the evening of 04/22/2017, I got a call from the nursing staff around 11:00 p.m. indicating the patient was assessed for suicidal ideation and preparation for possible discharge on 04/23/2017 when she was still having vague suicidal ideation, no active intent or attempt; however, noted. We will postpone the discharge to give us time to stabilize the patient further, but it is going to be tricky since part of her emotionality and reactivity is due to her psychosocial stressors, no living arrangement, being homeless. From a psychiatric medication standpoint, we will continue her current regimen. Depakote was increased. Repeat labs are to be done on 04/23/2017. Seroquel was increased. Maintain the BuSpar, Cymbalta at current dosage, latter at 90 mg a day. Reviewed drug interactions. Risk/benefit ratio favors no further change. BERNABE DAVID MD DR: SHAQUILLE/ros JOB#: [id number] / [id number]
[2017-04-24 06:43] VITALS: BP 103/45
[2017-04-24] MEDS: busPIRone 10 MG TABLET. PO SCH ×3 (08:08→19:59)
[2017-04-24] MEDS: MULTIVITAMIN with MINERAL TABLET. PO SCH (08:08)
[2017-04-24] MEDS: DULoxetine HCL 30 MG CAPSULE.DR PO SCH (08:08)
[2017-04-24] MEDS: NICOTINE 21MG PATCH. TD SCH (08:09)
[2017-04-24] MEDS: FOLIC ACID 1 MG TABLET PO SCH (08:09)
[2017-04-24] MEDS: FUROSEMIDE 20 MG TABLET PO SCH (12:08)
[2017-04-24 16:37] VITALS: BP 146/81
[2017-04-24] MEDS: DIVALPROEX ER 500 MG TAB.ER.24H PO SCH (20:00)
[2017-04-24] MEDS: ATORVASTATIN CALCIUM 20 MG TABLET PO SCH (20:00)
[2017-04-24] MEDS: ACETAMINOPHEN 500 MG TABLET PO SCH (20:00)
[2017-04-24] MEDS: QUEtiapine 50 MG TABLET. PO SCH (20:00)
[2017-04-24] MEDS: QUEtiapine 100 MG TABLET. PO SCH (20:00)
--- NOTE | 2017-04-24 21:45 | PDOC ---
Exam Doug Demential Exam: Doug Note: Please also refer to the separate dictated note~for this date of service dictated separately.~Patient seen individually. Discussed the patient with Nursing staff reviewed the chart.~Reviewed interim history and current functioning. Reviewed vital signs,~Labs/ Radiology~and current medications noted below. Continue current treatment with the changes noted in the dictated addendum note Assessment: Vital Signs: Vital Signs Date Time Temp Pulse Resp B/P (MAP) Pulse Ox O2 Delivery O2 Flow Rate FiO2 04/24/17 16:37 97.6 77 16 146/81 (102) 95 04/19/17 16:21 Room Air I&O Intake and Output 04/25/17 07:00 Intake Total 1560 ml Balance 1560 ml Intake Oral 1560 ml Current Medications: Meds: Current Medications Acetaminophen (Tylenol) 650 mg PRN Q6HRS PRN PO PAIN / TEMP; Start 04/18/17 at 23:00; Stop 04/19/17 at 11:24; Status DC Multi-Ingredient Ointment (Analgesic [place]) 1 ana PRN QID PRN TP MUSCLE PAIN; Start 04/18/17 at 23:00; Stop 04/19/17 at 15:57; Status DC Al Hydroxide/Mg Hydroxide (Mylanta Plus Xs) 15 ml PRN AFTMEALHC PRN PO DYSPEPSIA Last administered on 04/20/17 20:07; Start 04/18/17 at 23:00 Magnesium Hydroxide (Milk Of Magnesia) 2,400 mg PRN QHS PRN PO CONSTIPATION; Start 04/18/17 at 23:00; Stop 04/19/17 at 15:57; Status DC Buspirone HCl (Buspar) 10 mg TID PO Last administered on 04/24/17 19:59; Start 04/19/17 at 09:00 Divalproex Sodium (Depakote Er) 750 mg QHS PO Last administered on 04/19/17 19 :52; Start 04/19/17 at 21:00; Stop 04/20/17 at 18:35; Status DC Duloxetine HCl (Cymbalta) 90 mg DAILY PO Last administered on 04/24/17 08:08; Start 04/19/17 at 09:00 Lorazepam (Ativan) 0.5 mg PRN Q6HRS PRN PO ANXIETY / AGITATION Last administered on 04/23/17 11:40; Start 04/18/17 at 23:45 Quetiapine Fumarate (SEROquel) 100 mg QHS PO ; Start 04/19/17 at 21:00; Stop at 21:00; Status DC Acetaminophen (Tylenol) 1,000 mg QHS PO Last administered on 04/24/17 20:00; Start 04/19/17 at 21:00 Acetaminophen (Tylenol) 650 mg PRN Q6HRS PRN PO PAIN / TEMP; Start 04/19/17 at 08:30 Atorvastatin Calcium (Lipitor) 20 mg QHS PO Last administered on 04/24/17 20: 00; Start 04/19/17 at 21:00 Vitamin D (Vitamin D3) 50,000 unit WEEKLY PO Last administered on 04/19/17 09: 14; Start 04/19/17 at 09:00 Cyanocobalamin (Vitamin B-12) 1,000 mcg QMONTH IM ; Start 04/19/17 at 09:00 Folic Acid (Folic Acid) 1 mg DAILY PO Last administered on 04/24/17 08:09; Start 04/19/17 at 09:00 Furosemide (Lasix) 20 mg NOON PO Last administered on 04/24/17 12:08; Start 04/19/17 at 12:00 Magnesium Hydroxide (Milk Of Magnesia) 2,400 mg PRN DAILY PRN PO CONSTIPATION; Start 04/19/17 at 08:30 Multi-Ingredient Ointment (Analgesic [place]) 1 ana PRN QID PRN TP MUSCLE PAIN; Start 04/19/17 at 08:30 Nicotine (Nicoderm Cq 21mg) 1 patch DAILY TD Last administered on 04/24/17 08: 09; Start 04/19/17 at 09:00 Non-Formulary Medication 2 puff BID IH ; Start 04/19/17 at 09:00; Stop 04/19/17 at 09:00; Status DC Multivitamins/ Calcium (Thera-M Plus) 1 tab DAILY PO Last administered on 08:08; Start 04/19/17 at 09:00 Ondansetron HCl (Zofran Odt) 4 mg PRN Q8HRS PRN PO NAUSEA/VOMITING; Start 04/19 at 08:45 Budesonide (Pulmicort) 0.5 mg RTBID NEB ; Start 04/19/17 at 12:00; Stop at 12:00; Status DC Albuterol/ Ipratropium (Duoneb) 3 ml Q6HRS NEB ; Start 04/19/17 at 12:00; Stop 04/19/17 at 12:00; Status DC Albuterol/ Ipratropium (Duoneb) 3 ml PRN Q6HRS PRN NEB SHORTNESS OF BREATH; Start 04/19/17 at 12:00 Budesonide (Pulmicort) 0.5 mg PRN BID PRN NEB SHORTNESS OF BREATH; Start at 12:00 Quetiapine Fumarate (SEROquel) 100 mg QHS PO Last administered on 04/24/17 20: 00; Start 04/19/17 at 21:00 Quetiapine Fumarate (SEROquel) 25 mg QHS PO Last administered on 04/22/17 19: 51; Start 04/19/17 at 21:00; Stop 04/23/17 at 18:24; Status DC Divalproex Sodium (Depakote Er) 1,000 mg QHS PO Last administered on 04/24/17 20:00; Start 04/20/17 at 21:00 Loperamide HCl (Imodium) 4 mg 1X ONCE PO Last administered on 04/21/17 15:26 ; Start 04/21/17 at 15:30; Stop 04/21/17 at 15:31; Status DC Quetiapine Fumarate (SEROquel) 50 mg QHS PO Last administered on 04/24/17 20: 00; Start 04/23/17 at 21:00 Active Scripts Active Reported Seroquel (Quetiapine Fumarate) 100 Mg Tablet 100 Mg PO QHS NICODERM CQ 21mg (Nicotine) 1 Each Patch.td24 1 Patch TD DAILY Analgesic [place] (Methyl Salicylate/Menthol) 28 Gm Oint...g. 1 Ana TP PRN QID PRN Mag-Al Plus Xs Suspension (Mag Hydrox/Al Hydrox/Simeth) 30 Ml Oral.susp 15 Ml PO PRN AFTMEALHC PRN Lasix (Furosemide) 20 Mg Tablet 20 Mg PO NOON Depakote Er (Divalproex Sodium) 250 Mg Tab.er.24h 750 Mg PO QHS Vitamin D3 (Cholecalciferol (Vitamin D3)) 50,000 Unit Capsule 50,000 Unit PO WEEKLY Lipitor (Atorvastatin Calcium) 20 Mg Tablet 20 Mg PO QHS Tylenol (Acetaminophen) 325 Mg Tablet 650 Mg PO PRN Q6HRS PRN Cyanocobalamin Injection (Cyanocobalamin (Vitamin B-12)) 1,000 Mcg/1 Ml Vial 1, 000 Mcg IM QMONTH Buspirone Hcl 10 Mg Tablet 10 Mg PO TID Acetaminophen 500 Mg Tablet 1,000 Mg PO QHS Therems-M (Multivits,Th W-Fe,Other Min) 1 Each Tablet 1 Tab PO DAILY Symbicort 160-4.5 Mcg Inhaler (Budesonide/Formoterol Fumarate) 10.2 Gm Hfa.aer.ad 2 Puff IH BID Cymbalta (Duloxetine Hcl) 30 Mg Capsule.dr 90 Mg PO DAILY Zofran (Ondansetron Hcl) 4 Mg Tablet 4 Mg PO PRN Q8HRS PRN Milk Of Magnesia (Magnesium Hydroxide) 400 Mg/5 Ml Oral.susp 2,400 Mg PO PRN DAILY PRN Lorazepam 0.5 Mg Tablet 0.5 Mg PO PRN Q6HRS PRN Folic Acid 1 Mg Tablet 1 Mg PO DAILY Spiriva Respimat (Tiotropium [place]) 4 Gm Mist.inhal 2.5 Mcg IH DAILY Diagnosis: Problems: (1) Impulse control disorder (2) Anxiety disorder (3) Mild cognitive disorder (4) Bipolar 1 disorder, mixed, moderate (5) Bipolar 1 disorder, manic, moderate (6) Dementia associated with alcoholism with behavioral disturbance BERNABE DAVID MD Apr 24, 2017 21:45
[2017-04-25 06:16] VITALS: BP 108/66
--- NOTE | 2017-04-25 09:52 | PN ---
DATE: 04/23/2017 Psychiatric Progress Note This late entry 04/23/2017, covers elements not covered in my initial note of 04/23/2017. Met with the patient evening of 04/23/2017. The patient slept 9 hours the previous evening. She continues to make vague suicidal statements and was telling the nursing staff support "do you have cyanide." She is anxious, Ativan at 11:30 seemed to help. REVIEW OF SYSTEMS: No CV, , pulmonary, eye, ENT system symptoms on review. MENTAL STATUS EXAM: Reasonably oriented. Speech is coherent, somewhat ____ tremulous in her mouth with anxiety, abstraction fair, computation impaired, language function intact, attention span short and mood and affect is somewhat anxious. LABORATORY DATA: Reviewed. IMPRESSION: Unchanged from initial note. PLAN: Continue current psychotropics. Review drug interactions, risk/benefit ratio favors no further change. Increase Seroquel from 125 mg at bedtime to 150 mg p.o. at bedtime starting 04/24/2017. MAN Britni DAVID MD DR: SHAQUILLE/ros JOB#: [id number] / [id number]
[2017-04-25] MEDS: DULoxetine HCL 30 MG CAPSULE.DR PO SCH (09:57)
[2017-04-25] MEDS: MULTIVITAMIN with MINERAL TABLET. PO SCH (09:58)
[2017-04-25] MEDS: NICOTINE 21MG PATCH. TD SCH (09:59)
[2017-04-25] MEDS: FOLIC ACID 1 MG TABLET PO SCH (09:59)
[2017-04-25] MEDS: busPIRone 10 MG TABLET. PO SCH ×3 (09:59→20:25)
[2017-04-25] MEDS: FUROSEMIDE 20 MG TABLET PO SCH (11:37)
[2017-04-25 16:33] VITALS: BP 159/87
[2017-04-25] MEDS: DIVALPROEX ER 500 MG TAB.ER.24H PO SCH (20:26)
[2017-04-25] MEDS: QUEtiapine 50 MG TABLET. PO SCH (20:26)
[2017-04-25] MEDS: ACETAMINOPHEN 500 MG TABLET PO SCH (20:26)
[2017-04-25] MEDS: ATORVASTATIN CALCIUM 20 MG TABLET PO SCH (20:26)
[2017-04-25] MEDS: QUEtiapine 100 MG TABLET. PO SCH (20:26)
--- NOTE | 2017-04-25 21:46 | PDOC ---
Exam Doug Demential Exam: Doug Note: Please also refer to the separate dictated note~for this date of service dictated separately.~Patient seen individually. Discussed the patient with Nursing staff reviewed the chart.~Reviewed interim history and current functioning. Reviewed vital signs,~Labs/ Radiology~and current medications noted below. Continue current treatment with the changes noted in the dictated addendum note Assessment: Vital Signs: Vital Signs Date Time Temp Pulse Resp B/P (MAP) Pulse Ox O2 Delivery O2 Flow Rate FiO2 04/25/17 16:33 97.9 77 18 159/87 (111) 90 Room Air I&O Intake and Output 04/26/17 07:00 Intake Total 1380 ml Balance 1380 ml Intake Oral 1380 ml # Bowel Movements 2 Current Medications: Meds: Current Medications Acetaminophen (Tylenol) 650 mg PRN Q6HRS PRN PO PAIN / TEMP; Start 04/18/17 at 23:00; Stop 04/19/17 at 11:24; Status DC Multi-Ingredient Ointment (Analgesic [place]) 1 ana PRN QID PRN TP MUSCLE PAIN; Start 04/18/17 at 23:00; Stop 04/19/17 at 15:57; Status DC Al Hydroxide/Mg Hydroxide (Mylanta Plus Xs) 15 ml PRN AFTMEALHC PRN PO DYSPEPSIA Last administered on 04/20/17 20:07; Start 04/18/17 at 23:00 Magnesium Hydroxide (Milk Of Magnesia) 2,400 mg PRN QHS PRN PO CONSTIPATION; Start 04/18/17 at 23:00; Stop 04/19/17 at 15:57; Status DC Buspirone HCl (Buspar) 10 mg TID PO Last administered on 04/25/17 20:25; Start 04/19/17 at 09:00 Divalproex Sodium (Depakote Er) 750 mg QHS PO Last administered on 04/19/17 19 :52; Start 04/19/17 at 21:00; Stop 04/20/17 at 18:35; Status DC Duloxetine HCl (Cymbalta) 90 mg DAILY PO Last administered on 04/25/17 09:57; Start 04/19/17 at 09:00 Lorazepam (Ativan) 0.5 mg PRN Q6HRS PRN PO ANXIETY / AGITATION Last administered on 04/23/17 11:40; Start 04/18/17 at 23:45 Quetiapine Fumarate (SEROquel) 100 mg QHS PO ; Start 04/19/17 at 21:00; Stop at 21:00; Status DC Acetaminophen (Tylenol) 1,000 mg QHS PO Last administered on 04/25/17 20:26; Start 04/19/17 at 21:00 Acetaminophen (Tylenol) 650 mg PRN Q6HRS PRN PO PAIN / TEMP; Start 04/19/17 at 08:30 Atorvastatin Calcium (Lipitor) 20 mg QHS PO Last administered on 04/25/17 20: 26; Start 04/19/17 at 21:00 Vitamin D (Vitamin D3) 50,000 unit WEEKLY PO Last administered on 04/19/17 09: 14; Start 04/19/17 at 09:00 Cyanocobalamin (Vitamin B-12) 1,000 mcg QMONTH IM ; Start 04/19/17 at 09:00 Folic Acid (Folic Acid) 1 mg DAILY PO Last administered on 04/25/17 09:59; Start 04/19/17 at 09:00 Furosemide (Lasix) 20 mg NOON PO Last administered on 04/25/17 11:37; Start 04/19/17 at 12:00 Magnesium Hydroxide (Milk Of Magnesia) 2,400 mg PRN DAILY PRN PO CONSTIPATION; Start 04/19/17 at 08:30 Multi-Ingredient Ointment (Analgesic [place]) 1 ana PRN QID PRN TP MUSCLE PAIN; Start 04/19/17 at 08:30 Nicotine (Nicoderm Cq 21mg) 1 patch DAILY TD Last administered on 04/25/17 09: 59; Start 04/19/17 at 09:00 Non-Formulary Medication 2 puff BID IH ; Start 04/19/17 at 09:00; Stop 04/19/17 at 09:00; Status DC Multivitamins/ Calcium (Thera-M Plus) 1 tab DAILY PO Last administered on 09:58; Start 04/19/17 at 09:00 Ondansetron HCl (Zofran Odt) 4 mg PRN Q8HRS PRN PO NAUSEA/VOMITING; Start 04/19 at 08:45 Budesonide (Pulmicort) 0.5 mg RTBID NEB ; Start 04/19/17 at 12:00; Stop at 12:00; Status DC Albuterol/ Ipratropium (Duoneb) 3 ml Q6HRS NEB ; Start 04/19/17 at 12:00; Stop 04/19/17 at 12:00; Status DC Albuterol/ Ipratropium (Duoneb) 3 ml PRN Q6HRS PRN NEB SHORTNESS OF BREATH; Start 04/19/17 at 12:00 Budesonide (Pulmicort) 0.5 mg PRN BID PRN NEB SHORTNESS OF BREATH; Start at 12:00 Quetiapine Fumarate (SEROquel) 100 mg QHS PO Last administered on 04/25/17 20: 26; Start 04/19/17 at 21:00 Quetiapine Fumarate (SEROquel) 25 mg QHS PO Last administered on 04/22/17 19: 51; Start 04/19/17 at 21:00; Stop 04/23/17 at 18:24; Status DC Divalproex Sodium (Depakote Er) 1,000 mg QHS PO Last administered on 04/25/17 20:26; Start 04/20/17 at 21:00 Loperamide HCl (Imodium) 4 mg 1X ONCE PO Last administered on 04/21/17 15:26 ; Start 04/21/17 at 15:30; Stop 04/21/17 at 15:31; Status DC Quetiapine Fumarate (SEROquel) 50 mg QHS PO Last administered on 04/25/17 20: 26; Start 04/23/17 at 21:00 Active Scripts Active Reported Seroquel (Quetiapine Fumarate) 100 Mg Tablet 100 Mg PO QHS NICODERM CQ 21mg (Nicotine) 1 Each Patch.td24 1 Patch TD DAILY Analgesic [place] (Methyl Salicylate/Menthol) 28 Gm Oint...g. 1 Ana TP PRN QID PRN Mag-Al Plus Xs Suspension (Mag Hydrox/Al Hydrox/Simeth) 30 Ml Oral.susp 15 Ml PO PRN AFTMEALHC PRN Lasix (Furosemide) 20 Mg Tablet 20 Mg PO NOON Depakote Er (Divalproex Sodium) 250 Mg Tab.er.24h 750 Mg PO QHS Vitamin D3 (Cholecalciferol (Vitamin D3)) 50,000 Unit Capsule 50,000 Unit PO WEEKLY Lipitor (Atorvastatin Calcium) 20 Mg Tablet 20 Mg PO QHS Tylenol (Acetaminophen) 325 Mg Tablet 650 Mg PO PRN Q6HRS PRN Cyanocobalamin Injection (Cyanocobalamin (Vitamin B-12)) 1,000 Mcg/1 Ml Vial 1, 000 Mcg IM QMONTH Buspirone Hcl 10 Mg Tablet 10 Mg PO TID Acetaminophen 500 Mg Tablet 1,000 Mg PO QHS Therems-M (Multivits,Th W-Fe,Other Min) 1 Each Tablet 1 Tab PO DAILY Symbicort 160-4.5 Mcg Inhaler (Budesonide/Formoterol Fumarate) 10.2 Gm Hfa.aer.ad 2 Puff IH BID Cymbalta (Duloxetine Hcl) 30 Mg Capsule.dr 90 Mg PO DAILY Zofran (Ondansetron Hcl) 4 Mg Tablet 4 Mg PO PRN Q8HRS PRN Milk Of Magnesia (Magnesium Hydroxide) 400 Mg/5 Ml Oral.susp 2,400 Mg PO PRN DAILY PRN Lorazepam 0.5 Mg Tablet 0.5 Mg PO PRN Q6HRS PRN Folic Acid 1 Mg Tablet 1 Mg PO DAILY Spiriva Respimat (Tiotropium [place]) 4 Gm Mist.inhal 2.5 Mcg IH DAILY Diagnosis: Problems: (1) Impulse control disorder (2) Anxiety disorder (3) Mild cognitive disorder (4) Bipolar 1 disorder, mixed, moderate (5) Bipolar 1 disorder, manic, moderate (6) Dementia associated with alcoholism with behavioral disturbance BERNABE DAVID MD Apr 25, 2017 21:46
[2017-04-26 06:44] VITALS: BP 101/65
[2017-04-26] MEDS: FOLIC ACID 1 MG TABLET PO SCH (08:33)
[2017-04-26] MEDS: busPIRone 10 MG TABLET. PO SCH ×3 (08:33→20:23)
[2017-04-26] MEDS: DULoxetine HCL 30 MG CAPSULE.DR PO SCH (08:33)
[2017-04-26] MEDS: NICOTINE 21MG PATCH. TD SCH (08:33)
[2017-04-26] MEDS: CHOLECALCIFEROL (VITAMIN D3) 50,000 UNIT CAPSULE PO SCH (08:33)
[2017-04-26] MEDS: MULTIVITAMIN with MINERAL TABLET. PO SCH (08:34)
--- NOTE | 2017-04-26 09:35 | PN ---
DATE: 04/24/2017 PSYCHIATRIC PROGRESS NOTE This late entry date of service 04/24/2017 covers elements not covered in my initial note of 04/24/2017. I met with the patient in the evening of 04/24/2017 and previously talked with Carrie, social service staff about placement options, option of guardianship, initiation as requested by the next facility she would be going to. The patient has the capacity to make decisions for herself, is well oriented, the decisions she chooses for herself are not in her best interest. We have requested psychological testing to help clarify whether she would be a candidate for the guardianship. In the meantime, the patient is not agreeable to the guardianship and I addressed this with her at length. She is open to having her daughter, Gracia Oviedo play this role if we can locate Gracia. Apparently social service staff have tried to locate Gracia and have been unsuccessful. I did do an Internet search and did find her as a dental actuarial assistant at dental practice in [place], [place], and I have printed this out for the social service staff to follow through on and given a copy to patient at her request. Telephone number is [phone]. REVIEW OF SYSTEMS: No CV, , pulmonary, eye, ENT system symptoms on review. Her dentures are lost and she is very distressed with this. MENTAL STATUS EXAM: Reasonably oriented. Speech is coherent. She was tearful at times. Abstraction fair, computation impaired, language function intact. Mood and affect still somewhat labile, depressed. Denies active thoughts of wanting to hurt herself, but still feels hopeless, was better after we were able to locate her daughter. LABORATORY DATA: Reviewed. IMPRESSION: Unchanged from initial note. PLAN: Continue current psychotropics, BuSpar, Depakote, Cymbalta, along with Ativan p.r.n., Seroquel 150 mg p.o. at bedtime. Valproic acid level therapeutic at 64. Reviewed drug interactions. Risk/benefit ratio favors no further change. BERNABE DAVID MD DR: SHAQUILLE/ros JOB#: [id number] / [id number]
[2017-04-26] MEDS: FUROSEMIDE 20 MG TABLET PO SCH (12:08)
[2017-04-26 15:32] VITALS: BP 119/81
[2017-04-26] MEDS: ATORVASTATIN CALCIUM 20 MG TABLET PO SCH (20:22)
[2017-04-26] MEDS: ACETAMINOPHEN 500 MG TABLET PO SCH (20:23)
[2017-04-26] MEDS: QUEtiapine 100 MG TABLET. PO SCH (20:23)
[2017-04-26] MEDS: DIVALPROEX ER 500 MG TAB.ER.24H PO SCH (20:23)
[2017-04-26] MEDS: QUEtiapine 50 MG TABLET. PO SCH (20:23)
[2017-04-27] MEDS ORDERED: QUET50TA5 PO (01:15)
[2017-04-27 06:12] VITALS: BP 103/54
[2017-04-27] MEDS: busPIRone 10 MG TABLET. PO SCH (08:51)
[2017-04-27] MEDS: FOLIC ACID 1 MG TABLET PO SCH (08:51)
[2017-04-27] MEDS: NICOTINE 21MG PATCH. TD SCH (08:51)
[2017-04-27] MEDS: DULoxetine HCL 30 MG CAPSULE.DR PO SCH (08:51)
[2017-04-27] MEDS: MULTIVITAMIN with MINERAL TABLET. PO SCH (08:51)
--- NOTE | 2017-04-28 04:52 | PN ---
DATE: 04/25/2017 This is a late entry for 04/25/2017 and covers the elements not covered in my initial note of 04/25/2017. SUBJECTIVE: I met with the patient evening of 04/25/2017. The patient has been somewhat withdrawn, crying at times, made vague suicidal statements to nursing staff stating she would just like to go to sleep and not wake up, but when questioned directly, she denied active suicidal ideation, but she really wants to contact her daughter and I did do an Internet search and found daughter, Gracia Oviedo at [facility] in [place] in [place], where she works as a dental underwriting assistant. The telephone numbers and daughters photograph has been provided to the patient that she requested that she lost to contact her daughter. This is up to the patient to decide. REVIEW OF SYSTEMS: No CV, , pulmonary, eye system symptoms on review. MENTAL STATUS EXAM: Reasonably oriented. Speech has some latency, coherent, a little tearful at times. Abstraction fair, computation impaired, language function intact. Mood and affect still somewhat withdrawn and depressed, but much of this is psychosocial stressors regarding placement, no contact with daughter, etc. LABORATORY DATA: Reviewed. IMPRESSION: Unchanged from initial note. PLAN: Continue current psychotropics, reviewed drug interactions, risk/benefit ratio favors no further change. The social service staff have drafted a letter as requested by the receiving [facility], indicating that the patient may benefit from having either a family member or a court appointed guardian to help make decisions for her and find placement and secure other services for her. The patient requested her daughter be given this if the daughter agrees to it. The patient does seem to have the capacity to make decisions, but has made some poor choices for herself. It is unclear whether she meets the court criteria for having a guardian, but since she seems to have the capacity to make decisions being preserved though to her choices have been questionable. Nevertheless, this letter has been provided as requested by the receiving [facility], addressed this with the patient. MAN Britni DAVID MD DR: SHAQUILLE/ros JOB#: [id number] / [id number]
--- NOTE | 2017-04-28 05:49 | PN ---
DATE: 04/26/2017 PSYCHIATRIC PROGRESS NOTE This late entry 04/26/2017 covers elements, not covered in my initial note of 04/26/2017. I met with the patient the evening of 04/26/2017 and she was staffed at treatment team meeting with entire team morning of 04/26/2017. She has denied active suicidal ideation, but remains somewhat withdrawn, anxious, at times tearful, overwhelmed with her psychosocial stressors, placement options, wanting to contact her daughter, not being able to do this. She has left several messages for the daughter with no return call. She slept 7-1/2 hours previous evening per nursing report. REVIEW OF SYSTEMS: No CV, , pulmonary, eye system symptoms on review. MENTAL STATUS EXAM: Oriented reasonably. Speech is coherent, abstraction fair, computation impaired, language function intact, attention span short. Mood and affect somewhat anxious, depressed. No active suicidal or homicidal ideation on direct questioning, but still somewhat overwhelmed with the psychosocial stressors. LABORATORY DATA: Reviewed. IMPRESSION: Unchanged from initial note. PLAN: Continue current psychotropics. Reviewed drug contractions. Risk/benefit ratio favors no further change. MAN Britni DAVID MD DR: SHAQUILLE/ros JOB#: [id number] / [id number]
--- NOTE | 2017-04-28 23:53 | DS ---
DATE OF DISCHARGE: 04/27/2017 DISCHARGE SUMMARY/PSYCHIATRIC PROGRESS NOTE This late entry date of service 04/27/2017 covers elements, not covered in my initial note of 04/27/2017. REASON FOR ADMISSION: Please refer to the admission history for details. Briefly, the patient is a 71-year-old female who is recently discharged from our facility to the nursing facility in [place], [place]. She states that just a few days she was unhappy there, expressed suicidal ideation, took a taxicab on her own, paid $200 for it for not a very long journey and presented back at our Emergency Room. She was readmitted because of her voicing to suicidal ideation and potential risks for this. SIGNIFICANT FINDING AND CLINICAL COURSE: Following admission, the patient was seen daily individually by myself, followed medically per Dr. Guzman/Dr. Reyes. The patient was apprehensive about another placement that did not have any other living arrangements. The social service staff, Carrie, worked conscientiously to find placement for her in [place], [place]. The patient was not entirely excited about going to the new facility, but able to accept that this was a place for her to live and then develop on bending some relationships, especially with her daughter. Her daughter, Gracia Oviedo, was traced as a dental assistant track coach at the [place], [place] dental clinic. The patient tried to call the daughter on a few occasions, but never received a return call back making her somewhat disappointed. Nevertheless, she was able to accept that since their relationship had been problematic for some time, it might take time for the daughter to respond back to her, if the patient was accepting of this, as I processed this with her. During this hospitalization, she continued to have some vague suicidal ideation, but nothing specific. Adjustments were made in her psychotropics and she seemed to respond with an improved mood to a combination of BuSpar 10 mg 3 times a day, Depakote ER 1000 mg at bedtime, level was therapeutic at 64, Cymbalta 90 mg a day, Seroquel 150 mg at bedtime, Ativan p.r.n. Prior to discharge on 04/27/2017, 3 separate nursing staff/social service staff members evaluated the patient for any active suicidal ideation and the patient denied this prior to discharge, this included Carrie Woo, high school social studies teacher, Roscoe Osman RN and Ginger Ruffin, THAD. REVIEW OF SYSTEMS: Prior to discharge, no CV, , pulmonary, eye, ENT system symptoms on review. MENTAL STATUS EXAM: Reasonably oriented. Speech coherent, still somewhat dysphoric. No active suicidal or homicidal ideation. Somewhat frustrated with her and her psychosocial circumstances and placement. CONDITION AT DISCHARGE: Nevertheless was improved with no active suicidal ideation. FINAL DIAGNOSES: Bipolar 1 disorder, depressed, in partial remission. History of major depressive disorder, in partial remission; anxiety disorder, unspecified; personality disorder, unspecified. Rest of diagnoses unchanged from admission. DISCHARGE MEDICATIONS: Please refer to the [facility]. DISCHARGE INSTRUCTIONS: Outpatient psychiatric and medical followup at ____ facility in [place], [place]. Time for discharge day management is greater than 30 minutes. BERNABE DAVID MD DR: SHAQUILLE/ros JOB#: [id number] / [id number]
== END 2017-04-27 11:30 | DRG 885 ==
LOC: ER 18:26 → GEROPSY 21:56
PROVIDERS: ADMIT Psychiatry & Neurology Psychiatry; ATTEND Psychiatry & Neurology Psychiatry
DX: F31.62 Bipolar disorder, current episode mixed, moderate (principal); F10.27 Alcohol dependence with alcohol-induced persisting dementia; R45.851 Suicidal ideations; J44.9 Chronic obstructive pulmonary disease, unspecified; F17.210 Nicotine dependence, cigarettes, uncomplicated; F41.9 Anxiety disorder, unspecified; F60.9 Personality disorder, unspecified; F63.9 Impulse disorder, unspecified; I10 Essential (primary) hypertension; F12.90 Cannabis use, unspecified, uncomplicated; Y90.9 Presence of alcohol in blood, level not specified; G47.00 Insomnia, unspecified; Z79.899 Other long term (current) drug therapy; Z90.49 Acquired absence of other specified parts of digestive tract; Z90.710 Acquired absence of both cervix and uterus; Z91.14 Patient's other noncompliance with medication regimen; Z59.0 Homelessness
CPT/HCPCS: 36415; 71010; 80053; 80061; 80164; 81001; 82306; 82607; 83036; 83540; 83550; 83735; 84436; 84443; 84480; 85007; 85025; 86592; 86593; 87086; 93005; 99406; 99285-25